=== PATIENT | female | born 1980 | race Caucasian/White ===

== ENCOUNTER 2023-05-02 12:17 | Emergency (ER) | payer OTHER, SELFPAY ==
[2023-05-02] VITALS (12 sets, daily range): BP systolic 115–121; BP diastolic 68–89; PULSE 63–78; RESP 15–34; TEMP 36.9; O2SAT 98–100; BMI 35.4
--- NOTE | 2023-05-02 12:32 | ECG_ITS ---
The [facility] Test Date: 2023-05-02 Pat Name: LAURA PERAZA Department: Room: - Gender: Female Precise Winder: : 1980 Requested By: Order Number: [id number] Reading MD: MILTON DONOVAN Measurements Intervals [place] Rate: 58 P: 66 DC: 150 QRS: 57 QRSD: 78 T: 61 QT: 410 QTc: 406 Interpretive Statements 1100 Sinus rhythm Non-Specific T wave inversion in aVL 9110 normal ECG No previous ECG available for comparison Electronically Signed On 05-03-2023 5:36:23 EDT by MILTON DONOVAN
--- NOTE | 2023-05-02 12:34 | ED_ITS ---
HPI - Syncope General Chief Complaint: Dizziness Stated Complaint: CHEST PAIN Time Seen by Provider: 05/02/23 12:27 Mode of arrival: walk-in Limitations: no limitations History of Present Illness HPI narrative: 42-year-old female presents because she passed out twice in the past week. The 1st time she was standing at work and she did not get injured. The 2nd time was last night and she was sitting on the edge her easy chair and she passed out and went to the floor. She didn't hit her head. She has some pain on the right lateral rib palpitations fever vomiting diarrhea. She has a history of anemia and has had to have iron transfusions in the past. Related Data Allergies Allergy/AdvReac Type Severity Reaction Status Date / Time MOBIC AdvReac Intermediate RASH Uncoded 05/02/23 12:33 Review of Systems ROS Narrative A ten point review of systems is negative except as noted above. Exam Narrative Exam Narrative: Nurses note and vital signs reviewed and patient is not hypoxic. General: The patient appears well and in no apparent distress. Patient is resting comfortably on cart. Skin: Warm, dry, no pallor noted. There is no rash noted. Head: Normocephalic, atraumatic Eye: Normal conjunctiva, no drainage Ears, Nose, Mouth, and Throat: oral mucosa is moist. Nares patent. Cardiovascular: Regular Rate and Rhythm Respiratory: Patient is in no distress, no accessory muscle use, lungs are clear to auscultation, no wheezing, rales or rhonchi. minimal tenderness to palpation in the right lateral rib area without crepitus bruise or abrasion Back: non-tender GI: soft and nontender Musculoskeletal: The patient has no evidence of calf tenderness, no pitting edema, symmetrical pulses noted bilaterally Neurological: A&O, normal speech Psychiatric: Cooperative Constitutional Vital Signs, click to edit/add: Last Vital Signs Temp 98.5 F 05/02/23 12:25 Pulse 70 05/02/23 13:40 Resp 34 H 05/02/23 13:40 BP 115/89 05/02/23 12:25 Pulse Ox 100 05/02/23 12:25 O2 Del Method Room Air 05/02/23 12:25 Course Vital Signs Vital signs: Vital Signs Temperature 98.5 F 05/02/23 12:25 Pulse Rate 72 05/02/23 12:25 Respiratory Rate 15 05/02/23 12:25 Blood Pressure 115/89 05/02/23 12:25 Pulse Oximetry 100 05/02/23 12:25 Oxygen Delivery Method Room Air 05/02/23 12:25 Temperature 98.5 F 05/02/23 12:25 Pulse Rate 70 05/02/23 13:40 Respiratory Rate 34 H 05/02/23 13:40 Blood Pressure 115/89 05/02/23 12:25 Pulse Oximetry 100 05/02/23 12:25 Oxygen Delivery Method Room Air 05/02/23 12:25 MDM - Syncope MDM Narrative Medical decision making narrative: her workup here is negative, hemoglobin is 10.8. She is asymptomatic now and will be discharged home. Treatment diagnosis and follow-up were discussed with the patient. Differential Diagnosis Differential diagnosis: Likely syncope due to orthostatic hypotension, vasovagal syncope and dehydration Lab Data Attestation: I reviewed the patient's lab results. Labs: Lab Results 05/02/23 Range/Units 12:45 WBC 7.7 (4.0-11.0) 10^3/uL RBC 3.85 L (4.20-5.40) 10^6/uL Hgb 10.8 L (12.0-16.0) g/dL Hct 34.0 L (36.0-48.0) % MCV 88.3 (81.0-99.0) fL MCH 28.1 (26.7-34.0) pg MCHC 31.8 (29.9-35.2) g/dL RDW 13.3 (11.0-15.0) % Plt Count 262 (150-450) 10^3/uL MPV 11.7 (9.5-13.5) fL Neut % (Auto) 63.6 (43.0-75.0) % Lymph % (Auto) 23.5 (20.5-60.0) % [place] % (Auto) 8.1 (1.7-12.0) % Eos % (Auto) 3.7 (0.9-7.0) % Baso % (Auto) 0.7 (0.2-2.0) % Neut # (Auto) 4.9 (1.4-6.5) 10^3/uL Lymph # (Auto) 1.8 (1.2-3.8) 10^3/uL [place] # (Auto) 0.6 (0.3-0.8) 10^3/uL Eos # (Auto) 0.3 (0.0-0.7) 10^3/uL Baso # (Auto) 0.1 (0.0-0.1) 10^3/uL Abs Immat Gran (auto) 0.03 (0.00-0.03) 10^3/uL Imm/Tot Granulo (auto) 0.4 (0.0-0.5) % Sodium 137 (136-145) mmol/L Potassium 3.9 (3.5-5.1) mmol/L Chloride 104 (98-107) mmol/L Carbon Dioxide 27.5 (21.0-32.0) mmol/L Anion Gap 9.4 BUN 14.0 (7.0-18.0) mg/dL Creatinine 0.84 (0.55-1.02) mg/dL Est GFR ( Amer) >60 (>=60) Est GFR (Non-Af Amer) >60 (>=60) BUN/Creatinine Ratio 16.7 Glucose 88 (74-106) mg/dL Calcium 8.5 (8.5-10.1) mg/dL Troponin I High Sens <4.0 L (4.0-51.3) pg/mL ECG Data Attestation: I personally reviewed and interpreted this ECG as follows: (EKG on my interpretation shows normal sinus rhythm with a rate of 58.) Discharge Plan Discharge Chief Complaint: Dizziness Clinical Impression: Syncope Patient Disposition: Home, Self-Care Time of Disposition Decision: 13:43 Condition: Good Mode of Transportation: Private Vehicle Instructions: Syncope (ED) Stand Alone Forms: Portal Instructions Referrals: JB CARSON [Primary Care Provider] - 1 week
[2023-05-02 12:55] LABS: Basophils Absolute Auto 0.1 10^3/uL (0.0-0.1); Basophils Percent Auto 0.7 % (0.2-2.0); Eosinophils Absolute Auto 0.3 10^3/uL (0.0-0.7); Eosinophils Percent Auto 3.7 % (0.9-7.0); Hemoglobin 10.8 g/dL (12.0-16.0); Immature Granulocytes Abs Auto 0.03 10^3/uL (0.00-0.03); Immature Granulocytes Pct Auto 0.4 % (0.0-0.5); Lymphocytes Absolute Auto 1.8 10^3/uL (1.2-3.8); Lymphocytes Percent Auto 23.5 % (20.5-60.0); Mean Corpuscular HGB Conc 31.8 g/dL (29.9-35.2); Mean Corpuscular Hemoglobin 28.1 pg (26.7-34.0); Mean Corpuscular Volume 88.3 fL (81.0-99.0); Mean Platelet Volume 11.7 fL (9.5-13.5); Monocytes Absolute Auto 0.6 10^3/uL (0.3-0.8); Monocytes Percent Auto 8.1 % (1.7-12.0); Neutrophils Absolute Auto 4.9 10^3/uL (1.4-6.5); Neutrophils Percent Auto 63.6 % (43.0-75.0); Platelet Count 262 10^3/uL (150-450); Red Blood Count 3.85 10^6/uL (4.20-5.40); Red Cell Distribution Width 13.3 % (11.0-15.0); White Blood Count 7.7 10^3/uL (4.0-11.0)
--- NOTE | 2023-05-02 13:00 | XR_ITS ---
The [address] [address] Patient Name: LAURA PERAZA MRN: [id number] date: 1980 Sex: F Assigned Patient Location: ER Current Patient Location: ER Accession/Order Number: [id number] Exam Date: 05/02/2023 12:58 Report Date: 05/02/2023 13:09 At the request of: JUAN RYDER Procedure: XR chest 1V EXAM: XR chest 1V HISTORY: . CP . COMPARISON: None. TECHNIQUE: Single view of the chest FINDINGS: Heart and vascularity are unremarkable. Lungs are free of focal infiltrates. EKG leads overlie the chest. XR/XR chest 1V IMPRESSION: No acute heart or lung disease identified. Electronically authenticated by: YG AYOUB Date: 05/02/2023 13:09
[2023-05-02 13:03] LABS: Anion Gap 9.4; BUN Creatinine Ratio 16.7; Calcium 8.5 mg/dL (8.5-10.1); Carbon Dioxide 27.5 mmol/L (21.0-32.0); Chloride 104 mmol/L (98-107); Estimated GFR (African America >60 (>=60); Estimated GFR (Non-African Ame >60 (>=60); Glucose 88 mg/dL (74-106); Potassium 3.9 mmol/L (3.5-5.1); Sodium 137 mmol/L (136-145)
[2023-05-02 13:12] LABS: Troponin I High Sensitivity <4.0 pg/mL (4.0-51.3)
== END 2023-05-02 14:08 | disposition home or self-care (01) ==
PROVIDERS: Emergency Provider Emergency Medicine
DX: R55 Syncope and collapse (principal)
CPT/HCPCS: 36415; 71045; 80048; 84484; 85025; 93005; 99285

== ENCOUNTER 2023-06-24 08:06 | Outpatient (OUT) | payer OTHER, SELFPAY ==
--- NOTE | 2023-06-24 | CT_ITS ---
The [address] [address] Patient Name: LAURA PERAZA MRN: [id number] date: 1980 Sex: F Assigned Patient Location: CT Current Patient Location: Accession/Order Number: [id number] Exam Date: 06/24/2023 08:15 Report Date: 06/25/2023 16:56 At the request of: NON-STAFF PHYSICIAN Procedure: CT foot RT wo con EXAM: CT foot RT wo con HISTORY: Right foot pain COMPARISON: None. TECHNIQUE: Axial CT imaging was performed. Sagittal and coronal reformatted/reconstructed sequences were additionally performed. FINDINGS: No gross fracture, dislocation, subluxation or osseous lesion. Age-related changes of the first metatarsophalangeal joint and sesamoids. The remainder of the joint spaces are otherwise unremarkable. The superficial subcutaneous soft tissues are free of edema, hematoma, mass or cyst. No muscle atrophy or fatty infiltration. CT/CT foot RT wo con IMPRESSION: Unremarkable foot CT for patient's age Electronically authenticated by: YG PÉREZ Date: 06/25/2023 16:56
== END 2023-06-24 08:07 | disposition home or self-care (01) ==
LOC: CT 08:07
DX: M79.671 Pain in right foot (principal)
CPT/HCPCS: 73700

== ENCOUNTER 2023-09-21 16:24 | Outpatient (OUT) | payer OTHER, SELFPAY ==
--- NOTE | 2023-09-21 16:30 | MR_ITS ---
The [place] [id number] Patient Name: LUARA PERAZA MRN: [id number] date: 1980 Sex: F Assigned Patient Location: MRI Current Patient Location: MRI Accession/Order Number: [id number] Exam Date: 09/21/2023 16:40 Report Date: 09/21/2023 19:03 At the request of: NON-STAFF PHYSICIAN Procedure: MR shoulder LT wo con MR shoulder LT wo con, 09/21/2023 4:40 PM EST INDICATION: pain in left shoulder COMPARISON: There is no appropriate prior study for comparison. TECHNIQUE: Multiplanar and multisequential MR images of the left shoulder were obtained without contrast. FINDINGS: There are mild hypertrophic degenerative changes of AC joint. There is no os acromiale. No Hill-Sachs is noted. No acute fracture or dislocation is noted. The quadrilateral space and supraspinous notch are unremarkable. The T2 prolongation within the insertional portions of infraspinatus may suggest tendinosis. The long head of biceps and supraspinatus and subscapularis and teres minor are unremarkable. No fatty muscle atrophy is noted. The labrum shows mild degenerative changes in the posterior portion. There is a Margie complex. There is trace intra articular joint effusion. Mild subacromial subdeltoid bursitis. MR/MR shoulder LT wo con IMPRESSION: Insertional tendinosis of infraspinatus. No high-grade tear. Mild subacromial subdeltoid bursitis. Electronically authenticated by: BEAN HOANG Date: 09/21/2023 19:03
== END 2023-09-21 16:25 | disposition home or self-care (01) ==
DX: M25.512 Pain in left shoulder (principal)
CPT/HCPCS: 73221

== ENCOUNTER 2024-03-12 16:29 | Outpatient (OUT) | payer OTHER, SELFPAY ==
--- NOTE | 2024-03-12 | MM_ITS ---
Patient Name: LAURA PERAZA MR#: [id number] : 1980 Exam Date: 03/12/2024 Ordering Doctor: MRS. JB CARSON NP RADIOLOGY REPORT PROCEDURE: MM TOMOSYNTHESIS SCREENING BI COMPARISON: MG MAMM SCREEN ANNEL W CAD, 06/23/2020. MG MAMM SCREEN 3D ANNEL CAD, 11/23/2021. INDICATIONS: Screening for malignant neoplasm Calculator Name NCI Breast Cancer Risk Assessment Tool 5 Year Breast Cancer Risk 1.30% Lifetime Breast Cancer Risk 12.90% Personal Breast Cancer No Personal Ovarian Cancer No Treatments None Family Cancers Grandmother-paternal with lung cancer at age ~65; Grandfather-paternal with colon cancer at age ~65. LOCATION: [facility] BREAST COMPOSITION: There are scattered areas of fibroglandular density. FINDINGS: DIAGNOSTIC CATEGORY 1--NEGATIVE. NO CHANGE FROM COMPARISON ASSESSMENT. Scattered benign-appearing calcifications are present. Scattered benign-appearing lymph nodes are present. RIGHT BREAST: No significant suspicious finding. LEFT BREAST: No significant suspicious finding. RECOMMENDATIONS: ROUTINE MAMMOGRAM AND CLINICAL EVALUATION IN 12 MONTHS. PLEASE NOTE: A NORMAL MAMMOGRAM DOES NOT EXCLUDE THE POSSIBILITY OF BREAST CANCER. A CLINICALLY SUSPICIOUS PALPABLE LUMP SHOULD BE BIOPSIED. Dictated by: Vinicius Ralph MD on 03/13/2024 at 07:35 Approved by: Vinicius Ralph MD on 03/13/2024 at 07:36
--- OUTSIDE RECORDS SUMMARY | 2024-03-12 16:40 | XMS_ITS | CCD ---
Author Organization [facility] Care Team Providers Care Lawyers Name Role Phone OLIVIA LIU Unavailable Un available OLIVIA LIU Unavailable Un available TIM Mora Attending Provider TIM Carson Primary Care Provider [phone] TIM Carson Referring Provider [phone] TIM Mora Attending Provider TIM Carson Primary Care Provider [phone] TIM Carson Referring Provider [phone] TIM Mora Attending Provider TIM Carson Primary Care Provider [phone] TIM Carsonca Referring Provider [phone] JB CARSON Attending Unavailable DR HERNANDO LAMA Consulting Unavailable ALLI JB Admitting Unavailable ALLI JB Consulting Unavailable ALLI JB Admitting Unavailable ALLI JB Attending Unavailable DAVID LOPEZ Consulting Unavailable JB CARSON Consulting Unavailable Marcela Mora Attending Unavail able Alli Jb Primary Care Unavailable Alli Jb Referring Unavailable Marcela Mora Admitting Unavail able Allergies Allergy Classification Reported Allergen(s) Allergy Type Date of Onset Reaction(s) Facility (5 sources) meloxicam; Translations: [meloxicam] Drug Allergy 01-25-2022 [facility] Medications Current Medications Medication Drug Class(es) Dates Sig (Normalized) Sig (Original) fexofenadine hydrochloride 6 mg/ml oral suspension (4 sources) Histamine-1 Receptor Antagonist Start: 01-25-2022 take 60 mg by mouth twice daily Fexofenadine (Sanjuana) 30 mg/5 mL Suspension Active 60 MG PO Twice daily January 24, 2022 11:00pm Problems Active Problems Problem Classification Problem Date Documented Da te Episodic/Chronic Deficiency and other anemia (1 source) Iron deficiency anemia secondary to blood loss (chronic); Translations: [Iron deficiency anemia secondary to blood loss (chronic)] Onset: 06-15-2022 Chronic Deficiency and other anemia (4 sources) Iron deficiency anemia; Translations: [Iron deficiency anemia, unspecified] 01-25-2022 Episodic Other non-traumatic joint disorders (4 sources) Pain in right wrist; Translations: [PAIN IN RIGHT WRIST] Onset: 08-04-2022 Episodic Other upper respiratory infections (4 sources) Upper respiratory infection; Translations: [Acute upper respiratory infection, unspecified] 02-24-2020 Episodic Past or Other Problems Problem Classification Problem Date Documented Da te Episodic/Chronic Deficiency and other anemia (4 sources) Iron deficiency anemia, unspecified; Translations: [Iron deficiency anemia, unspecified] Onset: 06-15-2022 04-05-2022 Episodic Nonspecific chest pain (1 source) Other chest pain; Translations: [Other chest pain] Onset: 05-31-2017 Episodic Other screening for suspected conditions (not mental disorders or infectious disease) (4 sources) Encounter for screening mammogram for malignant neoplasm of breast; Translations: [ENC SCR MAMMO MALIG NEOPLASM BREAST] Onset: 11-23-2021 Episodic Residual codes; unclassified (1 source) Family history of malignant neoplasm of digestive organs; Translations: [FAM HX MALIG NEOPLASM DIGESTIV ORGN] Onset: 11-25-2021 Episodic Residual codes; unclassified (1 source) Family history of malignant neoplasm of trachea, bronchus and lung; Translations: [FAM HX MALIG NEOPLSM TRACH BRON LNG] Onset: 11-25-2021 Episodic Results Test Name Value Interpretation Reference Range Facility XR WRIST RT MIN 3 Von 2021 XR WRIST RT MIN 3 V EXAM: XR WRIST RT LA N 3 V HISTORY: Pain of right wrist for the past 4 weeks after an injury. COMPARISON: None. TECHNIQUE: 3 views of the right wrist were obtained. FINDINGS: There is no evidence of an acute fracture or dislocation. Slight ulnar minus variance is present. No significant osseous abnormality is seen. A small calcification is seen along the radial aspect of the first carpometacarpal joint and the remainder the joint spaces are intact. No other soft tissue calcifications present. IMPRESSION: No acute fracture or dislocation. The joint spaces appear relatively intact throughout. Electronically authenticated by: DAVID LOPEZ Date: 2022-08-04 18:44 Normal [facility] Basophils Auto (Bld) [#/Vol] Ordered By: Marcela Mora on 06-08-2022 Basophils (Bld) [#/Vol] 0.1 10*3/uL 0.0-0.2 [facility] Basophils/100 WBC Auto (Bld) Ordered By: Marcela Mora on 06-08-2022 Basophils/100 WBC (Bld) 1.0 % . [facility] Body fluid albumin measureme nt (mass/volume)Ordered By: Marcela Mora on 06-08-2022 Albumin (Body fld) [Mass/Vol] 4.1 g/dL 3.2-5.5 [facility] CT biopsyOrdered By: Marcela Hernandez on 06-08-2022 Transferrin [Mass/Vol] 237 mg/dL 180-[facility] Creat[facility] and Glomerular fi ltration rate.predicted panel (S/P/Bld)Ordered By: Marcela Mora on 06-08-2022 Creatinine [Mass/Vol] 0.76 mg/dL 0.44-1.03 [facility] Eosinophils Auto (Bld) [#/Vo l]Ordered By: Marcela Mora on 06-08-2022 Eosinophils (Bld) [#/Vol] 0.2 10*3/uL 0.0-0.45 [facility] Eosinophils/100 WBC Auto (Bl d)Ordered By: Marcela Mora on 06-08-2022 Eosinophils/100 WBC (Bld) 3.2 % . [facility] Erythrocyte distribution wid th Auto (RBC) [Ratio]Ordered By: Marcela Mora on 06-08-2022 Erythrocyte distribution width (RBC) [Ratio] 13.9 % 11.9-15.3 [facility] Erythrocyte sedimentation ra te by Photometric methodOrdered By: Marcela Mora on 06-08-2022 ESR Photometric method (Bld) [Velocity] 20 mm/hr 0- [facility] Estimated glomerular filtrat ion rate (GFR) non- AmericanOrdered By: Marcela Mora on 06-08-2022 GFR/1.73 sq M.predicted among non-blacks MDRD (S/P/Bld) [Vol rate/Area] > 60 mL/Min [facility] Ferritin [Mass/volume] in Se rum or PlasmaOrdered By: Marcela Mora on 06-08-2022 Ferritin [Mass/Vol] 205.5 ng/mL 11-306.[address] [facility] Globulin Calc (S) [Mass/Vol] Ordered By: Marcela Mora on 06-08-2022 Globulin (S) [Mass/Vol] 3.2 g/dL [facility] Hematocrit Auto (Bld) [Volum e fraction]Ordered By: Marcela Mora on 06-08-2022 Hematocrit (Bld) [Volume fraction] 36.2 % 34.0-46.4 [facility] Hemoglobin [Mass/volume] in BloodOrdered By: Marcela Mora on 06-08-2022 Hemoglobin (Bld) [Mass/Vol] 11.7 g/dL 11.8-15.4 [facility] Iron [Mass/volume] in Serum or PlasmaOrdered By: Marcela Mora on 06-08-2022 Iron [Mass/Vol] 134 ug/dL 40-150 [facility] Iron binding capacity [Mass/ volume] in Serum or PlasmaOrdered By: Marcela Mora 06-08-2022 Iron binding capacity [Mass/Vol] 332 ug/dL 255-450 [facility] Iron saturation [Mass Fracti on] in Serum or PlasmaOrdered By: Marcela Mora on 06-08-2022 Iron saturation [Mass fraction] 40.0 % 20-50 [facility] Laboratory - Hematology and Cell countsOrdered By: Marcela Mora on 06-08-2022 Nucleated RBC/100 WBC (Bld) [Ratio] 0.1 % 0-0.5 [facility] Leukocytes [#/volume] in Blo od by Automated countOrdered By: Marcela Mora on 06-08-2022 WBC (Bld) [#/Vol] 7.8 10*3/uL 4.5-11.0 [facility] Lymphocytes Auto (Bld) [#/Vo l]Ordered By: Marcela Mora on 06-08-2022 Lymphocytes (Bld) [#/Vol] 1.5 10*3/uL 1.00-4.8 [facility] Lymphocytes/100 WBC Auto (Bl d)Ordered By: Marcela Mora on 06-08-2022 Lymphocytes/100 WBC (Bld) 19.4 % . [facility] MCH Auto (RBC) [Entitic mass ]Ordered By: Marcela Mora on 06-08-2022 MCH (RBC) [Entitic mass] 28.7 pg 24.7-34.3 [facility] MCHC Auto (RBC) [Mass/Vol]Or dered By: Marcela Mora on 06-08-2022 MCHC (RBC) [Mass/Vol] 32.3 g/dL 32.0-35.0 [facility] MCV Auto (RBC) [Entitic vol] Ordered By: Marcela Mora on 06-08-2022 MCV (RBC) [Entitic vol] 88.9 fL 80-100 [facility] Monocyte %Ordered By: Marcela alvarenga on 06-08-2022 Monocyte % 99 ug/dL 80-158 [facility] Comment on above: This test was develo ped and its performance characteristicsdetermined by [facility]. It has not been cleared orapproved by the Food and Drug Administration. Detection Limit = 5Performed at: [facility] [id number] Director: Brandon Silvestre MD, Phone: [phone] Monocytes Auto (Bld) [#/Vol] Ordered By: Marcela Mora on 06-08-2022 Monocytes (Bld) [#/Vol] 0.5 10*3/uL 0.0-0.8 [facility] Monocytes/100 WBC Auto (Bld) Ordered By: Marcela Mora on 06-08-2022 Monocytes/100 WBC (Bld) 6.6 % . [facility] Neutrophils Auto (Bld) [#/Vo l]Ordered By: Marcela Guzmanboske on 06-08-2022 Neutrophils (Bld) [#/Vol] 5.4 10*3/uL 1.8-7.7 [facility] Neutrophils/100 WBC Auto (Bl d)Ordered By: Marcela Morgan on 06-08-2022 Neutrophils/100 WBC (Bld) 69.8 % . [facility] No Panel InformationOrdered By: Marcela Morgan on 06-08-2022 Absolute Reticulocyte Count 0.068 10*6/uL 0.024-0.084 [facility] Percent Reticulocyte Count 1.7 % 0.5-1.5 [facility] Slides for Pathologist Review Ordered path review [facility] Estimated GFR () > 60 mL/Min [facility] Comment on above: GFR estimated refere nce range: According to KDOQI guidelines, <60 ml/min/1.73m2 is sufficient to diagnose a patient with chronic kidney disease. Pharmacy Creatinine Clearance (Chem 125.48 [facility] Platelet mean volume Auto (B ld) [Entitic vol]Ordered By: Marcela Morgan on 06-08-2022 Platelet mean volume (Bld) [Entitic vol] 10.6 fL 6.3-10.7 [facility] Platelets Auto (Bld) [#/Vol] Ordered By: Marcela Morgan on 06-08-2022 Platelets (Bld) [#/Vol] 256 10*3/uL 150-450 [facility] Protein [Mass/volume] in Ser um or PlasmaOrdered By: Marcela Mora on 06-08-2022 Protein [Mass/Vol] 7.3 g/dL 6.1-7.9 [facility] RBC Auto (Bld) [#/Vol]Ordere d By: Marcela Morgan on 06-08-2022 RBC (Bld) [#/Vol] 4.07 10*6/uL 3.60-5.00 [facility] Serum or plasma alanine lugo otransferase measurement without P-5'-P (enzymatic activiOrdered By: Marcela Morgan on 06-08-2022 ALT No additional P-5'-P [Catalytic activity/Vol] 20 U/L 10-60 [facility] Serum or plasma albumin/glob ulin mass ratioOrdered By: Marcela Morgan on 06-08-2022 Albumin/Globulin [Mass ratio] 1.3 {ratio} [facility] Serum or plasma alkaline zo sphatase measurement (enzymatic activity/volume)Ordered By: Marcela Morgan on 06-08-2022 ALP [Catalytic activity/Vol] 53 U/L 32-92 [facility] Serum or plasma anion gap de terminationOrdered By: Marcela Morgan on 06-08-2022 Anion gap [Moles/Vol] 10.0 mmol/L 6.0-15.0 [facility] Serum or plasma aspartate am inotransferase measurement (enzymatic activity/volume)Ordered By: Marcela Morgan on 06-08-2022 AST [Catalytic activity/Vol] 17 U/L 10-42 [facility] Serum or plasma calcium sawyer urement (mass/volume)Ordered By: Marcela Morgan on 06-08-2022 Calcium [Mass/Vol] 9.3 mg/dL 8.2-10.2 [facility] Serum or plasma ceruloplasmi n measurement (mass/volume)Ordered By: Marcela Morgan on 06-08-2022 Ceruloplasmin [Mass/Vol] 23.1 mg/dL 19.0-39.0 [facility] Comment on above: Performed at: [facility] [address] [id number] Director: Nicholas Mejia PhD, Phone: [phone] Serum or plasma chloride diogo surement (moles/volume)Ordered By: Marcela Morgan on 06-08-2022 Chloride [Moles/Vol] 102 mmol/L 95-[address] [facility] Serum or plasma erythropoiet in (EPO) measurement (units/volume)Ordered By: Marcela Morgan on 06-08-2022 Erythropoietin (EPO) Qn 11.6 mIU/mL 2.6-18.5 [facility] Comment on above: [employer] Uni[employer] el DxI 800 Immunoassay SystemValues obtained with different assay methods or kits cannotbe used interchangeably. Results cannot be interpreted asabsolute evidence of the presence or absence of malignantdisease.Performed at: [facility] [employer] [id number] [place], [place] [id number] Director: Nicholas Mejia PhD, Phone: [phone] Serum or plasma glucose sawyer urement (mass/volume)Ordered By: Marcela Mora on 06-08-2022 Glucose [Mass/Vol] 92 mg/dL 70-100 [facility] Comment on above: ADA recommended refe rence rangeRandom Glucose Reference Range is dependent on time and content of last meal. Glucose of more than 200 mg/dL in a nonstressed, ambulatory subject supports the diagnosis of Diabetes Mellitus. Serum or plasma potassium me asurement (moles/volume)Ordered By: Marcela Mora on 06-08-2022 Potassium [Moles/Vol] 4.0 mmol/L 3.5-5.1 [facility] Serum or plasma sodium measu rement (moles/volume)Ordered By: Marcela Mora on 06-08-2022 Sodium [Moles/Vol] 133 mmol/L 136-146 [facility] Serum or plasma total biliru bin measurement (mass/volume)Ordered By: Marcela Mora on 06-08-2022 Bilirubin [Mass/Vol] 0.7 mg/dL 0.3-1.[address] [facility] Serum or plasma total carbon dioxide measurement (moles/volume)Ordered By: Marcela Mora on 06-08-2022 CO2 [Moles/Vol] 25.0 mmol/L 22.0-30.0 [facility] Serum or plasma urea nitroge n measurement (mass/volume)Ordered By: Marcela Mora on 06-08-2022 Urea nitrogen [Mass/Vol] 10 mg/dL 9-23 [facility] Basophils Auto (Bld) [#/Vol] Ordered By: Marcela Mora on 05-03-2022 Basophils (Bld) [#/Vol] 0.1 10*3/uL 0.0-0.2 [facility] Basophils/100 WBC Auto (Bld) Ordered By: Marcela Mora on 05-03-2022 Basophils/100 WBC (Bld) 1.0 % . [facility] Blood hemoglobin measurement (mass/volume)Ordered By: Marcela Mora on 05-03-2022 Hemoglobin (Bld) [Mass/Vol] 10.8 g/dL 11.8-15.4 [facility] Blood leukocytes automated c ount (number/volume)Ordered By: Marcela Mora on 05-03-2022 WBC (Bld) [#/Vol] 9.7 10*3/uL 4.5-11.[address] [facility] CT biopsyOrdered By: Marcela Hernandez on 05-03-2022 Transferrin [Mass/Vol] 200 mg/dL 180-380 [facility] Eosinophils Auto (Bld) [#/Vo l]Ordered By: Marcela Mora on 05-03-2022 Eosinophils (Bld) [#/Vol] 0.3 10*3/uL 0.0-0.45 [facility] Eosinophils/100 WBC Auto (Bl d)Ordered By: Marcela Mora on 05-03-2022 Eosinophils/100 WBC (Bld) 3.1 % . [facility] Erythrocyte distribution wid th Auto (RBC) [Ratio]Ordered By: Marcela Mora on 05-03-2022 Erythrocyte distribution width (RBC) [Ratio] 14.5 % 11.9-15.3 [facility] Ferritin [Mass/volume] in Se rum or PlasmaOrdered By: Marcela Mora on 05-03-2022 Ferritin [Mass/Vol] 357.1 ng/mL 11-306.[address] [facility] Hematocrit Auto (Bld) [Volum e fraction]Ordered By: Marcela Mora on 05-03-2022 Hematocrit (Bld) [Volume fraction] 33.4 % 34.0-46.4 [facility] Iron [Mass/volume] in Serum or PlasmaOrdered By: Marcela Mora on 05-03-2022 Iron [Mass/Vol] 77 ug/dL 40-150 [facility] Iron binding capacity [Mass/ volume] in Serum or PlasmaOrdered By: Marcela Mora on 05-03-2022 Iron binding capacity [Mass/Vol] 280 ug/dL 255-450 [facility] Iron saturation [Mass Fracti on] in Serum or PlasmaOrdered By: Marcela Mora on 05-03-2022 Iron saturation [Mass fraction] 27.0 % 20-50 [facility] Laboratory - Hematology and Cell countsOrdered By: Marcela Mora on 05-03-2022 Nucleated RBC/100 WBC (Bld) [Ratio] 0.0 % 0-0.5 [facility] Lymphocytes Auto (Bld) [#/Vo l]Ordered By: Marcela Mora on 05-03-2022 Lymphocytes (Bld) [#/Vol] 1.9 10*3/uL 1.00-4.8 [facility] Lymphocytes/100 WBC Auto (Bl d)Ordered By: Marcela Mora on 05-03-2022 Lymphocytes/100 WBC (Bld) 19.1 % . [facility] MCH Auto (RBC) [Entitic mass ]Ordered By: Marcela Mora on 05-03-2022 MCH (RBC) [Entitic mass] 29.1 pg 24.7-34.3 [facility] MCHC Auto (RBC) [Mass/Vol]Or dered By: Marcela Mora on 05-03-2022 MCHC (RBC) [Mass/Vol] 32.4 g/dL 32.0-35.0 [facility] MCV Auto (RBC) [Entitic vol] Ordered By: Marcela Mora on 05-03-2022 MCV (RBC) [Entitic vol] 89.7 fL 80-100 [facility] Monocytes Auto (Bld) [#/Vol] Ordered By: Marcela Mora on 05-03-2022 Monocytes (Bld) [#/Vol] 0.9 10*3/uL 0.0-0.8 [facility] Monocytes/100 WBC Auto (Bld) Ordered By: Marcela Mora on 05-03-2022 Monocytes/100 WBC (Bld) 8.9 % . [facility] Neutrophils Auto (Bld) [#/Vo l]Ordered By: Marcela Mora on 05-03-2022 Neutrophils (Bld) [#/Vol] 6.6 10*3/uL 1.8-7.7 [facility] Neutrophils/100 WBC Auto (Bl d)Ordered By: Marcela Mora on 05-03-2022 Neutrophils/100 WBC (Bld) 67.9 % . [facility] Platelet mean volume Auto (B ld) [Entitic vol]Ordered By: Marcela Mora on 05-03-2022 Platelet mean volume (Bld) [Entitic vol] 10.4 fL 6.3-10.7 [facility] Platelets Auto (Bld) [#/Vol] Ordered By: Marcela Mora on 05-03-2022 Platelets (Bld) [#/Vol] 232 10*3/uL 150-450 [facility] RBC Auto (Bld) [#/Vol]Ordere d By: Marcela Mora on 05-03-2022 RBC (Bld) [#/Vol] 3.73 10*6/uL 3.60-5.00 [facility] Albumin [Mass/volume] in Ser um or PlasmaOrdered By: Marcela Mora on 03-29-2022 Albumin [Mass/Vol] 3.9 g/dL 3.2-5.5 [facility] Basophils Auto (Bld) [#/Vol] Ordered By: Marcela Mora on 03-29-2022 Basophils (Bld) [#/Vol] 0.1 10*3/uL 0.0-0.2 [facility] Basophils/100 WBC Auto (Bld) Ordered By: Marcela Mora on 03-29-2022 Basophils/100 WBC (Bld) 0.8 % . [facility] Blood hemoglobin measurement (mass/volume)Ordered By: Marcela Mora on 03-29-2022 Hemoglobin (Bld) [Mass/Vol] 11.4 g/dL 11.8-15.4 [facility] Blood leukocytes automated c ount (number/volume)Ordered By: Marcela Mora on 03-29-2022 WBC (Bld) [#/Vol] 7.6 10*3/uL 4.5-11.[address] [facility] CT biopsyOrdered By: Marcela Hernandez on 03-29-2022 Transferrin [Mass/Vol] 257 mg/dL 180-380 [facility] Creatinine and Glomerular fi ltration rate.predicted panel (S/P/Bld)Ordered By: Marcela Mora on 03-29-2022 Creatinine [Mass/Vol] 0.86 mg/dL 0.44-1.03 [facility] Eosinophils Auto (Bld) [#/Vo l]Ordered By: Marcela Mora on 03-29-2022 Eosinophils (Bld) [#/Vol] 0.3 10*3/uL 0.0-0.45 [facility] Eosinophils/100 WBC Auto (Bl d)Ordered By: Marcela Mora on 03-29-2022 Eosinophils/100 WBC (Bld) 3.9 % . [facility] Erythrocyte distribution wid th Auto (RBC) [Ratio]Ordered By: Marcela Mora on 03-29-2022 Erythrocyte distribution width (RBC) [Ratio] 13.4 % 11.9-15.3 [facility] Estimated glomerular filtrat ion rate (GFR) non- AmericanOrdered By: Marcela Mora on 03-29-2022 GFR/1.73 sq M.predicted among non-blacks MDRD (S/P/Bld) [Vol rate/Area] > 60 mL/Min [facility] Ferritin [Mass/volume] in Se rum or PlasmaOrdered By: Marcela Mora on 03-29-2022 Ferritin [Mass/Vol] 32.3 ng/mL 11-306.8 [facility] Globulin Calc (S) [Mass/Vol] Ordered By: Marcela Mora on 03-29-2022 Globulin (S) [Mass/Vol] 2.7 g/dL [facility] Hematocrit Auto (Bld) [Volum e fraction]Ordered By: Marcela Mora on 03-29-2022 Hematocrit (Bld) [Volume fraction] 35.1 % 34.0-46.4 [facility] Iron [Mass/volume] in Serum or PlasmaOrdered By: Marcela Mora on 03-29-2022 Iron [Mass/Vol] 121 ug/dL 40-150 [facility] Iron binding capacity [Mass/ volume] in Serum or PlasmaOrdered By: Marcela Mora on 03-29-2022 Iron binding capacity [Mass/Vol] 360 ug/dL 255-450 [facility] Iron saturation [Mass Fracti on] in Serum or PlasmaOrdered By: Marcela Mora on 03-29-2022 Iron saturation [Mass fraction] 33.0 % 20-50 [facility] Laboratory - Hematology and Cell countsOrdered By: Marcela Mora on 03-29-2022 Nucleated RBC/100 WBC (Bld) [Ratio] 0.0 % 0-0.5 [facility] Lymphocytes Auto (Bld) [#/Vo l]Ordered By: Marcela Mora on 03-29-2022 Lymphocytes (Bld) [#/Vol] 1.5 10*3/uL 1.00-4.8 [facility] Lymphocytes/100 WBC Auto (Bl d)Ordered By: Marcela Mora on 03-29-2022 Lymphocytes/100 WBC (Bld) 19.8 % . [facility] MCH Auto (RBC) [Entitic mass ]Ordered By: Marcela Mora on 03-29-2022 MCH (RBC) [Entitic mass] 28.1 pg 24.7-34.3 [facility] MCHC Auto (RBC) [Mass/Vol]Or dered By: Marcela Mora on 03-29-2022 MCHC (RBC) [Mass/Vol] 32.4 g/dL 32.0-35.0 [facility] MCV Auto (RBC) [Entitic vol] Ordered By: Marcela Mora on 03-29-2022 MCV (RBC) [Entitic vol] 86.7 fL 80-100 [facility] Monocytes Auto (Bld) [#/Vol] Ordered By: Marcela Mora on 03-29-2022 Monocytes (Bld) [#/Vol] 0.6 10*3/uL 0.0-0.8 [facility] Monocytes/100 WBC Auto (Bld) Ordered By: Marcela Mora on 03-29-2022 Monocytes/100 WBC (Bld) 8.1 % . [facility] Neutrophils Auto (Bld) [#/Vo l]Ordered By: Marcela Mora on 03-29-2022 Neutrophils (Bld) [#/Vol] 5.1 10*3/uL 1.8-7.7 [facility] Neutrophils/100 WBC Auto (Bl d)Ordered By: Marcela Mora on 03-29-2022 Neutrophils/100 WBC (Bld) 67.4 % . [facility] No Panel InformationOrdered By: Marcela Mora on 03-29-2022 Absolute Reticulocyte Count 0.062 10*6/uL 0.024-0.084 [facility] Estimated GFR () > 60 mL/Min [facility] Comment on above: GFR estimated refere nce range: According to KDOQI guidelines, <60 ml/min/1.73m2 is sufficient to diagnose a patient with chronic kidney disease. Percent Reticulocyte Count 1.5 % 0.5-1.5 [facility] Pharmacy Creatinine Clearance (Chem 111.53 [facility] Platelet mean volume Auto (B ld) [Entitic vol]Ordered By: Marcela Mora on 03-29-2022 Platelet mean volume (Bld) [Entitic vol] 10.5 fL 6.3-10.7 [facility] Platelets Auto (Bld) [#/Vol] Ordered By: Marcela Mora on 03-29-2022 Platelets (Bld) [#/Vol] 268 10*3/uL 150-450 [facility] Protein [Mass/volume] in Ser um or PlasmaOrdered By: Marcela Mora on 03-29-2022 Protein [Mass/Vol] 6.6 g/dL 6.1-7.9 [facility] RBC Auto (Bld) [#/Vol]Ordere d By: Marcela Mora on 03-29-2022 RBC (Bld) [#/Vol] 4.05 10*6/uL 3.60-5.00 [facility] Serum or plasma alanine lugo otransferase measurement without P-5'-P (enzymatic activiOrdered By: Marcela Mora on 03-29-2022 ALT No additional P-5'-P [Catalytic activity/Vol] 14 U/L 10-60 [facility] Serum or plasma albumin/glob ulin mass ratioOrdered By: Marcela Mora on 03-29-2022 Albumin/Globulin [Mass ratio] 1.4 {ratio} [facility] Serum or plasma alkaline zo sphatase measurement (enzymatic activity/volume)Ordered By: Marcela Mora on 03-29-2022 ALP [Catalytic activity/Vol] 52 U/L 32-92 [facility] Serum or plasma aspartate am inotransferase measurement (enzymatic activity/volume)Ordered By: Marcela Mora on 03-29-2022 AST [Catalytic activity/Vol] 15 U/L 10-42 [facility] Serum or plasma calcium sawyer urement (mass/volume)Ordered By: Marcela Mora on 03-29-2022 Calcium [Mass/Vol] 9.4 mg/dL 8.2-10.2 [facility] Serum or plasma chloride diogo surement (moles/volume)Ordered By: Marcela Mora on 03-29-2022 Chloride [Moles/Vol] 103 mmol/L 95-[address] [facility] Serum or plasma erythropoiet in (EPO) measurement (units/volume)Ordered By: Marcela Mora on 03-29-2022 Erythropoietin (EPO) Qn 21.5 mIU/mL 2.6-18.5 [facility] Comment on above: [employer] DxI 800 Immunoassay System Values obtained with different assay methods or kits cannot be used interchangeably. Results cannot be interpreted as absolute evidence of the presence or absence of malignant disease. Performed at: [address] [id number] Graduate Internship: Nicholas Mejia PhD, Phone: [phone] Serum or plasma glucose sawyer urement (mass/volume)Ordered By: Marcela Mora on 03-29-2022 Glucose [Mass/Vol] 89 mg/dL 70-100 [facility] Comment on above: ADA recommended refe rence range Random Glucose Reference Range is dependent on time and content of last meal. Glucose of more than 200 mg/dL in a nonstressed, ambulatory subject supports the diagnosis of Diabetes Mellitus. Serum or plasma potassium me asurement (moles/volume)Ordered By: Marcela Mora on 03-29-2022 Potassium [Moles/Vol] 4.4 mmol/L 3.5-5.1 [facility] Serum or plasma sodium measu rement (moles/volume)Ordered By: Marcela Mora on 03-29-2022 Sodium [Moles/Vol] 140 mmol/L 136-146 [facility] Serum or plasma total biliru bin measurement (mass/volume)Ordered By: Marcela Mora on 08-09-2022 Bilirubin [Mass/Vol] 0.9 mg/dL 0.3-1.[address] [facility] Serum or plasma total carbon dioxide measurement (moles/volume)Ordered By: Marcela Sanchezijeoma on 03-29-2022 CO2 [Moles/Vol] 26.0 mmol/L 22.0-30.0 [facility] Serum or plasma urea nitroge n measurement (mass/volume)Ordered By: Marcela Guzmanwilliam on 03-29-2022 Urea nitrogen [Mass/Vol] 9 mg/dL 05-13 [facility] Coding Summaryon 11-29-2021 Coding Summary HTMLBase 64 FuzdccrkCBj4bWi+PGhlYWQ+PE1 [id number] ZKMFIJIB8GUQ8csBS1DXkrO3Ror iAv DdusiSKwTF45JSp2DNC3aDjuUHw hsB9egSLjD7h1GwYiYL24rP88GX mdMNHlChI1EoBoaifesODz S7ifIoXtpGJeXvp+PHRhYmxlIHd tONEjVSenTOLiItIxlSooZZ3sSb 9yZGVyLWNvbGxhcHNlOiBj m0rcTZKzZBipGV5qvGnpP8DdfTH 7UNTab1y9Pz71iMU+TPKtZPV1yA eeWMpoe260RyIdq3nlOBB5 hNZnBLraSMF7V29rm1R4QPVtJNG hBZZ8kDY9qP2gbRgjgtjuD1FnjF XaRhP5NCS4nRVuiA4jwYjj aangzX7hYao+M41FUW8KLHEBKR6 KKww4V2XaDyuxbSE+PI30GGBsEV 61jJIstMTfw6bfjMg0RlHg ANYdIJM9lNlvHGgpi7VxVEGdV32 zuIUal4W0NPSduYwcmTHkTxPcsC Q2hY4bAPatjhvlh5quugmx Ylzdm5axcg39iO17L18jQDcnBVM hKJS1EORsFFIkbJyfhp1xtH3tRo 8+QBnvu6coj9cdmCt2CkIu CVTfmkHbtUscLPN9y8XbQk00Z7W ksJkhg3RqXhl7is92eZRas5X9dI U0BSfbTSUayG1oTMhxRiS5 ENObYgCnkL97zOSnTGfpRj8opZi fpJswLO5uATVrmsloYQWdyR6tPP FsxQIlbRdtUP8nCAZldlsn m433RwSpPVT8JVQbpQZgC8LbsG8 lVvNoMVRzGTOiD0LesDUiVJkfA9 83UDmkQtF3WSRmojExX2Cr FYDieRioVaF5e1U8Wb8Dc4Kaudu bDZV6XDpwUOV2AeTgQiJzQxV1C5 DrRqi5APKpdCvbCU5tS0Bs AMBpickzmvygkJV2QDYkGFSsjJ2 5iFNwSIbqNm2ol1Y0o136LSXsXM KrxW72Va9jwHhoEIOlaOCI dX5jbaxkz5hbidjqZzMiWSKgBDr 4YKx4NVRbjEceEpVhMOP0LuF8LY M0bNKfpY8ppDcabmakdC1v Oyc+V09leR0nUWY1VZD0ywctKHD nsyKxTN93JV90Z9RzIoojdAUelV U+JCEetkLzgOhiVP3eSeRg i4yhh6JsWZsaR8EnGDGnXRkiCld 1GKUwCCW7lVE6qV3wHQKnGJcya3 K1cRH5O3ZdfpRqrr3nc3cu VUFqJRbhO97yyJIbq9Z5BKGihYH 3KHSdxLwvIvAizO06Hbj+PGNvbG nmu6EmLuxse4llm0vnyIs7 OjHyNEXjhxKjfShcGYT6i0CgOm9 1C71uQGkvWQGeCHYwDAYnOVMbkP jkug5lnX9kKi8+PGNvbCB3 dSP1fD6rFJVwTxG2RSmyE311WvL jfZJwPyitk2jxw7yryAm2SzPdIU EyzfDhfIekFJH9h7MrOn57 H62lBFluWJGdQYWyMSTnRZBosWr tme7wbZ2tBx0+KD8kn7hars34nU 48dHI+HZUwVZT2qJhpYItp BTRkhH6aPBcaBbF6KVNsXsDevL4 1lDEzDLiwXw4tmDlvnJicZY6tRK Dlsewdr213RkJrl2syERXg sFIcULfwFWE6D44sj3D6HOAgTSX kJRU2sKE2xJ3diQsfvffymGSikS dzazFbaHnwEDdpZEdbX856 IHRvcDsnPlBhdGllbnQgTmFtZTo 3X2GgQkz9TJTyjIegST1nwPWePE nsSx6lcIsytLuwSI1kTPSe jkeai538AhYya8fbWXQkuXCtIJj aNTF1T43lx1S8HGFqTOJaOWU0jX J8bO7uaUutmsnreZKokBqj acYgjNevXBivNRjdU016NTDmxZi cBhTaleZrMAEmnDJ7SK52AC00iK Vil9O0vYL0Q2QkMERgunbi kuswoAC4JZElZRUboI61Jf4lcFt bBm4aJUUmCAQ5IGYikGUcN2AkiA 2pVfDkSWQjDMXqV9BxuMFj VPokU982NIeiIlA1ELOhfiCwY5M vYUVavFqnWaD3i9Z4Qo8ON5F7HG 69KY29wIUis3X5iTH1Q7Oa PWUianamuhzciFQ7ONXkHESttV6 4Ux2isJnuEz3ySJPdTBE0DCOykO KiP0RmrA9tLzAzUYFzAMNe B0UoyYJdWKakF306TAojXmP7BXB eeqQoV7HuXHUiiWgyDfT7o5H2Mo 8DGUq5EN69TF91oMEuw2K2 kUR8U9PqQSQcjdkfwwcylER0QTB uOGWlfF37Oi4paEgdUl7rPGPhDQ K3TNKfwZBxK3PzoV4tKePm YJCdXERgC6QrlBQkUFtpM645AJy kScU6ZQCynfLnI3LlXZOrpPosWz Z7t2N9Mm8GLPXiAS82DNG3 vXE7HS06KW55G3JcTnpohXLaaVN +PHRhYmxlIHdpZHRoPScxMDAlJy QnsOuaKJ6yBq2gVLOuOOYd yCkvoNDgMmElb6jiUKByGJjmUA7 iuJqtE8CbqCC2PZHrs3d5Xm80D3 1xJ0OyjLX+WZQgzWR3uGX4 mS1fOjOvAnQ0ONbjK262TuPypFQ yArjlh7vvc5yhfWs0VaO3APRjhg BdcMssSKN1i4LpNh74Y15w IHdpZHRoPSIxNSUiIHZhbGlnbj0 prQ9cUt4+BDLvoXQ7mKN0oQ7sUu AeBzL6ILfiY855ZjYvqQUb Zdmun8lcs6gzuQk1OtMfAZHbqkY ixGrqGNW9e3NhLn71K4MzaSnrg4 GvZry9xy29aENuf1V8hAI6 K9EpUQZmrucifOYyiTdnYE6sJEC hssljOTEgiN4kEBVgF7q2JyHyRr Z3ZDsdL8OgujK8ULKmhSSu MWcwPJZ3I66by7K4JYGxQPZqGJT 5yOI3hM8tkEljitrgsTHrmUvust KbbJhqLQkrBGgtK150BVTr tBwwHDEkdA1rEJDkxBOrhLlfSF1 wNTBpbjsnPlNBVFRFUkxFRSwgVE DLXBFGVCJ1M8FuSbj5CFYh dPztAZ6jqRGrIYhmKf9okKugsLg sOZ1pQFTbcmjcQJVgdD7zETIrjS XxvXzgMA7tBNKkkwcuu108 XcFgOUZ6JYKfkTTuE7MqnQ1jMhP jMGUzHFEyA0OrnTBaLCdcQ564FO awIqS8UJKzrnJiY5TwGZBi eHccCiV2q4A0Jo2bCO2bOn7bNKf eCC02BB83qRSoj0B2wNP9B7JwKC ItapljzzfkuYN6BIDyWBGn aM68wLCaFSfeLe7we8L2x807EMK mSVZsuS30Ld7qtOoeABDjzIJGcC 6bgfloc0qlfnzkGyCzBUGu UJo2CLy9BDXloNyyYdDcHIW0ItY 8LFT7nQIziZ5muXrnfncjsX1xGv c+GRDzLHFrlfA4C0VdDla3 ICUacTkiXN9fpECcALtsLj4lrDo llTmaEW2eVQLmneueXDLgdN1nXE FvtXVcxXqvKM8mIZVmiyvp s850LaQuSTX6JHGzvGHqW5PtsP5 kJgIjVXMwYKFeV8GvbXRvQFawT9 05WErqQxL2DIMmnuXyF1Dl UBQorXhpEeI4s6R0Ow1GKD0EWTF 3O3DeTpz4VHKkfBgmKG4tfBPhSR nqJj1ksDxivOinNP0hQOUx mvkxJIVqcV2iIUEjzCQxeSgsSM6 qBLLhwmaws079RpIcAAV1BBJbbB WmO6HglQ5wPvOnQOMmGNVd D3RceSOhORhfU120PSynVmT4LGA tibGhU0YpTVPfhGayCkN6s4I3Xy 5PUDwvdGQ+HQ83gs83X8Tj AdtzLnn1ORZlDBZ9iFZ3jG0gDUV mJYjbd1B6cRY7V5HudhWeqv4tf3 imSWFdUVurY56naQEgk5F4 DOKeoAP3VPWmyAneFdEaaU60Hfv +VKIffBnxi9MgRhffe5qae4zulR d5XwOhNHNkdwTtoBuaMEJ8 s7HpSp14T25tPFtzAHAyWIVmLMU iERVppHoshq3leZ6nVd6+PGNvbC A6lZA0zW9cXnByZbC8OCkv H290MoLyyFCoKmsqf0lnf5bhfAw 9HaXuWFUwmnKaiQqtCWP3t9FiVu 95L6XloHgqf3DqZna2hp74 kZZca2S3qRQ4A3MeFAAnlczgnVP geJrkFG7kMDOekmhkLFGbxB7dKD HbP9n7CoGdIjT9GRefJ9Wh gsI1INTrqPMbJQJvcETYvK1qsap jw7wvdanaMyPkYEFgZMg3ONd9TD YprTtbWhMpVXE1UbU0FQA6 tLThxV2nhSrcxarwcK6dMeq+UGh 3o7bjpAVnZG4dnGY5UE55PQ76rR Vxx2K7rQH8I9XkXOVsipci adtvqXL3BOFoUNXuyC96Xw7bsVg sJf5wKNXiFNR2OEWcmMPyN9HhdI 8wPqKeDUJfUJGpD2MllUMv ZEefM426YRnwIhT4WGBbvnTwZ7A xAIYrtWknGiS4c1B2Fc5NBR40DL 95PM20iHXvn0Y1wXB4I2Dh CYGgrwosvcycfQP1EPPxSYDjuJ2 9Fb0lsEipNm8qVTPsLVY3MUFzxP CwH5MghF8nGaTvMTZtVKDb G9GbjOXkTPzdD250LWjrCfS6ICP uqcRsS5RbEWZpbFqoTeC0h3T9Yf 5PXd23SV80PP84hUBan7H4 xCA2L8CqDVWqcqslxrvwdKQ5OWP gWWVmfY75Vl6aoVppVa4lRBKfUI O7NHQdlFViX9IdwE9eRxQr YLKhOGYoK4YkrNHoXKaaN680RSm dPpR8HMQemdLxJ4LnDPVngEhoQf Z8i7C1Os8NQLnsifl9A9Vo PjwvdHI+BJ36BLMmBL69wVLgnUJ te0ylkSs4IaKbIPLiVUS9zXdiPY vtl9PdTWGrD44gtQHai2I1 IGN (more content not included)... Normal [facility] ED Clinical Summaryon 2021 ED Clinical Summary [facility] ? Urgent Care [address] [place], [place] [id number] Clinical Summary PERSON INFORMATION Name: OLGA PERAZA Age: 40 Years Sex: FEMALE : 1980 MRN: Acct#: Visit Reason: UC - Ankle/Foot/Toe Pain or Swelling; UC - Ankle/Foot/Toe Pain or Swelling; LEFT ANKLE PAIN Arrival: 11/24/2021 09:45:50 Discharge: 11/24/2021 10:50:00 LOS: 000 01:05 Check In: 11/24/2021 09:45:50 Checkout: 11/24/2021 10:50:00 Address: [address] [place] [address] PCP: JB CARSON PROVIDER INFORMATION Provider Role Assigned Unassigned Belkys Abbott BRANCH MECHANIC Nurse 11/24/2021 09:52:01 Bo Tolliver ED PA 11/24/2021 09:54:45 VITALS INFORMATION Vital Sign Triage Latest Temperature Tympanic Temperature Temporal Artery Pulse Rate O2 Sat 97 % 97 % Respiratory Rate Blood Pressure /87 mmHg /87 mmHg MEDICAL INFORMATION Medications Given: Allergy Information: Mobic PHYSICIAN DOCUMENTATION DISCHARGE INFORMATION: Discharge Disposition: Home Discharge Location: Home PATIENT EDUCATION INFORMATION Instructions: Contusion, Ghth-ux-Begt Follow-Up: With: Address: When: JB CARSON [address] [place], [place] [phone] Business (1) Comments: Radiologist interpretation negative for fracture If the pain continues beyond the next 3 to 5 days can follow-up with your regular doctor or your preferred software support specialist If you do not have a software support specialist can follow up with our local specialist Dr. Graham's office is located at [address] [place] [address] Wear your Todd wrap while active, remove when sleeping, napping or showering Loosen or remove the todd wrap with any numbness or tingling, or blue discoloration If these symptoms continue after you have removed the todd wrap this is a sign of a medical emergency and a reason to head to the emergency department Continue on the acronym R.I.C.E. Rest, Ice Compression, Elevation this will help with pain Can ice for 15-20 minutes every 3 hours Can take 600mg of motrin/ibuprofen every 6-8 hours DIAGNOSIS: Contusion of left ankle Patient Understands: Yes - Patient/family/caregiver verbalizes understanding of instructions given Comment: Normal [facility] ED Patient Summaryon 022 ED Patient Summary [facility] ? Urgent Care [address] [place] [address] PATIENT DISCHARGE INSTRUCTIONS Patient Information Name: OLGA PERAZA Age: 40 Years Date of : 1980 Reason For Visit: UC - Ankle/Foot/Toe Pain or Swelling; UC - Ankle/Foot/Toe Pain or Swelling; LEFT ANKLE PAIN Arrival Time: 11/24/2021 09:45:50 Primary Care Physician: JB CARSON Attending Physician: Bo Tolliver Comment: Patient Education With: Address: When: JB CARSON [address] [place], [place] [phone] Business (1) Comments: Radiologist interpretation negative for fracture If the pain continues beyond the next 3 to 5 days can follow-up with your regular doctor or your preferred software support specialist If you do not have a software support specialist can follow up with our local specialist Dr. Graham's office is located at [address] [place] [address] Wear your Todd wrap while active, remove when sleeping, napping or showering Loosen or remove the todd wrap with any numbness or tingling, or blue discoloration If these symptoms continue after you have removed the todd wrap this is a sign of a medical emergency and a reason to head to the emergency department Continue on the acronym R.I.C.E. Rest, Ice Compression, Elevation this will help with pain Can ice for 15-20 minutes every 3 hours Can take 600mg of motrin/ibuprofen every 6-8 hours Contusion A contusion is a deep bruise. This is a result of an injury that causes bleeding under the skin. Symptoms of bruising include pain, swelling, and discolored skin. The skin may turn blue, purple, or yellow. Follow these instructions at home: Managing pain, stiffness, and swelling You may use RICE. This stands for: ? Resting. ? Icing. ? Compression, or putting pressure. ? Elevating, or raising the injured area. To follow this method, do these actions: ? Rest the injured area. ? If told, put ice on the injured area. ? Put ice in a plastic bag. ? Place a towel between your skin and the bag. ? Leave the ice on for 20 minutes, 2?3 times per day. ? If told, put light pressure (compression) on the injured area using an elastic bandage. Make sure the bandage is not too tight. If the area tingles or becomes numb, remove it and put it back on as told by your doctor. ? If possible, raise (elevate) the injured area above the level of your heart while you are sitting or lying down. General instructions ? Take riff-iff-ycmfsjd and prescription medicines only as told by your doctor. ? Keep all follow-up visits as told by your doctor. This is important. Contact a doctor if: ? Your symptoms do not get better after several days of treatment. ? Your symptoms get worse. ? You have trouble moving the injured area. Get help right away if: ? You have very bad pain. ? You have a loss of feeling (numbness) in a hand or foot. ? Your hand or foot turns pale or cold. Summary ? A contusion is a deep bruise. This is a result of an injury that causes bleeding under the skin. ? Symptoms of bruising include pain, swelling, and discolored skin. The skin may turn blue, purple, or yellow. ? This condition is treated with rest, ice, compression, and elevation. This is also called RICE. You may be given tkdx-nuq-xasnudn medicines for pain. ? Contact a doctor if you do not feel better, or you feel worse. Get help right away if you have very bad pain, have lost feeling in a hand or foot, or the area turns pale or cold. This information is not intended to replace advice given to you by your health care provider. Make sure you discuss any questions you have with your health care provider. Document Revised: 03/29/2019 Document Reviewed: 03/29/2019 [employer] Patient Education ? 2020 [employer]. Medication Information: The exam and treatment you received today in the [facility] Emergency Department were for an urgent problem and are not intended as complete care. It is important for you to follow up with a doctor, nurse practitioner, or physician?s radiology physician assistant for ongoing care. If your symptoms become worse or you do not improve as expected and you are unable to reach your usual health care provider, you should return to the Emergency Department, we are available 24 hours a day. For those patients who have received Radiology results, the interpretation of your X-ray as given to you by our Emergency Department physician is only a preliminary report. The Radiologist will review your films and if there is a change in the diagnosis you will be notified by phone. Please make sure you have provided a working phone number so we can reach you if necessary. In the event that you had a lab culture while you were a patient in the Emergency Department, you will be notified by phone if there is a need to change your antibiotic. Please make sure you have provided a working (more content not included)... Normal [facility] Urgent Care Note- Provideron 11-24-2021 Urgent Care Note- Provider Patient: OLGA PERAZA Age: 40 years Sex: FEMALE : 1980 Associated Diagnoses: Contusion of left ankle Author: Bo Tolliver Basic Information Time seen: Date & time 11/24/2021 10:04:00. History source: Patient. History limitation: None. Additional information: Chief Complaint from Nursing Triage Note : Chief Complaint 11/24/2021 9:54 EDT Chief Complaint Left ankle pain since last night - kicked by a horse . History of Present Illness Patient is a 40-year-old female complaint of left ankle pain. States left ankle pain began yesterday when she was kicked by her horse. States took Tylenol prior to arrival. She has no other complaints or concerns. Patient with allergy to Mobic. Review of Systems Constitutional symptoms: Negative except as documented in HPI. Musculoskeletal symptoms: Negative except as documented in HPI. Additional review of systems information: All other systems reviewed and otherwise negative. Health Status Allergies: Allergic Reactions (Selected) Unknown Mobic- No reactions were documented.. Past Medical/ Family/ Social History Medical history: No active or resolved past medical history items have been selected or recorded.. Surgical history: No active procedure history items have been selected or recorded.. Family history: No family history items have been selected or recorded.. Social history: Social & Psychosocial Habits Alcohol 11/24/2021 Alcohol Use: Current Frequency: 1-2 times per month Tobacco 11/24/2021 Smoking tobacco use: Former tobacco user Electronic Cigarette/Vaping 11/24/2021 Electronic Cigarette Use: Never . Problem list: Active Problems (1) No Chronic Problems . Physical Examination Vital Signs Vital Signs 11/24/2021 9:54 EDT Temperature Oral 37.3 DegC Peripheral Pulse Rate 78 bpm Respiratory Rate 16 br/min Systolic Blood Pressure 131 mmHg Diastolic Blood Pressure 87 mmHg SpO2 97 % Oxygen Therapy Room air . Measurements 11/24/2021 9:54 EDT Height 175 cm Weight 104.33 kg Body Mass Index 34.07 kg/m2 . General: Alert, no acute distress. Skin: Warm, dry. Head: Normocephalic, atraumatic. Eye: Normal conjunctiva. Cardiovascular: Regular rate and rhythm. Respiratory: Lungs are clear to auscultation, respirations are non-labored, breath sounds are equal, Symmetrical chest wall expansion. Back: Normal range of motion. Musculoskeletal: Normal ROM, no deformity, Ankles tender to palpation midfoot and salazar are nontender to palpation full range of motion intact to the toes and the knee, MSPS intact, capillary refill less than 2 seconds. Medical Decision Making Differential Diagnosis: Ankle sprain, ankle fracture, contusion. Radiology results: X-ray (ST) X-Ray: ? XR Ankle Complete Left ? 11/24/21 10:34:41 EXAM: XR Ankle Complete Left HISTORY: left ankle injury COMPARISON: None TECHNIQUE: 3 portable views of the left ankle were obtained at 10:12 AM. FINDINGS: Ankle mortise is grossly intact. No definite acute fracture or dislocation is seen. Small plantar calcaneal spur is noted. Moderate soft tissue swelling laterally with mild swelling anteriorly. IMPRESSION: Left ankle study fails to demonstrate definite acute fracture or dislocation. Follow-up as needed. ? Signed By: Corona Mitchell MD Radiologist interpretation negative for fracture. Patient declined any Todd wrap or crutches in the urgent care. Patient states she has Todd wrap at home. She currently is using crutches that she came in with. She declined any Tylenol or Motrin or ice in the urgent care. Home care instructions and follow-up instructions provided. Patient in agreement with treatment plan. Patient states understanding of information. Impression and Plan Diagnosis Contusion of left ankle ([id number] S90.02XA, Discharge, Medical) Plan Patient was given the following educational materials: Contusion, Ahjf-rt-Bted. Follow up with: JB CARSON Radiologist interpretation negative for fracture If the pain continues beyond the next 3 to 5 days can follow-up with your regular doctor or your preferred software support specialist If you do not have a software support specialist can follow up with our local specialist Dr. Graham's office is located at [address] [place] [address] Wear your Todd wrap while active, remove when sleeping, napping or showering Loosen or remove the todd wrap with any numbness or tingling, or blue discoloration If these symptoms continue after you have removed the todd wrap this is a sign of a medical emergency and a reason to head to the emergency department Continue on the acronym R.I.C.E. Rest, Ice Compression, Elevation this will help with pain Can ice for 15-20 minutes every 3 hours Can take 600mg of motrin/ibuprofen every 6-8 hours. Counseled: Patient, Regarding diagnosis, Regarding diagnostic results, Regarding treatment plan, Regarding prescription, Patien (more content not included)... [facility] [place] 022 Urgent Care Record [facility] ? Urgent Care [address] [place] [address] PATIENT DISCHARGE INSTRUCTIONS Patient Information Name: OLGA PERAZA Age: 40 Years Date of : 1980 Reason For Visit: UC - Ankle/Foot/Toe Pain or Swelling; UC - Ankle/Foot/Toe Pain or Swelling; LEFT ANKLE PAIN Arrival Time: 11/24/2021 09:45:50 Primary Care Physician: JB CARSON Attending Physician: Bo Tolliver Comment: Visit Diagnosis: Diagnoses This Visit Contusion of left ankle (S90.02XA) UC - Ankle/Foot/Toe Pain or Swelling ([id number]) UC - Ankle/Foot/Toe Pain or Swelling ([id number]) If you received any narcotics, sedation, or any other medication that causes drowsiness for the next 24 hours, unless otherwise directed: ? Do not drive a car. ? Do not operate machinery such as power tools, lawn mowers, drills, sewing machines, or stoves ? Avoid alcoholic beverages and drugs for allergies, nerves, or sleep ? Do not make important personal or business decisions or sign any legal documents With: Address: When: JB CARSON [address] [place] [address] Business (1) Comments: Radiologist interpretation negative for fracture If the pain continues beyond the next 3 to 5 days can follow-up with your regular doctor or your preferred software support specialist If you do not have a software support specialist can follow up with our local specialist Dr. Graham's office is located at [address] [place] [address] [address] [phone] Wear your Todd wrap while active, remove when sleeping, napping or showering Loosen or remove the todd wrap with any numbness or tingling, or blue discoloration If these symptoms continue after you have removed the todd wrap this is a sign of a medical emergency and a reason to head to the emergency department Continue on the acronym R.I.C.E. Rest, Ice Compression, Elevation this will help with pain Can ice for 15-20 minutes every 3 hours Can take 600mg of motrin/ibuprofen every 6-8 hours Medication Information: The exam and treatment you received today in the [facility] were for an urgent problem and are not intended as complete care. It is important for you to follow up with a doctor, nurse practitioner, or physician?s radiology physician assistant for ongoing care. If your symptoms become worse or you do not improve as expected and you are unable to reach your usual health care provider, you should return to the Emergency Department, we are available 24 hours a day. For those patients who have received Radiology results, the interpretation of your X-ray as given to you by our Urgent Care physician is only a preliminary report. The Radiologist will review your films and if there is a change in the diagnosis you will be notified by phone. Please make sure you have provided a working phone number so we can reach you if necessary. In the event that you had a lab culture while you were a patient in the Urgent Care, you will be notified by phone if there is a need to change your antibiotic. Please make sure you have provided a working phone number so we can reach you if necessary. [facility] Care has provided you with a complete list of medications post discharge. Please inform your hogshead wrecker/provider of your visit and for further instruction on these medications. Any specific questions regarding your chronic medications and dosages should be discussed with your primary care physician(s) and/or pharmacist. Visit Information Allergies: Substance Reaction Symptoms Type Comments Mobic Drug Vital Signs: Vitals and Measurements this Visit (last charted value for your 11/24/2021 visit) Vital Signs This Visit Temperature Oral: 37.3 DegC Peripheral Pulse Rate: 78 bpm Respiratory Rate: 16 br/min Systolic Blood Pressure: 131 mmHg Diastolic Blood Pressure: 87 mmHg SpO2: 97 % Oxygen Therapy: Room air Measurements This Visit Height: 175 cm Weight: 104.33 kg Body Mass Index: 34.07 kg/m2 Problems List: Problem Onset Comments No Problems found Patient Education Contusion A contusion is a deep bruise. This is a result of an injury that causes bleeding under the skin. Symptoms of bruising include pain, swelling, and discolored skin. The skin may turn blue, purple, or yellow. Follow these instructions at home: Managing pain, stiffness, and swelling You may use RICE. This stands for: ? Resting. ? Icing. ? Compression, or putting pressure. ? Elevating, or raising the injured area. To follow this method, do these actions: ? Rest the injured area. ? If told, put ice on the injured area. ? Put ice in a plastic bag. ? Place a towel between your skin and the bag. ? Leave the ice on for 20 minutes, 2?3 times per day. ? If told, put light pressure (compression) on the injured area using an elastic (more content not included)... [facility] XR Ankle Complete Lefton XR Ankle Complete Left EXAM: XR Ankle Co mplete Left HISTORY: left ankle injury COMPARISON: None TECHNIQUE: 3 portable views of the left ankle were obtained at 10:12 AM. FINDINGS: Ankle mortise is grossly intact. No definite acute fracture or dislocation is seen. Small plantar calcaneal spur is noted. Moderate soft tissue swelling laterally with mild swelling anteriorly. IMPRESSION: Left ankle study fails to demonstrate definite acute fracture or dislocation. Follow-up as needed. Final Dictated by: Corona Mitchell MD Dictated DT/TM: 11/24/21 10:31 Signed (Electronic Signature): Corona Mitchell MD 11/24/21 10:34 a Technologist: SABINE [facility] MAMM SCREEN 3D ANNEL CADon 11-23-2021 MG MAMM SCREEN 3D ANNEL CAD Patient: OLGA BRICE. Exam Date: 11/23/2021 : 1980 Gender:F Ordering : MRS. JB CARSON [employer] Admission #: [id number] Family : Order #: [id number] CLICK HERE TO VIEW EXAM RADIOLOGY REPORT PROCEDURE: MAMMOGRAM SCREENING 3D BILATERAL CAD COMPARISON: MG MAMM SCREEN ANNEL W CAD, 06/23/2020. INDICATIONS: Screening mammography Calculator Name NCI Breast Cancer Risk Assessment Tool 5 Year Breast Cancer Risk 1.10% Lifetime Breast Cancer Risk 13.40% Personal Breast Cancer No Personal Ovarian Cancer No Treatments None Family Cancers Grandmother-paternal with lung cancer at age 65; Grandfather-paternal with colon cancer at age 65. LOCATION: [facility] BREAST COMPOSITION: Scattered areas fibroglandular density. FINDINGS: DIAGNOSTIC CATEGORY 1--NEGATIVE. RIGHT BREAST: No significant suspicious finding. No significant change has occurred. LEFT BREAST: No significant suspicious finding. No significant change has occurred. RECOMMENDATIONS: ROUTINE MAMMOGRAM AND CLINICAL EVALUATION IN 12 MONTHS. PLEASE NOTE: A NORMAL MAMMOGRAM DOES NOT EXCLUDE THE POSSIBILITY OF BREAST CANCER. A CLINICALLY SUSPICIOUS PALPABLE LUMP SHOULD BE BIOPSIED. Dictated by: Hernando Lama M.D. on 11/24/2021 at 07:52 Approved by: Hernando Lama M.D. on 11/24/2021 at 07:55 Normal [facility] APTTon 05-31-2017 aPTT 27.5 s Normal 23.2-34.4 [facility] Comment on above: Result Comment: Perf ormed at [address] [place] [address] ([phone] Performed By: #### C DP, PT, PTT, BMP, BNP, TROPI ####[address] [id number] Basic Metabolic Profon 05-31 (cont.) Normal [facility] Comment on above: Result Comment: Aver age GFR for 30-39 years old: 107 mL/min/1.73sq mChronic Kidney Disease: <60 mL/min/1.73sq mKidney failure: <15 mL/min/1.73sq meGFR calculated using average adult body mass. Additional eGFR calculator available at:http://www.[employer].InviBox/multiple_crcl_2012.htm Performed By: #### C DP, PT, PTT, BMP, BNP, TROPI ####[address] [place] [address] Anion gap 13 mmol/L Normal - [facility] Comment on above: Performed By: #### C DP, PT, PTT, BMP, BNP, TROPI ####[address] [place] [address] BUN/CRE Ratio 17 Normal - [facility] Comment on above: Performed By: #### C DP, PT, PTT, BMP, BNP, TROPI ####[address] , [place] [address] Calcium 9.1 mg/dL Normal 8.6-10.4 [facility] Comment on above: Performed By: #### C DP, PT, PTT, BMP, BNP, TROPI ####[address] , [place] [address] Chloride 100 mmol/L Normal 98-107 [facility] Comment on above: Performed By: #### C DP, PT, PTT, BMP, BNP, TROPI ####[address] , [facility]83 CO2 24 mmol/L Normal 20-31 [facility] Comment on above: Performed By: #### C DP, PT, PTT, BMP, BNP, TROPI ####[address] , [facility]83 Creatinine 0.70 mg/dL Normal 0.50-0.90 [facility] Comment on above: Performed By: #### C DP, PT, PTT, BMP, BNP, TROPI ####[address] , [facility]83 eGFR (non-black) mL/min/{1.73_m2} Normal >[address] [facility] Comment on above: Performed By: #### C DP, PT, PTT, BMP, BNP, TROPI ####[address] , [facility]83 Glucose mass conc 98 mg/dL Normal 70-99 [facility] Comment on above: Performed By: #### C DP, PT, PTT, BMP, BNP, TROPI ####[address] , [facility]83 Potassium molar conc 4.1 mmol/L Normal 3.7-5.3 [facility] Comment on above: Performed By: #### C DP, PT, PTT, BMP, BNP, TROPI ####[address] [place] [address] Sodium 137 mmol/L Normal 135-144 [facility] Comment on above: Performed By: #### C DP, PT, PTT, BMP, BNP, TROPI ####[address] [place] [address] Staging: Normal [facility] Comment on above: Result Comment: Stag e 1: Some kidney damage normal GFRStage 2: Mild kidney damage GFR 60-89Stage 3: Moderate kidney damage GFR 30-59Stage 4: Severe kidney damage GFR 15-29Stage 5: Severe kidney damage GFR <15ESRD - chronic treatment by dialysis or transplantPerformed at [address] [place] [address] Performed By: #### C DP, PT, PTT, BMP, BNP, TROPI ####[address] [place] [address] Urea nitrogen 12 mg/dL Normal 6-20 [facility] Comment on above: Performed By: #### C DP, PT, PTT, BMP, BNP, TROPI ####[address] [place] [address] Brain Natri. Peptideon 05-31 BNP Normal [facility] Comment on above: Result Comment: Pro- BNP Reference Range:Rule Out: <300Grey Zone: Age <50 300-450 Age 50-75 300-900 Age >75 300-1800Usually represents mild to moderate HF but other cardiopulmonary causes cannot be ruled out.Rule In: Age <50 >450 Age 50-75 >900 Age >75 >1800Performed at [address] [place] [address] Performed By: #### C DP, PT, PTT, BMP, BNP, TROPI ####[address] [place] [address] BNP 48 pg/mL Normal <300 [facility] Comment on above: Result Comment: Pro- BNP results cannot be compared to BNP results. Performed By: #### C DP, PT, PTT, BMP, BNP, TROPI ####[address] , [place] [address] CBC with Diffon 05-31-2017 Abs. Basophil 0.00 k/uL Normal 0.0-0.2 [facility] Comment on above: Result Comment: Perf ormed at [address] [place], [place] [address] Performed By: #### C DP, PT, PTT, BMP, BNP, TROPI ####[address] , [facility]83 Abs.Neutrophil (Seg) 5.80 k/uL Normal 1.8-7.7 [facility] Comment on above: Performed By: #### C DP, PT, PTT, BMP, BNP, TROPI ####[address] , [place] [address] Basophils/100 WBC Auto (Bld) 0 % Normal [facility] Comment on above: Performed By: #### C DP, PT, PTT, BMP, BNP, TROPI ####[address] , [facility]83 Eosinophils 0.30 10*3/uL Normal 0.0-0.4 [facility] Comment on above: Performed By: #### C DP, PT, PTT, BMP, BNP, TROPI ####[address] , [place] [address] Eosinophils/100 leukocytes 3 % Normal [facility] Comment on above: Performed By: #### C DP, PT, PTT, BMP, BNP, TROPI ####[address] , [facility]83 Erythrocyte distribution width Auto Ratio (RBC) 13.7 % Normal 12.1-15.2 [facility] Comment on above: Performed By: #### C DP, PT, PTT, BMP, BNP, TROPI ####[address] [place] [address] Erythrocytes (RBC) 4.12 10*6/uL Normal 4.0-5.2 [facility] Comment on above: Performed By: #### C DP, PT, PTT, BMP, BNP, TROPI ####[address] [place] [address] Hematocrit (HCT) 35.5 % Low 36-46 [facility] Comment on above: Performed By: #### C DP, PT, PTT, BMP, BNP, TROPI ####[address] [place] [address] Hemoglobin mass conc (Bld) 11.8 g/dL Low 12.0-16.0 [facility] Comment on above: Performed By: #### C DP, PT, PTT, BMP, BNP, TROPI ####[address] [place] [address] Lymphocytes 2.00 10*3/uL Normal 1.0-4.8 [facility] Comment on above: Performed By: #### C DP, PT, PTT, BMP, BNP, TROPI ####[address] [place] [address] Lymphocytes/100 leukocytes 23 % Normal [facility] Comment on above: Performed By: #### C DP, PT, PTT, BMP, BNP, TROPI ####[address] [place] [address] MCH 28.5 pg Normal 26-34 [facility] Comment on above: Performed By: #### C DP, PT, PTT, BMP, BNP, TROPI ####[address] [place] [address] MCHC mass conc (RBC) 33.1 g/dL Normal 31-37 [facility] Comment on above: Performed By: #### C DP, PT, PTT, BMP, BNP, TROPI ####[address] , [place] [address] MCV 86.1 fL Normal 80-100 [facility] Comment on above: Performed By: #### C DP, PT, PTT, BMP, BNP, TROPI ####[address] , [place] [address] Monocytes 0.60 10*3/uL Normal 0.0-1.0 [facility] Comment on above: Performed By: #### C DP, PT, PTT, BMP, BNP, TROPI ####[address] , [place] [address] Monocytes/100 leukocytes 6 % Normal [facility] Comment on above: Performed By: #### C DP, PT, PTT, BMP, BNP, TROPI ####[address] , [place] [address] Neutrophil (Seg) 68 % Normal [facility] Comment on above: Performed By: #### C DP, PT, PTT, BMP, BNP, TROPI ####[address] , [facility]83 Platelet mean volume (PMV) 10.8 fL Normal 6.0-12.0 [facility] Comment on above: Performed By: #### C DP, PT, PTT, BMP, BNP, TROPI ####[address] , [facility]83 Platelets 238 10*3/uL Normal 140-450 [facility] Comment on above: Performed By: #### C DP, PT, PTT, BMP, BNP, TROPI ####[address] , [facility]83 WBC (Leukocytes) 8.7 10*3/uL Normal 3.5-11.0 [facility] Comment on above: Performed By: #### C DP, PT, PTT, BMP, BNP, TROPI ####[address] , [place] [id number] Auto Diff Performed NOT REPORTED Normal [facility] Comment on above: Performed By: #### C DP, PT, PTT, BMP, BNP, TROPI ####[address] [place] [address] Erythrocyte morphology NOT REPORTED Normal [facility] Comment on above: Performed By: #### C DP, PT, PTT, BMP, BNP, TROPI ####[address] [place] [address] Platelets NOT REPORTED Normal [facility] Comment on above: Performed By: #### C DP, PT, PTT, BMP, BNP, TROPI ####[address] [place] [address] WBC Morphology NOT REPORTED Normal [facility] Comment on above: Performed By: #### C DP, PT, PTT, BMP, BNP, TROPI ####[address] [place] [address] D-Dimer Teston 05-31-2017 D-Dimer Test <0.19 Low 0.19-0.50 [facility] Comment on above: Result Comment: Elev ated levels of D dimer can be seen in any state of coagulation activation including DVT, PE, arterial thrombosis, DIC, inflamatory disease, trauma, malignancy, sepsis, infection, hematoma, liver disease, post surgical state, , atherosclerosis, old age.When combined with a low clinical probability, a D dimer value of <0.50 mg/L is considered negative for DVT and PE (negative predictive value of 98%).Performed at [address] [place] [address] ([phone] Performed By: #### D CHAZ ####[address] [place] [address] ED Noteon 05-31-2017 HIM IP Note OR [employer] Normal [facility] ED Provider Noteon 7 HIM IP Note OR [employer] Normal [facility] PTon 05-31-2017 INR Coag RelTime (PPP) 1.0 {INR} Normal 0.9-1.[address] [facility] Comment on above: Result Comment: Perf ormed at [address] [place] [address] Performed By: #### C DP, PT, PTT, BMP, BNP, TROPI ####[address] [place] [address] Prothrombin time (PT) Coag time (PPP) 10.6 s Normal 9.7-12.2 [facility] Comment on above: Performed By: #### C DP, PT, PTT, BMP, BNP, TROPI ####[address] [place] [address] Troponinon 05-31-2017 Troponin I.cardiac mass conc Normal [facility] Comment on above: Result Comment: Refe rence Range: <0.03 Within reference range. 0.03-0.09 Possible myocardial damage.Repeat at appropriate intervals to rule out chronic elevation. >= 0.10 Indicative of myocardial damage.Performed at [address] [place] [address] Performed By: #### C DP, PT, PTT, BMP, BNP, TROPI ####[address] [place] [address] Troponin T.cardiac mass conc ug/L Normal <0.03 [facility] Comment on above: Result Comment: Trop onin T results cannot be compared to Troponin-I results. Performed By: #### C DP, PT, PTT, BMP, BNP, TROPI ####[address] [place] [address] XR CHEST PORTABLEon 05-31-20 17 XR CHEST PORTABLE REPORT: Portable AP radiograph of the chest obtained at 1207 hoursINDICATION: Chest pain, leftFINDINGS: The lungs are well expanded and clear bilaterally. No focal consolidation, pleural effusion or pneumothorax seen. Normal cardiac and mediastinal silhouettes. No free intraperitoneal air. Final report electronically signed by Nighat Bernstein on 05/31/2017 12:55 PMIMPRESSION: Normal chestInterpreted by:STACEY Garciaigned by:Nighat Bernstein MD05/31/17Final result Normal [facility] Vital Signs Date Time Vital Sign Value Performing Clinician Peteri yuki 06-15-2022 10:53-0400 Body weight 107.22 kg TIM Carson Work Phone: [facility] 06-15-2022 10:53-0400 Diastolic blood pressure 79 mm[Hg] TIM Carson Work Phone: [facility] 06-15-2022 10:53-0400 Heart rate 68 /min TIM Carson Work Phone: [facility] 06-15-2022 10:53-0400 Respiratory rate 20 /min TIM Carson Work Phone: [facility] 06-15-2022 10:53-0400 SaO2% (BldA) [Mass fraction] 100 % TIM Carson Work Phone: [facility] 06-15-2022 10:53-0400 Systolic blood pressure 126 mm[Hg] TIM Carson Work Phone: [facility] 05-04-2022 08:40-0400 Body temperature 97.7 [degF] TIM Marcela Morgan Work Phone: [facility] 05-04-2022 08:40-0400 Body weight 106.77 kg TIM Marcela Morgan Work Phone: [facility] 05-04-2022 08:40-0400 Diastolic blood pressure 87 mm[Hg] TIM Marcela Morgan Work Phone: [facility] 05-04-2022 08:40-0400 Heart rate 60 /min TIM Mora Work Phone: [facility] 05-04-2022 08:40-0400 Respiratory rate 20 /min RAG GRADERElio Mora Work Phone: [facility] 05-04-2022 08:40-0400 SaO2% (BldA) [Mass fraction] 98 % RAG GRADERElio Mora Work Phone: [facility] 05-04-2022 08:40-0400 Systolic blood pressure 125 mm[Hg] TIM Mora Work Phone: [facility] 04-05-2022 16:03-0400 Diastolic blood pressure 83 mm[Hg] TIM Mora Work Phone: [facility] 04-05-2022 16:03-0400 Heart rate 69 /min RAG GRADERElio Mora Work Phone: [facility] 04-05-2022 16:03-0400 Systolic blood pressure 120 mm[Hg] TIM Mora Work Phone: [facility] 04-05-2022 14:59-0400 Body temperature 98.1 [degF] TIM Mora Work Phone: [facility] 04-05-2022 14:59-0400 Respiratory rate 18 /min RAG GRADERElio Mora Work Phone: [facility] 04-05-2022 14:59-0400 SaO2% (BldA) [Mass fraction] 99 % RAG GRADERElio Mora Work Phone: [facility] 01-25-2022 14:30-0400 Body weight 107.95 kg RAG GRADERElio Mora Work Phone: [facility] 01-25-2022 14:20-0400 Body height 175.26 cm RAG GRADERElio Mora Work Phone: [facility] Encounters Encounter Date Encounter Type Care Provider Facility Start: 08-04-2022 End: 08-05-2022 ambulatory JB CARSON Facility:[facility] Start: 06-15-2022 End: 06-16-2022 ambulatory TIM Carson Work Phone: [facility] Work Phone: Start: 06-15-2022 End: 06-15-2022 Registered Recurring [facility] Start: 05-04-2022 End: 05-04-2022 Registered Recurring TIM Mora [facility] Start: 04-05-2022 End: 04-05-2022 Registered Recurring TIM Mora [facility] Start: 11-23-2021 End: 11-24-2021 ambulatory JB CARSON Facility:[facility] Start: 05-31-2017 End: 05-31-2017 Emergency department patient visit OLIVIA LIU [facility] Procedures Date Procedure Procedure Detail Performing Clinician Start: 05-31-2017 Chest x-ray 1 view frontal OLIVIA LIU Start: 05-31-2017 APTT OLIVIA LIU Start: 05-31-2017 BASIC METABOLIC PANEL J YAAKOV LIU Start: 05-31-2017 BRAIN NATRIURETIC PEPTIDE OLIVIA LIU Start: 05-31-2017 CBC WITH AUTO DIFFERENTIAL OLIVIA LIU Start: 05-31-2017 D-DIMER, QUANTITATIVE J YAAKOV LIU Start: 05-31-2017 PROTIME-INR OLIVIA LIU Start: 05-31-2017 TROPONIN OLIVIA LIU Start: 05-31-2017 INSERT PERIPHERAL IV JE TRACIE LIU Start: 05-31-2017 TELEMETRY MONITORING WOODY LIU Start: 05-31-2017 VITAL SIGNS OLIVIA NOE Start: 05-31-2017 EKG 12-LEAD OLIVIA NOE Plan of Treatment Date Care Activity Detail Author Start: 04-05-2022 [facility] Start: 03-29-2022 [facility] Ceruloplasmin [Mass/ volume] in Serum or Plasma [facility] Work Phone: Comprehensive metabo lic 2000 panel - Serum or Plasma [facility] Work Phone: Copper measurement [facility] Work Phone: Erythrocyte sediment ation rate by Photometric method [facility] Work Phone: Erythropoietin (EPO) [Units/volume] in Serum or Plasma [facility] Work Phone: Ferritin [Mass/volum e] in Serum or Plasma [facility] Work Phone: Ferritin [Mass/volum e] in Serum or Plasma [facility] Haptoglobin [Mass/vo lume] in Serum or Plasma [facility] Work Phone: Haptoglobin [Mass/vo lume] in Serum or Plasma [facility] Lactate dehydrogenas e [Enzymatic activity/volume] in Unspecified specimen [facility] Payers Date Payer Category Payer Self-pay [id number] 2019 [employer] ( [employer] others) [id number] [employer] ( and others) [id number] 1980 Unknown [id number] 1980 Unknown [id number] Unknown [employer]/BS [id number] Unknown [id number] Social History Date Type Detail Facility Start: 01-25-2022 End: 05-04-2022 Tobacco smoking status NHIS Ex-smoker (finding) [facility] Start: 1980 Sex Assigned At Female F [facility] Progress note 05-04-2022 Note Date & Type Note Facility 05-04-2022 Progress note Note Date/Time May 04, 2022 9:[address] [place] [address] [facility] [place] [id number] Hem/Onc Follow Up Note - OP Signed Patient: Olga Peraza MR#: [id number] : 1980 Acct:[id number] Age/Sex: 41 / F Type: REG RCR Copies to: Jb Carson APRN, CNP~ Subjective Date/Time of Service: Date of Service: 05/04/2022 Time of Service: 09:25 Chief Complaint: Patient is here for a 3 month follow up with labs for reivew. No concerns voiced at this time. HPI: 05/04/2022: Olga presents for follow-up for her iron deficiency anemia. She continues with mild fatigue but notes she works and is on the go from 6am to 9-10pm each night. She has some dyspnea mostly on exertion since gaining weight and has been evaluated by her pcp for this as well as some noncardiac chest painon the right side. She states this feels muscular in nature and is intermittent/random when it occurs. She denies dark stool, s/s of bleeding, ice cravings, restless legs, dizziness, fevers, chills, sweats or other new complaints. Her menstrual cycle remains regular, lasts 7 days and is heavy for about 3 days. She has always had heavy cycles since she started at age 12. She previously has seen MAGNETIZER and tried control, but nothing regulated her flow.She is still awaiting a call from GI for consult and scopes, but [facility]. Labs are reviewed and reveal normal iron studies, still with low hgb at 10.8. We will check some additional labs and follow-up again in 6wks. Initial consult 01/25/22: Olga is a pleasant 41yr old female with a past medical history of anemia, allergic rhinitis, PTSD and HANNY. Her surgical history includes a back surgery 15+ years ago as well as a benign tumor removal in her breast. Her home medications include fexofenadine and a vitamin. She denies any personal history of cancer. She has one brother who is healthy; her parents do not have a history of cancer, but her paternal grandparents both had lung cancer. Her grandfather may have had colon cancer as well, but she is not positive. Most recent labs 01/12/22 with hgb 11.2, normal wbc and plt. Iron studies revealiron 74, iron saturation 21% and ferritin 16.5. Vitamin B12 at 502 and folate >48. Kidney and liver functions WNL. [facility]. She states she has been anemic for most of her adult life and is told this is due to her heavy menstrual cycle. Her cycles are monthly and last about 7 days with 2-3 heavy days. She has taken oral iron supplementation in the past, but was unable to tolerate this due to nausea, vomiting, and constipation. She now just takes a vitamin that has iron in it that is more tolerable. She does note that she recently has had some dark stool around the same time she had a UTI. Both have since resolved. She has never had a colonoscopy or EGD. She is fatigued andhas restless legs that keep her up at night. She denies any ice cravings. She does note that she recently had bouts of dizziness and did pass out at work one day without injury. She is told this was due to dehydration, although she believes she drinks plenty of water throughout the day. She denies n/v/d, abdominal pain, constipation, dyspnea, chest pain, fever, chills, sweats, unintentional weight loss, weakness or any pain anywhere. She remains active andworks multiple jobs. We will plan to replete her iron intravenously with Injectafer x 2 doses. We will repeat her CBC in 1 month and repeat labs in 6 weeks at follow-up. She willalso be referred for colonoscopy prior to her follow-up. We will hold off on checking paraproteins currently given her presumed JUANITO due to heavy menstrual bleeding. [facility] - Medical History Medical History: Medical History (Last Reviewed 01/25/22 @ 14:26 by Elza Ferreira) No pertinent past medical history - Surgical History Surgical History: Surgical History (Last Reviewed 01/25/22 @ 14:26 by Elza Ferreira) No pertinent past surgical history - Family History Family History: Family History (Last Reviewed 01/25/22 @ 14:26 by Elza Ferreira) Mother Diabetes mellitus, type 2 - Social History Smoking Status: Former smoker Tobacco Type: cigarettes Substance Use Type: None Substance Abuse Comment: occasional Home Medications & Allergies Allergies meloxicam [From [employer]] Allergy (Verified 01/25/22 14:25) Hives Home Medications fexofenadine 30 mg/5 mL oral suspension 60 mg PO BID 01/25/22 [History Confirmed 05/04/22] Objective - Height/Weight Height/Weight: Height 5 ft 9 in Weight 106.776 kg - Vital Signs Vital Signs: 05/04/22 08:40 Temperature 97.7 F Pulse Rate [Left Brachial] 60 Respiratory Rate 20 Blood Pressure [Left Arm] 125/87 02 Sat by Pulse Oximetry 98 Oxygen Delivery Method Room Air Physical Exam Narrative: CONSTITUTIONAL: Alert and oriented, in no acute distress. HEAD / FACE: Normocephalic. EARS: Hearing grossly intact. NECK / THYROID: Neck supple. Nontender, no JVD LYMPHATIC: No palpable adenopathy. RESPIRATORY: Normal to inspection. Clear to auscultation bilaterally without wheezes or crackles. CARDIOVASCULAR: Regular rate and rhythm, no murmur or gallop. ABDOMEN: Soft, nontender, nondistended. Normoactive bowel sounds. no hepatosplenomegaly noted. EXTREMITIES: No cyanosis or clubbing. No edema. NEUROLOGICAL: Cranial nerves intact. No motor or sensory deficits. Results - Labs Labs: Diagram of Most Recent CBC and CMP 05/03/22 17:02 03/29/22 07:45 Labs - Last 7 Days 05/03/22 17:02: Iron 77, TIBC 280, Iron Saturation 27.0, Transferrin 200, Ferritin 357.1 H 05/03/22 17:02: Corrected WBC 9.7, Uncorrected WBC Count 9.7, RBC 3.73, Hgb 10.8L, Hct 33.4 L, MCV 89.7, MCH 29.1, MCHC 32.4, RDW 14.5, Plt Count 232, MPV 10.4,Neut % (Auto) 67.9, Lymph % (Auto) 19.1, [place] % (Auto) 8.9, Eos % (Auto) 3.1, Baso % (Auto) 1.0, Neut # (Auto) 6.6, Lymph # (Auto) 1.9, [place] # (Auto) 0.9 H, Eos # (Auto) 0.3, Baso # (Auto) 0.1, Nucleated RBC % (auto) 0.0 Assessment and Plan (1) Iron deficiency anemia Iron Deficiency anemia- blood loss d/t heavy menstrual bleeding She presents in consultation for her iron deficiency anemia, intolerant to oral iron supplementation. She has fatigue, dizziness, and restless leg but denies ice cravings. She does admit to recent dark stool that has since resolved. We will plan for her to receive IV Injectafer x 2 doses and will check a CBC in 1 month. We will plan for CBC, CMP, iron studies, ferritin, EPO and reticulocyte count in 6 weeks at follow-up. We also will refer her for colonoscopy as she hasnever had one previously. We will defer any additional work-up (ie paraprotein evaluation) for now given presumed JUANITO related to heavy menstrual bleeding. She is in agreement with this plan and has no additional questions. 05/04/2022: She feels about the same since getting IV iron, maybe a bit better. Still with regular, heavy menstrual cycles. Energy is about the same, but she denies dizziness, significant restless leg, dark stool or ice cravings. She doeshave some dyspnea on exertion and chest pain that is being followed by her PCP. She is still awaiting consult and scopes with GI, should be called for appointment soon. On lab review, her previous EPO was appropriately high indicating normal kidney function. Normal LFT's as well. Her current iron studies are good with saturation 27% and ferritin 357.1. Her hgb remains low at 10.8. This could be related to most recent menstrual cycle, or GI related which we are awaiting evaluation. We will plan to repeat labs in 6wks with CBC, CMP, ESR, copper, ceruloplasmin, and iron studies. She will follow-up after to discuss lab results, GI findings and exam. - Time with Patient Coordination of Care & Counseling Time: Greater than 50% of time spent with patient was for coordination of care (as documented) and [id number] counseling of patient and/or family. Dictated By: Marcela Mora APRN DD/ [id number] Signed By: <Electronically signed by TIM Mora> 05/04/22 [id number] [facility] Work Phone: Consult note 01-25-2022 Note Date & Type Note Facility 01-25-2022 Consult note Note Date/Time January 25, 2022 2:53pm [facility] [place] [id number] Hem/Onc Consult Note - OP Signed Patient: Olga Peraza MR#: [id number] : 1980 Acct:[id number] Age/Sex: 41 / F Type: REG RCR Copies to: Jb Carson APRN, ANTHROPOLOGY FACULTY MEMBER~ HPI Date/Time of Service: Date of Service: 01/25/2022 Time of Service: 14:52 Referring Provider/PCP: Referring Provider: Jb Carson APRN, KEITHC PCP: Jb Carson APRN, KEITHC - History of Present Illness Reason for Consultation: Iron deficiency anemia, cannot tolerate oral iron supplementation Chief Complaint: Patient is here today for a referral from [facility] for iron deficiency anemia. HPI: Olga is a pleasant 41yr old female with a past medical history of anemia, allergic rhinitis, PTSD and HANNY. Her surgical history includes a back surgery 15+ years ago as well as a benign tumor removal in her breast. Her home medications include fexofenadine and a vitamin. She denies any personal history of cancer. She has one brother who is healthy; her parents do not have a history of cancer, but her paternal grandparents both had lung cancer. Her grandfather may have had colon cancer as well, but she is not positive. Most recent labs 01/12/22 with hgb 11.2, normal wbc and plt. Iron studies revealiron 74, iron saturation 21% and ferritin 16.5. Vitamin B12 at 502 and folate >48. Kidney and liver functions WNL. [facility]. She states she has been anemic for most of her adult life and is told this is due to her heavy menstrual cycle. Her cycles are monthly and last about 7 days with 2-3 heavy days. She has taken oral iron supplementation in the past, but was unable to tolerate this due to nausea, vomiting, and constipation. She now just takes a vitamin that has iron in it that is more tolerable. She does note that she recently has had some dark stool around the same time she had a UTI. Both have since resolved. She has never had a colonoscopy or EGD. She is fatigued andhas restless legs that keep her up at night. She denies any ice cravings. She does note that she recently had bouts of dizziness and did pass out at work one day without injury. She is told this was due to dehydration, although she believes she drinks plenty of water throughout the day. She denies n/v/d, abdominal pain, constipation, dyspnea, chest pain, fever, chills, sweats, unintentional weight loss, weakness or any pain anywhere. She remains active andworks multiple jobs. We will plan to replete her iron intravenously with Injectafer x 2 doses. We will repeat her CBC in 1 month and repeat labs in 6 weeks at follow-up. She willalso be referred for colonoscopy prior to her follow-up. We will hold off on checking paraproteins currently given her presumed JUANITO due to heavy menstrual bleeding. [facility] - Medical History Medical History: Medical History (Last Reviewed 01/25/22 @ 14:26 by Elza Ferreira) No pertinent past medical history - Surgical History Surgical History: Surgical History (Last Reviewed 01/25/22 @ 14:26 by Elza Ferreira) No pertinent past surgical history - Family History Family History: Family History (Last Reviewed 01/25/22 @ 14:26 by Elza Ferreira) Mother Diabetes mellitus, type 2 - Social History Smoking Status: Former smoker Tobacco Type: cigarettes Substance Use Type: None Substance Abuse Comment: occasional Home Medications & Allergies Allergies meloxicam [From [employer]] Allergy (Verified 01/25/22 14:25) Hives Home Medications fexofenadine 30 mg/5 mL oral suspension 60 mg PO BID 01/25/22 [History Confirmed 01/25/22] Objective - Height/Weight Height/Weight: Height 5 ft 9 in Weight 107.955 kg - Vital Signs Vital Signs: 01/25/22 14:30 Temperature 97.2 F L Pulse Rate [Left Brachial] 72 Respiratory Rate 16 Blood Pressure [Left Arm] 146/89 H 02 Sat by Pulse Oximetry 98 Physical Exam Narrative: CONSTITUTIONAL: Alert and oriented, in no acute distress. HEAD / FACE: Normocephalic. EARS: Hearing grossly intact. NECK / THYROID: Neck supple. Nontender, no JVD LYMPHATIC: No palpable adenopathy. RESPIRATORY: Normal to inspection. Clear to auscultation bilaterally without wheezes or crackles. CARDIOVASCULAR: Regular rate and rhythm, no murmur or gallop. ABDOMEN: Soft, nontender, nondistended. Normoactive bowel sounds. no hepatosplenomegaly noted. EXTREMITIES: No cyanosis or clubbing. No edema. NEUROLOGICAL: Cranial nerves intact. No motor or sensory deficits. Assessment and Plan (1) Iron deficiency anemia Iron Deficiency anemia- blood loss d/t heavy menstrual bleeding She presents in consultation for her iron deficiency anemia, intolerant to oral iron supplementation. She has fatigue, dizziness, and restless leg but denies ice cravings. She does admit to recent dark stool that has since resolved. We will plan for her to receive IV Injectafer x 2 doses and will check a CBC in 1 month. We will plan for CBC, CMP, iron studies, ferritin, EPO and reticulocyte count in 6 weeks at follow-up. We also will refer her for colonoscopy as she hasnever had one previously. We will defer any additional work-up (ie paraprotein evaluation) for now given presumed JUANITO related to heavy menstrual bleeding. She is in agreement with this plan and has no additional questions. - Time with Patient Coordination of Care & Counseling Time: Greater than 50% of time spent with patient was for coordination of care (as documented) and kmtt-[id number] counseling of patient and/or family. Dictated By: Marcela Mora APRN DD/ [id number] Signed By: <Electronically signed by TIM Mora> 01/25/22 [id number] [facility] Work Phone: Clinical Note 11-24-2021 Note Date & Type Note Facility 11-24-2021 Note Patient Education Ma terials Follows: Contusion A contusion is a deep bruise. This is a result of an injury that causes bleeding under the skin. Symptoms of bruising include pain, swelling, and discolored skin. The skin may turn blue, purple, or yellow. Follow these instructions at home: Managing pain, stiffness, and swelling You may use RICE. This stands for: ? Resting. ? Icing. ? Compression, or putting pressure. ? Elevating, or raising the injured area. To follow this method, do these actions: ? Rest the injured area. ? If told, put ice on the injured area. ? Put ice in a plastic bag. ? Place a towel between your skin and the bag. ? Leave the ice on for 20 minutes, 2?3 times per day. ? If told, put light pressure (compression) on the injured area using an elastic bandage. Make sure the bandage is not too tight. If the area tingles or becomes numb, remove it and put it back on as told by your doctor. ? If possible, raise (elevate) the injured area above the level of your heart while you are sitting or lying down. General instructions ? Take wegg-rvy-fayrjsk and prescription medicines only as told by your doctor. ? Keep all follow-up visits as told by your doctor. This is important. Contact a doctor if: ? Your symptoms do not get better after several days of treatment. ? Your symptoms get worse. ? You have trouble moving the injured area. Get help right away if: ? You have very bad pain. ? You have a loss of feeling (numbness) in a hand or foot. ? Your hand or foot turns pale or cold. Summary ? A contusion is a deep bruise. This is a result of an injury that causes bleeding under the skin. ? Symptoms of bruising include pain, swelling, and discolored skin. The skin may turn blue, purple, or yellow. ? This condition is treated with rest, ice, compression, and elevation. This is also called RICE. You may be given laiu-jpl-yiwpqek medicines for pain. ? Contact a doctor if you do not feel better, or you feel worse. Get help right away if you have very bad pain, have lost feeling in a hand or foot, or the area turns pale or cold. This information is not intended to replace advice given to you by your health care provider. Make sure you discuss any questions you have with your health care provider. Document Revised: 03/29/2019 Document Reviewed: 03/29/2019 [employer] Patient Education ? 2020 [employer]. [facility] Evaluation note Note Date & Type Note Facility Evaluation note Diagnosis Onset Date Iron deficiency anemia acute [facility] Work Phone: Evaluation note Note Date & Type Note Facility Evaluation note No assessment information availa ble [facility] Work Phone: Progress note Note Date & Type Note Facility Progress note Note Date/Time June 15, 2022 11:25[facility] [place] [facility] [place] [id number] Hem/Onc Follow Up Note - OP Signed Patient: Olga Peraza MR#: [id number] : 1980 Acct:[id number] Age/Sex: 41 / F Type: REG RCR Copies to: Jb Carson APRN, CNP~ Subjective Date/Time of Service: Date of Service: 06/15/2022 Time of Service: 11:23 Chief Complaint: Patient is here for a 6 week follow up with labs 06/08/2022 forreview. No concerns voiced. HPI: 41-year-old white lady who is here for hematologic surveillance on iron deficiency anemia. It is secondary to menorrhagia. She was first evaluated in this facility in January 2022. The comprehensive note at the time indicated that baseline ferritin was 16. Another ferritin in March was 32. She received 3 Venofer infusions since with a ferritin level in the 300s and then 200 range. Her hemoglobin remained around 11.4. Her iron deficiency anemia is most definitely secondary to menorrhagia which has been ongoing Subjective/ROS - Narrative: CONSTITUTIONAL: No weight loss, fever, chills, weakness . Mild fatigue which has been the same for a long time and attributed to persistent long days of work HEENT: Eyes: No visual loss, blurred vision, double vision or yellow sclerae. Ears, Nose, Throat: No hearing loss, epistaxis. SKIN: No rash or itching. CARDIOVASCULAR: No chest pain, chest pressure or chest discomfort. No palpitations or edema. RESPIRATORY: No shortness of breath, cough or hemoptysis. GASTROINTESTINAL: No dysphagia, nausea, vomiting or diarrhea. No abdominal pain,melena, hematochezia. GENITOURINARY: No dysuria, urinary frequency or urgency. NEUROLOGICAL: No headache, syncope, numbness or tingling in the extremities. Occasional dizzy spells that have not changed in pattern or severity over time MUSCULOSKELETAL: No muscle, back pain, joint pain or stiffness. HEMATOLOGIC: No bleeding or bruising. LYMPHATICS: No enlarged nodes. PSYCHIATRIC: No history of depression or anxiety. ENDOCRINOLOGIC: No reports of sweating, cold or heat intolerance. No polyuria orpolydipsia. ALLERGIES: No history of asthma, hives, eczema or rhinitis. [facility] - Medical History Medical History: Medical History (Last Reviewed 01/25/22 @ 14:26 by Elza Ferreira) No pertinent past medical history - Surgical History Surgical History: Surgical History (Last Reviewed 01/25/22 @ 14:26 by Elza Ferreira) No pertinent past surgical history - Family History Family History: Family History (Last Reviewed 01/25/22 @ 14:26 by Elza Ferreira) Mother Diabetes mellitus, type 2 - Social History Smoking Status: Former smoker Tobacco Type: cigarettes Substance Use Type: None Substance Abuse Comment: occasional Home Medications & Allergies Allergies meloxicam [From [employer]] Allergy (Verified 06/15/22 10:53) Hives Home Medications fexofenadine 30 mg/5 mL oral suspension 60 mg PO BID 01/25/22 [History Confirmed 05/04/22] Objective - Height/Weight Height/Weight: Height 5 ft 9 in Weight 107.229 kg - Vital Signs Vital Signs: 06/15/22 10:53 Pulse Rate [Left Brachial] 68 Respiratory Rate 20 Blood Pressure [Left Arm] 126/79 02 Sat by Pulse Oximetry 100 Oxygen Delivery Method Room Air Physical Exam Narrative: GENERAL APPEARANCE: Well developed, well nourished, in no acute distress. SKIN: Inspection of the skin reveals no rashes, ulcerations or petechiae. HEENT: The sclerae were anicteric and conjunctivae were pink and moist. EOMI, PERRLA. The oral mucosa is moist and clear. NECK: Supple and symmetric. There was no thyroid enlargement, and no tenderness,or masses were felt. CHEST: Normal contour without any kyphoscoliosis. LUNGS: Normal breath sounds on auscultation without rales, rhonchi, or crackles. CARDIOVASCULAR: S1 and S2, regular rate and rhythm, no murmurs, gallops, rubs. ABDOMEN: Soft, nontender, bowel sounds normal. No hepatosplenomegaly. No mass palpated. LYMPH NODES: No lymphadenopathy was appreciated in the neck, axillae or groin. MUSCULOSKELETAL: Gait was normal. There was no tenderness or effusions noted. Muscle strength and tone were normal. EXTREMITIES: No cyanosis, clubbing or edema. NEUROLOGIC: Alert and oriented x 3. Normal affect. Gait was normal. Sensation totouch was normal. - ECOG Performance Status ECOG Score: 0 Results - Labs Labs: Diagram of Most Recent CBC and CMP 06/08/22 11:30 06/08/22 11:22 Labs - Last 7 Days 06/08/22 11:30: Slides for Path Review Ordered path review 06/08/22 11:30: Corrected WBC 7.8, Uncorrected WBC Count 7.8, RBC 4.07, Hgb 11.7L, Hct 36.2, MCV 88.9, MCH 28.7, MCHC 32.3, RDW 13.9, Plt Count 256, MPV 10.6, Neut % (Auto) 69.8, Lymph % (Auto) 19.4, [place] % (Auto) 6.6, Eos % (Auto) 3.2, Baso % (Auto) 1.0, Neut # (Auto) 5.4, Lymph # (Auto) 1.5, [place] # (Auto) 0.5, Eos# (Auto) 0.2, Baso # (Auto) 0.1, Nucleated RBC % (auto) 0.1, ESR 20 H, Absolute Retic 0.068, Percent Retic 1.7 H 06/08/22 11:23: Erythropoietin 11.6 06/08/22 11:22: Ceruloplasmin 23.1, Copper 99 06/08/22 11:22: PHA Creatinine Clear 125.48, Sodium 133 L, Potassium 4.0, Chloride 102, Carbon Dioxide 25.0, Anion Gap 10.0, BUN 10, Creatinine 0.76, Est GFR ( Amer) > 60, Est GFR (Non-Af Amer) > 60, Glucose 92, Calcium 9.3, Iron 134, TIBC 332, Iron Saturation 40.0, Transferrin 237, Ferritin 205.5, TotalBilirubin 0.7, AST 17, ALT 20, Alkaline Phosphatase 53, Total Protein 7.3, Albumin 4.1, Globulin 3.2, Albumin/Globulin Ratio 1.3 Assessment and Plan (1) Iron deficiency anemia There is most definitely a component of iron deficiency anemia. She is not getting optimal response because of ongoing blood loss from her menorrhagia. Regardless the level of anemia is mild and she is young so I think she can cope with this with occasional infusions if the hemoglobin drops more significantly or she becomes more symptomatic. To be complete we will explore all other possibilities although very unlikely specially that her TIBC is not consistentlyelevated. If there is any abnormality on the comprehensive noninvasive testing that we ordered we will obviously pursue it. Otherwise we will check CBC every 8 weeks and see the patient in 6 months. I believe she is reliable to call anytime she notices worsening of symptoms or other problems - Time with Patient Coordination of Care & Counseling Time: Greater than 50% of time spent with patient was for coordination of care (as documented) and slcl-em-osza counseling of patient and/or family. Dictated By: Vandana Melgar MD DD/ [id number] Signed By: <Electronically signed by Vandana Melgar MD> 06/15/22 1131 [facility] Work Phone: Summary Purpose Family History No Family History Records Found Relationship Condition Age at Onset Recorded Date/T chaz Not Specified Type 2 diabetes mellitus Unknown Advance Directives No Advanced Directives Records Found Advance Directive Response Recorded Date/ Time Advance Directives No March 01 18 3:39pm Chief Complaint and Reason for Visit Chief Complaint Iron Deficiency Anem ia Reason for Visit Iron deficiency anem ia Additional Source Comments INFORMATION SOURCE (unrecogn ized section and content) DATE CREATED AUTHOR 02/13/2018 [facility] DATE CREATED AUTHOR AUTHOR'S ORGANIZ ATION 11/30/2021 [facility] DATE CREATED AUTHOR AUTHOR'S ORGANIZ ATION 08/11/2022 [facility] DATE CREATED AUTHOR AUTHOR'S ORGANIZ ATION 07/23/2023 [facility] Care Teams (unrecognized sec tion and content) Team Status: Active Member Role Status Dates Biasimone Mora APRN Attending Provider Salvador Carson APRN JIG BUILDER HELPER-C Primary Care ProviderFrederic Provider Active Team Status: Active Member Role Status Dates Jb Carsno APRN [employer] BUILDER [employer]PER-C Primary Care Provider Activ e Goals (unrecognized section and content) Goals may be documented in a n alternate sectionGoals may be documented in an alternate sectionGoals may be documented in an alternate sectionGoals may be documented in an alternate section FOR RECORDS PERTAINING TO PATIENTS WHO ARE OR HAVE BEEN ENROLLED IN A CHEMICAL DEPENDENCY/SUBSTANCEABUSE PROGRAM, SOME INFORMATION MAY BE OMITTED. This clinical summary was aggregated from multiple sources. Caution should be exercised in using it in the provision of clinical care. This summary normalizes information from multiple sources, and as a consequence, information in this document may materially change the coding, format and clinical context of patient data. In addition, data may be omitted in some cases. CLINICAL DECISIONS SHOULD BE BASED ON THE PRIMARY CLINICAL RECORDS. [employer] provides no warranty or guarantee of the accuracy or completeness of information in this document.
== END 2024-03-12 16:30 | disposition home or self-care (01) ==
LOC: MAMMO 16:30
DX: Z12.31 Encounter for screening mammogram for malignant neoplasm of breast (principal); Z80.0 Family history of malignant neoplasm of digestive organs; Z80.1 Family history of malignant neoplasm of trachea, bronchus and lung
CPT/HCPCS: 77063; 77067

== ENCOUNTER 2025-03-13 16:20 | Outpatient (OUT) | payer OTHER, SELFPAY ==
--- OUTSIDE RECORDS SUMMARY | 2024-08-08 10:30 | XMS_ITS ---
Author Name [facility] Organization [facility] [place] [facility] [place] Address [address] [place] [id number] Care Team Providers Care Development Scientist Name Role Phone JB CARSON Primary Care Provider Unavailabl e Selected Encounter This section includes the information on record at [place] for the Encounter. Date/Time Encounter Type Encounter Description Reason Provider Source Aug 08, 2024 02:30 PM OFF/OP EST DECEMBER X REQ PHY/QHP PRE-SURG EVAL ICD-10-CM Z01.818 Encounter for other preprocedural examination CHEMO WHALEY Jaclyn Encounter Template Text not used by [place] Assessments - Encounter Diagnoses This section includes the primary and secondary diagnoses documented for the Encounter. Date/Time Primary/Secondary Diagnosis Diagnosis Name Provider Source Aug 08, 2024 03:03 PM PRIMARY Encounter for other preprocedural examination MANISH WHALEY [facility] Plan of Treatment: Future Appointments (+ 6 months) and Future Tests (+/- 45 days) The Plan of Treatment section includes future care activities for the patient from all [place] treatmentfacilities. This section includes future appointments and future orders which are active, pending or scheduled. Future Appointments This section includes appointments that were scheduled to occur 6 months from the date of the Encounter, up to a maximum of 20 appointments. The data comes from all [place] treatment facilities. Appointment Date/Time Appointment Type Appointme nt Facility Name Sep 04, 2024 06:00 AM [facility] Sep 18, 2024 12:40 PM AMBULATORY - SURGERY [facility] Sep 23, 2024 03:00 PM AMBULATORY - REHAB MEDICIN [facility] Sep 30, 2024 03:00 PM AMBULATORY - REHAB MEDICIN E [facility] Oct 15, 2024 10:40 AM AMBULATORY - SURGERY [facility] Oct 16, 2024 01:30 PM AMBULATORY - REHAB MEDICIN E [facility] Oct 21, 2024 10:00 AM [facility] - NONE [facility] Oct 23, 2024 11:00 AM [facility]ORY - NONE [facility] Oct 30, 2024 01:00 PM AMBULATORY - REHAB MEDICIN E [facility] Nov 06, 2024 11:30 AM AM[facility]UL[facility]ORY - NONE [facility] Nov 13, 2024 11:30 AM [facility]ORY - NONE [facility] Nov 13, 2024 01:00 PM AMBULATORY - REHAB MEDICIN E [facility] Nov 19, 2024 10:40 AM AMBULATORY - SURGERY [facility] Nov 27, 2024 08:00 AM AMBULATORY - REHAB MEDICIN E [facility] December 25, 2024 11:30 AM [facility] December 27, 2024 08:00 AM AMBULATORY - REHAB MEDICIN E [facility] Jan 21, 2025 07:45 AM AMBULATORY - NONE [facility] Jan 28, 2025 11:00 AM [facility] Jan 30, 2025 03:00 PM AMBULATORY - NONE [facility] Lab Results: +/- 30 days of the encounter This section includes the Chemistry and Hematology Lab Results on record with [facility] for the patient. Radiology Reports and Pathology Reports are provided separately, in subsequent sections. Lab Results This section contains the Chemistry/Hematology Results that were resulted 30 days before or 30 daysafter the date of the Encounter. Date/Time Source Result Type Result - Unit Interpretation Reference Range Specimen Type Comment Sep 04, 2024 06:30 AM [facility] POC URINE URINE Specimen Type: URINE Comment: Test performed by Chinyere Negro RN Ordering Provider: JESSICA PALACIOS Report Released Date/Time: Sep 03, 2024 03:06 PM Reporting Lab: [facility] [address] [facility] [id number] Performing Lab: [facility] [address] [facility] [id number] POC URINE NEG -Neg Vital Signs: All taken on the encounter date This section contains inpatient and outpatient Vital Signs collected on the date of the Encounter. Date/Time Temperature Pulse Blood Pressure Respiratory Rate SP02 Pain Height Weight Body Mass Index Source Aug 08, 2024 02:47 PM 97.9 75 120/81 16 96 0 69 245 36 KAMALAHeidi GRISELDA [facility] Social History: Smoking Status (Most current) and Tobacco Use (All prior to encounter date) This section includes the most current, and the historical, smoking and tobacco- related health factors from the [place] facility where the Encounter took place. Current Smoking Status This section includes the most current smoking, or tobacco-related health factor, from the [place] facility where the Encounter took place. Date/Time Current Smoking Status Comment Leila hewitt Sep 23, 2020 11:00 AM AH-BPR SMOKING DEPLOYMENT YES [facility] Encounter Notes: All associated encounter notes This section contains the clinical notes associated to the Encounter. Date/Time Encounter Note(s) Provider Source Aug 08, 2024 02:58 PM NURSING NOTE: LOCAL TITLE: NURSING PREOP TESTING & EVALUATION (T) STANDARD TITLE: NURSING NOTE DATE OF NOTE: AUG 08, 2024@14:58 ENTRY DATE: AUG 08, 2024@14:58:19 AUTHOR: MANISH WHALEY COSIGNER: URGENCY: STATUS: COMPLETED Patient testing and evaluation completed FOLLOWING ACTIONS DONE: Pre-Op Education Vitals Comment: see cprs ORIENTATION Patient oriented to person Patient oriented to place Patient oriented to time Patient oriented to circumstance PRE-OP INFORMATION REVIEWED AT THIS VISIT The patient is scheduled for: LEFT shoulder arthroscopy, SAD, Mini open biceps tenodesis on Aug. Medication list reviewed with Patient and any changes were reported to the provider. Patient states that her mother will provide transportation the day of surgery. Contact information for the Surgical Service was provided to the patient. Pre-Op Instruction information given to Patient. Advance Directives Patient has Advance Directives: No Patient would like more information on Advance Directives at this time: No Patient declined Advance Directive information at this time. PATIENT EDUCATION: LEARNING NEEDS ASSESSMENT: I. Learning Preference: Visual Hearing Hands-on Written (in jackson language) Individual II. Barriers to Learning: No Barriers to Learning III. Social Influences Related to Educational Needs: No social barriers to learning IV. Readiness to Learn: Patient Appears ready to learn. Family/Significant Other Appears ready to learn. EDUCATION TOPICS: Aromatherapy (Premade) Aromatherapy is the use of essential oils from plants (noel, herbs, or trees) to support a healing environment. Aromatherapy may be used along with other whole health approaches. Comment: available for ponv and anxiety if needed Readiness to Learn: Patient and family ready to learn. Teach Back Response: Patient and family able to teach back critical information about topic. Teaching Methods Used: Discussion, Given printed education materials Pre-Procedure Prep Readiness to Learn: Patient and family ready to learn. Individual Topics: Date, time, location, Personal items to bring or not to bring, Transportation, Dietary instructions Teaching Methods Used: Discussion, Given printed education materials Teach Back Response: Patient and family able to teach back critical information about topic. Prevention of Surgical Site Infections Readiness to Learn: Patient and family ready to learn. Individual Topics: Antimicrobial prophylaxis prior to incision Teaching Methods Used: Discussion, Given printed education materials Teach Back Response: Patient and family able to teach back critical information about topic. /shun/ MANISH WHALEY REGISTERED NURSE Signed: 08/08/2024 15:03 MANISH WHALEY [facility]
--- OUTSIDE RECORDS SUMMARY | 2024-08-08 11:00 | XMS_ITS | Encounter Summary ---
Author Name [facility] [place] [place] Organization [facility] [place] Address [address] [place] [id number] Care Team Providers Care Office Services Representative Name Role Phone JB CARSON Primary Care Provider Unavailabl e Selected Encounter This section includes the information on record at [place] for the Encounter. Date/Time Encounter Type Encounter Description Reason Provider Source Aug 08, 2024 03:00 PM OFF/OP CONSLTJ NEW/EST [place] 55 ANESTHESIA PRE/POST-OP CONSULT ICD-10-CM Z01.818 Encounter for other preprocedural examination VIC WESTFALL Encounter Template Text not used by [place] Assessments - Encounter Diagnoses This section includes the primary and secondary diagnoses documented for the Encounter. Date/Time Primary/Secondary Diagnosis Diagnosis Name Provider Source Aug 08, 2024 03:30 PM PRIMARY Encounter for other preprocedural examination JOE WESTFALL [facility] Aug 08, 2024 03:30 PM SECONDARY Allergic rhinitis, unspecified JOE WESTFALL [facility] Aug 08, 2024 03:30 PM SECONDARY Anemia, unspecified JOE WESTFALL [facility] Aug 08, 2024 03:30 PM SECONDARY Contact with and exposure to other hazardous substances JOE WESTFALL [facility] Aug 08, 2024 03:30 PM SECONDARY Encntr screen mammogram for malignant neoplasm of breast JOE WESTFALL [facility] Aug 08, 2024 03:30 PM SECONDARY Encounter for screening for malignant neoplasm of cervix JOE WESTFALL [facility] Aug 08, 2024 03:30 PM SECONDARY Pain in left shoulder JOE WESTFALL [facility] Aug 08, 2024 03:30 PM SECONDARY Post-traumatic stress disorder, unspecified JOE WESTFALL [facility] Plan of Treatment: Future Appointments (+ 6 months) and Future Tests (+/- 45 days) The Plan of Treatment section includes future care activities for the patient [facility] [place] [facility] This section includes future appointments and future orders which are active, pending or scheduled. Future Appointments This section includes appointments that were scheduled to occur 6 months from the date of the Encounter, up to a maximum of 20 appointments. The data comes from all [facility]. Appointment Date/Time Appointment Type Appointme nt Facility Name Sep 04, 2024 06:00 AM AMBULATORY - NONE [facility] Sep 18, 2024 12:40 PM AMBULATORY - SURGERY [facility] Sep 23, 2024 03:00 PM AMBULATORY - REHAB MEDICIN [facility] Sep 30, 2024 03:00 PM AMBULATORY - REHAB MEDICIN [facility] Oct 15, 2024 10:40 AM AMBULATORY - SURGERY [facility] Oct 16, 2024 01:30 PM AMBULATORY - REHAB MEDICIN E [facility] Oct 21, 2024 10:00 AM AMBULATORY - NONE [facility] Oct 23, 2024 11:00 AM [facility]ULATORY - NONE [facility] Oct 30, 2024 01:00 PM AMBULATORY - REHAB MEDICIN E [facility] Nov 06, 2024 11:30 AM AMBULATORY - NONE [facility] Nov 13, 2024 11:30 AM AM[facility]ORY - NONE [facility] Nov 13, 2024 01:00 PM AMBULATORY - REHAB MEDICIN E [facility] Nov 19, 2024 10:40 AM AMBULATORY - SURGERY [facility] Nov 27, 2024 08:00 AM AMBULATORY - REHAB MEDICIN E [facility] December 25, 2024 11:30 AM AMBULATORY - NONE [facility] December 27, 2024 08:00 AM AMBULATORY - REHAB MEDICIN E [facility] Jan 21, 2025 07:45 AM AMBULATORY - NONE [facility] Jan 28, 2025 11:00 AM AMBULATORY - NONE [facility] Jan 30, 2025 03:00 PM AMBULATORY - NONE [facility] Lab Results: +/- 30 days of the encounter This section includes the Chemistry and Hematology Lab Results on record with [place] for the patient. Radiology Reports and Pathology Reports are provided separately, in subsequent sections. Lab Results This section contains the Chemistry/Hematology Results that were resulted 30 days before or 30 daysafter the date of the Encounter. Date/Time Source Result Type Result - Unit Interpretation Reference Range Specimen Type Comment Sep 04, 2024 06:30 AM [facility] POC URINE URINE Specimen Type: URINE Comment: Test performed by Chinyere Negro RN Ordering Provider: JESSICA PALACIOS Report Released Date/Time: Sep 03, 2024 03:06 PM Reporting Lab: [address] [id number] Performing Lab: [address] [id number] POC URINE NEG -Neg Vital Signs: All taken on the encounter date This section contains inpatient and outpatient Vital Signs collected on the date of the Encounter. Date/Time Temperature Pulse Blood Pressure Respiratory Rate SP02 Pain Height Weight Body Mass Index Source Aug 08, 2024 02:47 PM 97.9 75 120/81 16 96 0 69 245 36 [facility] Social History: Smoking Status (Most current) and Tobacco Use (All prior to encounter date) This section includes the most current, and the historical, smoking and tobacco- related health factors from the [place] facility where the Encounter took place. Current Smoking Status This section includes the most current smoking, or tobacco-related health factor, from the [place] facility where the Encounter took place. Date/Time Current Smoking Status Comment Leila hewitt Sep 23, 2020 11:00 AM -BPR SMOKING DEPLOYMENT YES [facility] Encounter Notes: All associated encounter notes This section contains the clinical notes associated to the Encounter. Date/Time Encounter Note(s) Provider Source Aug 08, 2024 02:50 PM CONSULT: LOCAL TITLE: PRE OP SHORT MEDICAL OPTIMIZATION (C) STANDARD TITLE: CONSULT DATE OF NOTE: AUG 08, 2024@14:50 ENTRY DATE: AUG 08, 2024@14:50:57 AUTHOR: JOE WESTFALL COSIGNER: URGENCY: STATUS: COMPLETED CC: L shoulder pain HPI: The patient is a 43 y/o female scheduled for L shoulder arthroscopy, SAD, mini open biceps tenodesis 08/29. She has had pain for several years. She has tried PT and CSI. She has an active lifestyle with physical labor. Surgery has been recommended. =====PMH:===== HANNY; denies hx --> no current treatment JUANITO, iron infusions 2021 PTSD from service Allergic rhinitis Recent non-VA Medical care: none of recent =====PSH===== benign breast mass excision laminectomy 2004 C section 2005 lasik breast reduction 2008 abdominoplasty =====ANESTHESIA HISTORY===== During c section : nausea+. Zofran given which helps ( goes give her restless leg only in the IV form) =====FAMILY HX===== No family history of problems with anesthesia =====PCN allergy===== no =====SOCIAL HX===== Alcohol: +social Tobacco: denies current, quit 2013 cigarettes ( 20y, social, maybe pk week) Illicit/recreational use of substances: THC gummies =====REVIEW OF SYSTEMS===== GENERAL: Denies recent fevers, aches or chills NEURO: Denies CVA/TIA, seizures, lightheadedness, dizziness or syncope. HEENT: Denies acute vision changes, hearing changes CARDIAC/VASC: Denies CP/chest tightness, palpitations, orthopnea, PND, cardiovascular stents, claudication symptoms, edema. -chest tight with periods of anxiety--> years RESP: Denies COPD/Asthma, recent URI/PNA, SOB/ALVARADO, cough or wheeze, inability to lay flat. GI: Denies GERD, PUD, trouble swallowing, recent GI bleed, liver dz. : Denies kidney dz, dysuria, hemautria ENDO: Denies DM, thyroid dz HEME: Denies bleeding disorders or DVT/PE, or coagulopathy. MSK: + shoulder PSYCH: no MH concerns *All ROS pertinent positives listed in PMHx and/or here =====FUNCTIONAL STATUS===== Metabolic equivalents/exertional tolerance (METS): > 4. Active Farm animals: 3 horses, cow, mini donkey Tends to animals--> hay, feed, feeding No exertional sx Can lay supine, no orthopnea DASI Raw Score 58.2 =====TESTING/IMAGING REVIEWED===== EC: NSR Vital Signs: Temp: 97.9 (08/08/2024@14:47) Tmax: 97.9 (08/08/2024@14:47) BP : 120/81 (08/08/2024@14:47) HR : 75 (08/08/2024@14:47) RR : 16 (08/08/2024@14:47) SpO2: 96 (08/08/2024@14:47) BMI: 36 Neck Circ: 15 in. =====PHYSICAL EXAM===== GEN: Alert, cooperative, ambulatory without assistance NEURO: A&Ox3, SAMSON HEENT: no visible abnormality Airway: Mallampati: II Thyromental distance: > 3 fingers Neck ROM: adequate ROM Teeth: denies dentures, no cracked/loose teeth, no dental implants CV: RRR no murmurs, no carotid bruits RESP: CTA ABD: not distended EXT/Skin: No edema =====LABORATORY STUDIES===== \ 11.9 / 7.8 ------- 247 (01/24/2024) / 36.6 \ MCV: 89.0 (01/24/24 07:51) BLOOD NEUT. %: 68.1 (01/24/24 07:51) BLOOD 136 103 11 / 83 (01/24/2024) 4.6 27 0.9 \ Collection DT Specimen Test Name Result Units Ref Range 01/24/2024 07:51 PLASMA CALCIUM 9.1 mg/dL 8.7 - 10.4 Comment: TRIGLYCERIDE REF RANGE: NORMAL <150 mg/dL BORDERLINE HIGH: 150-199 Comment: TRIGLYCERIDE mg/dL HIGH: 200-499 mg/dL VERY HIGH: >=500 mg/dL Comment: CREATININE eGFR was calculated using the CKD-EPI 2020 equation. Collection DT Specimen Test Name Result Units Ref Range 01/12/2022 09:25 PLASMA MAGNESIUM 2.0 mg/dL 1.8 - 2.4 Comment: EGFR eGFR uses the CKD-EPI 202 equation. See National Kidney Comment: EGFR Foundation website kidney.org for more information. Collection DT Specimen Test Name Result Units Ref Range 06/14/2023 14:42 PLASMA PHOSPHORUS 3.4 mg/dL 2.5 - 4.9 Comment: CRP Interpret with caution, specimen slightly hemolyzed. Results Comment: CRP may be affected. Comment: URIC ACID Interpret with caution, specimen slightly hemolyzed. Comment: URIC ACID Results may be affected. Comment: CREATININE eGFR was calculated using the CKD-EPI 2021 equation. =====MEDICATIONS===== Planned Surgery: PATIENT ALLERGIES DETAILED ALLERGIES/ADVERSE REACTIONS Type: DRUG Date/Time Reactant Severity Reaction 10/08/2014 14:29 MOBIC RASH AMRS - MEDS (REC SUCCINCT) Active and Recently Inpatient, Outpatient and Clinic Medications (including Supplies): Active Outpatient Medications Status 1) LIDOCAINE 5% PATCH APPLY ONE PATCH TO CLEAN DRY SKIN ACTIVE EVERY DAY . PATCH SHOULD REMAIN ON SKIN NO LONGER THAN 12 HOURS IN ANY 24 HOUR PERIOD. Inactive Outpatient Medications Status 1) DICLOFENAC NA 1% TOP GEL APPLY 2GM MEASURED ON DOSING CARD EXTERNALLY TWICE A DAY NEEDED FOR PAIN TO RIGHT FOOT (GENTLY MASSAGE INTO SKIN) *FLAMMABLE: KEEP AWAY FROM HEAT AND FLAMES* Active Non-VA Medications Status 1) Non-VA IBUPROFEN 800MG TAB 800MG MOUTH THREE TIMES A ACTIVE DAY NEEDED 2) Non-VA THERAFLU POWDER,ORAL BY MOUTH ACTIVE 4 Total Medications MEDICATION RECONCILIATION MEDICATION RECONCILIATION REPORT reviewed and discussed with patient. VA prescription medications: Patient verifies that they are in receipt of a complete and accurate list of medications. Prescription medications from another source: Patient verifies that they are in receipt of a complete and accurate list of medications. Over the counter medications, vitamins, herbals, and nutritional supplements: Patient verifies that they are in receipt of a complete and accurate list of medications. Assessment Emergence Delirium Risk Difficulty sleeping CERVANTES frailty score Sex: 3 Cancer Status: No Weight Loss: 0 Poor Appetite: 0 Renal Insufficiency: 0 Chronic/Congestive Heart Failure: 0 Shortness of Breath: 0 Dependent Livin Cognitive Decline: No ADL*Cognitive Decline: 0 Mobility: Can get around without any help Eating: Can plan and prepare his/her own meals Toileting: Can use the toilet without help Personal Hygiene: Can shower or bathe without prompting or help CERVANTES Score: 13 Cardiac Risk -Risk Level of Surgery Moderate -Functional Status greater than 4 mets -Revised Cardiac Risk Index (Pernell) Score Final score: O -Implanted Devices The patient has an implanted pacer/AICD/cardiac device No Pulmonary Risk - previous diagnosis of HANNY, nonadherent with device - No other reported chronic pulmonary history. - No recent PNA/URI/COVID/sx - Has not been hospitalized for any recent pulmonary issue. Perioperative Brain Health Initiative clock drawing: accurate Plan Patient Instructions NPO after midnight on night before surgery Hold OTC supplements/herbal/fish oil/vit E 7 days prior to surgery HOLD NSAIDS 3 days prior to surgery Medication instructions for morning of surgery: Can take tylenol DOS =====OVERALL ASSESSMENT/PLAN===== This is a 43yo vet tentatively scheduled for L shoulder arthroscopy, SAD, mini open biceps tenodesis 08/29. Seanor's past medical history is significant for ( but not limited to): HANNY, JUANITO, PTSD, allergic rhinitis. Chronic co- morbidites appear overall stable. The has not had previous testing for review. RCRI: 0. Functional status with >4 METs. No exertional symptoms reported. Labs were reviewed from previous. The is currently optimized for the scheduled surgery. Final Statement of Risk Stratification and Optimization Patient is OPTIMIZED for surgery /es/ JOE WESTFALL NURSE PRACTITIONER Signed: 08/08/2024 15:30 JOE WESTFALL [facility]
--- OUTSIDE RECORDS SUMMARY | 2024-09-04 02:00 | XMS_ITS | Encounter Summary ---
Author Name [facility] Organization [facility] Address [address] [place] [address] Care Team Providers Care Nurse Private Duty Name Role Phone JB CARSON Primary Care Provider Unavailabl e Selected Encounter This section includes the information on record at [place] for the Encounter. Date/Time Encounter Type Encounter Description Reason Pro vider Source Sep 04, 2024 06:00 AM Outpatient Encounter PRIMARY CARE/MEDICINE IHE Encounter Template Text not used by [place] Plan of Treatment: Future Appointments (+ 6 months) and Future Tests (+/- 45 days) The Plan of Treatment section includes [facility] care activities [facility] the [facility] [place] [facility] This section includes future appointments and future orders which are active, pending or scheduled. Future Appointments This section includes appointments that were scheduled to occur 6 months from the date of the Encounter, up to a maximum of 20 appointments. The data comes from all [place] treatment facilities. Appointment Date/Time Appointment Type Appointme nt Facility Name Sep 18, 2024 12:40 PM AMBULATORY - SURGERY [facility] Sep 23, 2024 03:00 PM AMBULATORY - REHAB MEDICIN [facility] Sep 30, 2024 03:00 PM AMBULATORY - REHAB MEDICIN E [facility] Oct 15, 2024 10:40 AM AMBULATORY - SURGERY [facility] Oct 16, 2024 01:30 PM AMBULATORY - REHAB MEDICIN E [facility] Oct 21, 2024 10:00 AM AM[facility]UL[facility]ORY - NONE [facility] Oct 23, 2024 11:00 AM AMBULATORY - NONE [facility] Oct 30, 2024 01:00 PM AMBULATORY - REHAB MEDICIN E [facility] Nov 06, 2024 11:30 AM AMBULATORY - NONE [facility] Nov 13, 2024 11:30 AM [facility] - NONE [facility] Nov 13, 2024 01:00 PM AMBULATORY - REHAB MEDICIN E [facility] Nov 19, 2024 10:40 AM AMBULATORY - SURGERY [facility] Nov 27, 2024 08:00 AM AMBULATORY - REHAB MEDICIN E [facility] December 25, 2024 11:30 AM AMBULATORY - NONE [facility] December 27, 2024 08:00 AM AMBULATORY - REHAB MEDICIN E [facility] Jan 21, 2025 07:45 AM AMBULATORY - NONE [facility] Jan 28, 2025 11:00 AM AMBULATORY - NONE [facility] Jan 30, 2025 03:00 PM AMBULATORY - NONE [facility] Lab Results: +/- 30 days of the [...] Type Comment Sep 04, 2024 06:30 AM [facility] POC URINE URINE Specimen Type: URINE Comment: Test performed by Chinyere Negro RN Ordering Provider: JESSICA PALACIOS Report Released Date/Time: Sep 03, 2024 03:06 PM Reporting Lab: [facility] [id number] [facility] [address] Performing Lab: [facility] [address] [facility] [address] POC URINE NEG -Neg Vital Signs: All taken on the encounter date This section contains inpatient and outpatient Vital Signs collected on the date of the Encounter. Date/Time Temperature Pulse Blood Pressure Respiratory Rate SP02 Pain Height Weight Body Mass Index Source Sep 04, 2024 03:04 PM 65 109/68 15 0 [facility] Sep 04, 2024 01:07 PM 0 [facility] Sep 04, 2024 01:02 PM 64 99/67 14 92 0 [facility] Sep 04, 2024 12:30 PM 97.6 57 100/62 14 92 0 [facility] Sep 04, 2024 06:55 AM 7 [facility] Social History: Smoking Status (Most current) and Tobacco Use (All prior to encounter date) This section includes the most current, and the historical, smoking and tobacco- related health factors from the [place] facility where the Encounter took place. Current Smoking Status This section includes the most current smoking, or tobacco-related health factor, from the [place] facility where the Encounter took place. Date/Time Current Smoking Status Comment Leila hewitt Sep 04, 2024 06:00 AM TOBACCO [place] NON USER [facility] Tobacco Use History This section includes a history of the smoking, or tobacco-related health factors, that were collected on or before the date of the Encounter. The data comes from the [place] facility where the Encounter took place. Date/Time Smoking Status/Tobacco Use Comment F acility Sep 23, 2020 11:00 AM -BPR SMOKING DEPLOYMENT YES [facility] Encounter Notes: All associated encounter notes This section contains the clinical notes associated to the Encounter. Date/Time Encounter Note(s) Provider Source Sep 04, 2024 11:00 AM ANESTHESIOLOGY NOT E: LOCAL TITLE: ANESTHESIA POST-ANESTHETIC HANNY RISK ASSESSMENT NOTE STANDARD TITLE: ANESTHESIOLOGY NOTE DATE OF NOTE: SEP 04, 2024@11:00 ENTRY DATE: SEP 04, 2024@11:30:39 AUTHOR: ROBINSON COELHO EXP COSIGNER: URGENCY: STATUS: COMPLETED Scoring System for Perioperative Risk of HANNY Points A. Severity of known or suspected sleep apnea. Known HANNY: Severe - (3 points) Final Score section A: 3 B. Comorbid obstructive lung disease. Final Score section B: 0 C. Invasiveness of surgery and intensity of anesthesia. Peripheral surgery with general anesthesia - (2 points) D. Requirement for postoperative opioids. Parenteral or neuraxial opioids - (3 points) Overall Score (A + B + the greater of the score for either C or D) Overall score = 6 Monitor in PACU for 90 minutes post op: Yes /shun/ ROBINSON COELHO ANESTHESIOLOGIST Signed: 09/04/2024 11:31 ROBINSON COELHO [facility]
--- OUTSIDE RECORDS SUMMARY | 2024-09-04 02:00 | XMS_ITS | Encounter Summary ---
Author Name [facility] Organization [facility] Address [address] [place] [address] Care Team Providers Care Caponizer Name Role Phone JB CARSON Primary Care Provider Unavailabl e Selected Encounter This section includes the information on record at DC for the Encounter. Date/Time Encounter Type Encounter Description Reason Pro vider Source Sep 04, 2024 06:00 AM Outpatient Encounter PATIENT CARE IN OR [facility] Encounter Template Text not used by DC Plan of Treatment: Future Appointments (+ 6 months) and Future Tests (+/- 45 days) The Plan of Treatment section includes future care activities for the patient from [facility] This section includes future appointments and future orders which are active, pending or scheduled. Future Appointments This section includes appointments that were scheduled to occur 6 months from the date of the Encounter, up to a maximum of 20 appointments. The data comes from all [place] treatment facilities. Appointment Date/Time Appointment Type Appointme nt Facility Name Sep 18, 2024 12:40 PM AMBULATORY - SURGERY [facility] Sep 23, 2024 03:00 PM AMBULATORY - REHAB MEDICIN [facility] Sep 30, 2024 03:00 PM AMBULATORY - REHAB MEDICIN E [facility] Oct 15, 2024 10:40 AM AMBULATORY - SURGERY [facility] Oct 16, 2024 01:30 PM AMBULATORY - REHAB MEDICIN [facility] Oct 21, 2024 10:00 AM [facility] - [facility]ONE [facility] Oct 23, 2024 11:00 AM AMBULATORY - NONE [facility] Oct 30, 2024 01:00 PM AMBULATORY - REHAB MEDICIN E [facility] Nov 06, 2024 11:30 AM AMBULATORY - NONE [facility] Nov 13, 2024 11:30 AM AMBULATORY - NONE [facility] Nov 13, 2024 01:00 PM AMBULATORY - REHAB MEDICIN E [facility] Nov 19, 2024 10:40 AM AMBULATORY - SURGERY [place] [facility] Nov 27, 2024 08:00 AM AMBULATORY - REHAB MEDICIN E [facility] December 25, 2024 11:30 AM AMBULATORY - NONE [facility] December 27, 2024 08:00 AM AMBULATORY - REHAB MEDICIN E [facility] Jan 21, 2025 07:45 AM AMBULATORY - NONE [facility] Jan 28, 2025 11:00 AM AMBULATORY - NONE [facility] Jan 30, 2025 03:00 PM AMBULATORY - NONE [facility] Lab Results: +/- 30 days of the [...] Type Comment Sep 04, 2024 06:30 AM [facility] POC URINE URINE Specimen Type: URINE Comment: Test performed by Chinyere Negro RN Ordering Provider: MICHELLE VIEYRA Report Released Date/Time: Sep 03, 2024 03:06 PM Reporting Lab: [facility] [id number] [facility] [id number] Performing Lab: [facility] [id number] [facility] [id number] POC URINE NEG -Neg Vital Signs: All taken on the encounter date This section contains inpatient and outpatient Vital Signs collected on the date of the Encounter. Date/Time Temperature Pulse Blood Pressure Respiratory Rate SP02 Pain Height Weight Body Mass Index Source Sep 04, 2024 03:04 PM 65 109/68 15 0 [facility] Sep 04, 2024 01:07 PM 0 [place] [facility] Sep 04, 2024 01:02 PM 64 99/67 14 92 0 [facility] [facility] Sep 04, 2024 12:30 PM 97.6 57 100/62 14 92 0 [facility] Sep 04, 2024 06:55 AM 7 [facility] Social History: Smoking Status (Most current) and Tobacco Use (All prior to encounter date) This section includes the most current, and the historical, smoking and tobacco- related health factors from the [place] facility where the Encounter took place. Current Smoking Status This section includes the most current smoking, or tobacco-related health factor, from the [facility] where the Encounter took place. Date/Time Current Smoking Status Comment Leila hewitt Sep 04, 2024 06:00 AM TOBACCO [place] NON USER [facility] Tobacco Use History This section includes a history of the smoking, or tobacco-related health factors, that were collected on or before the date of the Encounter. The data comes from the [facility] where the Encounter took place. Date/Time Smoking Status/Tobacco Use Comment Mariajose acility Sep 23, 2020 11:00 AM [facility] SMOKING DEPLOYMENT YES [facility] Encounter Notes: All associated encounter notes This section contains the clinical notes associated to the Encounter. Date/Time Encounter Note(s) Provider Source Sep 05, 2024 01:46 PM NURSING DISCHARGE NOTE: LOCAL TITLE: [facility] NURSING DISCHARGE FOLLOW-UP NOTE (T STANDARD TITLE: NURSING DISCHARGE NOTE DATE OF NOTE: SEP 05, 2024@13:46 ENTRY DATE: SEP 05, 2024@13:46:12 AUTHOR: MOHAMUD CLEARY EXP COSIGNER: URGENCY: STATUS: COMPLETED Post-Procedure Telephone Contact Procedure Type: Operative procedure Procedure Performed: L shoulder arthroscopy, subacromial decompression, mini open biceps tenodesis Type of Call: Outgoing call Phone Call Status: Unable to contact patient or designee/patient or designee not available. No answer Patient Experiencing: Patient Instructions: Aromatherapy Were you given an aromatherapy inhaler in PACU to control nausea/vomiting: /shun/ BHASKAR CLEARY REGISTERED NURSE Signed: 09/05/2024 13:46 TARSHA CLEARY [facility] Sep 04, 2024 03:04 PM NURSING DISCHARGE NOTE: LOCAL TITLE: [facility] NURSING DISCHARGE ASSESSMENT (T) STANDARD TITLE: NURSING DISCHARGE NOTE DATE OF NOTE: SEP 04, 2024@15:04 ENTRY DATE: SEP 04, 2024@15:04:34 AUTHOR: CHINYERE NEGRO EXP COSIGNER: URGENCY: STATUS: COMPLETED -----DISCHARGE ASSESSMENT----- .. P: 65 R: 15 BP: 109/68 Pulse oximetry 96% on room air ==== PAIN ASSESSMENT ==== Patient's acceptable pain goal: 5 Interrupts some activities Are you currently experiencing pain? No: Pain Score: 0 - Vital signs stable: Yes - Level of consciousness adequate: Yes - Voided and/or absence of bladder distention: Yes - Did you experience nausea/vomiting while in PACU? Yes What treatment were you offered for nausea/vomiting: Antiemetic Was it effective: Yes Aromatherapy Was it effective: Yes - Ambulates without dizziness: Yes - Adequate neurovascular status of procedure area: Yes - Absence of uncontrolled wound drainage: Yes - Dressing clean, dry, intact: Yes - Skin dry: Yes - Heparin Lock discontinued: Yes - RN completed [facility] Post Anesthesia/Sedation Score Note: Yes -----INSTRUCTIONS----- .. The following information was discussed with the patient and/or significant other: .. - Discharge instructions given - states understanding: Yes - Follow-up clinic appointment on Aug@12:40 - Medications: Medications to be picked up at discharge by the family - Supplies sent home - emesis bags, ice cooler, water pitcher, kleenex -----DISCHARGE----- .. - Patient met discharge criteria: Yes - Discharge date/time: Aug@15:07 - Discharged by: Wheelchair - Patient accompanied by: Nurse - Driven home by: Family PATIENT ID/WRISTBAND: Patient wristband was removed and destroyed by: [facility] Patient Education Information I-Med Patient Education Document Discharge Pain Management Plan of Care Education: Pain Management PERC pack reviewed including: - Pain Management Plan of Care - Safe Use and Storage of Pain Medication - Complementary Care for Pain - Home Environment including ADL's that can exacerbate pain or reduce effectiveness of the pain management plan of care and strategies to address any issues. Readiness to Learn: Patient and family ready to learn. Teach Back Response: Patient and family able to teach back critical information about topic. PATIENT EDUCATION: EDUCATION TOPICS: Pre/Post-Procedure Instructions Readiness to Learn: Patient and family ready to learn. Individual Topics: Procedure, Resuming activities, Resuming diet, Resuming medications, New medications, Site care/dressings, Skill practice, Signs of infection/other complications, Follow-up Teaching Methods Used: Discussion, Given printed education materials, Given PERC Pack Teach Back Response: Patient and family able to teach back critical information about topic. Post Anesthesia Sedation Score - Phase 2 Phase 2 Discharge Criteria TOTAL SCORE=10 Pain 2 Points - Minimal or none - Pain Score 0-4 or at tolerable level or at baseline Nausea/Vomiting 2 Points - Minimal or none Circulatory Status 2 Points - BP/HR less than 20% or 20 mmHg of baseline Activity and Mental Status 2 Points - Oriented x3 AND has steady gait (at baseline for non-ambulating patients) Surgical Site/Dressing 2 Points - Dry and Clean or Not Applicable (for example, Endoscopy) [facility] Phase 2 time documented Time: 1500 /es/ CHINYERE NEGRO REGISTERED NURSE Signed: 09/04/2024 15:15 CHINYERE NEGRO [facility] Sep 04, 2024 01:06 PM NURSING POSTPROCED URE NOTE: LOCAL TITLE: [facility] NURSING POST-PROCEDURE ASSESSMENT ( STANDARD TITLE: NURSING POSTPROCEDURE NOTE DATE OF NOTE: SEP 04, 2024@13:06 ENTRY DATE: SEP 04, 2024@13:06:08 AUTHOR: CHINYERE NEGRO EXP COSIGNER: URGENCY: STATUS: COMPLETED POST-PROCEDURE NURSING ASSESSMENT Procedure location: Operating Room Surgery/procedure: left shoulder repair- arrived with eyes closed. opened them briefly when name is called. denied pain. went right back to sleep. family brought to bedside. call light within reach. see scanned VSS. Nausea: Yes, medicated with phenergan per report. ALSO ANTINAUSEA STICK GIVEN WELL. Fluids offered: Yes Voided: No Ambulated: No IV site: Right arm Fluid type: None Discontinued IV fluid upon arrival: Present IV bag solution infused: Anesthesia: General, Other type of anesthesia:nerve block Time returned: 1230 Par Score: Four extremities = 2 Shallow = 1 Piggott = 2 Blood pressure change 20-50 = 1 Drowsy = 1 Total Score: 7 ==== PAIN ASSESSMENT ==== Patient's acceptable pain goal: 4 Distracts me, can do usual activities Are you currently experiencing pain? No: Pain Score: 0 PHYSICAL EXAMINATION Heart - Heart regular Pulses - Palpable x4 extremities Extremities - Warm, No edema, Other: LUE in ultrasling covered with ice man cooler Respirations - Unlabored, Symmetrical Breath sounds - Right clear, Left clear Abdomen - Soft, Non-distended Bowel sounds - Active x4 quadrants Bladder - Continent Skin - Warm, Dry Musculoskeletal - Mobility - Independent Last BOLAND Fall Score: MHAS - BOLAND Fall Scale Date Instrument Raw Trans Scale 09/04/2024 06:00 BOLAND FALL SCALE 0 Boland Score Post Fall Assessment Total Score: No data available for: Post Fall Boland Total Score SHF - Interventions ONS Fall Prevention IV/Hep/Saline Lock 09/04/2024 Educate On IVs: Meds/Tripping Hazard ONS Fall Prevention Dorsey 09/04/2024 Dorsey Fall Precautions - Initiated FALL RISK ASSESSMENT BOLAND FALL SCALE The Boland Fall scale was performed and score was 35. This is indicative of moderate risk for falls. History of falling: immediate or within 3 months? No Secondary diagnosis: Yes Ambulatory aid: None/bedrest/nurse assist Intravenous therapy/Heparin lock: Yes Gait/Transferring: Normal/bed rest/immobile Mental Status: Oriented to own ability/knows own limitations OTHER RISK FACTORS Secondary Diagnosis The patient/resident is on multiple medications to manage co-morbidities. Medications that may increase risk of falls or of injury from falls: Other Drug(s): nerve block and general anesthesia FALL PREVENTION INTERVENTIONS Erskine Dorsey Fall Precautions on All Patients/Residents Patient/Resident Education: [place] to surroundings Purpose and use of call light Use of non-skid slippers or gripper socks Request assistance for daily activities (such as getting out of bed, toileting, transfers) Purpose and use of assistive devices and mobility aids if needed Environment of Care Place patient/resident articles within easy reach Call light (if applicable) in easy reach and answered promptly Place bed in low position when in bed Lock bed wheels Lock wheelchair wheels if applicable Provide proper lighting (night lights) Keep floor free of clutter Clean up spills immediately Modify environment for safe transfers For secondary diagnoses: Reinforce MD instructions for preventions of complications related to medical diagnoses/problems Review medications with patient/resident and family/support person and take into account risks specific to the patient/resident For IV, Heplock or Saline Lock: Provide patient/resident/family/suppo rt member education: tubing as tripping hazard; effects of IV Medications /shun/ CHINYERE NEGRO REGISTERED NURSE Signed: 09/04/2024 13:11 CHINYERE NEGRO [facility] Sep 04, 2024 11:09 AM ORTHOPEDIC SURGERY POST OPERATIVE E & M NOTE: LOCAL TITLE: ORTHO POSTOPERATIVE NOTE (T) STANDARD TITLE: ORTHOPEDIC SURGERY POST OPERATIVE E & M NOTE DATE OF NOTE: SEP 04, 2024@11:09 ENTRY DATE: SEP 04, 2024@11:09:57 AUTHOR: DAVE BELLO EXP COSIGNER: JANES HUTCHINS URGENCY: STATUS: COMPLETED Pre-operative diagnosis: L biceps tendinitis; L subacromial bursitis Post-operative diagnosis: L biceps tendinitis; L subacromial bursitis Procedure: L shoulder arthroscopy, subacromial decompression, mini open biceps tenodesis Surgeons: Attending: Dr. Hutchins Resident: Tracy Anesthesia: General Fluids: crystalloid: colloid: blood products: Estimated blood loss: Urine output: ccs Findings: Specimens: cultures: pathology: Drains: No Complications: No If yes, specify: Condition: stable Disposition: PACU I was directly involved with the care and transport of this patient to the Post Anesthesia Care Unit and the postoperative note was completed at the conclusion of these patient care activities /shun/ DAVE BELLO Orthopedic Resident Signed: 09/04/2024 11:11 /shun/ JANES HUTCHINS PHYSICIAN Cosigned: 09/04/2024 11:13 DAVE BELLO [facility] Sep 04, 2024 10:49 AM ORTHOPEDIC SURGERY POST OPERATIVE E & M NOTE: LOCAL TITLE: ORTHO POSTOPERATIVE NOTE (T) STANDARD TITLE: ORTHOPEDIC SURGERY POST OPERATIVE E & M NOTE DATE OF NOTE: SEP 04, 2024@10:49 ENTRY DATE: SEP 04, 2024@10:50:06 AUTHOR: JANES HUTCHINS EXP COSIGNER: URGENCY: STATUS: COMPLETED Pre-operative diagnosis: Left shoulder pain, long head biceps tendonopathy Post-operative diagnosis: Left shoulder pain, long head biceps tendonopathy Procedure: Left shoulder arthroscopy with limited debridement, subacromial decompression, acromioplasty, open subpectoral bicep tenodesis Surgeons: Attending: Janes Hutchins Resident: Dave Bello Anesthesia: General, Interscalene Block Fluids: crystalloid: colloid: blood products: Estimated blood loss: 10 Urine output: ccs Findings: Left shoulder proximal long head biceps tendonopathy, Subacromial bursitis Specimens: cultures: none pathology: none Drains: No Complications: No If yes, specify: Condition: Stable Disposition: PACU I was involved with the care of this patient and the postoperative note was completed before the patient was transferred to the next level of care /milind HUTCHINS PHYSICIAN Signed: 09/04/2024 10:54 JANES HUTCHINS [facility] Sep 04, 2024 10:30 AM ACCOUNTING OF DISC LOSURES NOTE: LOCAL TITLE: STATE PRESCRIPTION DRUG MONITORING PROGRAM STANDARD TITLE: ACCOUNTING OF DISCLOSURES NOTE DATE OF NOTE: SEP 04, 2024@10:30:57 ENTRY DATE: SEP 04, 2024@10:30:57 AUTHOR: MICHELLE VIEYRA EXP COSIGNER: URGENCY: STATUS: COMPLETED This PDMP query was submitted by Michelle Vieyra. The clinical justification for this PDMP query is to review controlled substances prescribed outside of the [facility], and any additional information that may become available, as an important component of standard clinical care, and in accordance with [facility] policy. Patient information was shared with the PDMP Appriss [place]. No prescription(s) for controlled substances outside the [facility] were found in the last 90 days. /milind VIEYRA PHYSICIAN LICENSING MANAGER Signed: 09/04/2024 10:31 MICHELLE VIEYRA [facility] Sep 04, 2024 08:51 AM ORTHOPEDIC SURGERY ATTENDING NOTE: LOCAL TITLE: ORTHO ATTENDING STAFF NOTE STANDARD TITLE: ORTHOPEDIC SURGERY ATTENDING NOTE DATE OF NOTE: SEP 04, 2024@08:51 ENTRY DATE: SEP 04, 2024@08:51:07 AUTHOR: JANES HUTCHINS EXP COSIGNER: URGENCY: STATUS: COMPLETED ATTENDING STAFF/PREOPERATIVE NOTE: I have seen and examined the patient and agree with the assessment and plan of care outlined by the resident staff. I plan the following procedure: Shoulder arthroscopy with biceps tenodesis PATIENT STATUS: Outpatient The patient was examined. The H&P and Medication Reconciliation from Aug was reviewed and there were no changes. URGENCY OF PROCEDURE Elective Scoring: Activity Four extremities = 2 Respirations Cough and deep breathe = 2 Circulation Blood pressure change <20 = 2 Level of consciousness Awake = 2 Color Piggott = 2 TOTAL SCORE: 10 Patient seen and examined. She has pain and dysfunction that has been refractory to conservative measures and is appropriate for surgical intervention /shun/ JANES HUTCHINS PHYSICIAN Signed: 09/04/2024 08:52 JANES HUTCHINS [facility] Sep 04, 2024 08:41 AM NURSING PRE OPERAT NEW E & M NOTE: LOCAL TITLE: NURSING PRE-OPERATIVE/PRE-PROCEDURE CHECKLIST (T) STANDARD TITLE: NURSING PRE OPERATIVE E & M NOTE DATE OF NOTE: SEP 04, 2024@08:41 ENTRY DATE: SEP 04, 2024@08:41:14 AUTHOR: ANKUR GAITAN EXP ALMAIGNER: URGENCY: STATUS: COMPLETED PERIOPERATIVE NURSING (OR) STAFF ONLY PATIENT IDENTIFICATION -------- - Identification band verified/name accurate: Yes - Verbal confirmation of identity given by Patient - States name and Social Security Number PROCED URE VERIFICATION ----- - Document the procedure, site and side as stated by: Patient, ok to use layman's terms: - scoping my left shoulder NPO after midnight: Yes Family Waiting: Yes tad Fleming and daughter Rosalio Verbal consent to provide family updates: Yes ALLERGIES/ADVERSE DRUG REACTIONS MOBIC - Allergies reviewed: Yes VALUABLES --------- . All Valuables and Clothing removed : Yes ME REJI IMPLANTS Metal Implants: No L ABORATORY ----- - Testing (patients with uteruses < 52 years old): Yes - Serum blood glucose: GLUCOSE 83 (01/24/24 07:51) PLASMA DNR Order Addressed: Not Applicable M EDICATIONS --------- . Aromatherapy: N/A - Operative consent form signed and present Yes - History and physical performed within 30 days: Yes - History and physical reviewed within 24 hours of surgery: Yes - Surgical Site marked: Left shoulder - Vascular access - Saline lock - Last voided: --VITALS --------- . If there is a Medical or Behavioral Change, complete Nursing Change in Condition Note. /shun/ ANKUR GAITAN REGISTERED NURSE Signed: 09/04/2024 08:44 ANKUR GAITAN [facility] Sep 04, 2024 08:41 AM ORTHOPEDIC SURGERY NOTE: LOCAL TITLE: ORTHO INDICATIONS NOTE STANDARD TITLE: ORTHOPEDIC SURGERY NOTE DATE OF NOTE: SEP 04, 2024@08:41 ENTRY DATE: SEP 04, 2024@08:42:11 AUTHOR: DAVE BELLO EXP COSIGNER: JANES HUTCHINS URGENCY: STATUS: COMPLETED ORTHO INDICATIONS NOTE 42F, w/ L biceps tendinosis. The patient has attempted conservative management in the form of PT/injections and has not had significant long-term relief. Risks benefits and alternatives to arthroscopic shoulder surgery with subacromial decompression and mini open biceps tenodesis w Dr. Hutchins were discussed with the patient with emphasis that surgery would be unable to address any underlying arthritic changes already present. After discussion of r/b/a with the patient, they wished to proceed. Consent was signed and obtained by Dave Bello MD. Questions and concerns were addressed. Malo comfortable moving forward. Dave Bello MD Orthopaedic Surgery, PGY-3 /es/ DAVE BELLO Orthopedic Resident Signed: 09/04/2024 08:43 /shun/ JANES HUTCHINS PHYSICIAN Cosigned: 09/04/2024 08:52 DAVE BELLO [facility] Sep 04, 2024 08:38 AM ORTHOPEDIC SURGERY PRE OPERATIVE E & M NOTE: LOCAL TITLE: ORTHO PREOPERATIVE NOTE (T) STANDARD TITLE: ORTHOPEDIC SURGERY PRE OPERATIVE E & M NOTE DATE OF NOTE: SEP 04, 2024@08:38 ENTRY DATE: SEP 04, 2024@08:39:02 AUTHOR: DAVE BELLO EXP COSIGNER: JANES HUTCHINS URGENCY: STATUS: COMPLETED PREOPERATIVE NOTE History and Physical Update The patient was examined. The H&P and Medication Reconciliation from Jul was reviewed and there were no changes. Vitals: T: 97.8 F [36.6 C] (09/04/2024 06:45) P: 70 (09/04/2024 06:45) R: 15 (09/04/2024 06:45) BP: 133/83 (09/04/2024 06:45) PAIN: 7 (09/04/2024 06:45) Allergies: ALLERGIES/ADVERSE REACTIONS Type: DRUG Date/Time Reactant Severity Reaction 10/08/2014 14:29 MOBIC RASH Pre-operative diagnosis: L biceps tendinitis Planned procedure: L shoulder arthroscopy with biceps tenodesis Surgeon: Dr. Hutchins Consent obtained: Yes Obtained by: Dave Bello MD Pre-operative laboratory tests reviewed: CBC: Metabolic: Coagulation: PT - PTT - INR - Urinalysis: Chest x-ray: Electrocardiogram: Blood Products: Type and screen: No Type and cross: No Number of units: None Other blood products: No /shun/ DAVE BELLO Orthopedic Resident Signed: 09/04/2024 08:40 /shun/ JANES HUTCHINS PHYSICIAN Cosigned: 09/04/2024 08:53 DAVE BELLO [facility] Sep 04, 2024 07:00 AM NURSING OUTPATIENT NOTE: LOCAL TITLE: [facility] CENTER NURSING ASSESSMENT NOTE (T) STANDARD TITLE: NURSING OUTPATIENT NOTE DATE OF NOTE: SEP 04, 2024@07:00 ENTRY DATE: SEP 04, 2024@08:43:33 AUTHOR: CHINYERE NEGRO COSIGNER: URGENCY: STATUS: COMPLETED PHYSICAL EXAMINATION Orientation - Patient oriented to person,place,time and circumstance Level of Consciousness - Alert Eyes - Pupils equal, round, reactive to light, No drainage Ears - Hearing good Nares - Clear, No drainage Larynx - Other: denies trouble swallowing Heart - Heart regular Pulses - Palpable x4 extremities Extremities - Warm, No edema Respirations - Unlabored, Symmetrical Breath sounds - Right clear, Left clear Abdomen - Soft Bowel sounds - Active x4 quadrants Bladder - Continent Last menstrual period - August 22, 2024 Skin - Warm, Dry Mobility - Independent PSYCHOSOCIAL Reading - Good Education - College Language - [place] [employer] - mosque Culture - Patient has beliefs that may affect hospital stay: No Travel Family FALL RISK ASSESSMENT BOLAND FALL SCALE The Boland Fall scale was performed and score was 0. This is indicative of low risk of falls. History of falling: immediate or within 3 months? No Secondary diagnosis: No Ambulatory aid: None/bedrest/nurse assist Intravenous therapy/Heparin lock: No Gait/Transferring: Normal/bed rest/immobile Mental Status: Oriented to own ability/knows own limitations OTHER RISK FACTORS No history of falls and no secondary diagnosis. FALL PREVENTION INTERVENTIONS Erskine Dorsey Fall Precautions on All Patients/Residents Patient/Resident Education: [place] to surroundings Purpose and use of call light Use of non-skid slippers or gripper socks Request assistance for daily activities (such as getting out of bed, toileting, transfers) Purpose and use of assistive devices and mobility aids if needed Environment of Care Place patient/resident articles within easy reach Call light (if applicable) in easy reach and answered promptly Place bed in low position when in bed Lock bed wheels Lock wheelchair wheels if applicable Provide proper lighting (night lights) Keep floor free of clutter Clean up spills immediately Modify environment for safe transfers For IV, Heplock or Saline Lock: Provide patient/resident/family/suppo rt member education: tubing as tripping hazard; effects of IV Medications PATIENT EDUCATION: LEARNING NEEDS ASSESSMENT: I. Learning Preference: Visual Hearing Hands-on Written (in absentee-shaw[place] language) II. Barriers to Learning: No Barriers to Learning III. Social Influences Related to Educational Needs: No social barriers to learning IV. Readiness to Learn: Patient Appears ready to learn. Family/Significant Other Appears ready to learn. EDUCATION TOPICS: Pre-Procedure Prep Readiness to Learn: Patient and family ready to learn. Individual Topics: Procedure, Indication, Procedure details, Date, time, location, Personal items to bring or not to bring, Transportation, Dietary instructions Teaching Methods Used: Discussion Teach Back Response: Patient and family able to teach back critical information about topic. . Clothes - In locker Locker: 17 Room Number: [id number] /milind NEGRO REGISTERED NURSE Signed: 09/04/2024 08:46 CHINYERE NEGRO [facility] Sep 04, 2024 06:30 AM LABORATORY NOTE: LOCAL TITLE: POINT OF CARE TESTING RESULTS NOTE (T) STANDARD TITLE: LABORATORY NOTE DATE OF NOTE: SEP 04, 2024@06:30 ENTRY DATE: SEP 04, 2024@07:31:39 AUTHOR: CHINYERE NEGRO COSIGNER: URGENCY: STATUS: COMPLETED POINT OF CARE (POC) TESTING RESULTS POC Urine Testing Results ICON 20 Hcg Urine Test Facility Name: [facility] Date/Time Performed: Aug@06:30 Kit Lot #: [id number] Expiration Date: May Internal QC OK: Yes Test Result: Negative Retest required: Erlinda /milind NEGRO REGISTERED NURSE Signed: 09/04/2024 07:34 Receipt Acknowledged By: 09/04/2024 10:33 /shun/ SHARLENE QUINONES BARREL BRIDGE ASSEMBLER CHINYERE NEGRO [facility] Sep 04, 2024 06:30 AM NURSING OUTPATIENT NOTE: LOCAL TITLE: SAME [facility] CENTER PRE-OPERATIVE/PRE-PROCEDURE CHECKLI STANDARD TITLE: NURSING OUTPATIENT NOTE DATE OF NOTE: SEP 04, 2024@06:30 ENTRY DATE: SEP 04, 2024@08:38:46 AUTHOR: CHINYERE NEGROIGNER: URGENCY: STATUS: COMPLETED Date/Time arrived: Aug@06:30 Room number: 117 PROCED URE VERIFICATION ----- - Document the procedure, site, and side as stated by: Patient, ok to use layman's terms: - left shoulder repair READIED FOR OPERATING ROOM OR PROCEDURE - Last ate: Aug@20:00 - Last fluid: Aug@23:59 - Last alcoholic beverage: Not applicable - Last recreational drug use: Not applicable - Last voided/urinary catheter drained: Aug@06:30 - Dentures removed: Not applicable - Glasses removed: Not applicable - Dressed for Operating Room: Yes - All jewelry removed: Not applicable - All body piercings removed: Not applicable - All undergarments removed: Yes - Operative consent form signed and present Yes --VITALS --------- See scanned VSS . ==== PAIN ASSESSMENT ==== Patient's acceptable pain goal: 4 Distracts me, can do usual activities Are you currently experiencing pain? Yes - DVPRS scale used to assess Location: left shoulder Defense and Veterans Pain Rating Scale (DVPRS): 4 Distracts me, can do usual activities Pain Score: 7 Supplemental DVPRS: Over the last 24 hours how has your pain: Interfered with activity: 7 Interfered with sleep: 7 Affected your mood: 7 Contributed to stress: 7 Primary Pain Assessment: Pain Type: Acute Describe Pain (Quality): Musculoskeletal: Aching Pain Alleviating Interventions: Positioning Other: pre op checklist Intravenous line Type: Saline lock Gauge: 20 Site: Right arm IV Fluid: None Rate: Amount in bag: mls M EDICATIONS --------- . Patient Takes a Beta Viki No Patient takes an Anticoagulant (Blood Thinners, Aspirin, NSAID) No Medications taken this A.M.: ALLERGIES/ADVERSE DRUG REACTIONS MOBIC - Allergies reviewed: Yes - Pre-operative bloodwork completed: Not applicable - Testing (Females < 52 years old): Yes - Type and cross match: Not applicable - Electrocardiogram in chart: Not applicable - Chest x-ray: Not applicable - Serum blood glucose: GLUCOSE 83 (01/24/24 07:51) PLASMA PATIENT IDENTIFICATION -------- - History and physical performed within 30 days: Yes - Verbal confirmation of identity given by Patient - States name and Social Security Number Patient's preferred language for discussing health care: Austrian Advance Directives Patient has Advance Directives: No Patient would like more information on Advance Directives at this time: No Patient declined Advance Directive information at this time. The patient's health assessment has changed since last evaluation: No Diet No limitations Tobacco use Patient is a lifetime non-user of tobacco. Scoring: Activity Four extremities = 2 Respirations Cough and deep breathe = 2 Circulation Blood pressure change <20 = 2 Level of consciousness Awake = 2 Color Piggott = 2 TOTAL SCORE: 10 Contact of person traveling with patient: Quinn animal impersonator can receive patient information: Yes Telephone: [phone] Relationship: mom and dtr /shun/ CHINYERE NEGRO REGISTERED NURSE Signed: 09/04/2024 08:43 CHINYERE NEGRO [facility]
--- OUTSIDE RECORDS SUMMARY | 2024-09-04 04:30 | XMS_ITS | Encounter Summary ---
Author Name [facility] [place] [facility] [place] Organization [facility] [place] Address [address] [place] [id number] Care Team Providers Care Plastic Manager Name Role Phone JB CARSON Primary Care Provider Unavailabl e Selected Encounter This section includes the information on record at [place] for the Encounter. Date/Time Encounter Type Encounter Description Reason Provider Source Sep 04, 2024 08:30 AM OFFICE O/P NEW MOD 45 MIN ANESTHESIA PRE/POST-OP CONSULT ICD-10-CM S46.202A Unsp injury of musc/fasc/ten d prt biceps, left arm, init LAQUITA,ROBINSON IHE Encounter Template Text not used by [place] Assessments - Encounter Diagnoses This section includes the primary and secondary diagnoses documented for the Encounter. Date/Time Primary/Secondary Diagnosis Diagnosis Name Provider Source Sep 04, 2024 11:21 AM PRIMARY Unsp injury of musc/fasc/tend prt biceps, left arm, init LAQUITA,ROBNISON [facility] Plan of Treatment: Future Appointments (+ 6 months) and Future Tests (+/- 45 days) The Plan of Treatment section includes future care activities for the patient from all [place] treatmentfacilities. This section includes future appointments and future orders which are active, pending or scheduled. Future Appointments This section includes appointments that were scheduled to occur 6 months from the date of the Encounter, up to a maximum of 20 appointments. The data comes from all [place] treatment facilities. Appointment Date/Time Appointment Type Appointme nt Facility Name Sep 18, 2024 12:40 PM AMBULATORY - SURGERY [facility] Sep 23, 2024 03:00 [facility], [facility]24 03:00 PM [facility] Oct 15, 2024 10:40 AM AMBULATORY - SURGERY [facility] Oct 16, 2024 01:30 PM AMBULATORY - REHAB MEDICIN E [facility] Oct 21, 2024 10:00 AM [facility]ONE [facility] Oct 23, 2024 11:00 AM [facility]ONE [facility] Oct 30, 2024 01:00 PM AMBULATORY - REHAB MEDICIN E [facility] Nov 06, 2024 11:30 AM [facility] - NONE [facility] Nov 13, 2024 11:30 AM [facility] - NONE [facility] Nov 13, 2024 01:00 PM AMBULATORY - REHAB MEDICIN E [facility] Nov 19, 2024 10:40 AM AMBULATORY - SURGERY [facility] Nov 27, 2024 08:00 AM AMBULATORY - REHAB MEDICIN E [facility] December 25, 2024 11:30 AM [facility] December 27, 2024 08:00 AM AMBULATORY - REHAB MEDICIN E [facility] Jan 21, 2025 07:45 AM AMBULATORY - NONE [facility] Jan 28, 2025 11:00 AM [facility]ORY - NONE [facility] Jan 30, 2025 03:00 PM AMBULATORY - NONE [facility] Lab Results: +/- 30 days [...] Type Comment Sep 04, 2024 06:30 AM [facility] POC URINE URINE Specimen Type: URINE Comment: Test performed by Chinyere Negro RN Ordering Provider: JESSICA PALACIOS Report Released Date/Time: Sep 03, 2024 03:06 PM Reporting Lab: [facility] [id number] [facility] [id number] Performing Lab: [facility] [id number] [facility] [id number] POC URINE NEG -Neg Vital Signs: All taken on the encounter date This section contains inpatient and outpatient Vital Signs collected on the date of the Encounter. Date/Time Temperature Pulse Blood Pressure Respiratory Rate SP02 Pain Height Weight Body Mass Index Source Sep 04, 2024 03:04 PM 65 109/68 15 0 [facility] Sep 04, 2024 01:07 PM 0 [facility] Sep 04, 2024 01:02 PM 64 99/67 14 92 0 [facility] Sep 04, 2024 12:30 PM 97.6 57 100/62 14 92 0 [facility] Sep 04, 2024 06:55 AM 7 [facility] Social History: Smoking Status (Most current) and Tobacco Use (All prior to encounter date) This section includes the most current, and the historical, smoking and tobacco- related health factors from the [place] facility where the Encounter took place. Current Smoking Status This section includes the most current smoking, or tobacco-related health factor, from the [place] facility where the Encounter took place. Date/Time Current Smoking Status Comment Leila ity Sep 04, 2024 06:00 AM TOBACCO [place] NON USER [facility] Tobacco Use History This section includes a history of the smoking, or tobacco-related health factors, that were collected on or before the date of the Encounter. The data comes from the [place] facility where the Encounter took place. Date/Time Smoking Status/Tobacco Use Comment F acility Sep 23, 2020 11:00 AM AH-BPR SMOKING DEPLOYMENT YES [facility] Encounter Notes: All associated encounter notes This section contains the clinical notes associated to the Encounter. Date/Time Encounter Note(s) Provider Source Sep 04, 2024 09:30 AM ANESTHESIOLOGY PRO CEDURE NOTE: LOCAL TITLE: ANESTHESIA OR PROCEDURES NOTE (T) STANDARD TITLE: ANESTHESIOLOGY PROCEDURE NOTE DATE OF NOTE: SEP 04, 2024@09:30 ENTRY DATE: SEP 04, 2024@11:20:44 AUTHOR: ROBINSON COELHO EXP COSIGNER: URGENCY: STATUS: COMPLETED The following procedure(s) were performed in conjunction with this this patient's scheduled surgery and anesthetic. Detailed documentation of procedure will be located in the patient's anesthetic record (CompuRecord), which has been uploaded to [facility]. - Regional pain block for adjunct intra-operative or post-operative pain control /shun/ ROBINSON COELHO ANESTHESIOLOGIST Signed: 09/04/2024 11:21 ROBINSON COELHO [facility] Sep 04, 2024 08:30 AM ANESTHESIOLOGY ATT ENDING NOTE: LOCAL TITLE: RETORT FIREMAN PRE-ANESTHETIC NOTE (T) STANDARD TITLE: ANESTHESIOLOGY ATTENDING NOTE DATE OF NOTE: SEP 04, 2024@08:30 ENTRY DATE: SEP 04, 2024@10:23:48 AUTHOR: ROBINSON COELHO EXP COSIGNER: URGENCY: STATUS: COMPLETED Date of : Nov Sex: FEMALE Diagnosis: Left biceps tendinitis Planned procedure: Left shoulder arthroscopy with biceps tenodesis Information source: Patient, Chart Review, Previous medical record Operating Room NPO: >8 hrs PAST MEDICAL HISTORY . CARDIOVASCULAR Denies problems Functional Status: Greater than 4 mets RESPIRATORY allergic rhinitis History of Sleep Apnea Yes Patient is prescribed CPAP Patient non compliant with CPAP at home NEUROLOGICAL Denies problems MUSCULOSKELETAL Denies problems LIVER DISEASE Denies problems GASTROINTESTINAL Denies problems RENAL Denies problems Gynecological Test Negative today ENDOCRINE Morbid Obesity BLEEDING ISSUES Anemia, JUANITO, iron infusions 2021 PSYCHIATRIC Posttraumatic stress disorder HABITS Tobacco use: remote Street drug use:marijuana gummies Other Medical History Obesity w BMI 36 ---------PAST SURGICAL HISTORY--------- Benign breast mass excision Laminectomy 2004 C section 2006 Lasik Breast reduction 2009 Abdominoplasty ANESTHESIA HISTORY . During c section : nausea+. Zofran given which helped but gave her restless leg only in the IV form MEDICATIONS Active Inpatient, Outpatient and Clinic Medications (including Supplies): Clinic Medications Status ===== 1) HYDROMORPHONE INJ,SOLN 0.2MG/0.2ML IVP PRN Q5MIN ACTIVE NEEDED PAIN (4-6): MAX 2MG: ADMINISTER IN PACU ONLY 2) HYDROMORPHONE INJ,SOLN 0.2MG/0.2ML IVP PRN Q5MIN ACTIVE NEEDED PAIN (7-10): MAX 3MG: ADMINISTER IN PACU ONLY 3) OXYCODONE TAB 5MG PO ONCE PRN PAIN (1-3): ADMINISTER ACTIVE IN PACU ONLY Outpatient Medications Status ===== 1) LIDOCAINE 5% PATCH APPLY ONE PATCH TO CLEAN DRY SKIN ACTIVE EVERY DAY . PATCH SHOULD REMAIN ON SKIN NO LONGER THAN 12 HOURS IN ANY 24 HOUR PERIOD. Non-VA Medications Status ===== 1) Non-VA IBUPROFEN 800MG TAB 800MG MOUTH THREE TIMES A ACTIVE DAY NEEDED 2) Non-VA THERAFLU POWDER,ORAL BY MOUTH ACTIVE 6 Total Medications ALLERGIES/ADVERSE DRUG REACTIONS MOBIC ---------LABS-------- \ 11.9 / 7.8 ------- 247 (01/24/2024) [...] was calculated using the CKD-EPI 2020 equation. No data available PTT: No data available ------ PHYSICAL EXAMINATION ------ . ANES OPENING 2 Vitals: T: 97.8 F [36.6 C] (09/04/2024 06:45) P: 70 (09/04/2024 06:45) R: 15 (09/04/2024 06:45) BP: 133/83 (09/04/2024 06:45) Pain: 7 (09/04/2024 06:55) Height 69 in [175.3 cm] (08/08/2024 14:47) Weight 245 lb [111.13 kg] (08/08/2024 14:47) Airway: Mallampati: 1 Oral Opening: Adequate opening Thyromental distance: >6cm Dental: All natural Neck/Cervical spine: No Problems Noted Chest: Clear to auscultation bilat Heart & Circulation: Regular rate and rhythm Other physical findings: Plan I personally performed* a pre-anesthetic evaluation on this patient on Aug@08:30 and I formed a medical opinion as to the candidacy of this patient for anesthesia. Based on this pre-anesthetic evaluation, I designated this patient an ASA class: ASA class 3 *(personally performed, in this context, means I personally performed a pertinent physical examination including an examination of the airway, reviewed available data including medical, anesthesia and medication histories (including drug and allergy history) and clarified it when I deemed appropriate). I personally prescribed the anesthetic plan as: General Left Supraclavicular Block R and B including infection, bleeding, nerve damage and failure were d/w pt in details, who wanted to proceed I prescribed the monitoring plan as follows: ASA standards (continuous presence of qualified personnel in room, continuous ECG, continuous pulse oximetry, blood pressure and pulse recorded at least every 5 minutes, availablity of temperature monitoring for cases expected to exceed one hour). Plus: Post-Operative location plan - PACU Post-operative pain plan Injectables PRN Pain management plan discussed with patient INFORMED CONSENT RISKS, BENEFITS, ALTERNATIVES (INCLUDING NO TREATMENT) DISCUSSED WITH PATIENT/FAMILY WHO AGREE TO PROCEED Whole Health approaches used during this visit: Aromatherapy (PreMade) Aromatherapy is the use of essential oils from plants (noel, herbs, or trees) to support a healing environment. Aromatherapy may be used along with other whole health approaches. TOTAL TIME SPENT: Spent 45 minutes in care of this patient today including review of records, exam, and placing orders. /shun/ ROBINSON COELHO ANESTHESIOLOGIST Signed: 09/04/2024 11:20 ROBINSON COELHO [facility]
--- OUTSIDE RECORDS SUMMARY | 2024-09-04 07:00 | XMS_ITS | Encounter Summary ---
Author Name [facility] [place] Organization [place] Address [address] [place] [address] Care Team Providers Care Business Practices Officer Name Role Phone JB CARSON Primary Care Provider Unavailabl e Selected Encounter This section includes the information on record at [place] for the Encounter. Date/Time Encounter Type Encounter Description Reason Pro vider Source Sep 04, 2024 11:00 AM Outpatient Encounter PRIMARY CARE/MEDICINE IHE Encounter Template Text not used by [place] Plan of Treatment: Future Appointments (+ 6 months) and Future Tests (+/- 45 days) The Plan of Treatment section includes future care activities for the patient from all [place] [facility]. This section includes future appointments and future orders which are active, pending or scheduled. Future Appointments This section includes appointments that were scheduled to occur 6 months from the date of the Encounter, up to a maximum of 20 appointments. The data comes from all [place] treatment facilities. Appointment Date/Time Appointment Type Appointme nt Facility Name Sep 18, 2024 12:40 PM AMBULATORY - SURGERY [facility] Sep 23, 2024 03:00 PM AMBULATORY - REHAB [facility]ICIN [facility] Sep 30, 2024 03:00 PM AMBULATORY - REHAB MEDICIN [facility] Oct 15, 2024 10:40 AM AMBULATORY - SURGERY [facility] Oct 16, 2024 01:30 PM AMBULATORY - REHAB MEDICIN [facility] Oct 21, 2024 10:00 AM AMBULATORY - NONE [facility] Oct 23, 2024 11:00 AM [facility] - NONE [facility] Oct 30, 2024 01:00 PM AMBULATORY - REHAB [facility]ICIN [facility] Nov 06, 2024 11:30 AM AM[facility]ULATORY - NONE [facility] Nov 13, 2024 11:30 AM [facility]ORY - NONE [facility] Nov 13, 2024 01:00 PM AMBULATORY - REHAB MEDICIN [facility] Nov 19, 2024 10:40 AM AMBULATORY - SURGERY [facility] Nov 27, 2024 08:00 AM AMBULATORY - REHAB MEDICIN [facility] December 25, 2024 11:30 AM AM[facility]ULATORY - NONE [facility] December 27, 2024 08:00 AM AMBULATORY - REHAB [facility]IN [facility] Jan 21, 2025 07:45 AM AMBULATORY - NONE [facility] Jan 28, 2025 11:00 AM AMBULATORY - NONE [facility] Jan 30, 2025 03:00 PM AMBULATORY - NONE [facility] Lab Results: +/- 30 days of [...] Type Comment Sep 04, 2024 06:30 AM [facility] POC URINE URINE Specimen Type: URINE Comment: Test performed by Chinyere Negro RN Ordering Provider: JESSICA PALACIOS Report Released Date/Time: Sep 03, 2024 03:06 PM Reporting Lab: [facility] [id number] [facility] [id number] Performing Lab: [facility] [id number] [facility] [id number] POC URINE NEG -Neg Vital Signs: All taken on the encounter date This section contains inpatient and outpatient Vital Signs collected on the date of the Encounter. Date/Time Temperature Pulse Blood Pressure Respiratory Rate SP02 Pain Height Weight Body Mass Index Source Sep 04, 2024 03:04 PM 65 109/68 15 0 [facility] Sep 04, 2024 01:07 PM 0 [facility] Sep 04, 2024 01:02 PM 64 99/67 14 92 0 [facility] Sep 04, 2024 12:30 PM 97.6 57 100/62 14 92 0 [facility] Sep 04, 2024 06:55 AM 7 [facility] Social History: Smoking Status (Most current) and Tobacco Use (All prior to encounter date) This section includes the most current, and the historical, smoking and tobacco- related health factors from the [place] facility where the Encounter took place. Current Smoking Status This section includes the most current smoking, or tobacco-related health factor, from the [place] facility where the Encounter took place. Date/Time Current Smoking Status Comment Leila hewitt Sep 04, 2024 06:00 AM TOBACCO [place] NON USER [facility] Tobacco Use History This section includes a history of the smoking, or tobacco-related health factors, that were collected on or before the date of the Encounter. The data comes from the [place] facility where the Encounter took place. Date/Time Smoking Status/Tobacco Use Comment F acility Sep 23, 2020 11:00 AM AH-BPR SMOKING DEPLOYMENT YES [facility] Encounter Notes: All associated encounter notes This section contains the clinical notes associated to the Encounter. Date/Time Encounter Note(s) Provider Source Sep 04, 2024 11:00 AM NURSING NOTE: LOCAL TITLE: PACU HANNY NURSING ASSESSMENT NOTE (T) STANDARD TITLE: NURSING NOTE DATE OF NOTE: SEP 04, 2024@11:00 ENTRY DATE: SEP 04, 2024@11:13:38 AUTHOR: REGINE MONTGOMERY EXP COSIGNER: URGENCY: STATUS: COMPLETED PACU HANNY NURSING ASSESSMENT NOTE (T) Has ADDENDA PACU FROM 11:00-11:30AM Period 1 (0-30 minutes) - Period 1 (0-30 minutes) Apnea: No No respiration observed for greater than 10 seconds 1 observation in 30 minute period required for yes Desaturation: No Less than 90% sustained for one minutes on baseline oxygen requirement 3 observations in single 30 minute period required for yes Bradypnea: No Less than 8 respirations/min 3 observations in 30 minute period required for yes Pain Sedation Mismatch: No Moderate to deep sedation on RASS AND pain greater than 5/10 One observation in 30 minute period required for yes Velázquez Agitation Sedation Scale: Light Sedation - Briefly awakens to voice (eye opening and contact <10 seconds) Moderate Sedation - Movement or eye opening to voice (but not eye contact) Deep Sedation - No response to voice,but movement or eye opening to physical stimulation Unarousable Period 1 (0-30 minute) Final Score: 0 /milind MONTGOMERY REGISTERED NURSE Signed: 09/04/2024 11:40 09/04/2024 ADDENDUM STATUS: COMPLETED PACU TIME PERIOD: 11:31-12:00 Period 2 (31-60 minutes) - Period 2 (31-60 minutes) Apnea: No Desaturation: No Bradypnea: No Pain Sedation Mismatch: No Period 2 (31-60 minutes) Final Score: 0 /milind MONTGOMERY REGISTERED NURSE Signed: 09/04/2024 12:20 REGINE MONTGOMERY [facility]
--- OUTSIDE RECORDS SUMMARY | 2024-09-04 08:25 | XMS_ITS | Encounter Summary ---
Author Name [facility] [place] [place] Organization [facility] [place] Address [address] [place] [address] Care Team Providers Care Contract Agent Name Role Phone JB CARSON Primary Care Provider Unavailabl e Selected Encounter This section includes the information on record at [place] for the Encounter. Date/Time Encounter Type Encounter Description Reason Pro vider Source Sep 04, 2024 12:25 PM Outpatient Encounter PATIENT CARE IN OR [facility] Encounter Template Text not used by [place] Plan of Treatment: Future Appointments (+ 6 months) and Future Tests (+/- 45 days) The Plan of Treatment section includes future care activities for the patient from all [place] [facility]. This section includes future appointments and future orders which are active, pending or scheduled. Future Appointments This section includes appointments that were scheduled to occur 6 months from the date of the Encounter, up to a maximum of 20 appointments. The data comes from all [place] treatment facilities. Appointment Date/Time Appointment Type Appointme nt Facility Name Sep 18, 2024 12:40 PM AMBULATORY - SURGERY [facility] Sep 23, 2024 03:00 PM AMBULATORY - REHAB MEDICIN [facility] Sep 30, 2024 03:00 PM AMBULATORY - REHAB MEDICIN E [facility] Oct 15, 2024 10:40 AM AMBULATORY - SURGERY [facility] Oct 16, 2024 01:30 PM AMBULATORY - REHAB MEDICIN [facility] Oct 21, 2024 10:00 AM AMBULATORY - NONE [facility] Oct 23, 2024 11:00 AM [facility]ORY - NONE [facility] Oct 30, 2024 01:00 PM AMBULATORY - REHAB MEDICIN [facility] Nov 06, 2024 11:30 AM AMBULATORY - NONE [facility] Nov 13, 2024 11:30 AM AM[facility]UL[facility]ORY - NONE [facility] Nov 13, 2024 01:00 PM AMBULATORY - REHAB MEDICIN E [facility] Nov 19, 2024 10:40 AM AMBULATORY - SURGERY [facility] Nov 27, 2024 08:00 AM AMBULATORY - REHAB MEDICIN E [facility] December 25, 2024 11:30 AM AMBULATORY - NONE [facility] December 27, 2024 08:00 AM AMBULATORY - REHAB MEDICIN E [facility] Jan 21, 2025 07:45 AM AMBULATORY - NONE [facility] Jan 28, 2025 11:00 AM AMBULATORY - NONE [facility] Jan 30, 2025 03:00 PM AMBULATORY - NONE [facility] Lab Results: +/- 30 days of [...] Type Comment Sep 04, 2024 06:30 AM [facility] POC URINE URINE Specimen Type: URINE Comment: Test performed by Chinyere Negro RN Ordering Provider: JESSICA PALACIOS Report Released Date/Time: Sep 03, 2024 03:06 PM Reporting Lab: [facility] [address] [facility] [id number] Performing Lab: [facility] [address] [facility] [id number] POC URINE NEG -Neg Vital Signs: All taken on the encounter date This section contains inpatient and outpatient Vital Signs collected on the date of the Encounter. Date/Time Temperature Pulse Blood Pressure Respiratory Rate SP02 Pain Height Weight Body Mass Index Source Sep 04, 2024 03:04 PM 65 109/68 15 0 [facility] [facility] Sep 04, 2024 01:07 PM 0 [facility] [facility] Sep 04, 2024 01:02 PM 64 99/67 14 92 0 [facility] [place] [facility] Sep 04, 2024 12:30 PM 97.6 57 100/62 14 92 0 [facility] Sep 04, 2024 06:55 AM 7 [facility] Social History: Smoking Status (Most current) and Tobacco Use (All prior to encounter date) This section includes the most current, and the historical, smoking and tobacco- related health factors from the [place] facility where the Encounter took place. Current Smoking Status This section includes the most current smoking, or tobacco-related health factor, from the [place] facility where the Encounter took place. Date/Time Current Smoking Status Comment Leila hewitt Sep 04, 2024 06:00 AM TOBACCO [place] NON USER [facility] Tobacco Use History This section includes a history of the smoking, or tobacco-related health factors, that were collected on or before the date of the Encounter. The data comes from the [place] facility where the Encounter took place. Date/Time Smoking Status/Tobacco Use Comment [facility] Sep 23, 2020 11:00 AM [facility] SMOKING DEPLOYMENT YES [facility] Encounter Notes: All associated encounter notes This section contains the clinical notes associated to the Encounter. Date/Time Encounter Note(s) Provider Source Sep 04, 2024 12:25 PM NURSING FLOWSHEET: LOCAL TITLE: [facility]ICIS PACU CLINICAL FLOWSHEET STANDARD TITLE: NURSING FLOWSHEET DATE OF NOTE: SEP 04, 2024@12:25 ENTRY DATE: SEP 04, 2024@12:25:54 AUTHOR: ROMY RAGLAND EXP COSIGNER: URGENCY: STATUS: COMPLETED See linked PDF file /es/ USER PICIS Signed: 09/04/2024 12:25 ROMY RAGLAND [facility] Sep 04, 2024 12:25 PM NURSING FLOWSHEET: LOCAL TITLE: [facility] PACU CLINICAL FLOWSHEET STANDARD TITLE: NURSING FLOWSHEET DATE OF NOTE: SEP 04, 2024@12:25 ENTRY DATE: SEP 04, 2024@12:26:01 AUTHOR: ROMY RAGLAND EXP COSIGNER: URGENCY: STATUS: COMPLETED See linked PDF file /es/ USER PICIS Signed: 09/04/2024 12:26 ROMY RAGLAND [facility]
--- OUTSIDE RECORDS SUMMARY | 2024-09-18 08:40 | XMS_ITS | Encounter Summary ---
Author Name [facility] [place] Organization [facility] [place] [place] Address [address] [place] [id number] Care Team Providers Care Race Board Attendant Name Role Phone JB CARSON Primary Care Provider Unavailabl e Selected Encounter This section includes the information on record at [place] for the Encounter. Date/Time Encounter Type Encounter Description Reason Provider Source Sep 18, 2024 12:40 PM POSTOP FOLLOW-UP VISIT ORTHO/JOINT SURG ICD-10-CM M25.512 Pain in left shoulder JANES HUTCHINS Encounter Template Text not used by [place] Assessments - Encounter Diagnoses This section includes the primary and secondary diagnoses documented for the Encounter. Date/Time Primary/Secondary Diagnosis Diagnosis Name Provider Source Sep 18, 2024 12:58 PM PRIMARY Pain in left shoulder DAVE BELLO [facility] Plan of Treatment: Future Appointments (+ 6 months) and Future Tests (+/- 45 days) The Plan of Treatment section includes future care activities for the patient from all [place] treatmentfacilities. This section includes future appointments and future orders which are active, pending or scheduled. Future Appointments This section includes appointments that were scheduled to occur 6 months from the date of the Encounter, up to a maximum of 20 appointments. The data comes from all [place] treatment facilities. Appointment Date/Time Appointment Type Appointme nt Facility Name Sep 23, 2024 03:00 PM AMBULATORY - REHAB MEDICIN [facility] Sep 30, 2024 03:00 PM AMBULATORY - REHAB MEDICIN E [facility] Oct 15, 2024 10:40 AM AMBULATORY - SURGERY [facility] Oct 16, 2024 01:30 PM AMBULATORY - REHAB MEDICIN E [facility] Oct 21, 2024 10:00 AM [facility] Oct 23, 2024 11:00 AM AMBULATORY - NONE [facility] Oct 30, 2024 01:00 PM AMBULATORY - REHAB MEDICIN E [facility] Nov 06, 2024 11:30 AM AMBULATORY - NONE [facility] Nov 13, 2024 11:30 AM AMBULATORY - NONE [facility] Nov 13, 2024 01:00 PM AMBULATORY - REHAB MEDICIN E [facility] Nov 19, 2024 10:40 AM AMBULATORY - SURGERY [facility] Nov 27, 2024 08:00 AM AMBULATORY - REHAB MEDICIN E [facility] December 25, 2024 11:30 AM AMBULATORY - NONE [facility] December 27, 2024 08:00 AM AMBULATORY - REHAB MEDICIN E [facility] Jan 21, 2025 07:45 AM AMBULATORY - NONE [facility] Jan 28, 2025 11:00 AM AMBULATORY - NONE [facility] Jan 30, 2025 03:00 PM AMBULATORY - NONE [facility] Mar 11, 2025 11:30 AM AMBULATORY - NONE [facility] Mar 13, 2025 04:30 PM AMBULATORY - NONE [facility] Lab Results: +/- 30 days of [...] Type Comment Sep 04, 2024 06:30 AM [facility] POC URINE URINE Specimen Type: URINE Comment: Test performed by Chinyere Negro RN Ordering Provider: JESSICA PALACIOS Report Released Date/Time: Sep 03, 2024 03:06 PM Reporting Lab: [facility] [id number] [facility] [id number] Performing Lab: [facility] [id number] [facility] [id number] POC URINE NEG -Neg Social History: Smoking Status (Most current) and Tobacco Use (All prior to encounter date) This section includes the most current, and the historical, smoking and tobacco- related health factors from the [place] facility where the Encounter took place. Current Smoking Status This section includes the most current smoking, or tobacco-related health factor, from the [place] facility where the Encounter took place. Date/Time Current Smoking Status Comment Leila hewitt Sep 04, 2024 06:00 AM TOBACCO [place] NON USER [facility] Tobacco Use History This section includes a history of the smoking, or tobacco-related health factors, that were collected on or before the date of the Encounter. The data comes from the [place] facility where the Encounter took place. Date/Time Smoking Status/Tobacco Use Comment [facility] Sep 23, 2020 11:00 AM [facility] SMOKING DEPLOYMENT YES [facility] Encounter Notes: All associated encounter notes This section contains the clinical notes associated to the Encounter. Date/Time Encounter Note(s) Provider Source Sep 18, 2024 12:52 PM ORTHOPEDIC SURGERY OUTPATIENT NOTE: LOCAL TITLE: ORTHO OUTPATIENT CLINIC NOTE STANDARD TITLE: ORTHOPEDIC SURGERY OUTPATIENT NOTE DATE OF NOTE: SEP 18, 2024@12:52 ENTRY DATE: SEP 18, 2024@12:52:12 AUTHOR: DAVE BELLO COSIGNER: JANES HUTCHINS URGENCY: STATUS: COMPLETED ORTHOPAEDIC SURGERY CLINIC NOTE CHIEF COMPLAINT: 2-week follow-up status post left open biceps tenodesis and arthroscopic SAD HPI: Pt is a 43-year-old female who presents for follow-up regarding the above chief complaint. Today, the patient reports her pain is much improved. She states she takes half a pain pill as needed for her pain. She reports being compliant with her weightbearing status in her sling. She has not yet started physical therapy. She denies any drainage from her incisions. No complaints at this time. PHYSICAL EXAM: GEN: NAD CV: RRR to palpation PULM: non-labored breathing MSK Left upper extremity: - Incisions C/D/I - AIN/PIN/Uln motor fxn intact - SILT axillary, radial, median, ulnar - 2+ radial pulse. Cap refill < 2 seconds in all digits. - Compartments soft and compressible. Radiology: No pertinent radiographs were reviewed today ASSESSMENT: 43-year-old female presents for routine follow-up 2 weeks status post open subpec biceps tenodesis and left shoulder arthroscopy with SAD, with routine follow-up. PLAN: -Postop protocol provided to patient today in clinic -Wean out of sling over the next 2 weeks -Plan to begin PT with focus on passive shoulder range of motion, referral sent -No active elbow flexion or supination; avoid heavy lifting LUE -Imaging: none required -Follow up: in 6 wks for routine postop visit Dave Bello MD Orthopaedic Surgery, PGY-3 The patient was discussed with Attending Physician, Dr. Hutchins who agrees with the management plan. TOTAL TIME SPENT: Spent 30 minutes in care of this patient today including review of records, exam, and placing orders. /shun/ DAVE BELLO Orthopedic Resident Signed: 09/18/2024 12:58 /shun/ JANES HUTCHINS PHYSICIAN Cosigned: 09/18/2024 18:00 DAVE BELLO [facility]
--- OUTSIDE RECORDS SUMMARY | 2024-09-23 11:00 | XMS_ITS | Encounter Summary ---
Author Name [facility] [place] Organization [facility] [place] Address [address] [place] [address] Care Team Providers Care Steel Estimator Name Role Phone JB CARSON Primary Care Provider Unavailabl e Selected Encounter This section includes the information on record at [place] for the Encounter. Date/Time Encounter Type Encounter Description Reason Provider Source Sep 23, 2024 03:00 PM THERAPEUTIC EXERCISES PHYSICAL THERAPY ICD-10-CM M25.512 Pain in left shoulder CANDACE HECTOR Jaclyn Encounter Template Text not used by [place] Assessments - Encounter Diagnoses This section includes the primary and secondary diagnoses documented for the Encounter. Date/Time Primary/Secondary Diagnosis Diagnosis Name Provider Source Sep 23, 2024 03:38 PM PRIMARY Pain in left shoulder CANDACE HECTOR [facility] Plan of Treatment: Future Appointments (+ 6 months) and Future Tests (+/- 45 days) The Plan of Treatment section includes future care activities for the patient from all [place] treatmentfacilities. This section includes future appointments and future orders which are active, pending or scheduled. Future Appointments This section includes appointments that were scheduled to occur 6 months from the date of the Encounter, up to a maximum of 20 appointments. The data comes from all [place] treatment facilities. Appointment Date/Time Appointment Type Appointme nt Facility Name Sep 30, 2024 03:00 PM AMBULATORY - REHAB MEDIC[facility] Oct 15, 2024 10:40 AM AMBULATORY - SURGERY [facility] Oct 16, 2024 01:30 PM AMBULATORY - REHAB MEDICIN [facility] Oct 21, 2024 10:00 AM AM[facility]ORY - NONE [facility] Oct 23, 2024 11:00 AM AMBULATORY - NONE [facility] Oct 30, 2024 01:00 PM AMBULATORY - REHAB MEDICIN E [facility] Nov 06, 2024 11:30 AM AMBULATORY - NONE [facility] Nov 13, 2024 11:30 AM AMBULATORY - NONE [facility] Nov 13, 2024 01:00 PM AMBULATORY - REHAB MEDICIN E [facility] Nov 19, 2024 10:40 AM [facility] Nov 27, 2024 08:00 AM AMBULATORY - REHAB MEDICIN E [facility] December 25, 2024 11:30 AM AMBULATORY - NONE [facility] December 27, 2024 08:00 AM AMBULATORY - REHAB MEDICIN [facility] Jan 21, 2025 07:45 AM AMBULATORY - NONE [facility] Jan 28, 2025 11:00 AM AMBULATORY - NONE [facility] Jan 30, 2025 03:00 PM AMBULATORY - NONE [facility] Mar 11, 2025 11:30 AM AMBULATORY - NONE [facility] Mar 13, 2025 04:30 PM AMBULATORY - NONE [facility] Lab Results: +/- 30 days of the encounter This section includes the Chemistry and Hematology Lab Results on record with [place] for the patient. Radiology Reports and Pathology Reports are provided separately, in subsequent sections. Lab Results This section contains the Chemistry/Hematology Results that were resulted 30 days before or 30 daysafter the date of the Encounter. Date/Time Source Result Type Result - Unit Interpretation Reference Range Specimen Type Comment Sep 04, 2024 06:30 AM [facility] POC URINE URINE Specimen Type: URINE Comment: Test performed by Chinyere Negro RN Ordering Provider: JESSICA PALACIOS Report Released Date/Time: Sep 03, 2024 03:06 PM Reporting Lab: [facility] [id number] [facility] [id number] Performing Lab: [facility] [id number] [facility] [id number] POC URINE NEG -Neg Social History: Smoking Status (Most current) and Tobacco Use (All prior to encounter date) This section includes the most current, and the historical, smoking and tobacco- related health factors from the [place] facility where the Encounter took place. Current Smoking Status This section includes the most current smoking, or tobacco-related health factor, from the [place] facility where the Encounter took place. Date/Time Current Smoking Status Comment Leila hewitt Sep 19, 2023 08:00 AM VA-TOBACCO FORMER USER [facility] Tobacco Use History This section includes a history of the smoking, or tobacco-related health factors, that were collected on or before the date of the Encounter. The data comes from the [place] facility where the Encounter took place. Date/Time Smoking Status/Tobacco Use Comment F acility Sep 19, 2023 08:00 AM VA-TOBACCO QUIT 5 TO < 15 YRS [facility] May 23, 2022 08:00 AM VA-TOBACCO FORMER USER [facility] May 23, 2022 08:00 AM VA-TOBACCO QUIT 5 TO < 15 YRS [facility] May 26, 2021 08:00 AM VA-TOBACCO FORMER USER [facility] May 26, 2021 08:00 AM VA-TOBACCO QUIT 1 TO < 5 YRS [facility] Sep 23, 2020 11:00 AM AH-BPR SMOKING DEPLOYMENT YES [facility] May 17, 2018 10:21 AM VA-TOBACCO NEVER USED [facility] May 02, 2018 08:05 AM VA-TOBACCO FORMER USER [facility] May 02, 2018 08:05 AM VA-TOBACCO QUIT 1 TO < 5 YRS [facility] Jun 20, 2017 08:27 AM QUIT TOBACCO >12 MO & <7 YRS AGO [facility] Jun 13, 2016 08:14 AM QUIT TOBACCO >12 MO & <7 YRS AGO [facility] Aug 10, 2015 01:15 PM QUIT TOBACCO >12 MO & <7 YRS AGO [facility] Oct 08, 2014 02:30 PM QUIT TOBACCO IN THE LAST 12 AISHA [facility] Encounter Notes: All associated encounter notes This section contains the clinical notes associated to the Encounter. Date/Time Encounter Note(s) Provider Source Sep 23, 2024 02:53 PM PHYSICAL THERAPY C ONSULT: LOCAL TITLE: PM&RS PHYSICAL THERAPY CONSULTATION (C) STANDARD TITLE: PHYSICAL THERAPY CONSULT DATE OF NOTE: SEP 23, 2024@14:53 ENTRY DATE: SEP 23, 2024@14:53:42 AUTHOR: CANDACE HECTOR EXP COSIGNER: URGENCY: STATUS: COMPLETED PM&RS PHYSICAL THERAPY EVALUATION Location: [facility] Outpatient PT Dept (F2) Date; 09/23/24 Service Connection: No Referring provider; DAVE BELLO (Ortho) -S/p 1/15/25 L scope with SAD and open biceps tenodesis Problems: 43 yo CF referred to Outpatient PT s/p 09/04/24 L SAD and BT. PT consult generated for RTC protocol included below. Dx Code; s/p L open biceps tenodesis PT Dx; L SAD with BT (09/04/24) and mobility/coordination impairments Orders; NO R GH Extension PMH: Pain of left shoulder joint 09/19/2023 Exposure to potentially hazardous 08/02/2022 substance Breast neoplasm screening status 11/30/2021 COVID-19 05/22/2020 Anemia 05/22/2020 Cancer cervix screening status 08/01/2019 Allergic rhinitis 06/13/2016 Posttraumatic stress disorder 08/10/2015 Obstructive sleep apnea syndrome 10/08/2014 Allergies/ADR: MOBIC Imaging; Yes (Reviewed with patient) Report: Pre-op EXAMINATION: X-RAY EXAM OF SHOULDER LEFT HISTORY left shoulder impingement COMPARISON: No relevant comparison available. TECHNIQUE: 4 views left shoulder FINDINGS: No acute displaced fracture or dislocation is evident. Mild joint space narrowing of the AC joint. Soft tissues are unremarkable. Limited evaluation of the left hemithorax is unremarkable. Impression: No acute osseous abnormality. RTC Protocol; (Reviewed with client) WEEKS 0-4 Sling at all times except for hygiene and supervised PT (wean out of sling by end of week 4) 10/04/24 ROM: Passive ROM only Goals: 140 degs forward flexion 40 degs external rotation with elbow at side 60-80 degs abduction without rotation limit internal rotation to 40 degs with shoulder 60-80 degs abducted. No shoulder extension. Exercises: NO CANES OR PULLEYS OK for Codman, wrist/elbow/hand ROM, grad intern strength, isometric scapular stabilization, ice/heat before and after sessions If patient had biceps tenodesis, active elbow ROM WITHOUT resistance WEEKS 4-8 Discontinue sling ROM Wk 4-6: Gentle passive stretch to reach above goals Wk 6-8: begin active assisted ROM working up to active ROM as tolerated Exercises: Wk 4-6: gentle AAROM in supine position, grade I and II joint mobilizations, continue prior exercises Wk 6-8: progress to active exercises w resistance, shoulder flexion with trunk at 45 degs in upright position, begin delt and biceps strengthening at week 8 Modalities at PT discretion If biceps tenodesis At 4 weeks passive stretching at end ranges of ROM to get full ROM At 8 weeks active elbow ROM with LIGHT resistive strengthening. WEEKS 8-12 Progress to full AROM Begin IR/ER isometrics Posterior capsule stretch once warmed up AFTER WEEK 12 Advance to strengthening exercises If biceps tenodesis At 3 months may begin throwing and sports-specific ROM At 4.5 months throwing from a mound At 6 months may return to sports if approved Date of Consult: 09/18/24 Initial assessment date: 09/23/24 PATIENT ASSESSMENT/EVALUATION S: 43 yo 2.5 weeks s/p 09/04/24 L SAD/BT. She arrives as scheduled for urgent Outpatient PT consultation. Pain is well controlled with current medications and her discomfort is rated a 2/10 level. Continues to use sling 13/03 except when completing wrist AROM. She was issued a home protocol to follow but was unable to bring in to PT clinic today. She is agreeable to the following clinical exam and PT recommendations. O: Cardiovascular screen; Held ROM L UE; (Passive; supine) Flexion: 100 degs Abduction: 75 degs Extension: n/a (2/2 post op restrictions) External rotation: 10 degs Internal rotation: 10 degs Elbow flex; Full Elbow ext; Full R UE; N/a STRENGTH R UE N/a L UE Held 2/2 precautions Gait: Indep without AD. Stairs: Indep without HR use. Pt Education; Begin working out of R UE sling on 10/04/24 L UE sling use 13/03 except when in PT or with exercises below. NO active ROM, NO extension movements HEP compliance below CP application 2-3x/day L UE sling; Adjustment for fit and comfort Educated on proper use and sequence of removal and application. Client returned verbal instructions. TREATMENT: Exercise Prescription; (Issued in written form) 1. Pendulum ex's; Standing bent forward Flex/ext; 4-5x/day, 10-20 reps H Abd/Add; Circles; CW/CCW 2. Posture corrections; Firm chairs, lumbar roll inserted Standing/sitting corrections 3. Wrist/hand/elbow AROM; 10-15 reps, 2x/day. Slow movements PROM; Supine Flexion; x 10 reps, light end range stretch 0-100 degs Abduction; x 10 reps, light end range stretch 0-80 degs Supine Elbow flexion/extension; A: 43 yo s/p 09/04/24 L SAD/BT with good pain control. Reviewed above Ortho protocol and encouraged AROM at wrist and elbow to comfort frequently each day out of sling. Discussed begin weaning sling by 10/04/24 with future progression to AAROM as tolerated. We further discussed passive ROM interventions (in clinic) and for home pendulum activities to her tolerance. Will progress as per above protocol and client condition. All questions addressed. Pt goal; I'd like to have better ROM in the left shoulder so I could put on my jacket. THERAPIST'S GOALS: Short term: 1. L UE Sling d/c'd by 10/04/24 2. L GH PROM; Flex; 0-140 ER; 40 degs (0 deg abd) Abd; 90 degs IR; 40 degs (Abd 60-80 degs) LTG; 1. Indep with home AAROM program without pain. 2. Shoulder flexion with cane at 45 deg elevation on table. 3. Light resistance training for elbow flexion. 4. Full AROM L GH in all planes 5. Indep with GH rotational isometrics without pain 6. Posterior capsule stretching after UBE cycle. After 1. Light resistance to AROM in all directions. 2. GROC +3 level. F/U; RTC placed for 7 day clinical visit Double book approved Will move into every other week f/u as appropriate. Progress as per protocol. Issue all HEP in written form Evaluation Complexity; Moderate Post-op Stable condition Motivated client PT Prognosis; Fair-Good (With compliance) -Aware of protocol and limitations with each stage. Ortho f/u; 10/15/24 P: Client scheduled for one additional PT f/u to review above HEP, ensure daily compliance and progress as needed. Client very appreciative of PT efforts/intervention this date and reported ability to comply with HEP. POC discussed with pt who is in agreement. Appreciate this consult. Education Topic: Pain Management Level of Understanding: Good Teaching Method: Demonstration/Return demonstration Printed material Patient/Family Response: Adequately explains critical information about the topic Education Topic: Habilitation and rehabilitation Level of Understanding: Good Teaching Method: Demonstration/Return demonstration Printed material Patient/Family Response: Adequately explains critical information about the topic /es/ CANDACE HECTOR PHYSICAL THERAPIST Signed: 09/23/2024 15:37 CANDACE HECTOR [facility]
--- OUTSIDE RECORDS SUMMARY | 2024-09-30 11:00 | XMS_ITS | Encounter Summary ---
Author Name [facility] [place] Organization [place] Address [address] [place] [address] Care Team Providers Care Animal Cruelty Investigator Name Role Phone JB CARSON Primary Care Provider Unavailabl e Selected Encounter This section includes the information on record at [place] for the Encounter. Date/Time Encounter Type Encounter Description Reason Provider Source Sep 30, 2024 03:00 PM THERAPEUTIC EXERCISES PHYSICAL THERAPY ICD-10-CM M25.512 Pain in left shoulder CANDACE HECTOR Jaclyn Encounter Template Text not used by [place] Assessments - Encounter Diagnoses This section includes the primary and secondary diagnoses documented for the Encounter. Date/Time Primary/Secondary Diagnosis Diagnosis Name Provider Source Sep 30, 2024 03:06 PM PRIMARY Pain in left shoulder CANDACE HECTOR [facility] Plan of Treatment: Future Appointments (+ 6 months) and Future Tests (+/- 45 days) The Plan of Treatment section includes future care activities for the patient from all [place] treatmentfacilities. This section includes future appointments and future orders which are active, pending or scheduled. Future Appointments This section includes appointments that were scheduled to occur 6 months from the date of the Encounter, up to a maximum of 20 appointments. The data comes from all [place] treatment facilities. Appointment Date/Time Appointment Type Appointme nt Facility Name Oct 15, 2024 10:40 AM AMBULATORY - SURGERY [facility] Oct 16, 2024 01:30 PM AMBULATORY - REHAB [facility] Oct 21, 2024 10:00 AM AMBULATORY - NONE [facility] Oct 23, 2024 11:00 AM [facility] - NONE [facility] Oct 30, 2024 01:00 PM AMBULATORY - REHAB [facility] Nov 06, 2024 11:30 AM AM[facility]ORY - NONE [facility] Nov 13, 2024 11:30 AM AMBULATORY - NONE [facility] Nov 13, 2024 01:00 PM AMBULATORY - REHAB MEDICIN [facility] Nov 19, 2024 10:40 AM AM[facility]UL[facility] - SURG[facility] Nov 27, 2024 08:00 AM AMBULATORY - REHAB MEDICIN E [facility] December 25, 2024 11:30 AM AMBULATORY - NONE [facility] December 27, 2024 08:00 AM AMBULATORY - REHAB MEDICIN E [facility] Jan 21, 2025 07:45 AM AMBULATORY - NONE [facility] Jan 28, 2025 11:00 AM AMBULATORY - NONE [facility] Jan 30, 2025 03:00 PM AMBULATORY - NONE [facility] Mar 11, 2025 11:30 AM AMBULATORY - NONE [facility] Mar 13, 2025 04:30 PM [facility] Lab Results: +/- 30 days of the encounter This section includes the Chemistry and Hematology Lab Results on record with [place] for the patient. Radiology Reports and Pathology Reports are provided separately, in subsequent sections. Lab Results This section contains the Chemistry/Hematology Results that were resulted 30 days before or 30 daysafter the date of the Encounter. Date/Time Source Result Type Result - Unit Interpretation Reference Range Specimen Type Comment Sep 04, 2024 06:30 AM [facility] POC URINE URINE Specimen Type: URINE Comment: Test performed by Chinyere Negro RN Ordering Provider: JESSICA PALACIOS Report Released Date/Time: Sep 03, 2024 03:06 PM Reporting Lab: [facility] [id number] [facility] [id number] Performing Lab: [facility] [id number] [facility] [id number] POC URINE NEG -Neg Social History: Smoking Status (Most current) and Tobacco Use (All prior to encounter date) This section includes the most current, and the historical, smoking and tobacco- related health factors from the [place] facility where the Encounter took place. Current Smoking Status This section includes the most current smoking, or tobacco-related health factor, from the [place] facility where the Encounter took place. Date/Time Current Smoking Status Comment Leila hewitt Sep 19, 2023 08:00 AM VA-TOBACCO FORMER USER [facility] Tobacco Use History This section includes a history of the smoking, or tobacco-related health factors, that were collected on or before the date of the Encounter. The data comes from the [place] facility where the Encounter took place. Date/Time [...] QUIT TOBACCO IN THE LAST 12 AISHA HS [facility] Encounter Notes: All associated encounter notes This section contains the clinical notes associated to the Encounter. Date/Time Encounter Note(s) Provider Source Sep 30, 2024 12:47 PM PHYSICAL THERAPY N OTE: LOCAL TITLE: PM&RS PT DAILY ACTIVITY NOTE STANDARD TITLE: PHYSICAL THERAPY NOTE DATE OF NOTE: SEP 30, 2024@12:47 ENTRY DATE: SEP 30, 2024@12:47:54 AUTHOR: CANDACE HECTOR EXP COSIGNER: URGENCY: STATUS: COMPLETED Dx Code; S/p L open biceps tenodesis PT Dx; L SAD with BT (09/04/24) and mobility/coordination impairments Outpatient PT Tx #1 PT POC; 09/23/24-> Post-op week # 3+ (09/04/24) S: 43 yo who arrives for additional [facility] Outpatient PT f/u care. The left shoulder is doing well. Intermittent soreness. Mainly after I do the exercises for a short while. Then it calms down. Reports CP and medications help with post activity soreness. Remains in sling at all times except for frequent ROM activities. She is agreeable to the following PT interventions. O: Gait; Indep without AD. L UE Sling; 13/03 use except when completing ROM activities On 10/04/24, allowed to come out of sling inside of home for 2 hr increments Exercise Prescription; (Issued in written form) 1. Pendulum ex's; Standing bent forward Flex/ext; 4-5x/day, 10-20 reps H Abd/Add; Circles; CW/CCW 2. Posture corrections; Firm chairs, lumbar roll inserted Standing/sitting corrections 3. Wrist/hand/elbow AROM; 10-15 reps, 2x/day. Slow movements Added; 4. Seated scapular retractions; 10-15 reps, hold 5-10 sec. 2-3x/day. Manual Therapy; (PROM) Supine Flexion; 2x10 reps, light end range stretch 140 degs Abduction; 2x10 reps, light end range stretch 105 degs Supine Elbow flexion/extension; DME Item; Rohan Double Fiona requested to home address NOT cleared for daily use until Phase II begins Client returned demonstration. 30 mins Ther ex x 1 Manual Therapy x 1 A: Soreness dominant condition post-op with excellent passive ROM into flexion and abduction directions. No longer guarding movements or reporting pain during passive movements. Education on protocol below, begin weaning from sling on 10/04/24 and future AAROM interventions (home pulleys) when she enters Phase II. All questions addressed. P: Extended PT POC x 1 visit. RTC placed for 14 day clinical visit Progression from PROM to AAROM as tolerated in Phase II. Ortho f/u 10/15/24 RTC Protocol; (Reviewed with client) WEEKS 0-4 [...] OR PULLEYS OK for Codman, wrist/elbow/hand ROM, human geography faculty member strength, isometric scapular stabilization, ice/heat before and [...] months may return to sports if approved /shun/ CANDACE HECTOR PHYSICAL THERAPIST Signed: 09/30/2024 15:05 CANDACE HECTOR [facility]
--- OUTSIDE RECORDS SUMMARY | 2024-10-15 06:40 | XMS_ITS | Encounter Summary ---
Author Name [facility] [place] Organization [facility] [place] Address [address] [place] [id number] Care Team Providers Care Plate Colorer Name Role Phone JB CARSON Primary Care Provider Unavailabl e Selected Encounter This section includes the information on record at [place] for the Encounter. Date/Time Encounter Type Encounter Description Reason Provider Source Oct 15, 2024 10:40 AM OFFICE O/P EST MOD 30 MIN ORTHO/JOINT SURG ICD-10-CM Z48.89 Encounter for other specified surgical aftercare JANES HUTCHINS Encounter Template Text not used by [place] Assessments - Encounter Diagnoses This section includes the primary and secondary diagnoses documented for the Encounter. Date/Time Primary/Secondary Diagnosis Diagnosis Name Provider Source Oct 15, 2024 11:36 AM PRIMARY Encounter for other specified surgical aftercare DAVE BELLO [facility] Plan of Treatment: Future Appointments (+ 6 months) and Future Tests (+/- 45 days) The Plan of Treatment section includes future care activities for the patient from all [place] treatmentfacilities. This section includes future appointments and future orders which are active, pending or scheduled. Future Appointments This section includes appointments that were scheduled to occur 6 months from the date of the Encounter, up to a maximum of 20 appointments. The data comes from all [place] treatment facilities. Appointment Date/Time Appointment Type Appointme nt Facility Name Oct 16, 2024 01:30 PM AMBULATORY - REHAB [facility] Oct 21, 2024 10:00 AM AMBULATORY - NONE [facility] Oct 23, 2024 11:00 AM AMBULATORY - NONE [facility] Oct 30, 2024 01:00 PM AMBULATORY - REHAB [facility] Nov 06, 2024 11:30 AM [facility]ORY - NONE [facility] Nov 13, 2024 11:30 AM AMBULATORY - NONE [facility] Nov 13, 2024 01:00 PM AMBULATORY - REHAB [facility] Nov 19, 2024 10:40 AM AMBULATORY - SURGERY [place] [facility] Nov 27, 2024 08:00 AM AMBULATORY - REHAB [facility] December 25, 2024 11:30 AM AMBULATORY - NONE [facility] December 27, 2024 08:00 AM AMBULATORY - RE[facility]AB [facility] Jan 21, 2025 07:45 AM AMBULATORY - NONE [facility] Jan 28, 2025 11:00 AM AMBULATORY - NONE [facility] Jan 30, 2025 03:00 PM AMBULATORY - NONE [facility] Mar 11, 2025 11:30 AM AMBULATORY - NONE [facility] Mar 13, 2025 04:30 PM AMBULATORY - NONE [facility] Apr 08, 2025 02:30 PM [facility] Social History: Smoking Status (Most current) and Tobacco Use (All prior to encounter date) This section includes the most current, and the historical, smoking and tobacco- related health factors from the [place] facility where the Encounter took place. Current Smoking Status This section includes the most current smoking, or tobacco-related health factor, from the [place] facility where the Encounter took place. Date/Time Current Smoking Status Comment Leila hewitt Sep 04, 2024 06:00 AM TOBACCO [place] NON USER [facility] Tobacco Use History This section includes a history of the smoking, or tobacco-related health factors, that were collected on or before the date of the Encounter. The data comes from the [place] facility where the Encounter took place. Date/Time Smoking Status/Tobacco Use Comment F acility Sep 23, 2020 11:00 AM AH-BPR SMOKING DEPLOYMENT YES [facility] Encounter Notes: All associated encounter notes This section contains the clinical notes associated to the Encounter. Date/Time Encounter Note(s) Provider Source Oct 15, 2024 11:25 AM ORTHOPEDIC SURGERY OUTPATIENT NOTE: LOCAL TITLE: ORTHO OUTPATIENT CLINIC NOTE STANDARD TITLE: ORTHOPEDIC SURGERY OUTPATIENT NOTE DATE OF NOTE: OCT 15, 2024@11:25 ENTRY DATE: OCT 15, 2024@11:25:11 AUTHOR: DAVE BELLO COSIGNER: JANES HUTCHINS URGENCY: STATUS: COMPLETED ORTHO OUTPATIENT CLINIC NOTE Has ADDENDA ORTHOPAEDIC SURGERY CLINIC NOTE CHIEF COMPLAINT: 6 week follow-up status post left shoulder scope with open subpectoral biceps tenodesis HPI: Patient is a 43-year-old female who presents for follow-up regarding the above chief complaint. At our last visit, we recommended continued physical therapy per the postop protocol. Today, the patient reports progressing well with physical therapy and being compliant with the protocol. She endorses some mild pain in the biceps, but is otherwise doing well. She has now come out of the sling and has excellent passive range of motion of the left shoulder. Meds reviewed with patient and reconciled PHYSICAL EXAM: GEN: NAD CV: RRR to palpation PULM: non-labored breathing MSK Left upper extremity: -Incision with small punctate area of purulent drainage from inferior aspect of subpectoral incision -Arthroscopic incisions well-healed without any erythema or dehiscence -Full passive range of motion with forward flexion and abduction of the left shoulder -Mildly tender to palpation over biceps -AIN/PIN/Uln motor fxn intact -SILT axillary, radial, median, ulnar -2+ radial pulse. Cap refill < 2 seconds in all digits. -Compartments soft and compressible. Radiology: No additional radiographs were obtained today in clinic ASSESSMENT: 43-year-old female 6 weeks status post left shoulder arthroscopy with subacromial decompression and left subpectoral open biceps tenodesis with Dr. Hutchins. Progressing well with physical therapy. Small area of purulent drainage from inferior aspect of suspec incision concerning for superficial skin infection versus fat necrosis. Will send patient home with 2 weeks of oral doxycycline. PLAN: -Continue strict adherence to postop protocol described below -Doxycycline twice daily prescribed -Return to clinic for 3-month routine postop visit Dave Bello MD Orthopaedic Surgery, PGY-3 The patient was discussed with Attending Physician, Dr. Garcia who agrees with the management plan. TOTAL TIME SPENT: Spent 30 minutes in care of this patient today including review of records, exam, and placing orders. Biceps Tenodesis Postop Protocol WEEKS 0-4 * Sling at all times except for hygiene and supervised PT (wean out of sling by end of week 4) * ROM: Passive ROM only * Goals: 140 degrees forward flexion, 40 degrees external rotation with elbow at side, 60-80 degrees abduction without rotation, limit internal rotation to 40 degrees with shoulder 60-80 degrees abducted. No shoulder extension. * Exercises: NO CANES OR PULLEYS. OK for Codman, wrist/elbow/hand ROM, sales director strength, isometric scapular stabilization, ice/heat before and after sessions * If patient had biceps tenodesis, active elbow ROM WITHOUT resistance WEEKS 4-8 * Discontinue sling * ROM o Wk 4-6: Gentle passive stretch to reach above goals o Wk 6-8: begin active assisted ROM working up to active ROM as tolerated * Exercises: o Wk 4-6: gentle AAROM in supine position, grade I and II joint mobilizations, continue prior exercises o Wk 6-8: progress to active exercises w resistance, shoulder flexion with trunk at 45 degrees in upright position, begin delt and biceps strengthening at week 8 * Modalities at PT discretion * If biceps tenodesis o At 4 weeks passive stretching at end ranges of ROM to get full ROM o At 8 weeks active elbow ROM with LIGHT resistive strengthening. WEEKS 8-12 * Progress to full AROM * Begin IR/ER isometrics * Posterior capsule stretch once warmed up AFTER WEEK 12 * Advance to strengthening exercises * If biceps tenodesis o At 3 months may begin throwing and sports-specific ROM o At 4.5 months throwing from a mound o At 6 months may return to sports if approved /shun/ DAVE BELLO Orthopedic Resident Signed: 10/15/2024 12:10 /shun/ JANES HUTCHINS PHYSICIAN Cosigned: 10/15/2024 19:16 10/15/2024 ADDENDUM STATUS: COMPLETED Patient seen and evaluated in conjunction with the resident. She does have a small area of concern at inferior aspect of the subpectoral biceps tenodesis incision. Will start her on oral antibiotics and see her back in follow-up to be resolved. We did discuss with her she should call if she has any concerns. Otherwise agree with orthopedic evaluation and plan as noted above /shun/ JANES HUTCHINS PHYSICIAN Signed: 10/15/2024 19:15 DAVE BELLO [facility]
--- OUTSIDE RECORDS SUMMARY | 2024-10-16 09:30 | XMS_ITS | Encounter Summary ---
Author Name [facility] [place] Organization [facility] [place] [place] Address [address] [place] [address] Care Team Providers Care Motor Grader Rough Grade Name Role Phone JB CARSON Primary Care Provider Unavailabl e Selected Encounter This section includes the information on record at [place] for the Encounter. Date/Time Encounter Type Encounter Description Reason Provider Source Oct 16, 2024 01:30 PM THERAPEUTIC EXERCISES PHYSICAL THERAPY ICD-10-CM M25.512 Pain in left shoulder CANDACE HECTOR Jaclyn Encounter Template Text not used by [place] Assessments - Encounter Diagnoses This section includes the primary and secondary diagnoses documented for the Encounter. Date/Time Primary/Secondary Diagnosis Diagnosis Name Provider Source Oct 16, 2024 01:49 PM PRIMARY Pain in left shoulder CANDACE HECTOR [facility] Plan of Treatment: Future Appointments (+ 6 months) and Future Tests (+/- 45 days) The Plan of Treatment section includes future care activities for the patient from all [place] treatmentfacilities. This section includes future appointments and future orders which are active, pending or scheduled. Future Appointments This section includes appointments that were scheduled to occur 6 months from the date of the Encounter, up to a maximum of 20 appointments. The data comes from all [place] treatment facilities. Appointment Date/Time Appointment Type Appointme nt Facility Name Oct 21, 2024 10:00 AM AMBULATORY - NONE [facility] Oct 23, 2024 11:00 AM AMBULATORY - NONE [facility] Oct 30, 2024 01:00 PM AMBULATORY - REHAB [facility] Nov 06, 2024 11:30 AM AMBULATORY - NONE [facility] Nov 13, 2024 11:30 AM AMBULATORY - NONE [facility] Nov 13, 2024 01:00 PM AMBULATORY - REHAB [facility] Nov 19, 2024 10:40 AM AMBULATORY - SURGERY [place] [facility] Nov 27, 2024 08:00 AM AMBULATORY - [facility]AB [facility] December 25, 2024 11:30 AM AMBULATORY - NONE [facility] December 27, 2024 08:00 AM AMBULATORY - [facility]AB [facility] Jan 21, 2025 07:45 AM AMBULATORY - NONE [facility] Jan 28, 2025 11:00 AM AMBULATORY - NONE [facility] Jan 30, 2025 03:00 PM AMBULATORY - NONE [facility] Mar 11, 2025 11:30 AM AMBULATORY - NONE [facility] Mar 13, 2025 04:30 PM AMBULATORY - NONE [facility] Apr 08, 2025 02:30 PM AMBULATORY - NONE [facility] Social History: Smoking Status (Most current) [...] took place. Date/Time Current Smoking Status Comment Facil ity Sep 19, 2023 08:00 AM VA-TOBACCO FORMER USER [facility] Tobacco Use History This section includes a history of the smoking, or tobacco-related health factors, that were collected on or before the date of the Encounter. The data comes from the [place] facility where the Encounter [...] 2018 08:05 AM VA-TOBACCO FORMER USER [facility] May 02, 2018 08:05 AM VA-TOBACCO QUIT 1 TO < 5 YRS [facility] Jun 20, 2017 08:27 AM QUIT TOBACCO >12 MO & <7 YRS AGO [facility] Jun 13, 2016 08:14 AM QUIT TOBACCO >12 MO & <7 YRS AGO [facility] Aug 10, 2015 01:15 PM QUIT TOBACCO >12 MO & <7 YRS AGO [facility] Oct 08, 2014 02:30 PM QUIT TOBACCO IN THE LAST 12 AISHA [facility] Encounter Notes: All associated encounter notes This section contains the clinical notes associated to the Encounter. Date/Time Encounter Note(s) Provider Source Oct 16, 2024 11:02 AM PHYSICAL THERAPY N OTE: LOCAL TITLE: PM&RS PT DAILY ACTIVITY NOTE STANDARD TITLE: PHYSICAL THERAPY NOTE DATE OF NOTE: OCT 16, 2024@11:02 ENTRY DATE: OCT 16, 2024@11:03 AUTHOR: CANDACE HECTOR EXP COSIGNER: URGENCY: STATUS: COMPLETED Dx Code; S/p L open biceps tenodesis PT Dx; L SAD with BT (09/04/24) and mobility/coordination impairments Outpatient PT Tx #2 PT POC; 09/23/24-> Post-op week #6 (09/04/24) S: 43 yo who arrives for additional [facility] Outpatient PT f/u care. I've been out of the sling for two full days. The left shoulder is sore. Per client, she gradually increased her durations out of the sling and has d/c'd its use. Confirms delivery of home pulleys at home. I'm waiting to be told what I can do with them. She has questions regarding FMLA vs. Short term disability at her workplace that she plans on contacting Ortho for further clarification. Agreeable to the following clinical movements. O: Gait; Indep without AD. L UE Sling; D/c'd. Exercise Prescription; (Issued in written form) 1. Pendulum ex's; Standing bent forward Flex/ext; 4-5x/day, 10-20 reps H Abd/Add; Circles; CW/CCW 2. Posture corrections; Firm chairs, lumbar roll inserted Standing/sitting corrections 3. Wrist/hand/elbow AROM; 10-15 reps, 2x/day. Slow movements 4. Seated scapular retractions; 10-15 reps, hold 5-10 sec. 2-3x/day. Added; 5. Seated Passive L GH Flexion with cane; 10 reps Flexion 10 reps Scaption (45 degs) 6. Supine Cane GH Flexion ROM; AAROM x 10 reps R UE assist (90/10 split) Over the door pulleys; 5-10 mins, 2x/day. End range self-stretching x 10 seconds Flexion x 5 mins (Improved passive ROM) Scaption x 5 mins (Improved passive ROM) Manual Therapy; (PROM) Held 30 mins Ther ex x 2 A: Confirmed progression out of L UE sling with only soreness noted. Now introduced to passive self-stretching via home pulleys and AAROM with cane use (standing and supine). LONG discussion regarding slow self-progression with pain as a guide. Encouraging CP application for post activity edema reduction and she returned all instructions. P: Extended PT POC x 1 visit. RTC placed for 14 day clinical visit Begin biceps and deltoid activities, introduce GH Isometrics, update AROM levels and educate for self-management. [place] to contact Ortho for work restriction clarification and future scheduling. RTC Protocol; (Reviewed with client) WEEKS 4-8 Discontinue sling ROM Wk 4-6: [...] approved /shun/ CANDACE HECTOR PHYSICAL THERAPIST Signed: 10/16/2024 13:48 CANDACE HECTOR [facility]
--- OUTSIDE RECORDS SUMMARY | 2024-10-21 06:00 | XMS_ITS | Encounter Summary ---
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 Date/Time Encounter Type Encounter Description Reason Provider Source Oct 21, 2024 10:00 AM OFFICE O/P EST MOD 30 MIN PRIMARY CARE/MEDICINE ICD-10-CM M25.512 Pain in left shoulder JB CARSON Jaclyn Encounter Template Text not used by [place] Assessments - Encounter Diagnoses This section includes the primary and secondary diagnoses documented for the Encounter. Date/Time Primary/Secondary Diagnosis Diagnosis Name Provider Source Oct 21, 2024 04:37 PM PRIMARY Pain in left shoulder JB CARSON CBALF Oct 21, 2024 04:37 PM SECONDARY Obesity, class 1 JB CARSON CBALF Plan of Treatment: Future Appointments (+ 6 months) and Future Tests (+/- 45 days) The Plan of Treatment section includes future care activities for the patient from all [place] treatmentfacilities. This section includes future appointments and future orders which are active, pending or scheduled. Future Appointments This section includes appointments that were scheduled to occur 6 months from the date of the Encounter, up to a maximum of 20 appointments. The data comes from all [place] treatment facilities. Appointment Date/Time Appointment Type Appointme nt Facility Name Oct 23, 2024 11:00 AM [facility]ORY [facility] NONE [facility] Oct 30, 2024 01:00 PM [facility] Nov 06, 2024 11:30 AM [facility] - NONE [facility] Nov 13, 2024 11:30 AM [facility]ORY - NONE [facility] Nov 13, 2024 01:00 PM [facility] - [facility] Nov 19, 2024 10:40 AM AMBULATORY - SURGERY [facility] Nov 27, 2024 08:00 AM [facility] December 25, 2024 11:30 AM AM[facility]ATORY - NONE [facility] December 27, 2024 08:00 AM [facility] Jan 21, 2025 07:45 AM AMBULATORY - NONE [facility] Jan 28, 2025 11:00 AM [facility]ULATORY - NONE [facility] Jan 30, 2025 03:00 PM AMBULATORY - NONE [facility] Mar 11, 2025 11:30 AM [facility]ULATORY - NONE [facility] Mar 13, 2025 04:30 PM AM[facility]ULATORY - NONE [facility] Apr 08, 2025 02:30 PM [facility]ULATORY - NONE [facility] Social History: Smoking Status (Most current) and Tobacco Use (All prior to encounter date) This section includes the most current, and the historical, smoking and tobacco- related health factors from the [place] facility where the Encounter took place. Current Smoking Status This section includes the most current smoking, or tobacco-related health factor, from the [place] facility where the Encounter took place. Date/Time Current Smoking Status Comment Facil ity Oct 21, 2024 10:00 AM VA-TOBACCO USE FORMER CIGARETTES [facility] Tobacco Use History This section includes a history of the smoking, or tobacco-related health factors, that were collected on or before the date of the Encounter. The data comes from the [place] facility where the Encounter took place. Date/Time Smoking Status/Tobacco Use Comment F acility Oct 21, 2024 10:00 AM VA-TOBACCO USE FORMER CIGARETTES [facility] Sep 19, 2023 08:00 AM VA-TOBACCO FORMER USER [facility] Sep 19, 2023 08:00 AM VA-TOBACCO QUIT [...] Encounter. Date/Time Encounter Note(s) Provider Source Oct 21, 2024 10:15 AM INTERNAL MEDICINE OUTPATIENT NOTE: LOCAL TITLE: PRIMARY CARE OUTPATIENT NOTE (T) STANDARD TITLE: INTERNAL MEDICINE OUTPATIENT NOTE DATE OF NOTE: OCT 21, 2024@10:15 ENTRY DATE: OCT 21, 2024@10:15:56 AUTHOR: JB CARSON EXP COSIGNER: URGENCY: STATUS: COMPLETED In-person Note 43yo Reason for Visit: Here for follow up visit. She is enquiring about options for weight loss. She tried the [facility] program in the past without success. She has been recovering from her shoulder surgery and has worked hard and still has gained some weight. SHe has cut out carbs and alcohol. 8 Active Problems PROBLEM LAST MOD PROVIDER Pain of left shoulder joint 09/19/2023 JB CARSON Exposure to potentially hazardous substance 08/02/2022 JB CARSON Breast neoplasm screening status 03/19/2024 JB CARSON 03/13- negative, repeat in 1 year 1. --2019 BiRads 1 2. 11/23/2021 - BiRads 1 - repeat 1 year Anemia 05/22/2020 AVI CONNER Cancer cervix screening status 03/14/2024 JB CARSON 03/13- repeat in 1 year 07-22-19 pap and HPV neg. rpt 5 years (cotesting) - 2023 Allergic rhinitis 06/13/2016 ANA PHILLIPS Posttraumatic stress disorder 08/10/2015 ANA PHILLIPS Obstructive sleep apnea syndrome 10/08/2014 ANA PHILLIPS REVIEW OF SYSTEMS: (denies the following unless indicated otherwise): mood concerns headache fatigue/weight loss dysphagia/hoarseness chest pain dyspnea abdominal pain difficult or bloody elimination PATIENT ALLERGIES DETAILED ALLERGIES/ADVERSE REACTIONS Type: DRUG Date/Time Reactant Severity Reaction 10/08/2014 14:29 MOBIC RASH AMRS - MEDS (REC SUCCINCT) Active and Recently Inpatient, Outpatient and Clinic Medications (including Supplies): Active Outpatient Medications Status ========= 1) DOXYCYCLINE HYCLATE 100MG TAB TAKE ONE TABLET BY ACTIVE MOUTH TWICE A DAY 2) LIDOCAINE 5% PATCH APPLY ONE PATCH TO CLEAN DRY SKIN ACTIVE EVERY DAY . PATCH SHOULD REMAIN ON SKIN NO LONGER THAN 12 HOURS IN ANY 24 HOUR PERIOD. Inactive Outpatient Medications Status ========= 1) DICLOFENAC NA 1% TOP GEL APPLY 2GM MEASURED ON DOSING CARD EXTERNALLY TWICE A DAY NEEDED FOR PAIN TO RIGHT FOOT (GENTLY MASSAGE INTO SKIN) *FLAMMABLE: KEEP AWAY FROM HEAT AND FLAMES* 2) DOCUSATE NA 100MG CAP TAKE ONE CAPSULE BY MOUTH TWICE A DAY FOR CONSTIPATION 3) OXYCODONE HCL 5MG/ACETAMIN 325MG TABLET TAKE 1 TABLET BY MOUTH EVERY 6 HOURS NEEDED FOR PAIN WITH FOOD FOR PAIN (TAKE NO MORE THAN 4,000MG OF ACETAMINOPHEN PER 24 HOURS) Active Non-VA Medications Status ========= 1) Non-VA IBUPROFEN 800MG TAB 800MG MOUTH THREE TIMES A ACTIVE DAY NEEDED 2) Non-VA THERAFLU POWDER,ORAL BY MOUTH ACTIVE 7 Total Medications PHYSICAL EXAM: Vital Signs: T: 98.3 F [36.8 C] (10/21/2024 10:07) P: 78 (10/21/2024 10:07) R: 18 (10/21/2024 10:07) BP: 138/88 (10/21/2024 10:07) Pain: 6 (10/21/2024 10:07) Height: 69 in [175.3 cm] (08/08/2024 14:47) Weight: 249 lb [112.94 kg] (10/21/2024 10:07) Pulse Ox: 98% (10/21/2024 10:07) General: APPEARS Well Head, Ears, Eyes, Nose, and Throat: Neck: Chest/Lungs: CTA Cardiovascular: RRR Gastrointestinal: Extremities: left shoulder with limited ROM< still doing PT ASSESSMENT/PLAN: consult placed to endocrine, may need to repeat MOVE! she continues to do PT for her left shoulder, has not returned to work as of yet HEALTH MAINTENANCE/CLINICAL REMINDERS: MEDICATION RECONCILIATION Medication Reconciliation report reviewed and discussed with patient/caregiver. VA prescription medications, non-VA prescription medications, OTC and herbal medications reviewed: Patient/caregiver verifies that the list is complete and accurate and voices understanding. Patient/caregiver in possession of printed medication list. FOLLOW-UP: scheduled Clinical Reminders Activity RHS Screen: RHS Screen Session Format: Face to Face Environmental Check Upon inquiry, the individual reports that the environment is safe to proceed. Informed Consent to Screen and Document The individual consents to proceed with screening. The individual consents to documentation of responses. PRIMARY SCREEN: In the past 12 months, how often did a current or former intimate partner (e.g., boyfriend, girlfriend, , , sexual partner): 1. Scream or curse at you Never 2. Insult or talk down to you Never 3. Threaten you with harm Never 4. Physically hurt you Never 5. Force or pressure you to have sexual contact against your will, or when you were unable to say no Never The HITS tool (items 1-4 above) is [place] copyright protected by Rodney Fulton MD, and the user has full rights to use it throughout the [place] system. PRIMARY SCREEN RESULT: The Primary Screen is NEGATIVE. The individual answered never to all forms of IPV above (i.e., answered never to all 5 items) The individual accepts education and/or resources: No EDUCATION: The individual indicated readiness to learn. Education offered during this session as noted above. The individual indicated understanding by asking relevant questions and making appropriate comments. No barriers to learning were observed or identified. I am the Staff Provider. TOTAL TIME SPENT: Spent 30 minutes in care of this patient today including review of records, exam, and placing orders. /shun/ JB CARSON NURSE PRACTITIONER Signed: 10/21/2024 16:37 JB CARSON [facility] Oct 21, 2024 10:03 AM PRIMARY CARE NURSI NG NOTE: LOCAL TITLE: OUTPATIENT NURSING INTAKE NOTE (T) STANDARD TITLE: PRIMARY CARE NURSING NOTE DATE OF NOTE: OCT 21, 2024@10:03 ENTRY DATE: OCT 21, 2024@10:03:59 AUTHOR: ANKUR REGALADO COSIGNER: URGENCY: STATUS: COMPLETED Hemoglobin A1C Results: Collection DT Specimen Test Name Result Units Ref Range 01/24/2024 07:51 BLOOD HEMOGLOBIN A1C 5.3 % 3.6 - 5.7 Comment: Values obtained from A1C measurements can vary. For typical A1C Comment: assays, a reported value of 7.0 could actually be between 6.72 and Comment: 7.28 if measured by a reference method. A reported value of 9.0 Comment: could actually be between 8.73 and 9.27. Ref: Comment: http://www.ngsp.org/CAPdata.asp 01/23/2023 07:48 BLOOD HEMOGLOBIN A1C 5.2 % 3.6 - 5.7 Comment: Values obtained from A1C measurements can vary. For typical A1C Comment: assays, a reported value of 7.0 could actually be between 6.72 and Comment: 7.28 if measured by a reference method. A reported value of 9.0 Comment: could actually be between 8.73 and 9.27. Ref: Comment: http://www.ngsp.org/CAPdata.asp 01/12/2022 09:25 BLOOD HEMOGLOBIN A1C 5.4 % 3.6 - 5.7 Review Allergies Allergies reviewed and updated per protocol. ALLERGIES/ADVERSE REACTIONS Type: DRUG Date/Time Reactant Severity Reaction 10/08/2014 14:29 MOBIC RASH Have you fallen in the last 30 days? NO MEDICATION LIST REVIEW REPORT Patient states no change in documented OTC/Herbals at this visit. 1. Has the patient been feeling sad or distressed? No 2. Has the patient been having personal or family problems? No 3. Has the patient been experiencing worry and/or stress? No 4. Has the patient been having problems with drugs and/or alcohol? No 5. Crisis Line pocket card was provided to patient. No/patient declined [facility] not documented this visit. Clinical Reminders Activity Advance Directive Education Screen: Patient received information regarding Advance Directives: No - Patient declined information at this time. Alcohol Use Screen (AUDIT-C): Alcohol Screen: SCREEN FOR ALCOHOL (AUDIT-C) An alcohol screening test (AUDIT-C) was negative (score=2). 1. How often did you have a drink containing alcohol in the past year? Consider a drink to be a 12 ounce can or bottle of regular beer, 8 ounces of malt liquor, a 5 ounce glass of table wine, or a 1.5 ounce shot of liquor (like scotch, gin, or vodka). Two to four times a month 2. How many drinks containing alcohol did you have on a typical day when you were drinking in the past year? One or two drinks 3. How often did you have 4 or more drinks on one occasion in the past year? Never Depression Screening: Perform PHQ-2 A PHQ-2 screen was performed. The score was 0 which is a negative screen for depression. Over the past two weeks, how often have you been bothered by the following problems? 1. Little interest or pleasure in doing things Not at all 2. Feeling down, depressed, or hopeless Not at all Homelessness/Food Insecurity Screen: In the past 2 months, have you been living in stable housing that you own, rent, or stay in as part of a household? Yes - Living in stable housing. Are you worried or concerned that in the next 2 months you may NOT have stable housing that you own, rent, or stay in as part of a household? No - Not worried about housing near future [facility] [place] reports the following: Within the past 12 months, you worried whether your food would run out before you got money to buy more. Never true Within the past 12 months, the food you bought just didn't last and you didn't have money to get more. Never true Influenza Immunization: Deferral / Refusal The patient declines to receive the recommended dose of seasonal influenza vaccine. Immunization: INFLUENZA, UNSPECIFIED FORMULATION Refusal Reason: PATIENT DECISION Patient refuses all immunization(s) in the FLU group Date Documented: 10/21/24 10:05 Patient Education Documentation: LEARNING NEEDS ASSESSMENT: The patient/family/significant other reports no changes in learning needs. Suicide Screen: C-SSRS Screening [place] Suicide Severity Rating Scale (C-SSRS) screener 1. Over the past month, have you wished you were or wished you could go to sleep and not wake up? No 2. Over the past month, have you had any actual thoughts of killing yourself? No 3. Over the past month, have you been thinking about how you might do this? Response not required due to responses to other questions. 4. Over the past month, have you had these thoughts and had some intention of acting on them? Response not required due to responses to other questions. 5. Over the past month, have you started to work out or worked out the details of how to kill yourself? Response not required due to responses to other questions. 6. If yes, at any time in the past month did you intend to carry out this plan? Response not required due to responses to other questions. 7. In your lifetime, have you ever done anything, started to do anything, or prepared to do anything to end your life (for example, collected pills, obtained a gun, gave away valuables, went to the roof but didn't jump)? No 8. If YES, was this within the past 3 months? Response not required due to responses to other questions. Tobacco Use Screening: The patient is a former cigarette smoker. The patient has never used other types of tobacco. Tdap Immunization: The patient may have been vaccinated in the past but written documentation of vaccination is not available today. Patient instructed to obtain a written record of the prior vaccine and bring it to the next appointment. COVID-19 Immunization: Refused Pfizer Monovalent COVID-19 vaccine Immunization: COVID-19 (PFIZER), MRNA, LNP-S, PF, LINWOOD-SUCROSE, 30 MCG/0.3 ML (AGES 12+ YEARS) Refusal Reason: PATIENT DECISION Patient refuses all immunization(s) in the COVID-19 group Date Documented: 10/21/24 10:06 /shun/ ANKUR REGALADO LICENSED PRACTICAL NURSE Signed: 10/21/2024 10:11 ANKUR REGALADO OC
--- OUTSIDE RECORDS SUMMARY | 2024-10-30 09:00 | XMS_ITS | Encounter Summary ---
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 Date/Time Encounter Type Encounter Description Reason Provider Source Oct 30, 2024 01:00 PM THERAPEUTIC EXERCISES PHYSICAL THERAPY ICD-10-CM M25.512 Pain in left shoulder CANDACE HECTOR Jaclyn Encounter Template Text not used by [place] Assessments - Encounter Diagnoses This section includes the primary and secondary diagnoses documented for the Encounter. Date/Time Primary/Secondary Diagnosis Diagnosis Name Provider Source Oct 30, 2024 02:34 PM PRIMARY Pain in left shoulder [facility] Plan of Treatment: Future Appointments (+ 6 months) and Future Tests (+/- 45 days) The Plan of Treatment section includes future care activities for the patient from all [place] treatmentfacilities. This section includes future appointments and future orders which are active, pending or scheduled. Future Appointments This section includes appointments that were scheduled to occur 6 months from the date of the Encounter, up to a maximum of 20 appointments. The data comes from all [place] treatment facilities. Appointment Date/Time Appointment Type Appointme nt Facility Name Nov 06, 2024 11:30 AM [facility]ATORY - NONE [facility] Nov 13, 2024 11:30 AM [facility]ORY - NONE [facility] Nov 13, 2024 01:00 PM [facility] Nov 19, 2024 10:40 AM [facility]ORY [facility] SURG[facility] Nov 27, 2024 08:00 AM AMBULATORY - REHAB [facility] December 25, 2024 11:30 AM AMBULATORY - NONE [facility] December 27, 2024 08:00 AM [facility]ULATORY - RE[facility]AB [facility] Jan 21, 2025 07:45 AM AMBULATORY - NONE [facility] Jan 28, 2025 11:00 AM AMBULATORY - NONE [facility] Jan 30, 2025 03:00 PM AMBULATORY - NONE [facility] Mar 11, 2025 11:30 AM AMBULATORY - NONE [facility] Mar 13, 2025 04:30 PM AMBULATORY - NONE [facility] Apr 08, 2025 02:30 PM AMBULATORY - NONE [facility] Social History: Smoking Status (Most current) and Tobacco Use (All prior to encounter date) This section includes the most current, and the historical, smoking and tobacco- related health factors from the [place] facility where the Encounter took place. Current Smoking Status This section includes the most current smoking, or tobacco-related health factor, from the [place] facility where the Encounter took place. Date/Time Current Smoking Status Comment Facil ity Oct 21, 2024 10:00 AM VA-TOBACCO USE FORMER CIGARETTES [facility] Tobacco Use History This section includes a history of the smoking, or tobacco-related health factors, that were collected on or before the date of the Encounter. The data comes from the [place] facility where the Encounter took place. Date/Time [...] TOBACCO IN THE LAST 12 AISHA [facility] Encounter Notes: All associated encounter notes This section contains the clinical notes associated to the Encounter. Date/Time Encounter Note(s) Provider Source Oct 30, 2024 12:53 PM PHYSICAL THERAPY N OTE: LOCAL TITLE: PM&RS PT DAILY ACTIVITY NOTE STANDARD TITLE: PHYSICAL THERAPY NOTE DATE OF NOTE: OCT 30, 2024@12:53 ENTRY DATE: OCT 30, 2024@12:53:49 AUTHOR: CANDACE HECTOR EXP COSIGNER: URGENCY: STATUS: COMPLETED Dx Code; S/p L open biceps tenodesis PT Dx; L SAD with BT (09/04/24) and mobility/coordination impairments Outpatient PT Tx #3 PT POC; 09/23/24-> Post-op week #8 (09/04/24) S: 43 yo who arrives for additional [facility] Outpatient PT f/u care. I'm dealing with more soreness. Mainly in the bicep (anterior left arm) and the outside (Lateral deltoid). It seems like the biceps is a 4-5/10 now. The outside is about a 6/10 level. Also, the front of the shoulder is about an 6/10 level. Per client, more active with casual walking and even gentle swinging of the left shoulder will increase her discomfort. The exercises help with the soreness. OTC meds will decrease all symptoms. I'm going to take a pain pill when I go home today. Agreeable to the following clinical movements. O: Gait; Indep without AD. L UE Sling; D/c'd. Exercise Prescription; (Issued in written form) 1. Pendulum ex's; D/c to HEP 2. Posture corrections; D/c to HEP 3. Wrist/hand/elbow AROM; D/c to HEP 4. Seated scapular retractions; D/c to HEP 5. STANDING Passive L GH Flexion with cane; 10 reps Flexion 10 reps Scaption (45 degs) 10 reps Abd 6. Supine Cane GH Flexion ROM; AAROM x 10 reps R UE assist (90/10 split) Added; 7. Biceps strengthening; 1#; 15, 20 reps (Fatigue) 8. Standing Deltoid strengthening; Fwd; 0#; 2x10 reps Lat; 0#; 2x10 reps Over the door pulleys; D/c to HEP. 30 mins Ther ex x 2 A: Increased L shoulder sensitivity reported today at biceps and lateral deltoid region. She tolerated addition of light biceps curls and pain free AROM deltoid movements with good tolerance. Only fatigue noted with decreased lateral deltoid complaints after HEP efforts. Encouraged more frequent CP application at home (vs. [facility]) for comfort. She is agreeable to progress protocol to her tolerance next visit. P: Extended PT POC x 1 visit. RTC placed for 14 day clinical visit Ortho f/u 11/19/24 Progress biceps and deltoid activities as tolerated, introduce GH Isometrics, update AROM levels and educate for self-management. RTC Protocol; (Reviewed with client) WEEKS 4-8 [...] approved /shun/ CANDACE HECTOR PHYSICAL THERAPIST Signed: 10/30/2024 14:34 CANDACE HECTOR OC
--- OUTSIDE RECORDS SUMMARY | 2024-11-13 09:00 | XMS_ITS | Encounter Summary ---
Author Name [facility] [place] [place] Organization [facility] [place] [place] Address [address] [place] [address] Care Team Providers Care Assembler Musical Instruments Name Role Phone JB CARSON Primary Care Provider Unavailabl e Selected Encounter This section includes the information on record at [place] for the Encounter. Date/Time Encounter Type Encounter Description Reason Provider Source Nov 13, 2024 01:00 PM THERAPEUTIC EXERCISES PHYSICAL THERAPY ICD-10-CM M25.512 Pain in left shoulder CANDACE HECTOR Jaclyn Encounter Template Text not used by [place] Assessments - Encounter Diagnoses This section includes the primary and secondary diagnoses documented for the Encounter. Date/Time Primary/Secondary Diagnosis Diagnosis Name Provider Source Nov 13, 2024 01:51 PM PRIMARY Pain in left shoulder CANDACE HECTOR [facility] Plan of Treatment: Future Appointments (+ 6 months) and Future Tests (+/- 45 days) The Plan of Treatment section includes future care activities for the patient from all [place] treatmentfacilities. This section includes future appointments and future orders which are active, pending or scheduled. Future Appointments This section includes appointments that were scheduled to occur 6 months from the date of the Encounter, up to a maximum of 20 appointments. The data comes from all [place] treatment facilities. Appointment Date/Time Appointment Type Appointme nt Facility Name Nov 19, 2024 10:40 AM AMBULATORY - SURGERY [facility] Nov 27, 2024 08:00 AM AMBULATORY - REHAB [facility] December 25, 2024 11:30 AM AMBULATORY - NONE [facility] December 27, 2024 08:00 AM AMBULATORY - [facility]AB [facility] Jan 21, 2025 07:45 AM AMBULATORY - NONE [facility] Jan 28, 2025 11:00 AM AMBULATORY - NONE [facility] Jan 30, 2025 03:00 PM [facility] NONE [facility] Mar 11, 2025 11:30 AM [facility]ORY - NONE [facility] Mar 13, 2025 04:30 PM AM[facility]ULATORY - NONE [facility] Apr 08, 2025 02:30 PM [facility] Social History: Smoking Status (Most current) and Tobacco Use (All prior to encounter date) This section includes the most current, and the historical, smoking and tobacco- related health factors from the [place] facility where the Encounter took place. Current Smoking Status This section includes the most current smoking, or tobacco-related health factor, from the [place] facility where the Encounter took place. Date/Time Current Smoking Status Comment Facil ity Oct 21, 2024 10:00 AM VA-TOBACCO USE FORMER CIGARETTES [facility] Tobacco Use History This section includes a history of the smoking, or tobacco-related health factors, that were collected on or before the date of the Encounter. The data comes from the [place] facility where the Encounter took place. Date/Time [...] >12 MO & <7 YRS AGO [facility] Oct 08, 2014 02:30 PM QUIT TOBACCO IN THE LAST 12 AISHA [facility] Encounter Notes: All associated encounter notes This section contains the clinical notes associated to the Encounter. Date/Time Encounter Note(s) Provider Source Nov 13, 2024 11:18 AM PHYSICAL THERAPY N OTE: LOCAL TITLE: PM&RS PT DAILY ACTIVITY NOTE STANDARD TITLE: PHYSICAL THERAPY NOTE DATE OF NOTE: NOV 13, 2024@11:18 ENTRY DATE: NOV 13, 2024@11:18:37 AUTHOR: CANDACE HECTOR EXP COSIGNER: URGENCY: STATUS: COMPLETED Dx Code; S/p L open biceps tenodesis PT Dx; L SAD with BT (09/04/24) and mobility/coordination impairments Outpatient PT Tx #4 PT POC; 09/23/24-> Post-op week #10 (09/04/24) S: 43 yo who arrives for additional [facility] Outpatient PT f/u care. The sensitivity in the bicep has improved. It only comes on when I over use it. Per client, she is noticing it is easier to use her left shoulder for functional activities (picking up a cup etc.). Mild soreness reported but pleased with progress post-op. She is agreeable to the following clinical progressions. O: Gait; Indep without AD. L UE has been d/c'd. AROM (L GH) 11/13/24 Flex; 139 degs Abd; 99 degs Exercise Prescription; (*=Reviewed in clinic) 1. Pendulum ex's; D/c to HEP 2. Posture corrections; D/c to HEP 3. Wrist/hand/elbow AROM; D/c to HEP 4. Seated scapular retractions; D/c to HEP 5. STANDING Passive L GH Flexion with cane; 10 reps Flexion 10 reps Scaption (45 degs) 10 reps Abd *6. Supine Cane GH Flexion ROM; AAROM x 10 reps R UE assist (Find Tightness ) Flexion/Scap and Abduction ranges *7. Biceps strengthening; 1#; 30 reps 2#; 20 reps (Fatigue) 8. Standing Deltoid strengthening; Fwd; 1#; 2x10 reps (Full AROM, Fatigue) Lat; 1#; 2x10 reps (Partial AROM, Fatigue) Added; 9. L GH Isometrics; Fwd; 10 reps, hold 5 sec. 2-3x/day. Ext; Abd; Over the door pulleys; D/c to HEP. 30 mins Ther ex x 2 A: Able to tolerate additional biceps and deltoid resistance with primary response of fatigue. Partial AROM active abduction activities tolerated well without increase in pain. Discussed fatigue response and appropriate post activity soreness at this point post-op. She is agreeable to add resistance for all home activities and return in 14 days for clinical progressions per protocol below. P: Extended PT POC x 1 visit. RTC placed for 14 day clinical visit Ortho f/u 11/19/24 Progress biceps and deltoid activities as tolerated, update GH isometric response, update AROM levels and educate for self-management. RTC Protocol; (Reviewed with client) WEEKS 8-12 Progress to full AROM Begin IR/ER isometrics Posterior capsule stretch once warmed up AFTER WEEK 12 Advance to strengthening exercises If biceps tenodesis At 3 months may begin throwing and sports-specific ROM At 4.5 months throwing from a mound At 6 months may return to sports if approved /shun/ CANDACE HETCOR PHYSICAL THERAPIST Signed: 11/13/2024 13:51 CANDACE HECTOR [facility]
--- OUTSIDE RECORDS SUMMARY | 2024-11-19 06:40 | XMS_ITS | Encounter Summary ---
Author Name [facility] [place] Organization [facility] [place] [place] Address [address] [place] [address] Care Team Providers Care Tailer Off Name Role Phone JB CARSON Primary Care Provider Unavailabl e Selected Encounter This section includes the information on record at [place] for the Encounter. Date/Time Encounter Type Encounter Description Reason Provider Source Nov 19, 2024 10:40 AM POSTOP FOLLOW-UP VISIT ORTHO/JOINT SURG ICD-10-CM Z77.29 Contact with and exposure to other hazardous substances KIRSTEN ROSALES Jaclyn Encounter Template Text not used by [place] Assessments - Encounter Diagnoses This section includes the primary and secondary diagnoses documented for the Encounter. Date/Time Primary/Secondary Diagnosis Diagnosis Name Provider Source Nov 19, 2024 11:33 AM PRIMARY Contact with and exposure to other hazardous substances K[facility]EN ROSAELS [facility] Nov 19, 2024 11:33 AM SECONDARY Bicipital tendinitis, left shoulder [facility]EN ROSALES [facility] Nov 19, 2024 11:33 AM SECONDARY Pain in left shoulder [facility]EN ROSALES [facility] Plan of Treatment: Future Appointments (+ 6 months) and Future Tests (+/- 45 days) The Plan of Treatment section includes future care activities for the patient [facility] [place] [facility] This section includes future appointments and future orders which are active, pending or scheduled. Future Appointments This section includes appointments that were scheduled to occur 6 months from the date of the Encounter, up to a maximum of 20 appointments. The data comes from all [place] treatment facilities. Appointment Date/Time Appointment Type Appointme nt Facility Name Nov 27, 2024 08:00 AM [facility] December 25, 2024 11:30 AM [facility]ORY - NONE [facility] December 27, 2024 08:00 AM [facility] Jan 21, 2025 07:45 AM AMBULATORY - NONE [facility] Jan 28, 2025 11:00 AM [facility] Jan 30, 2025 03:00 PM AM[facility]ULATORY - NONE [facility] Mar 11, 2025 11:30 AM [facility] Mar 13, 2025 04:30 PM [facility] Apr 08, 2025 02:30 PM [facility] Active, Pending, and Scheduled Orders This section includes a listing of several types of active, pending, and scheduled orders, including clinic medications orders, diagnostic test orders, procedure orders and consult orders; where the start date of the order is 45 days before the date of the Encounter or 45 days after the date of theEncounter. The data comes from all [place] treatment facilities. Test Date/Time Test Type Test Details Facility Name January 03, 2025 12:00 AM Laboratory - Chemi stry Order OCCULT BLOOD FIT X1 SCREEN (MFP ONLY) STOOL FECES SP [facility] Social History: Smoking Status (Most current) and Tobacco Use (All prior to encounter date) This section includes the most current, and the historical, smoking and tobacco- related health factors from the [place] facility where the Encounter took place. Current Smoking Status This section includes the most current smoking, or tobacco-related health factor, from the [place] facility where the Encounter took place. Date/Time Current Smoking Status Comment Leila hewitt Sep 04, 2024 06:00 AM TOBACCO [place] NON USER [facility] Tobacco Use History This section includes a history of the smoking, or tobacco-related health factors, that were collected on or before the date of the Encounter. The data comes from the [place] facility where the Encounter took place. Date/Time Smoking Status/Tobacco Use Comment F acility Sep 23, 2020 11:00 AM AH-BPR SMOKING DEPLOYMENT YES [facility] Encounter Notes: All associated encounter notes This section contains the clinical notes associated to the Encounter. Date/Time Encounter Note(s) Provider Source Nov 19, 2024 10:51 AM ORTHOPEDIC SURGERY OUTPATIENT NOTE: LOCAL TITLE: ORTHO OUTPATIENT CLINIC NOTE STANDARD TITLE: ORTHOPEDIC SURGERY OUTPATIENT NOTE DATE OF NOTE: NOV 19, 2024@10:51 ENTRY DATE: NOV 19, 2024@10:51:52 AUTHOR: KIRSTEN ROSALES EXP COSIGNER: URGENCY: STATUS: COMPLETED CC: 3 month follow-up s/p left shoulder scope with open subpectoral biceps tenodesis S: 43F who presents for 3 month fu after shoulder scope with bicep tenodesis. She has continued with physical therapy. Her range of motion and strength are improving. She has some anterior shoulder pain with motion at and above 90 flexion when in 90 ER. She is able to do this at 0 and 45 deg ER without difficulty. She has full PROM. Denies pain at rest. She has been compliant with the protocol and endorses no injuries. ROS negative unless mentioned above. Prior providers notes, past medical history, medications, and allergies were reviewed. Medication reconciliation was performed, discussed, and updated with the . O: GEN: NAD CV: RRR to palpation PULM: non-labored breathing MSK Left upper extremity: -All incisions well-healed without any erythema or dehiscence -Full passive range of motion with forward flexion and abduction of the left shoulder -Mildly tender to palpation over biceps -AIN/PIN/Uln motor fxn intact -SILT axillary, radial, median, ulnar -2+ radial pulse. Cap refill < 2 seconds in all digits. -Compartments soft and compressible. Imaging: No additional radiographs were obtained today in clinic A/P: 43F 3 months s/p left shoulder arthroscopy with subacromial decompression and left subpectoral open biceps tenodesis with Dr. Hutchins. Progressing well with physical therapy. - Continue strict adherence to postop protocol described below, highly encourage continued physical therapy - RICE therapy and NSAIDs prn for pain control - Return to clinic in three months to reassess. Biceps Tenodesis Postop Protocol WEEKS 0-4 * [...] OR PULLEYS. OK for [place]man, wrist/elbow/hand ROM, buffer automatic strength, isometric scapular stabilization, ice/heat before and [...] months may return to sports if approved I am the Staff Provider. TOTAL TIME SPENT: Spent 20 minutes in care of this patient today including review of records, exam, and placing orders. /shun/ KIRSTEN ROSALES PHYSICIAN TRUCK DRIVER TEAMSTER Signed: 11/19/2024 11:34 [facility]IRSTEN ROSALES [facility]
--- OUTSIDE RECORDS SUMMARY | 2024-11-27 04:00 | XMS_ITS | Encounter Summary ---
Author Name [facility] [place] [facility] [place] Organization [place] Address [address] [place] [address] Care Team Providers Care Career Placement Specialist Name Role Phone JB CARSON Primary Care Provider Unavailabl e Selected Encounter This section includes the information on record at [place] for the Encounter. Date/Time Encounter Type Encounter Description Reason Provider Source Nov 27, 2024 08:00 AM THERAPEUTIC EXERCISES PHYSICAL THERAPY ICD-10-CM M25.512 Pain in left shoulder CANDACE HECTOR Jaclyn Encounter Template Text not used by [place] Assessments - Encounter Diagnoses This section includes the primary and secondary diagnoses documented for the Encounter. Date/Time Primary/Secondary Diagnosis Diagnosis Name Provider Source Nov 27, 2024 08:36 AM PRIMARY Pain in left shoulder CANDACE HECTOR [facility] Plan of Treatment: Future Appointments (+ 6 months) and Future Tests (+/- 45 days) The Plan of Treatment section includes future care activities for the patient from all [place] treatmentfacilities. This section includes future appointments and future orders which are active, pending or scheduled. Future Appointments This section includes appointments that were scheduled to occur 6 months from the date of the Encounter, up to a maximum of 20 appointments. The data comes from all [place] treatment facilities. Appointment Date/Time Appointment Type Appointme nt Facility Name December 25, 2024 11:30 AM AM[facility]ULATORY - NONE [facility] December 27, 2024 08:00 AM AMBULATORY - REHAB [facility] Jan 21, 2025 07:45 AM AMBULATORY - NONE [facility] Jan 28, 2025 11:00 AM AMBULATORY - NONE [facility] Jan 30, 2025 03:00 PM AMBULATORY - NONE [facility] Mar 11, 2025 11:30 AM [facility]ORY - NONE [facility] Mar 13, 2025 04:30 PM AMBULATORY - NONE [facility] Apr 08, 2025 02:30 PM AMBULATORY - NONE [facility] Active, Pending, and Scheduled Orders This section includes a listing of several types of active, pending, and scheduled orders, including clinic medications orders, diagnostic test orders, procedure orders and consult orders; where the start date of the order is 45 days before the date of the Encounter or 45 days after the date of theEncounter. The data comes from all [place] treatment facilities. Test Date/Time Test Type Test Details Facility Name January 03, 2025 12:00 AM Laboratory - Chemi stry Order OCCULT BLOOD FIT X1 SCREEN (MFP ONLY) STOOL FECES SP [facility] Social History: Smoking Status (Most current) and Tobacco Use (All prior to encounter date) This section includes the most current, and the historical, smoking and tobacco- related health factors from the [place] facility where the Encounter took place. Current Smoking Status This section includes the most current smoking, or tobacco-related health factor, from the [place] facility where the Encounter took place. Date/Time Current Smoking Status Comment Facil ity Oct 21, 2024 10:00 AM VA-TOBACCO USE FORMER CIGARETTES [facility] Tobacco Use History This section includes a history of the smoking, or tobacco-related health factors, that were collected on or before the date of the Encounter. The data comes from the [place] facility where the Encounter took place. Date/Time [...] 2018 08:05 AM VA-TOBACCO FORMER USER [facility] May 02, 2018 08:05 AM VA-TOBACCO QUIT [...] IN THE LAST 12 AISHA [facility] Encounter Notes: All associated encounter notes This section contains the clinical notes associated to the Encounter. Date/Time Encounter Note(s) Provider Source Nov 27, 2024 07:52 AM PHYSICAL THERAPY N OTE: LOCAL TITLE: PM&RS PT DAILY ACTIVITY NOTE STANDARD TITLE: PHYSICAL THERAPY NOTE DATE OF NOTE: NOV 27, 2024@07:52 ENTRY DATE: NOV 27, 2024@07:53:03 AUTHOR: CANDACE HECTOR EXP COSIGNER: URGENCY: STATUS: COMPLETED Dx Code; S/p L open biceps tenodesis PT Dx; L SAD with BT (09/04/24) and mobility/coordination impairments Outpatient PT Tx #5 PT POC; 09/23/24-> Post-op week #12 (09/04/24) S: 43 yo who arrives for additional [place] [facility] Outpatient PT f/u care. Really well in the shoulder. No pain or any soreness. If I over use it, I'll get some soreness. Reports her Ortho appt went well (11/19/24) but they had concerns regarding her abduction AROM and IR movements. They thought I might be headed towards a frozen shoulder. She remains compliant with home pulleys and HEP efforts below. Feels her strength continues to improve. Agreeable to the following clinical retesting. O: Gait; Indep without AD. L UE sling has been d/c'd. AROM (L GH) 11/2711/13/24 Change Flex; 161 139 degs +22 degs PROM; 175 -- -- Abd; 155 99 degs +56 degs PROM; 165 -- -- Exercise Prescription; (*=Reviewed in clinic) 1. Pendulum ex's; D/c to HEP 2. Posture corrections; D/c to HEP 3. Wrist/hand/elbow AROM; D/c to HEP 4. Seated scapular retractions; D/c to HEP *5. STANDING Passive L GH Flexion with cane; 10 reps Flexion 10 reps Scaption (45 degs) 10 reps Abd *6. Supine Cane GH Flexion ROM; AAROM x 10 reps END RANGE STRETCH Flexion/Scap and Abduction ranges *7. Biceps strengthening; 3#; 30 reps 5#; 15 reps (Fatigue) *8. Standing Deltoid strengthening; Fwd; 2#; 2x15 reps (Full AROM, Fatigue) Lat; 0#; 2x15 reps (FULL AROM, Fatigue) *9. L GH Isometrics; Fwd; 10 reps, hold 5 sec. 2-3x/day. Ext; Abd; Added; *10. L GH Isometrics; ER; 10 reps, hold 5 sec. 2-3x/day IR; Over the door pulleys; D/c to HEP. Flex/Scap then Abduction positions Outcome Measures; GROC; 11/27/24 Total; +6 ( A great deal better ) 30 mins Ther ex x 2 A: Excellent gains in AROM of L UE with current PT home program and clinical f/u. Now over 12 weeks post-op. Able to tolerate resistance progressions for both biceps and forward raise movements. Only fatigue noted. Given the concern for abduction AROM, we reduced resistance (from 1# partial AROM to 0# full AROM) and encouraged repetitions until fatigue. She is appropriate for one final f/u (30 days) with possible d/c to self-management if AROM and strength are sufficient. Pt goal; I'd like to have better ROM in the left shoulder so I could put on my jacket. THERAPIST'S GOALS: Short term: 1. L UE Sling d/c'd by 10/04/24. GM 2. L GH PROM; GM Flex; 0-140 ER; 40 degs (0 deg abd) Abd; 90 degs IR; 40 degs (Abd 60-80 degs) Completed; 2/2 LTG; 1. Indep with home AAROM program without pain. GM 2. Shoulder flexion with cane at 45 deg elevation on table. GM 3. Light resistance training for elbow flexion. GM 4. Full AROM L GH in all planes 5. Indep with GH rotational isometrics without pain. GM 6. Posterior capsule stretching after UBE cycle. Completed; 11/24 After 1. Light resistance to AROM in all directions. 2. GROC +3 level. GM Completed; 08/22 P: Extended PT POC x 1 final visit. RTC placed for 30 day clinical visit Ortho f/u 02/18/25 Consider resistive abduction movements (if full AROM demonstrated), progress biceps resistance as tolerated, update GH rotation isometric response, and update AROM levels. Final addition of posterior capsule stretching. RTC Protocol; (Reviewed with client) WEEKS 8-12 Progress to full AROM Begin IR/ER isometrics Posterior capsule stretch once warmed up AFTER WEEK 12 Advance to strengthening exercises If biceps tenodesis At 3 months may begin throwing and sports-specific ROM At 4.5 months throwing from a mound At 6 months may return to sports if approved /shun/ CANDACE HECTOR PHYSICAL THERAPIST Signed: 11/27/2024 08:36 CANDACE HECTOR [facility]
--- OUTSIDE RECORDS SUMMARY | 2025-01-30 11:00 | XMS_ITS | Encounter Summary ---
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 Date/Time Encounter Type Encounter Description Reason Provider Source Jan 30, 2025 03:00 PM OFFICE O/P EST MOD 30 MIN [facility] ICD-10-CM Z12.4 Encounter for screening for malignant neoplasm of cervix JB MAGANA Jaclyn Encounter Template Text not used by [place] Assessments - Encounter Diagnoses This section includes the primary and secondary diagnoses documented for the Encounter. Date/Time Primary/Secondary Diagnosis Diagnosis Name Provider Source Jan 30, 2025 03:38 PM PRIMARY Encounter for screening for malignant neoplasm of cervix [facility] Jan 30, 2025 03:38 PM SECONDARY Anemia, unspecified [facility] MAG[facility] Jan 30, 2025 03:38 PM SECONDARY Encntr screen mammogram for malignant neoplasm of breast JB MAGANA CB Plan of Treatment: Future Appointments (+ 6 months) and Future Tests (+/- 45 days) The Plan of Treatment section includes future care activities for the patient from all [place] treatmentfacilities. This section includes future appointments and future orders which are active, pending or scheduled. Future Appointments This section includes appointments that were scheduled to occur 6 months from the date of the Encounter, up to a maximum of 20 appointments. The data comes from all [place] treatment facilities. Appointment Date/Time Appointment Type Appointme nt Facility Name Mar 11, 2025 11:30 AM [facility] - NONE [facility] Mar 13, 2025 04:30 PM [facility] - NONE [facility] Apr 08, 2025 02:30 PM [facility] - NONE [facility] Jul 31, 2025 03:00 PM AMBULATORY [facility] Active, Pending, and Scheduled Orders This section includes a listing of several types of active, pending, and scheduled orders, including clinic medications orders, diagnostic test orders, procedure orders and consult orders; where the start date of the order is 45 days before the date of the Encounter or 45 days after the date of theEncounter. The data comes from all [place] treatment facilities. Test Date/Time Test Type Test Details Facility Name January 03, 2025 12:00 AM Laboratory - Chemi stry Order OCCULT BLOOD FIT X1 SCREEN (MFP ONLY) STOOL FECES SP [facility] January 17, 2025 12:00 AM Laboratory - Chemi stry Order URINALYSIS URINE SP ONCE [facility] Jan 30, 2025 12:00 AM Laboratory - Chemi stry Order HPV PCR PRESERVCYT CERVICAL CYTOLOGIC MATERIAL WC ONCE [facility] Jan 30, 2025 04:00 PM Consult Order COMMUNITY CARE-MAMMOGRAPHY SCREENING Cons Landing Support Specialist's Choice [facility] Lab Results: +/- 30 days of the encounter This section includes the Chemistry and Hematology Lab Results on record with [place] for the patient. Radiology Reports and Pathology Reports are provided separately, in subsequent sections. Lab Results This section contains the Chemistry/Hematology Results that were resulted 30 days before or 30 daysafter the date of the Encounter. Date/Time Source Result Type Result - Unit Interpretation Reference Range Specimen Type Comment Jan 21, 2025 07:48 AM [facility] RETICULOCYTES BLOOD Specimen Type: BLOOD No comment entered. Ordering Provider: JB MAGANA Report Released Date/Time: January 17, 2025 01:10 PM Reporting Lab: [facility] [address] [address] [address] Performing Lab: [facility] [address] [address] [address] RETICULOCYTES % 1.32 0.50-1.50 RETIC ABSOLUTE 0.0540 10*6/uL 0.0230-0.0 935 Jan 21, 2025 07:48 AM [facility] CBC BLOOD Specimen Type: BLOOD No comment entered. Ordering Provider: JB MAGANA Report Released Date/Time: January 17, 2025 01:10 PM Reporting Lab: [facility] [address] [address] [address] Performing Lab: [address] [address] WBC COUNT 8.4 10*3/uL 3.6-11.0 RBC COUNT 4.10 10*6/uL L 4.20-5.40 HGB 11.7 g/dL L 13.0-16.0 HCT 36.0 L 37.0-47.0 MCV 87.8 fL 80.0-96.0 MCH 28.7 pg 27.0-31.0 MCHC 32.6 g/dL 31.5-36.5 PLT 249 10*3/uL 150-400 LYMPHS % 21.2 21.0-51.0 MONOCYTES % 7.0 4.0-8.0 NUCLEATED RBC/100WBC 0.2 /100{WBCs} RDW 13.9 11.2-15.8 NEUTROPHIL % 67.5 54.0-78.0 EOSINOPHIL % 3.7 H 0.0-3.0 BASOPHIL % 0.6 0.0-3.0 ABSOLUTE LYMPHOCYTE COUNT 1.8 10*3/uL 0. 8-5.0 ABSOLUTE NEUTROPHIL COUNT 5.7 10*3/uL 1. 9-8.6 ABSOLUTE BASOPHIL COUNT 0.1 10*3/uL 0.0- 0.3 ABSOLUTE MONOCYTE COUNT 0.6 10*3/uL 0.1- 0.9 ABSOLUTE EOSINOPHIL COUNT 0.3 10*3/uL 0. 0-0.3 MPV 11.0 fL H 7.9-10.8 Jan 21, 2025 07:48 AM [facility] LIPID PROFILE PLASMA Specimen Type: PLASMA Comment: GLUCOSE The ADA recommends a fasting glucose of 99 mg/dL as the GLUCOSE upper limit of normal. TP Per package insert reference range for recumbent is 6.0 to 7.8 TP g/dL. Plasma samples will generally have higher values (about TP 0.2 to 0.4 g/dL higher) due to presence of fibrinogen. TRIG REFERENCE RANGE: BORDERLINE HIGH: 150-199 mg/dL HIGH: 200-499 TRIG mg/dL VERY HIGH: >=500 mg/dL CHOL REF RANGE: BORDERLINE HIGH: 200-239 mg/dL HIGH: >=240 mg/dL HDLC Values >60 are a negative risk factor for heart disease. DLDL REF RANGE: NEAR OR ABOVE OPTIMAL: 100-129 mg/dL BORDERLINE DLDL HIGH: 130-159 mg/dL HIGH: 160-189 mg/dL VERY HIGH: >=190 Ordering Provider: JB MAGANA Report Released Date/Time: January 17, 2025 01:10 PM Reporting Lab: [address] [address] Performing Lab: [place] [id number] CHOLESTEROL 167 mg/dL 0-199 LDL CHOLESTEROL 89 mg/dL 0-99 HDL CHOLESTEROL 38 mg/dL L >50 TRIGLYCERIDE 256 mg/dL H 0-149 Jan 21, 2025 07:48 AM [facility] HEMOGLOBIN A1C BLOOD Specimen Type: B LOOD Comment: Values obtained from A1C measurements can vary. For typical A1C assays, a reported value of 7.0 could actually be between 6.72 and 7.28 if measured by a reference method. A reported value of 9.0 could actually be between 8.73 and 9.27. Ref: http://www.ngsp.org/CAPdata.asp Ordering Provider: JB MAGANA Report Released Date/Time: January 17, 2025 01:10 PM Reporting Lab: [address] [address] Performing Lab: [place] [phone] HEMOGLOBIN A1C 5.2 3.6-5.7 Jan 21, 2025 07:48 AM [facility] COMPREHENSIVE METABOLIC PANEL PLASMA S pecimen Type: PLASMA Comment: GLUCOSE The ADA recommends a fasting glucose of 99 mg/dL as the GLUCOSE upper limit of normal. TP Per package insert reference range for recumbent is 6.0 to 7.8 TP g/dL. Plasma samples will generally have higher values (about TP 0.2 to 0.4 g/dL higher) due to presence of fibrinogen. TRIG REFERENCE RANGE: BORDERLINE HIGH: 150-199 mg/dL HIGH: 200-499 TRIG mg/dL VERY HIGH: >=500 mg/dL CHOL REF RANGE: BORDERLINE HIGH: 200-239 mg/dL HIGH: >=240 mg/dL HDLC Values >60 are a negative risk factor for heart disease. DLDL REF RANGE: NEAR OR ABOVE OPTIMAL: 100-129 mg/dL BORDERLINE DLDL HIGH: 130-159 mg/dL HIGH: 160-189 mg/dL VERY HIGH: >=190 Ordering Provider: JB MAGANA Report Released Date/Time: January 17, 2025 01:10 PM Reporting Lab: [address] [address] Performing Lab: [address] [address] ALBUMIN 3.9 g/dL 3.5-4.8 ALKALINE PHOSPHATASE 63 U/L 40-150 ALT/SGPT 16 U/L 0-55 AST/SGOT 19 U/L 10-40 BUN 11.7 mg/dL 7.0-18.7 CALCIUM 8.8 mg/dL 8.6-10.3 CREATININE 0.8 mg/dL 0.6-1.1 CO2 22 mmol/L 22-30 GLUCOSE 90 mg/dL 74-99 PROTEIN, TOTAL 7.0 g/dL 6.4-8.3 SODIUM 137 mmol/L 134-144 CHLORIDE 107 mmol/L 99-112 BILIRUBIN, TOTAL 0.2 mg/dL 0.2-1.2 POTASSIUM 4.7 mmol/L 3.5-5.1 ANION GAP 13 mmol/L 10-20 EGFR (CALCULATED) Jan 21, 2025 07:48 AM [facility] TSH PLASMA Specimen Type: PLASMA Comment: GLUCOSE The ADA recommends a fasting glucose of 99 mg/dL as the GLUCOSE upper limit of normal. TP Per package insert reference range for recumbent is 6.0 to 7.8 TP g/dL. Plasma samples will generally have higher values (about TP 0.2 to 0.4 g/dL higher) due to presence of fibrinogen. TRIG REFERENCE RANGE: BORDERLINE HIGH: 150-199 mg/dL HIGH: 200-499 TRIG mg/dL VERY HIGH: >=500 mg/dL CHOL REF RANGE: BORDERLINE HIGH: 200-239 mg/dL HIGH: >=240 mg/dL HDLC Values >60 are a negative risk factor for heart disease. DLDL REF RANGE: NEAR OR ABOVE OPTIMAL: 100-129 mg/dL BORDERLINE DLDL HIGH: 130-159 mg/dL HIGH: 160-189 mg/dL VERY HIGH: >=190 Ordering Provider: JB MAGANA Report Released Date/Time: January 17, 2025 01:10 PM Reporting Lab: [address] [address] Performing Lab: [address] [address] TSH 1.761 u[IU]/mL 0.350-4.940 Jan 21, 2025 07:48 AM [facility] IRON GROUP SERUM Specimen Type: SERUM No comment entered. Ordering Provider: JB MAGANA Report Released Date/Time: January 17, 2025 01:10 PM Reporting Lab: [address] [address] Performing Lab: [address] [address] TIBC 270 ug/dL 250-425 IRON 73 ug/dL 50-170 TIBC% 27 15-50 Jan 21, 2025 07:48 AM [facility] FERRITIN PLASMA Specimen Type: PLASMA Comment: GLUCOSE The ADA recommends a fasting glucose of 99 mg/dL as the GLUCOSE upper limit of normal. TP Per package insert reference range for recumbent is 6.0 to 7.8 TP g/dL. Plasma samples will generally have higher values (about TP 0.2 to 0.4 g/dL higher) due to presence of fibrinogen. TRIG REFERENCE RANGE: BORDERLINE HIGH: 150-199 mg/dL HIGH: 200-499 TRIG mg/dL VERY HIGH: >=500 mg/dL CHOL REF RANGE: BORDERLINE HIGH: 200-239 mg/dL HIGH: >=240 mg/dL HDLC Values >60 are a negative risk factor for heart disease. DLDL REF RANGE: NEAR OR ABOVE OPTIMAL: 100-129 mg/dL BORDERLINE DLDL HIGH: 130-159 mg/dL HIGH: 160-189 mg/dL VERY HIGH: >=190 Ordering Provider: JB MAGANA Report Released Date/Time: January 17, 2025 01:10 PM Reporting Lab: [address] [address] Performing Lab: [address] [address] FERRITIN 50.4 ng/mL 4.6-204.0 Social History: Smoking Status (Most current) and Tobacco Use (All prior to encounter date) This section includes the most current, and the historical, smoking and tobacco- related health factors from the [place] facility where the Encounter took place. Current Smoking Status This section includes the most current smoking, or tobacco-related health factor, from the [place] facility where the Encounter took place. Date/Time Current Smoking Status Comment Facil ity Oct 21, 2024 10:00 AM VA-TOBACCO USE FORMER CIGARETTES [facility] Tobacco Use History This section includes a history of the smoking, or tobacco-related health factors, that were collected on or before the date of the Encounter. The data comes from the [place] facility where the Encounter took place. Date/Time Smoking Status/Tobacco Use Comment F acility Oct 21, 2024 10:00 AM VA-TOBACCO USE FORMER CIGARETTES [facility] Sep 19, 2023 08:00 AM VA-TOBACCO FORMER USER [facility] Sep 19, 2023 08:00 AM VA-TOBACCO QUIT 5 TO < 15 YRS [facility] May 23, 2022 08:00 AM VA-TOBACCO FORMER USER [facility] May 23, 2022 08:00 AM VA-TOBACCO QUIT 5 TO < 15 YRS [facility] May 26, 2021 08:00 AM VA-TOBACCO FORMER USER [facility] May 26, 2021 08:00 AM VA-TOBACCO QUIT 1 TO < 5 YRS [facility] Sep 23, 2020 11:00 AM AH-BPR SMOKING DEPLOYMENT YES [facility] May 17, 2018 10:21 AM VA-TOBACCO [...] TOBACCO IN THE LAST 12 AISHA [facility] Pathology Reports: +/- 30 days of the encounter Pathology Reports For cases when an order for pathology services may have been completed prior to the date of the Encounter, the report list includes the Pathology Reports that were completed up to 30 days before dateof the Encounter. For cases when an order for pathology services may have been completed after the date of the Encounter, the report list also includes the Pathology Reports that were completed up to30 days after date of the Encounter. The data comes from all [place] treatment facilities. Date/Time Pathology Report Provider Source Feb 05, 2025 07:24 AM [facility] CYTOPATHOLOGY R EPORT: LOCAL TITLE: LR CYTOPATHOLOGY REPORT STANDARD TITLE: PATHOLOGY REPORT DATE OF NOTE: FEB 05, 2025@07:24:48 ENTRY DATE: FEB 05, 2025@07:24:48 AUTHOR: OLEGARIO BISHOP EXP COSIGNER: URGENCY: STATUS: COMPLETED $APHDR - - - - - - - - - - - - - - - - - - - - - - - - - - - - - - - - - - - - - - - - MEDICAL RECORD CYTOPATHOLOGY - - - - - - - - - - - - - - - - - - - - - - - - - - - - - - - - - - - - - - - - PATHOLOGY REPORT Accession No. CY-[id number] - - - - - - - - - - - - - - - - - - - - - - - - - - - - - - - - - - - - - - - - $TEXT Submitted by: JB MAGANA Date obtained: Jan 30, 2025 - - - - - - - - - - - - - - - - - - - - - - - - - - - - - - - - - - - - - - - - Specimen (Received Feb 03, 2025 06:56): PAP SMEAR, THINPREP - - - - - - - - - - - - - - - - - - - - - - - - - - - - - - - - - - - - - - - - BRIEF CLINICAL HISTORY: LMP: 01/19/25. Previous abnormal LINING CEMENTER history: No. Mandatory HPV - - - - - - - - - - - - - - - - - - - - - - - - - - - - - - - - - - - - - - - - PREOPERATIVE DIAGNOSIS: - - - - - - - - - - - - - - - - - - - - - - - - - - - - - - - - - - - - - - - - OPERATIVE FINDINGS: - - - - - - - - - - - - - - - - - - - - - - - - - - - - - - - - - - - - - - - - POSTOPERATIVE DIAGNOSIS: Surgeon/physician: JB MAGANA =-=-=-=-=-=-=-=-=-=-=-=-=-=-=-= -=-=-=-=-=-=-=-=-=-=-=-=-=-=-=- =-=-=-=-=-=-=-=-= - - - - - - - - - - - - - - - - - - - - - - - - - - - - - - - - - - - - - - - - PATHOLOGY REPORT Accession No. CY-CL [id number] - - - - - - - - - - - - - - - - - - - - - - - - - - - - - - - - - - - - - - - - Screened by: OLEGARIO BISHOP Description: THINPREP VIAL RECEIVED, 1 THINPREP SLIDE The Pap Smear is a screening test designed to aid in the detection of premalignant and malignant conditions of the uterine cervix. It is not a diagnostic procedure and should not be used as the sole means of detecting cervical cancer. Both false-positive and false-negative reports do occur. Test performed at [facility], [address] [place] [address]. Diagnosis: CERVICAL SMEAR: - SATISFACTORY FOR EVALUATION. ENDOCERVICAL/TRANSFORMATION ZONE ABSENT - NEGATIVE FOR INTRAEPITHELIAL LESION OR MALIGNANCY. - FUNGAL ORGANISMS MORPHOLOGICALLY CONSISTENT WITH KENYATTA SPP. - SHIFT IN ALAN SUGGESTIVE OF BACTERIAL VAGINOSIS. ADDENDUM: HPV PCR testing was performed by [facility], [address] [place] [id number] Refer to [facility] report MDX [id number] HPV 16 PCR: Negative HPV 18 PCR: Negative HPV OTHER (non-16/18) HIGH RISK POOL PCR: Negative OVERALL RESULTS: Valid - This test uses the [employer] system for the detection of the following HPV types: 16, 18, 31, 33, 35, 39, 45, 51, 52, 56, 58, 59, 66 and 68. HPV 16 and 18 results are reported individually, with the remaining HPV types reported as a pool (OTHER HIGH-RISK POOL), with a positive result indicating at least one of the HPV types in the pool is detectable. - If the OVERALL HPV RESULT is INVALID a new specimen should be obtained. An HPV OVERALL RESULTS of VALID is clinically actionable, even if an individual test result is INVALID; hence, a new specimen is not required. - A negative result does not preclude the present of HPV infection because results depend on adequate specimen collection/storage, absence of inhibitors, and sufficient DNA to be detected. - Results of this test should only be interpreted in conjunction with information available from clinical evaluation of the patient and patient history. - This test has been approved by FDA for in vitro diagnostic (IVD) use on cervical specimens and its performance verified by [facility]. - For questions or other information please contact Molecular Lab at [phone] Performing Lab: [facility] (CLIA number [id number]), [address] [place] [address]. [place], [address] /shun/ OLEGARIO BISHOP SHIPPING RECEIVING CLERK Signed Feb 05, 2025@07:24 Performing Laboratory: Cytology Report Performed By: [facility] [CLIA# [id number]] [address] [place] [phone] $FTR - - - - - - - - - - - - - - - - - - - - - - - - - - - - - - - - - - - - - - - - (End of report) OLEGARIO BISHOP nh Date Feb 05, 2025 - - - - - - - - - - - - - - - - - - - - - - - - - - - - - - - - - - - - - - - - LAURA BRICE STANDARD FORM 515 ID:[id number] SEX:F :1980 AGE: 44 LOC:LABAP PCP: Jb Magana /shun/ OLEGARIO BISHOP SHIPPING RECEIVING CLERK Signed: 02/05/2025 07:24 OLEGARIO BISHOP [facility] Encounter Notes: All associated encounter notes This section contains the clinical notes associated to the Encounter. Date/Time Encounter Note(s) Provider Source Jan 30, 2025 03:01 PM [facility] GIFTY SCHAFER NOTE: LOCAL TITLE: OUTPATIENT NURSING INTAKE NOTE (T) STANDARD TITLE: PRIMARY CARE NURSING NOTE DATE OF NOTE: JAN 30, 2025@15:01 ENTRY DATE: JAN 30, 2025@15:01:39 AUTHOR: SUDEEP ESCOBEDO COSIGNER: URGENCY: STATUS: COMPLETED Hemoglobin A1C Results: Collection DT Specimen Test Name Result Units Ref Range 01/21/2025 07:48 BLOOD HEMOGLOBIN A1C 5.2 % 3.6 - 5.7 Comment: Values obtained from A1C measurements can vary. For typical A1C Comment: assays, a reported value of 7.0 could actually be between 6.72 and Comment: 7.28 if measured by a reference method. A reported value of 9.0 Comment: could actually be between 8.73 and 9.27. Ref: Comment: [email or web address]://www.[email or web address]/[email or web address] 01/24/2024 07:51 BLOOD HEMOGLOBIN A1C 5.3 % 3.6 - 5.7 Comment: Values obtained from A1C measurements can vary. For typical A1C Comment: assays, a reported value of 7.0 could actually be between 6.72 and Comment: 7.28 if measured by a reference method. A reported value of 9.0 Comment: could actually be between 8.73 and 9.27. Ref: Comment: http://www.[email or web address]/CAPdata.asp 01/23/2023 07:48 BLOOD HEMOGLOBIN A1C 5.2 % 3.6 - 5.7 Comment: Values obtained from A1C measurements can vary. For typical A1C Comment: assays, a reported value of 7.0 could actually be between 6.72 and Comment: 7.28 if measured by a reference method. A reported value of 9.0 Comment: could actually be between 8.73 and 9.27. Ref: Comment: http://[email or web address] Review Allergies <----Click here to document new allergy or ruth No Known Allergies box. Have you fallen in the last 30 [...] problems with drugs and/or alcohol? No 5. [facility] pocket card was provided to patient. No/patient declined [facility] ('s [place], Aspiration and Purpose) What matters most to you? Comment: Family,child Clinical Reminders Activity BMI Screening: At this visit, the health risks of obesity were reviewed and discussed with the patient, and the benefits of a weight management treatment program, such as [facility]! was discussed and offered to the patient. Is the patient ? Patient declines referral. After discussing the health risks of obesity and offering a referral to [facility] or another [facility] loss program outside [facility], the patient DECLINES REFERRAL to [facility] or other weight loss program at this time. COVID-19 Immunization: Refused Pfizer Monovalent COVID-19 vaccine Immunization: COVID-19 (PFIZER), MRNA, LNP-S, PF, LINWOOD-SUCROSE, 30 MCG/0.3 ML (AGES 12+ YEARS) Refusal Reason: PATIENT DECISION Patient refuses all immunization(s) in the COVID-19 group Date Documented: 01/30/25 15:03 Influenza Immunization: No influenza vaccination was received during the recent influenza season. Patient Education Documentation: LEARNING NEEDS ASSESSMENT: Learning Preference: Hands-on Barriers to Learning: No Barriers to Learning Tdap Immunization: The patient declines to receive the recommended dose of Tdap vaccine. Immunization: TDAP Refusal Reason: PATIENT DECISION Patient refuses all immunization(s) in the TDAP group Date Documented: 01/30/25 15:04 /shun/ SUDEEP ESCOBEDO REGISTERED NURSE Signed: 01/30/2025 15:04 [facility] ESCOBEDO [facility] Jan 30, 2025 12:15 PM [facility]: LOCAL TITLE: [facility] OUTPATIENT NOTE (T) STANDARD TITLE: [facility] OUTPATIENT NOTE DATE OF NOTE: JAN 30, 2025@12:15 ENTRY DATE: JAN 30, 2025@12:15:30 AUTHOR: JB MAGANA EXP COSIGNER: URGENCY: STATUS: COMPLETED In-person Note SUBJECTIVE: CHIEF COMPLAINT: 44 year old FEMALE presents with: - annual WH exam, has no complaints HISTORY OF PRESENT ILLNESS: Here for annual women's health exam. States she has been feeling well. She takes Iron (OTC slow release) from time to time when she is feeling run down for her chronic anemia. REVIEW OF SYSTEMS (denies the following unless indicated otherwise): mood concerns headache fatigue/weight loss dysphagia/hoarseness chest pain dyspnea abdominal pain difficult or bloody elimination PAST MEDICAL HISTORY: 8 Active Problems PROBLEM LAST MOD PROVIDER Pain of left shoulder joint 09/19/2023 JB MAGANA Exposure to potentially hazardous substance 08/02/2022 JB MAGANA Breast neoplasm screening status 03/19/2024 JB MAGANA 03/13- negative, repeat in 1 year 1. 11--2019 BiRads 1 2. 11/23/2021 - BiRads 1 - repeat 1 year Anemia 05/22/2020 AVI CONNER Cancer cervix screening status 03/14/2024 JB MAGANA 03/13- repeat in 1 year 07-22-19 pap and HPV neg. rpt 5 years (cotesting) - 2023 Allergic rhinitis 06/13/2016 [facility] Posttraumatic stress disorder 08/10/2015 ANA PHILLIPS Obstructive sleep apnea syndrome 10/08/2014 [facility] PHILLIPS Active Outpatient Medications (including Supplies): Active Non-[facility] Medications Status ========= 1) Non-VA IBUPROFEN 800MG TAB 800MG MOUTH THREE TIMES A ACTIVE DAY NEEDED 2) Non-VA THERAFLU POWDER,ORAL BY MOUTH ACTIVE Allergies/Adverse Reactions: ALLERGIES/ADVERSE REACTIONS Type: DRUG Date/Time Reactant Severity Reaction 10/08/2014 14:29 MOBIC RASH Report Released Date/Time: Jan 21, 2025@18:28 Provider: JB MAGANA Specimen: SERUM. [facility] [id number] Specimen Collection Date: Jan 21, 2025@07:48 Test name Result units Ref. range Site Code IRON 73 ug/dL 50 - 170 [541] TIBC 270 ug/dL 250 - 425 [541] TIBC% 27 % 15 - 50 [541] == Report Released Date/Time: Jan 21, 2025@18:15 Provider: JB MAGANA Specimen: BLOOD. [facility] [id number] Specimen Collection Date: Jan 21, 2025@07:48 Test name Result units Ref. range Site Code HEMOGLOBIN A1C 5.2 % 3.6 - 5.7 [541] Eval: Values obtained from A1C measurements can vary. For typical A1C assays, a Eval: reported value of 7.0 could actually be between 6.72 and 7.28 if measured Eval: by a reference method. A reported value of 9.0 could actually be between Eval: 8.73 and 9.27. Ref: https://ngsp.org/CAPdata.asp WBC COUNT 8.4 K/cmm 3.6 - 11.0 [541] RBC COUNT 4.10 L M/cmm 4.20 - 5.40 [541] HGB 11.7 L g/dL 13.0 - 16.0 [541] HCT 36.0 L % 37.0 - 47.0 [541] MCV 87.8 fL 80.0 - 96.0 [541] MCH 28.7 pg 27.0 - 31.0 [541] MCHC 32.6 g/dL 31.5 - 36.5 [541] RDW 13.9 % 11.2 - 15.8 [541] PLT 249 K/cmm 150 - 400 [541] MPV 11.0 H fL 7.9 - 10.8 [541] NEUTROPHIL % 67.5 % 54.0 - 78.0 [541] LYMPHS % 21.2 % 21.0 - 51.0 [541] MONOCYTES % 7.0 % 4.0 - 8.0 [541] EOSINOPHIL % 3.7 H % 0.0 - 3.0 [541] BASOPHIL % 0.6 % 0.0 - 3.0 [541] ABSOLUTE NEUTROPHIL COUNT 5.7 K/cmm 1.9 - 8.6 [541] ABSOLUTE LYMPHOCYTE COUNT 1.8 K/cmm 0.8 - 5.0 [541] ABSOLUTE MONOCYTE COUNT 0.6 K/cmm 0.1 - 0.9 [541] ABSOLUTE EOSINOPHIL COUNT 0.3 K/cmm 0.0 - 0.3 [541] ABSOLUTE BASOPHIL COUNT 0.1 K/cmm 0.0 - 0.3 [541] NUCLEATED RBC/100WBC 0.2 /100 WBC None Established - None Established [541] RETICULOCYTES % 1.32 % 0.50 - 1.50 [541] RETIC ABSOLUTE 0.0540 M/cmm 0.0230 - 0.0935 [541] Comment: Values obtained from A1C measurements can vary. For typical A1C assays, a reported value of 7.0 could actually be between 6.72 and 7.28 if measured by a reference method. A reported value of 9.0 could actually be between 8.73 and 9.27. Ref: http://www.ngsp.org/CAPdata.asp == Report Released Date/Time: Jan 21, 2025@18:40 Provider: JB MAGANA Specimen: PLASMA. [facility] [id number] Specimen Collection Date: Jan 21, 2025@07:48 Test name Result units Ref. range Site Code GLUCOSE 90 mg/dL 74 - 99 [541] SODIUM 137 mmol/L 134 - 144 [541] POTASSIUM 4.7 mmol/L 3.5 - 5.1 [541] CHLORIDE 107 mmol/L 99 - 112 [541] CO2 22 mmol/L 22 - 30 [541] BUN 11.7 mg/dL 7.0 - 18.7 [541] CREATININE 0.8 mg/dL 0.6 - 1.1 [541] CALCIUM 8.8 mg/dL 8.6 - 10.3 [541] EGFR (CALCULATED) 93 mL/min/1.73m2 BSA [541] Eval: eGFR was calculated using the CKD-EPI 2020 equation. No reference range Eval: is defined. Clinical judgement based on patient condition is advised. Eval: eGFR results >60 are imprecise. Many variables affect the calculated Eval: result. Interpretation of eGFR results >60 must be monitored over time. ANION GAP 13 mmol/L 10 - 20 [541] AST/SGOT 19 U/L 10 - 40 [541] ALT/SGPT 16 U/L 0 - 55 [541] ALKALINE PHOSPHATASE 63 U/L 40 - 150 [541] BILIRUBIN, TOTAL 0.2 mg/dL 0.2 - 1.2 [541] PROTEIN, TOTAL 7.0 g/dL 6.4 - 8.3 [541] ALBUMIN 3.9 g/dL 3.5 - 4.8 [541] CHOLESTEROL 167 mg/dL 0 - 199 [541] LDL CHOLESTEROL 89 mg/dL 0 - 99 [541] HDL CHOLESTEROL 38 L mg/dL Ref: >=50 [541] TRIGLYCERIDE 256 H mg/dL 0 - 149 [541] FERRITIN 50.4 ng/mL 4.6 - 204.0 [541] TSH 1.761 uIU/mL 0.350 - 4.940 [541] Comment: GLUCOSE The ADA recommends a fasting glucose of 99 mg/dL as the GLUCOSE upper limit of normal. TP Per package insert reference range for recumbent is 6.0 to 7.8 TP g/dL. Plasma samples will generally have higher values (about TP 0.2 to 0.4 g/dL higher) due to presence of fibrinogen. TRIG REFERENCE RANGE: BORDERLINE HIGH: 150-199 mg/dL HIGH: 200-499 TRIG mg/dL VERY HIGH: >=500 mg/dL CHOL REF RANGE: BORDERLINE HIGH: 200-239 mg/dL HIGH: >=240 mg/dL HDLC Values >60 are a negative risk factor for heart disease. DLDL REF RANGE: NEAR OR ABOVE OPTIMAL: 100-129 mg/dL BORDERLINE DLDL HIGH: 130-159 mg/dL HIGH: 160-189 mg/dL VERY HIGH: >=190 == OBJECTIVE PHYSICAL EXAMINATION General: No acute distress Nodes:no palpable nodes Neck: Breast:no masses,irregular skin palpated, no nipple discharge. Heart:RRR Lung:CTA Pelvic Exam: No external genetalia lesions, no vaginal discharge, no CMT, no adnexal or pelvic masses, no cervical friability ASSESSMENT:screen for neoplasm of cervix, anemia due for mammogram in 1 year MEDICATION RECONCILIATION Medication Reconciliation report reviewed and discussed with patient/caregiver. VA prescription medications, non-VA prescription medications, OTC and herbal medications reviewed: Patient/caregiver verifies that the list is complete and accurate and voices understanding. Patient/caregiver in possession of printed medication list. PLAN:pap collected, await results. reviewed labs with neymar. Her Hgb is stable, Iron stores are lower. COnsider regular Iron doses. [facility]. regular follow up in 6 months mammogram next month Gender specific exam completed. Risks and benefits of the exam as well as providers involved in the exam were discussed with the patient and verbal consent was obtained. Helpdesk Administrator Name: Sudeep Escobedo RN Clinical Reminders Activity Cervical Cancer Screening: A cervical cytology was obtained at this encounter. /Intentions/Contracepti on: The patient is medically able to conceive. The patient states that they are not . Action following medication review: Counseling not indicated at this time Patient previously counseled regarding risks/benefits of medication(s) The patient does not desire within the next year. The patient is doing nothing to prevent . I am the Staff Provider. Info Only: FIT Ordered: Remind Patient to Return: Reminded patient of the importance of returning the FOBT/FIT kit provided. TOTAL TIME SPENT: Spent 40 minutes in care of this patient today including review of records, exam, and placing orders. /shun/ JB MAGANA NURSE PRACTITIONER Signed: 01/30/2025 16:00 JB MAGANA [facility]
--- OUTSIDE RECORDS SUMMARY | 2025-03-11 07:30 | XMS_ITS ---
[place] MED NUTRITION INDIV SUBSEQ [facility] Encounter Summary Created on: March 13, 2025 LAURA BRICE : 1980 Sex: Female Author Name [facility] [place] [facility] Address [address] [place] [id number] Care Team Providers Care Fashion Patternmaker Name Role Phone JB CARSON Primary Care Provider Unavailabl e Selected Encounter This section includes the information on record at [place] for the Encounter. Date/Time Encounter Type Encounter Description Reason Provider Source Mar 11, 2025 11:30 AM MED NUTRITION INDIV SUBSEQ TELEPHONE/ANCILLAR Y ICD-10-CM E66.812 Obesity, class 2 PADDY AMEZQUITA Jaclyn Encounter Template Text not used by [place] Assessments - Encounter Diagnoses This section includes the primary and secondary diagnoses documented for the Encounter. Date/Time Primary/Secondary Diagnosis Diagnosis Name Provider Source Mar 11, 2025 11:30 AM PRIMARY Obesity, class 2 PADDY AMEZQUITA [facility] Mar 11, 2025 11:30 AM SECONDARY Dietary counseling and surveillance PADDY AMEZQUITA [facility] Plan of Treatment: Future Appointments (+ 6 months) and Future Tests (+/- 45 days) The Plan of Treatment section includes future care activities for the patient from all [place] treatmentfacilities. This section includes future appointments and future orders which are active, pending or scheduled. Future Appointments This section includes appointments that were scheduled to occur 6 months from the date of the Encounter, up to a maximum of 20 appointments. The data comes from all [place] treatment facilities. Appointment Date/Time Appointment Type Appointme nt Facility Name Mar 13, 2025 04:30 PM AMBULATORY - NONE [facility] Apr 08, 2025 02:30 PM AMBULATORY - NONE [facility] Jul 31, 2025 03:00 PM AMBULATORY - NONE [facility] Active, Pending, and Scheduled Orders This section includes a listing of several types of active, pending, and scheduled orders, including clinic medications orders, diagnostic test orders, procedure orders and consult orders; where the start date of the order is 45 days before the date of the Encounter or 45 days after the date of theEncounter. The data comes from all [place] treatment facilities. Test Date/Time Test Type Test Details Facility Name Jan 30, 2025 12:00 AM Laboratory - Chemi stry Order HPV PCR PRESERVCYT CERVICAL CYTOLOGIC MATERIAL WC ONCE [facility] Jan 30, 2025 04:00 PM Consult Order COMMUNITY CARE-MAMMOGRAPHY SCREENING Cons Electronic Publications Specialist's Choice [facility] Social History: Smoking Status (Most current) [...] the Encounter. Date/Time Encounter Note(s) Provider Source Mar 11, 2025 08:00 AM MOVE NOTE: LOCAL TITLE: MOVE! COMPREHENSIVE LIFESTYLE INTERVENTION STANDARD TITLE: MOVE NOTE DATE OF NOTE: MAR 11, 2025@08:00 ENTRY DATE: MAR 11, 2025@08:01:02 AUTHOR: PADDY AMEZQUITA COSIGNER: URGENCY: STATUS: COMPLETED MOVE! Comprehensive Lifestyle Intervention (CLI) ASSESSMENT: BMI Assessment: Height: 69 in [175.3 cm] (08/08/2024 14:47) Weight: Measurement DT WEIGHT LB(KG)[BMI] 01/30/2025 14:58 237.66(107.80)[35*] 10/21/2024 10:07 249(112.94)[37*] 08/08/2024 14:47 245(111.13)[36*] MOVE! Program Starting Date: MOVE! Weight Management Category 10/23/2024 MOVE! Weight Management Starting Date 3.5.25 MOVE! Program Starting Weight: 10/23/2024 MOVE! Weight Management Program Starting Weight (Lbs) 249 Session Modality: Individual session Delivery Method: Telephone Length of Session: 15 Reason for Encounter: Obesity, Class 2-BMI 35-39.9 INTERVENTION: The participated in a comprehensive lifestyle intervention utilizing the MOVE! [place] Workbook and Molded Candles Wicker Guide. The [place] was engaged in a whole health approach that supported their mission, aspiration and purpose. The was assisted to develop the knowledge, skills and confidence needed to effectively self-manage their weight. NOTES -requesting weight loss medication, has tried MOVE! in the past -states she is a bigger framed woman -doesn't restrict what she eats, but focuses on portion control , tries to stay away from added sugars and fattier meats -tries to eat as many fruits/veg as much as possible -started keeping better track of her foods, realized she wasnt eating enough ( 600-800kcal/day). Started increasing her intake and lost a couple pounds. 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 visits: 5 Discussed [place]'s SMART goals. Food and Activity Log (or other tracking tool) education was provided and discussed in session Education was provided during the session. MOVE! [place] Workbook Level of Engagement: Full engagement; actively listening/participates in discussion/questions level of understanding of education received: Full understanding; Demonstrates/verbalizes through Teach-Back WEIGHT MANAGEMENT SESSIONS: Get Fit for Life: Discussion Topics: Types of Physical Activity How Active Should I Be? Measures of Intensity How Active Am I? Busting Barriers MONITORING & EVALUATION The was asked to measure and record body weight regularly and record all food intake and physical activity in a log. was encouraged to review the MOVE! Workbook materials. Follow-up: MOVE! Individual Session Patient Education EDUCATION TOPICS: Weight Management Readiness to Learn: Patient ready to learn. Individual Topics: Behavior change, Nutrition, Physical activity Teaching Methods Used: Discussion, Given printed education materials, Given PERC Pack Teach Back Response: Patient able to teach back critical information about topic. /shun/ PADDY AMEZQUITA REGISTERED DIETITIAN Signed: 03/11/2025 11:48 PADDY AMEZQUITA [facility]
--- OUTSIDE RECORDS SUMMARY | 2025-03-13 16:22 | XMS_ITS | Continuity of Care Document ---
Author Name [facility] Organization [facility] Care Team Providers Care Standards Analyst Name Role Phone [facility] Unavailable Unavailable Problems Combined list of problems 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 It does not include entries that were removed or entered in error. Problem Status Onset Date Problem Type Date of Resolution Comments Source ROUTINE GYNECOLOGICAL EXAM Inactive 09/03/19 13 Condition DoD Allergic rhinitis Active Condition [facility] Anemia Active Condition [facility] Breast neoplasm screening status Active Condition Jul 01 0 Entered By: SKYLA MAYO Comment: 06-23-2020 BiRads 1Apr 2021 Entered By: SKYLA MAYO Comment: 11/23/2021 - BiRads 1 - repeat 1 yearJul 2023 Entered By: JB CARSON Comment: 03/13- negative, repeat in 1 yearJun 2024 Entered By: JB CARSON Comment: 02/12- negative [facility] Cancer cervix screening status Active Condition Aug 01 9 Entered By: SKYLA MAYO Comment: 07-22-19 pap and HPV neg. rpt 5 years (cotesting) - 2023Jul 2023 Entered By: BJ CARSON Comment: 03/13- repeat in 1 yearJun 2024 Entered By: JB CARSON Comment: 02/12- negative, repeat in 1 year [facility] Exposure to potentially hazardous substance Active Condition [facility] Obstructive sleep apnea syndrome Active Condition [facility] Pain of left shoulder joint Active Condition [facility] Posttraumatic stress disorder Active Condition [facility] Acute urinary tract infection Inactive Condition 05/22/2020 [facility] Elbow pain Inactive Condition 05/22/2020 [facility] Upper respiratory infection Inactive Condition 05/22/2020 [facility] SOMATIC DYSFUNCTION OF LUMBAR REGION Inactive Condition HVLA to ribs, thoracic, and lumbar regions with benefit noted. DoD BACK STRAIN LUMBAR Inactive Condition Do D Other Physical Therapy Active Condition DoD URINARY TRACT INFECTION Inactive Condition UA positive for UTI. Discussed causes, prevention. Will treat. DoD joint pain, localized in the knee Active Condition DoD CERVICALGIA Active Condition DoD OVEREXERTION / STRENUOUS MOVEMENT Inactive Condition DoD KNEE SPRAIN RIGHT Active Condition By pts symptoms, suspect meniscal injury. Will start gentle PT and order MRI> Profile x 2 weeks for no weight bearing activity. DoD MIGRAINE HEADACHE Active Condition Wi ll treat with Toradol 60mg IM and hydration which has worked well in the past. DoD headache Inactive Condition Will give Toradol 60mg IM and send home on quarters. DoD UPPER RESPIRATORY INFECTION Inactive Condition Rest, fluids, hand washing, no smoking. DoD Contraceptives Inactive Condition Will continue Chelsea. Discussed smoking and safe sex. DoD nausea Inactive Condition DoD ACUTE BRONCHITIS Inactive Condition DoD breast pain Active Condition Symmetri c and bilateral. Consistent with axillary tail/ligamentou s pain due to breast size. Rec. supportive bra as often as able. No other clinical manifestations. DoD PREMENSTRUAL DISORDER Active Condition DoD visit for: screening exam venereal disease Inactive Condition [facility] visit for: screening exam for malignant neoplasm cervix Inactive Condition DoD ROUTINE GYNECOLOGICAL EXAM WITH CERVICAL PAP SMEAR Inactive Condition DoD OBESITY EXOGENOUS Active Condition DoD visit for: screening exam lipoid disorders Inactive Condition DoD Anticipatory Guidance: Inadequate Physical Activity Active Condition DoD current diet needs improvement Inactive Condition DoD Patient Education - Dietary Active Condition DoD ASTIGMATISM - REGULAR Active Condition DoD REFRACTIVE ERROR - MYOPIA Active Condition Acceptable CL fit per exam aug 27. 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 DoD visit for: services physical Active Condition DoD VAGINAL FOREIGN BODY Active Condition No tampon seen in vagina. DoD VAGINA NONINFLAMMATORY DISORDER Active Condition Follow-up DoD INGROWING NAIL Inactive Condition Hx of partial toe excison a few months ago.chronic ingrown toenail bilaterally. DoD COMPLICATIONS Active Condition DoD visit for: refer patient without exam or treatment Inactive Condition Neurology issues / neurologist can order test thru [facility] DoD visit for: services physical detention Active Condition DoD LABYRINTHITIS Active Condition DoD Blood Pressure Isolated Elevated Active Condition DoD skin: a rash [as Sx] Active Condition DoD Cosmetic Surgery Inactive Condition DoD Outpatient Physician Consultation Active Condition DoD GRANULOMA ANNULARE Inactive Condition Do D ANKLE SPRAIN LEFT Inactive Condition DoD REFRACTIVE ERROR - HYPERMETROPIA Active Condition DoD visit for: postsurgical exam Active Condition DoD exposed to herpes simplex Inactive Condition DoD FEMALE PELVIC PAIN Active Condition DoD VULVAR ULCERATION Active Condition DoD abdominal pain above the pubic area (suprapubic) Inactive Condition DoD UPPER RESPIRATORY INFECTION ACUTE Inactive Condition DoD ESOPHAGEAL REFLUX Active Condition DoD visit for: issue medical certificate fitness Inactive Condition DoD Aftercare Following Surgery Of Musculoskeletal System Inactive Condition DoD Aftercare Following Surgery Active Condition DoD DEHYDRATION (Na, H2O) Inactive Condition DoD visit for: screening exam infectious diseases viral Inactive Condition DoD Patient Education Active Condition DoD visit for: preoperative exam Inactive Condition DoD ANKLE SPRAIN POSTERIOR TALOFIBULAR LIGAMENT LEFT Inactive Condition DoD ANKLE SPRAIN ANTERIOR TALOFIBULAR LIGAMENT LEFT Inactive Condition DoD OSTEOARTHRITIS KNEE Active Condition DoD CYSTITIS Inactive Condition DoD Body Mass Index Inactive Condition DoD DISORDER OF KNEE JOINT / PATELLA / TIBIA / FIBULA Inactive Condition DoD PATELLOFEMORAL SYNDROME Active Condition DoD POSTSURGICAL STATE OF EYE AND ADNEXA BOTH Active Condition DoD POSTSURGICAL STATE OF EYE AND ADNEXA Active Condition DoD Aftercare Following Surgery Of Sense Organs Inactive Condition DoD visit for: pre-admission testing Inactive Condition DoD CERUMEN IMPACTION Inactive Condition DoD DIASTASIS OF MUSCLE Active Condition DoD SLEEP APNEA OBSTRUCTIVE Active Condition DoD foot pain (soft tissue) Active Condition DoD OBESITY Active Condition DoD SLEEP DISORDERS ORGANIC Active Condition DoD Patient Counseling Medical Management Five To Eight Patients Active Condition DoD sleep disturbances Active Condition DoD CYSTITIS ACUTE Inactive Condition DoD TINNITUS Active Condition DoD ankle joint pain Active Condition DoD ALLERGIC RHINITIS Active Condition DoD ANEMIA Active Condition DoD ANKLE SPRAIN CALCANEOFIBULAR LIGAMENT LEFT Inactive Condition 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 DoD FATIGUE Active Condition DoD Oral Contraceptives Inactive Condition DoD ANKLE SPRAIN TIBIOFIBULAR LIGAMENT LEFT Inactive Condition DoD joint pain, localized in the shoulder Inactive Condition DoD nasal passage blockage (stuffiness) Inactive Condition DoD feeling congested in the chest Inactive Condition DoD ANEMIA HYPOCHROMIC / MICROCYTIC Active Condition DoD Preventive Medicine Counseling About Travel Active Condition DoD visit for: services physical pre-deployment Active Condition DoD visit for: contraceptive surveillance pill Inactive Condition DoD visit for: routine eye exam Inactive Condition DoD PATELLAR CHONDROMALACIA Active Condition DoD CONDITIONS INFLUENCING HEALTH STATUS Active Condition DoD Vaginal Discharge Inactive Condition DoD Gynecologic Service Prescrip Of Contracept Agent - Repeat Rx Inactive Condition DoD visit for: screening exam bact/spirochetal venereal disease Inactive Condition DoD pain during urination (dysuria) Active Condition DoD COMPARTMENT SYNDROME NONTRAUMATIC RIGHT LEG Active Condition DoD COMPARTMENT SYNDROME NONTRAUMATIC LEFT LEG Active Condition DoD CONJUNCTIVITIS ACUTE RIGHT EYE Inactive Condition DoD COMPARTMENT SYNDROME NONTRAUMATIC LEG ANTERIOR Active Condition DoD Brace Inactive Condition DoD REFRACTIVE ERROR Active Condition DoD GASTROENTERITIS Active Condition DoD CERUMEN IMPACTION - RIGHT EAR Inactive Condition DoD SALAZAR SPLINT Inactive Condition DoD lightheadedness Inactive Condition DoD HYPERTROPHY OF BREAST Active Condition DoD RETINAL HEMORRHAGE Active Condition DoD Contact Lenses Prescription And Fitting Services Inactive Condition DoD Spectacles Services Fitting Monofocals (Not For Aphakia) Inactive Condition DoD ASTIGMATISM Active Condition DoD CONJUNCTIVITIS ACUTE Inactive Condition DoD Patient Counseling: Active Condition DoD vomiting Inactive Condition DoD Inquiry And Counseling: Contraceptive Practices Inactive Condition DoD ANKLE SPRAIN Inactive Condition DoD limb pain Active Condition DoD visit for: contraceptive surveillance Inactive Condition DoD Cervical Pap Smear Inactive Condition Do D insomnia Active Condition DoD Laboratory Studies Active Condition DoD pain in the leg (below the knee) Active Condition DoD VIRAL SYNDROME Inactive Condition DoD HEADACHE SYNDROMES Inactive Condition P t w/ hx of migraine vs. tension CEDILLO. CEDILLO usually relieved w/ Zomig. Has taken Toradol in past w/ good relief of sx. Pt given Toradol 60mg IM x1 w/ good relief of sx and sent home on 24hr quarters. If CEDILLO recurs or persists and not resolved w/ Zomig, advised to RTC for re-eval. Pt expressed understanding and is agreeable w/ this plan. DoD SOMATIC DYSFUNCTION OF THORACIC REGION Inactive Condition DoD SOMATIC DYSFUNCTION OF RIB CAGE Inactive Condition DoD Diagnosis: ICD-10-CM E66.812 Obesity, class 2 Active Diagnosis [facility] Diagnosis: ICD-10-CM Z12.4 Encounter for screening for malignant neoplasm of cervix Active Diagnosis [facility] Diagnosis: ICD-10-CM M25.512 Pain in left shoulder Active Diagnosis [facility] Diagnosis: ICD-10-CM Z77.29 Contact with and exposure to other hazardous substances Active Diagnosis [facility] Diagnosis: ICD-10-CM Z68.36 Body mass index [BMI] 36.0-36.9, adult Active Diagnosis [facility] Diagnosis: ICD-10-CM Z48.89 Encounter for other specified surgical aftercare Active Diagnosis [facility] Diagnosis: ICD-10-CM S46.202A Unsp injury of musc/fasc/tend prt biceps, left arm, init Active Diagnosis [facility] Diagnosis: ICD-10-CM Z01.818 Encounter for other preprocedural examination Active Diagnosis [facility] Diagnosis: ICD-10-CM M75.22 Bicipital tendinitis, left shoulder Active Diagnosis [facility] Diagnosis: ICD-10-CM D64.9 Anemia, unspecified Active Diagnosis [facility] Medications Combined list of outpatient medications from Department of Defense and [facility] Affairs facilities.Medications provided include 1) outpatient medications from the last 15 months, and 2) patient-reported medications. Medication Details Route Status Patient Instructions Prescription Expires Prescription Number Last Dispense Date Ordering Provider Order Date Order Qty Source DOCUSATE NA 100MG CAP TAKE ONE CAPSULE BY MOUTH TWICE A DAY FOR CONSTIPA TION ORAL 10/04/2024 [id number] 5 EULALIO PALACIOS 2024 20 [facility] DOXYCYCLINE HYCLATE 100MG TAB TAKE ONE TABLET BY MOUTH TWICE A DAY ORAL 11/14/2024 [id number] 5 Herber BELLO 2024 28 [facility] IBUPROFEN 800MG TAB TAKE ONE TABLET BY MOUTH TID PRN ORAL ACTIVE ANTOINE [place]TA[place] 2017 [facility] LIDOCAINE 5% PATCH APPLY ONE PATCH TO CLEAN DRY SKIN EVERY DAY . PATCH SHOULD REMAIN ON SKIN NO LONGER THAN 12 HOURS IN ANY 24 HOUR PERIOD. TRANSD ERMAL 12/27/2024 [id number] 4 AMNA TRAN TTHEW R 2023 30 [facility] OXYCODONE HCL 5MG/ACETAMI NOPHEN 325MG TAB TAKE 1 TABLET BY MOUTH EVERY 6 HOURS NEEDED FOR PAIN WITH FOOD FOR PAIN (TAKE NO MORE THAN 4,000MG OF ACETAMIN OPHEN PER 24 HOURS) ORAL 10/04/2024 [id number] 5 EULALIO PALACIOS 2024 28 [facility] THERAFLU POWDER,ORAL STIR BY MOUTH ORAL ACTIVE ANTOINE QUINTANA C 2016 [facility] Allergies, Adverse Reactions, Alerts Combined list of allergies 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 It does not include entries that were removed or entered in error. Substance Category Reaction Severity Reaction type Status Date Reported Comments Source MOBIC Drug allergy (disorder) Unknown active 9 [employer] MOB Propensity to adverse reactions to drug (finding) Eruption active 5 [facility] POLLEN (DO NOT USE, NOT SCREENED) (HERBAL DRUGS) Allergy to substance (disorder) Unknown active 8 [employer] Immunizations Combined list of available immunizations from the Department of Defense and Veterans Affairs facilities. Immunization Series Date Given Administered By Site Reaction Lot Number CVX Code Drug Tube Skiver Status Comments Source influenza, live, intranasal, quadrivalent 17 2012 [id number] [employer] (MED) complet ed influenza , live, intranasa l, quadrival ent DoD anthrax vaccine 7 2012 [id number] [employer] [place] ([facility]) complet ed anthrax vaccine DoD typhoid Vi capsular polysaccharid e vaccine 7 2012 [id number] 101 Sanofi Pasteur ([facility]) complet typhoid Vi capsular polysacch aride vaccine DoD influenza virus vaccine, live, attenuated, for intranasal use 0 2011 [id number] [employer] (MED) complet ed influenza virus vaccine, live, attenuate d, for intranasa l use [facility] tuberculin skin test; purified protein derivative solution, intradermal 1 2010 Unknown, Provider [id number] 96 Sanofi Pasteur ([facility]) complet ed tuberculi n skin test; purified protein derivativ e solution, intraderm al DoD influenza virus vaccine, live, attenuated, for intranasal use 1 2010 [id number] 111 [employer] (MED) complet ed influenza virus vaccine, live, attenuate d, for intranasa l use DoD influenza virus vaccine, split virus (incl. purified surface antigen)-reti red CODE 1 2010 [id number] 15 [facility] [employer] ([place]) complet ed influenza virus vaccine, split virus (incl. purified surface antigen)- retired CODE DoD anthrax vaccine 6 2009 [id number] 24 [employer] [place] ([facility]) complet ed anthrax vaccine DoD typhoid Vi capsular polysaccharid e vaccine 1 2009 [id number] Sanofi Pasteur ([facility]) complet ed typhoid Vi capsular polysacch aride vaccine DoD Novel Influenza-H1N 1-09, live virus for nasal administratio n 1 2008 [id number] 125 [employer] ([facility]) complet ed Novel Influenza -K8N7-18, live virus for nasal administr ation DoD influenza virus vaccine, split virus (incl. purified surface antigen)-reti red CODE 1 2008 [id number] 15 Sanofi Pasteur ([facility]) complet ed influenza virus vaccine, split virus (incl. purified surface antigen)- retired CODE DoD influenza virus vaccine, live, attenuated, for intranasal use 1 2007 [id number] 111 [employer] ([facility]) complet influenza virus vaccine, live, attenuate d, for intranasa l use DoD anthrax vaccine 6 2007 [id number] 24 [employer] [place] ([facility]) complet ed anthrax vaccine DoD influenza virus vaccine, split virus (incl. purified surface antigen)-reti red CODE 1 2006 [id number] 15 [facility] ([facility]) complet ed influenza virus vaccine, split virus (incl. purified surface antigen)- retired CODE DoD anthrax vaccine 5 2006 [id number] 24 [employer] [place] ([facility]) complet ed anthrax vaccine DoD anthrax vaccine 4 2006 [id number] 24 [employer] [place] ([facility]) complet ed anthrax vaccine DoD typhoid Vi capsular polysaccharid e vaccine 1 2006 [id number] 101 Sanofi Pasteur ([facility]) complet ed typhoid Vi capsular polysacch aride vaccine DoD tetanus toxoid, reduced diphtheria toxoid, and acellular pertu is vaccine, adsorbed 1 2006 [id number] 115 Sanofi Pasteur ([facility]) complet ed tetanus toxoid, reduced diphtheri a toxoid, and acellular pertussis vaccine, adsorbed DoD influenza virus vaccine, split virus (incl. purified surface antigen)-reti red CODE 1 2005 [id number] 15 Sanofi Pasteur ([facility]) complet ed influenza virus vaccine, split virus (incl. purified surface antigen)- retired CODE DoD influenza virus vaccine, split virus (incl. purified surface antigen)-reti red CODE 1 2004 [id number] 15 Sanofi Pasteur ([facility]) complet ed influenza virus vaccine, split virus (incl. purified surface antigen)- retired CODE DoD influenza virus vaccine, split virus (incl. purified surface antigen)-reti red CODE 1 2004 [id number] 15 ofi Paste[employer] ([facility]) complet ed influenza virus vaccine, split virus (incl. purified surface antigen)- retired CODE DoD tuberculin skin test; purified protein derivative solution, intradermal 1 2003 Unknown, Provider 96 () complet ed tuberculi n skin test; purified protein derivativ e solution, intraderm al DoD varicella virus vaccine 0 2002 21 () Not Given varicella virus vaccine DoD influenza virus vaccine, split virus (incl. purified surface antigen)-reti red CODE 1 2002 [id number] 15 [employer] ([employer]) complet ed influenza virus vaccine, split virus (incl. purified surface antigen)- retired CODE DoD influenza virus vaccine, whole virus 0 2002 [id number] 16 [employer] ([employer]) complet ed influenza virus vaccine, whole virus DoD typhoid vaccine, parenteral, other than acetone-kille d, dried 0 2002 [id number] 41 Sanofi Pasteur ([facility]) complet ed typhoid vaccine, parentera l, other than acetone-k illed, dried DoD vaccinia (smallpox) vaccine 0 2002 [id number] 75 Priscilla ([place]) complet ed vaccinia (smallpox ) vaccine DoD tuberculin skin test; purified protein derivative solution, intradermal 1 2002 Unknown, Provider [id number] 96 [facility] () complet ed tuberculi n skin test; purified protein derivativ e solution, intraderm al DoD influenza virus vaccine, whole virus 0 2001 [id number] 16 Sanofi Pasteur ([facility]) complet ed influenza virus vaccine, whole virus DoD influenza virus vaccine, whole virus 0 2001 [id number] 16 Sanofi Pasteur ([facility]) complet ed influenza virus vaccine, whole virus DoD typhoid vaccine, parenteral, other than acetone-kille d, dried 0 2000 [id number] 41 Les ([place]) complet ed typhoid vaccine, parentera l, other than acetone-k illed, dried DoD tuberculin skin test; purified protein derivative solution, intradermal 1 2000 Unknown, Provider [id number] 96 Sanofi Pasteur ([facility]) complet ed tuberculi n skin test; purified protein derivativ e solution, intraderm al DoD anthrax vaccine 3 1999 UNKNOWN 24 [facility] [employer] ([facility]) complet ed anthrax vaccine DoD anthrax vaccine 2 1999 [id number] 24 [facility] [facility] ([facility]) complet ed anthrax vaccine DoD influenza virus vaccine, whole virus 0 1999 [id number] 16 [employer] ([facility]) complet ed influenza virus vaccine, whole virus DoD anthrax vaccine 1 1999 [id number] 24 [employer] ([facility]) complet ed anthrax vaccine DoD tuberculin skin test; purified protein derivative solution, intradermal 1 1999 Unknown, Provider [id number] Other ([facility]) complet ed tuberculi n skin test; purified protein derivativ e solution, intraderm al DoD hepatitis B vaccine, adult dosage 3 1999 [id number] 43 Merck (MSD) complet ed hepatitis B vaccine, adult dosage DoD influenza virus vaccine, whole virus 0 [id number] 16 [employer] (Inactive) ([place]) complet ed influenza virus vaccine, whole virus DoD hepatitis A vaccine, adult dosage 2 1998 [id number] 52 Merck (MSD) complet ed hepatitis A vaccine, adult dosage DoD yellow fever vaccine 0 1998 [id number] 37 Sanofi Pasteur ([facility]) complet ed yellow fever vaccine DoD typhoid vaccine, parenteral, other than acetone-kille d, dried 0 1998 [id number] 41 Sanofi Pasteur ([facility]) complet ed typhoid vaccine, parentera l, other than acetone-k illed, dried DoD typhoid vaccine, live, oral 0 1998 015 [id number] 25 Roxanna ([place]) complet ed typhoid vaccine, live, oral DoD hepatitis B vaccine, adult dosage 2 1998 43 () complet ed hepatitis B vaccine, adult dosage DoD hepatitis B vaccine, adult dosage 1 1998 [id number] 43 Merck (MSD) complet ed hepatitis B vaccine, adult dosage DoD trivalent poliovirus vaccine, live, oral 0 1997 [id number] Gl[employer] (LED) comple t ed trivalent polioviru s vaccine, live, oral DoD measles, mumps and rubella virus vaccine 0 1997 03 () Not Given measles, mumps and rubella virus vaccine DoD hepatitis A vaccine, adult dosage 1 1997 [id number] 52 Merck (MSD) complet ed hepatitis A vaccine, adult dosage DoD tuberculin skin test; purified protein derivative solution, intradermal 1 1997 Unknown, Provider 96 () complet ed tuberculi n skin test; purified protein derivativ e solution, intraderm al DoD tetanus and diphtheria toxoids, adsorbed, preservative free, for adult use (2 Lf of tetanus toxoid and 2 Lf of diphtheria toxoid) 0 1997 [id number] 09 [employer] ([place]) complet ed tetanus and diphtheri a toxoids, adsorbed, preservat isabel free, for adult use (2 Lf of tetanus toxoid and 2 Lf of diphtheri a toxoid) DoD influenza virus vaccine, whole virus 0 [id number] 16 Priscilla ([place]) complet ed influenza virus vaccine, whole virus DoD meningococcal polysaccharid e vaccine (MPSV4) 0 [id number] 32 [employer] ([place]) complet ed meningoco ccal polysacch aride vaccine (MPSV4) DoD Results Combined list of recent chemistry, hematology and other laboratory results from Department of Defense and Veterans Affairs, ranging from 15 months to all on record, depending upon the facility. Order Name Results Value Reference Range Date Interpretation Specimen Comments Source RETICULOC YTES RETICULOCYT ES/100 ERYTHROCYTE S IN BLOOD 1.32 0.50 - 1.50 01/21 Specimen Type: BLOOD No comment entered. Ordering Provider: LM CARSON CCA Report Released Date/Time: January 17, 2025 01:10 PM Reporting Lab: [address] [address] Performing Lab: [address] [address] [facility] RETICULOC YTES RETIC ABSOLUTE 0.0540 10*6/u L 0.0230 - 0.0935 01/21 Specimen Type: BLOOD No comment entered. Ordering Provider: LM CARSON CCA A Report Released Date/Time: January 17, 2025 01:10 PM Reporting Lab: [address] [address] Performing Lab: [place] [id number] [facility] CBC LEUKOCYTES [#/VOLUME] IN BLOOD BY AUTOMATED COUNT 8.4 10*3/u L 3.6 - 11.0 01/21 Specimen Type: BLOOD No comment entered. Ordering Provider: LM CARSON CCA A Report Released Date/Time: January 17, 2025 01:10 PM Reporting Lab: [place] [phone] Performing Lab: [place] [phone] [facility] CBC ERYTHROCYTE S [#/VOLUME] IN BLOOD BY AUTOMATED COUNT 4.10 10*6/u L 4.20 - 5.40 01/21 L Specimen Type: BLOOD No comment entered. Ordering Provider: LM CARSON CCA A Report Released Date/Time: January 17, 2025 01:10 PM Reporting Lab: [address] [address] Performing Lab: [place] [id number] [facility] CBC HEMOGLOBIN [MASS/VOLUM E] IN BLOOD 11.7 g/dL 13.0 - 16.0 01/21 L Specimen Type: BLOOD No comment entered. Ordering Provider: LM CARSON CCA A Report Released Date/Time: January 17, 2025 01:10 PM Reporting Lab: [address] [address] Performing Lab: [address] [address] [facility] CBC HEMATOCRIT [VOLUME FRACTION] OF BLOOD BY AUTOMATED COUNT 36.0 37.0 - 47.0 01/21 L Specimen Type: BLOOD No comment entered. Ordering Provider: LM CARSON CCA A Report Released Date/Time: January 17, 2025 01:10 PM Reporting Lab: [address] [address] Performing Lab: [address] [address] [facility] CBC MCV [ENTITIC VOLUME] BY AUTOMATED COUNT 87.8 fL 80.0 - 96.0 01/21 Specimen Type: BLOOD No comment entered. Ordering Provider: LM CARSON CCA A Report Released Date/Time: January 17, 2025 01:10 PM Reporting Lab: [address] [address] Performing Lab: [place] [phone] [facility] CBC MCH [ENTITIC MASS] BY AUTOMATED COUNT 28.7 pg 27.0 - 31.0 01/21 Specimen Type: BLOOD No comment entered. Ordering Provider: LM CARSON CCA A Report Released Date/Time: January 17, 2025 01:10 PM Reporting Lab: [address] [address] Performing Lab: [place] [phone] [facility] CBC MCHC [MASS/VOLUM E] BY AUTOMATED COUNT 32.6 g/dL 31.5 - 36.5 01/21 Specimen Type: BLOOD No comment entered. Ordering Provider: LM CARSON CCA A Report Released Date/Time: January 17, 2025 01:10 PM Reporting Lab: [address] [address] Performing Lab: [address] [address] [facility] CBC PLATELETS [#/VOLUME] IN BLOOD BY AUTOMATED COUNT 249 10*3/u L 150 - 400 01/21 Specimen Type: BLOOD No comment entered. Ordering Provider: LM CARSON CCA A Report Released Date/Time: January 17, 2025 01:10 PM Reporting Lab: [address] [address] Performing Lab: [place] [phone] [facility] CBC LYMPHOCYTES /100 LEUKOCYTES IN BLOOD BY AUTOMATED COUNT 21.2 21.0 - 51.0 01/21 Specimen Type: BLOOD No comment entered. Ordering Provider: LM CARSON CCA A Report Released Date/Time: January 17, 2025 01:10 PM Reporting Lab: [address] [address] Performing Lab: [address] [address] [facility] CBC MONOCYTES/1 00 LEUKOCYTES IN BLOOD BY AUTOMATED COUNT 7.0 4.0 - 8.0 01/21 Specimen Type: BLOOD No comment entered. Ordering Provider: LM CARSON CCA A Report Released Date/Time: January 17, 2025 01:10 PM Reporting Lab: [address] [address] Performing Lab: [address] [address] [facility] CBC NUCLEATED ERYTHROCYTE S/100 LEUKOCYTES [RATIO] IN BLOOD BY MANUAL COUNT 0.2 /100{W BCs} 01/21 Specimen Type: BLOOD No comment entered. Ordering Provider: LM CARSON CCA A Report Released Date/Time: January 17, 2025 01:10 PM Reporting Lab: [address] [address] Performing Lab: [address] [address] [facility] CBC ERYTHROCYTE DISTRIBUTIO N WIDTH [RATIO] BY AUTOMATED COUNT 13.9 11.2 - 15.8 01/21 Specimen Type: BLOOD No comment entered. Ordering Provider: LM CARSON CCA A Report Released Date/Time: January 17, 2025 01:10 PM Reporting Lab: [address] [address] Performing Lab: [address] [address] [facility] CBC NEUTROPHILS /100 LEUKOCYTES IN BLOOD BY AUTOMATED COUNT 67.5 54.0 - 78.0 01/21 Specimen Type: BLOOD No comment entered. Ordering Provider: LM CARSON CCA A Report Released Date/Time: January 17, 2025 01:10 PM Reporting Lab: [address] [address] Performing Lab: [address] [address] [facility] CBC EOSINOPHILS /100 LEUKOCYTES IN BLOOD BY AUTOMATED COUNT 3.7 0.0 - 3.0 01/21 H Specimen Type: BLOOD No comment entered. Ordering Provider: LM CARSON CCA A Report Released Date/Time: January 17, 2025 01:10 PM Reporting Lab: [address] [address] Performing Lab: [address] [address] [facility] CBC BASOPHILS/1 00 LEUKOCYTES IN BLOOD BY AUTOMATED COUNT 0.6 0.0 - 3.0 01/21 Specimen Type: BLOOD No comment entered. Ordering Provider: LM CARSON CCA A Report Released Date/Time: January 17, 2025 01:10 PM Reporting Lab: [address] [address] Performing Lab: [place] [phone] [facility] CBC LYMPHOCYTES [#/VOLUME] IN BLOOD BY AUTOMATED COUNT 1.8 10*3/u L 0.8 - 5.0 01/21 Specimen Type: BLOOD No comment entered. Ordering Provider: LM CARSON CCA A Report Released Date/Time: January 17, 2025 01:10 PM Reporting Lab: [address] [address] Performing Lab: [address] [address] [facility] CBC NEUTROPHILS [#/VOLUME] IN BLOOD 5.7 10*3/u L 1.9 - 8.6 01/21 Specimen Type: BLOOD No comment entered. Ordering Provider: LM CARSON CCA A Report Released Date/Time: January 17, 2025 01:10 PM Reporting Lab: [address] [address] Performing Lab: [address] [address] [facility] CBC BASOPHILS [#/VOLUME] IN BLOOD BY AUTOMATED COUNT 0.1 10*3/u L 0.0 - 0.3 01/21 Specimen Type: BLOOD No comment entered. Ordering Provider: LM CARSON CCA A Report Released Date/Time: January 17, 2025 01:10 PM Reporting Lab: [address] [address] Performing Lab: [address] [address] [facility] CBC MONOCYTES [#/VOLUME] IN BLOOD BY AUTOMATED COUNT 0.6 10*3/u L 0.1 - 0.9 01/21 Specimen Type: BLOOD No comment entered. Ordering Provider: LM CARSON CCA Report Released Date/Time: January 17, 2025 01:10 PM Reporting Lab: [place] [phone] Performing Lab: [place] [phone] [facility] CBC EOSINOPHILS [#/VOLUME] IN BLOOD BY AUTOMATED COUNT 0.3 10*3/u L 0.0 - 0.3 01/21 Specimen Type: BLOOD No comment entered. Ordering Provider: LM CARSON CCA Report Released Date/Time: January 17, 2025 01:10 PM Reporting Lab: [place] [phone] Performing Lab: [place] [phone] [facility] CBC PLATELET MEAN VOLUME [ENTITIC VOLUME] IN BLOOD BY AUTOMATED COUNT 11.0 fL 7.9 - 10.8 01/21 H Specimen Type: BLOOD No comment entered. Ordering Provider: LM CARSON CCA Report Released Date/Time: January 17, 2025 01:10 PM Reporting Lab: [place] [phone] Performing Lab: [place] [phone] [facility] LIPID PROFILE CHOLESTEROL [MASS/VOLUM E] IN SERUM OR PLASMA 167 mg/dL 0 - 199 01/21 Specimen Type: PLASMA Comment: GLUCOSE The ADA [...] 160-189 mg/dL VERY HIGH: >=190 Ordering Provider: LM CARSON CCA Report Released Date/Time: January 17, 2025 01:10 PM Reporting Lab: [address] [address] Performing Lab: [place] [phone] [facility] CHOLESTEROL IN LDL [MASS/VOLUM E] IN SERUM OR PLASMA BY DIRECT ASSAY 89 mg/dL 0 - 99 01/21 Specimen Type: PLASMA Comment: GLUCOSE The ADA [...] 160-189 mg/dL VERY HIGH: >=190 Ordering Provider: LM CARSON CCA A Report Released Date/Time: January 17, 2025 01:10 PM Reporting Lab: [address] [address] Performing Lab: [address] [address] [facility] LIPID PROFILE CHOLESTEROL IN HDL [MASS/VOLUM E] IN SERUM OR PLASMA 38 mg/dL 50 01/21 L Specimen Type: PLASMA Comment: GLUCOSE The ADA [...] 160-189 mg/dL VERY HIGH: >=190 Ordering Provider: LM CARSON CCA A Report Released Date/Time: January 17, 2025 01:10 PM Reporting Lab: [address] [address] Performing Lab: [address] [address] [facility] LIPID PROFILE TRIGLYCERID E [MASS/VOLUM E] IN SERUM OR PLASMA 256 mg/dL 0 - 149 01/21 H Specimen Type: PLASMA Comment: GLUCOSE The ADA [...] 160-189 mg/dL VERY HIGH: >=190 Ordering Provider: LM CARSON CCA A Report Released Date/Time: January 17, 2025 01:10 PM Reporting Lab: [address] [address] Performing Lab: [address] [address] [facility] HEMOGLOBI N A1C HEMOGLOBIN A1C/HEMOGLO BIN.TOTAL IN BLOOD 5.2 3.6 - 5.7 01/21 Specimen Type: BLOOD Comment: Values obtained from A1C measurement s can vary. For typical A1C assays, a reported value of 7.0 could actually be between 6.72 and 7.28 if measured by a reference method. A reported value of 9.0 could actually be between 8.73 and 9.27. Ref: http://www. ngsp.org/[place] Pdata.asp Ordering Provider: LM CARSON CCA Report Released Date/Time: January 17, 2025 01:10 PM Reporting Lab: [place] [phone] Performing Lab: [place] [phone] [facility] COMPREHEN SIVE METABOLIC PANEL ALBUMIN [MASS/VOLUM E] IN SERUM OR PLASMA 3.9 g/dL 3.5 - 4.8 01/21 Specimen Type: PLASMA Comment: GLUCOSE The ADA [...] 160-189 mg/dL VERY HIGH: >=190 Ordering Provider: LM CARSON CCA A Report Released Date/Time: January 17, 2025 01:10 PM Reporting Lab: [address] [address] Performing Lab: [place] [phone] [facility] COMPREHEN SIVE METABOLIC PANEL ALKALINE PHOSPHATASE [ENZYMATIC ACTIVITY/VO LUME] IN SERUM OR PLASMA 63 U/L 40 - 150 01/21 Specimen Type: PLASMA Comment: GLUCOSE The ADA [...] 160-189 mg/dL VERY HIGH: >=190 Ordering Provider: LM CARSON CCA A Report Released Date/Time: January 17, 2025 01:10 PM Reporting Lab: [place] [phone] Performing Lab: [place] [phone] [facility] ALANINE AMINOTRANSF ERASE [ENZYMATIC ACTIVITY/VO LUME] IN SERUM OR PLASMA 16 U/L 0 - 55 01/21 Specimen Type: PLASMA Comment: GLUCOSE The ADA [...] 160-189 mg/dL VERY HIGH: >=190 Ordering Provider: LM CARSON CCA A Report Released Date/Time: January 17, 2025 01:10 PM Reporting Lab: [address] [address] Performing Lab: [place] [phone] [facility] COMPREHEN SIVE METABOLIC PANEL ASPARTATE AMINOTRANSF ERASE [ENZYMATIC ACTIVITY/VO LUME] IN SERUM OR PLASMA 19 U/L 10 - 40 01/21 Specimen Type: PLASMA Comment: GLUCOSE The ADA [...] 160-189 mg/dL VERY HIGH: >=190 Ordering Provider: LM CARSON CCA Report Released Date/Time: January 17, 2025 01:10 PM Reporting Lab: [place] [phone] Performing Lab: [place] [phone] [facility] COMPREHEN SIVE METABOLIC PANEL UREA NITROGEN [MASS/VOLUM E] IN SERUM OR PLASMA 11.7 mg/dL 7.0 - 18.7 01/21 Specimen Type: PLASMA Comment: GLUCOSE The ADA [...] 160-189 mg/dL VERY HIGH: >=190 Ordering Provider: LM CARSON CCA A Report Released Date/Time: January 17, 2025 01:10 PM Reporting Lab: [place] [phone] Performing Lab: [place] [phone] [facility] COMPREHEN SIVE METABOLIC PANEL CALCIUM [MASS/VOLUM E] IN SERUM OR PLASMA 8.8 mg/dL 8.6 - 10.3 01/21 Specimen Type: PLASMA Comment: GLUCOSE The ADA [...] 160-189 mg/dL VERY HIGH: >=190 Ordering Provider: LM CARSON CCA Report Released Date/Time: January 17, 2025 01:10 PM Reporting Lab: [place] [phone] Performing Lab: [place] [phone] [facility] COMPREHEN SIVE METABOLIC PANEL CREATININE [MASS/VOLUM E] IN SERUM OR PLASMA 0.8 mg/dL 0.6 - 1.1 01/21 Specimen Type: PLASMA Comment: GLUCOSE The ADA [...] 160-189 mg/dL VERY HIGH: >=190 Ordering Provider: LM CARSON CCA A Report Released Date/Time: January 17, 2025 01:10 PM Reporting Lab: [place] [phone] Performing Lab: [place] [phone] [facility] COMPREHEN SIVE METABOLIC PANEL CARBON DIOXIDE, TOTAL [MOLES/VOLU ME] IN SERUM OR PLASMA 22 mmol/L 22 - 30 01/21 Specimen Type: PLASMA Comment: GLUCOSE The ADA [...] 160-189 mg/dL VERY HIGH: >=190 Ordering Provider: LM CARSON CCA A Report Released Date/Time: January 17, 2025 01:10 PM Reporting Lab: [address] [address] Performing Lab: [place] [phone] [facility] COMPREHEN SIVE METABOLIC PANEL GLUCOSE [MASS/VOLUM E] IN SERUM OR PLASMA 90 mg/dL 74 - 99 01/21 Specimen Type: PLASMA Comment: GLUCOSE The ADA [...] 160-189 mg/dL VERY HIGH: >=190 Ordering Provider: LM CARSON CCA Report Released Date/Time: January 17, 2025 01:10 PM Reporting Lab: [place] [phone] Performing Lab: [place] [phone] [facility] SIVE METABOLIC PANEL PROTEIN [MASS/VOLUM E] IN SERUM OR PLASMA 7.0 g/dL 6.4 - 8.3 01/21 Specimen Type: PLASMA Comment: GLUCOSE The ADA [...] 160-189 mg/dL VERY HIGH: >=190 Ordering Provider: LM CARSON CCA Report Released Date/Time: January 17, 2025 01:10 PM Reporting Lab: [address] [address] Performing Lab: [address] [address] [facility] COMPREHEN SIVE METABOLIC PANEL SODIUM [MOLES/VOLU ME] IN SERUM OR PLASMA 137 mmol/L 134 - 144 01/21 Specimen Type: PLASMA Comment: GLUCOSE The ADA [...] 160-189 mg/dL VERY HIGH: >=190 Ordering Provider: LM CARSON CCA Report Released Date/Time: January 17, 2025 01:10 PM Reporting Lab: [address] [address] Performing Lab: [place] [phone] [facility] COMPREHEN SIVE METABOLIC PANEL CHLORIDE [MOLES/VOLU ME] IN SERUM OR PLASMA 107 mmol/L 99 - 112 01/21 Specimen Type: PLASMA Comment: GLUCOSE The ADA [...] 160-189 mg/dL VERY HIGH: >=190 Ordering Provider: LM CARSON CCA A Report Released Date/Time: January 17, 2025 01:10 PM Reporting Lab: [place] [phone] Performing Lab: [place] [phone] [place] [address] COMPREHEN SIVE METABOLIC PANEL BILIRUBIN.T OTAL [MASS/VOLUM E] IN SERUM OR PLASMA 0.2 mg/dL 0.2 - 1.2 01/21 Specimen Type: PLASMA Comment: GLUCOSE The ADA [...] 160-189 mg/dL VERY HIGH: >=190 Ordering Provider: LM CARSON CCA A Report Released Date/Time: January 17, 2025 01:10 PM Reporting Lab: [place] [phone] Performing Lab: [place] [phone] [facility] COMPREHEN SIVE METABOLIC PANEL POTASSIUM [MOLES/VOLU ME] IN SERUM OR PLASMA 4.7 mmol/L 3.5 - 5.1 01/21 Specimen Type: PLASMA Comment: GLUCOSE The ADA [...] 160-189 mg/dL VERY HIGH: >=190 Ordering Provider: LM CARSON CCA A Report Released Date/Time: January 17, 2025 01:10 PM Reporting Lab: [address] [address] Performing Lab: [place] [phone] [facility] COMPREHEN SIVE METABOLIC PANEL ANION GAP IN SERUM OR PLASMA 13 mmol/L 10 - 01/21 Specimen Type: PLASMA Comment: GLUCOSE The ADA [...] 160-189 mg/dL VERY HIGH: >=190 Ordering Provider: LM CARSON CCA A Report Released Date/Time: January 17, 2025 01:10 PM Reporting Lab: [address] [address] Performing Lab: [address] [address] [facility] COMPREHEN SIVE METABOLIC PANEL GLOMERULAR FILTRATION RATE/1.73 SQ M.PREDICTED [VOLUME RATE/AREA] IN SERUM, PLASMA OR BLOOD BY CREATININE- BASED FORMULA (CKD-EPI 2020) 93 01/21 Specimen Type: PLASMA Comment: GLUCOSE The ADA [...] 160-189 mg/dL VERY HIGH: >=190 Ordering Provider: LM CARSON CCA Report Released Date/Time: January 17, 2025 01:10 PM Reporting Lab: [address] [address] Performing Lab: [address] [address] [facility] TSH THYROTROPIN [UNITS/VOLU ME] IN SERUM OR PLASMA BY DETECTION LIMIT <= 0.005 MIU/L 1.761 u[IU]/ mL 0.350 - 4.940 01/21 Specimen Type: PLASMA Comment: GLUCOSE The ADA [...] 160-189 mg/dL VERY HIGH: >=190 Ordering Provider: ALLI,LM CCA A Report Released Date/Time: January 17, 2025 01:10 PM Reporting Lab: [place] [phone] Performing Lab: [place] [phone] [facility] IRON GROUP IRON BINDING CAPACITY [MASS/VOLUM E] IN SERUM OR PLASMA 270 ug/dL 250 - 425 01/21 Specimen Type: SERUM No comment entered. Ordering Provider: LM CARSON CCA A Report Released Date/Time: January 17, 2025 01:10 PM Reporting Lab: [place] [phone] Performing Lab: [place] [phone] [facility] IRON GROUP IRON [MASS/VOLUM E] IN SERUM OR PLASMA 73 ug/dL 50 - 170 01/21 Specimen Type: SERUM No comment entered. Ordering Provider: LM CARSON CCA A Report Released Date/Time: January 17, 2025 01:10 PM Reporting Lab: [place] [phone] Performing Lab: [place] [phone] [facility] IRON GROUP IRON/IRON BINDING CAPACITY.TO REJI [MASS RATIO] IN SERUM OR PLASMA 27 15 - 50 01/21 Specimen Type: SERUM No comment entered. Ordering Provider: LM CARSON CCA A Report Released Date/Time: January 17, 2025 01:10 PM Reporting Lab: [place] [phone] Performing Lab: [place] [phone] [facility] FERRITIN FERRITIN [MASS/VOLUM E] IN SERUM OR PLASMA 50.4 ng/mL 4.6 - 204.0 01/21 Specimen Type: PLASMA Comment: GLUCOSE The ADA [...] 160-189 mg/dL VERY HIGH: >=190 Ordering Provider: LM CARSON CCA Report Released Date/Time: January 17, 2025 01:10 PM Reporting Lab: [address] [address] Performing Lab: [place] [phone] [facility] URINE CHORIOGONAD OTROPIN ( TEST) [PRESENCE] IN URINE NEG -Neg 09/04 Specimen Type: URINE Comment: Test performed by Chinyere Negro RN Ordering Provider: MEHREEN PALACIOS Report Released Date/Time: Sep 03, 2024 03:06 PM Reporting Lab: [place] [phone] Performing Lab: [place] [phone] [facility] LIPID PROFILE CHOLESTEROL [MASS/VOLUM E] IN SERUM OR PLASMA 200 mg/dL 135 - 200 01/23 Specimen Type: PLASMA Comment: TRIGLYCERID E REF RANGE: NORMAL <150 mg/dL BORDERLINE HIGH: 150-199 TRIGLYCERID E mg/dL HIGH: 200-499 mg/dL VERY HIGH: >=500 mg/dL CREATININE eGFR was calculated using the CKD-EPI 2020 equation. Ordering Provider: LM CARSON CCA Report Released Date/Time: Jan 30, 2023 08:36 AM Reporting Lab: [address] [address] Performing Lab: [place] [phone] [facility] LIPID PROFILE CHOLESTEROL IN LDL [MASS/VOLUM E] IN SERUM OR PLASMA BY DIRECT ASSAY 110.0 mg/dL 0 - 110 01/23 Specimen Type: PLASMA Comment: TRIGLYCERID E REF RANGE: NORMAL <150 mg/dL BORDERLINE HIGH: 150-199 TRIGLYCERID E mg/dL HIGH: 200-499 mg/dL VERY HIGH: >=500 mg/dL CREATININE eGFR was calculated using the CKD-EPI 2020 equation. Ordering Provider: LM CARSON CCA Report Released Date/Time: Jan 30, 2023 08:36 AM Reporting Lab: [place] [phone] Performing Lab: [place] [phone] [facility] LIPID PROFILE CHOLESTEROL IN HDL [MASS/VOLUM E] IN SERUM OR PLASMA 54 mg/dL 40 - 60 01/23 Specimen Type: PLASMA Comment: TRIGLYCERID E REF RANGE: NORMAL <150 mg/dL BORDERLINE HIGH: 150-199 TRIGLYCERID E mg/dL HIGH: 200-499 mg/dL VERY HIGH: >=500 mg/dL CREATININE eGFR was calculated using the CKD-EPI 2020 equation. Ordering Provider: LM CARSON CCA Report Released Date/Time: Jan 30, 2023 08:36 AM Reporting Lab: [place] [phone] Performing Lab: [place] [phone] [facility] LIPID PROFILE TRIGLYCERID E [MASS/VOLUM E] IN SERUM OR PLASMA 207 mg/dL 0 - 149 01/23 H Specimen Type: PLASMA Comment: TRIGLYCERID E REF RANGE: NORMAL <150 mg/dL BORDERLINE HIGH: 150-199 TRIGLYCERID E mg/dL HIGH: 200-499 mg/dL VERY HIGH: >=500 mg/dL CREATININE eGFR was calculated using the CKD-EPI 2020 equation. Ordering Provider: LM CARSON CCA Report Released Date/Time: Jan 30, 2023 08:36 AM Reporting Lab: [place] [phone] Performing Lab: [place] [phone] [facility] Vital Signs Combined list of inpatient and outpatient Vital Signs from Department of Defense and Veterans Affairs, ranging from 12 months to all on record, depending upon the facility. Vital Sign Value Date Comments Source SYSTOLIC BLOOD PRESSURE 121 01/30/2025 14:58:43 [facility] DIASTOLIC BLOOD PRESSURE 84 01/30/2025 14:58:43 [facility] PULSE OXIMETRY 96 01/30/2025 14:58:43 [facility] WEIGHT 237.66 01/30/2025 14:58:43 [facility] BMI 35 kg/m2 01/30/2025 14:58:43 [facility] PAIN 0 01/30/2025 14:58:43 [facility] TEMPERATURE 98 01/30/2025 14:58:43 [facility] PULSE 71 01/30/2025 14:58:43 [facility] RESPIRATION 16 01/30/2025 14:58:43 [facility] SYSTOLIC BLOOD PRESSURE 138 10/21/2024 10:07:37 [facility] DIASTOLIC BLOOD PRESSURE 88 10/21/2024 10:07:37 [facility] PULSE OXIMETRY 98 10/21/2024 10:07:37 [facility] WEIGHT 249 10/21/2024 10:07:37 [facility] BMI 37 kg/m2 10/21/2024 10:07:37 [facility] PAIN 6 10/21/2024 10:07:37 [facility] TEMPERATURE 98.3 10/21/2024 10:07:37 [facility] PULSE 78 10/21/2024 10:07:37 [facility] RESPIRATION 18 10/21/2024 10:07:37 [facility] SYSTOLIC BLOOD PRESSURE 133 09/04/2024 06:45:00 [facility] DIASTOLIC BLOOD PRESSURE 83 09/04/2024 06:45:00 [facility] PULSE OXIMETRY 98 09/04/2024 06:45:00 [facility] PAIN 7 09/04/2024 06:45:00 [facility] TEMPERATURE 97.8 09/04/2024 06:45:00 [facility] PULSE 70 09/04/2024 06:45:00 [facility] RESPIRATION 15 09/04/2024 06:45:00 [facility] SYSTOLIC BLOOD PRESSURE 120 08/08/2024 14:47:48 [facility] DIASTOLIC BLOOD PRESSURE 81 08/08/2024 14:47:48 [facility] PULSE OXIMETRY 96 08/08/2024 14:47:48 [facility] WEIGHT 245 08/08/2024 14:47:48 [facility] BMI 36 kg/m2 08/08/2024 14:47:48 [facility] PAIN 0 08/08/2024 14:47:48 [facility] HEIGHT 69 08/08/2024 14:47:[facility] TEM[facility] 97.9 08/08/2024 14:47:48 [facility] PULSE 75 08/08/2024 14:47:[facility] 16 08/08/2024 14:47:48 [facility] Encounters Combined list of: 1) Encounters from Department of Veterans Affairs facilities going backup to the last 18 months, not all [place] inpatient encounters are included; 2) Encounters from the Department of Defense facilities going backup to 280 months. Location Location Details Encounter Type Encounter Number Reason For Visit Attending Provider ADM Date DC Date Status Disposition Source [facility](87 Family Prac Team 2) TELE CONSULT [id number] MARIAM Dao 03/14 [facility](8 7 Family Prac Team 2) [facility](87 Family Prac Team 1) OUTPATIENT [id number] Infecte d ingrown ROJAS Wright-PO PO 05/31 Released w/o Limitations [facility](8 7 Family Prac Team 1) [facility](87 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) OUTPATIENT [id number] MANDI Bean 07/04 Released w/o Limitations [address] [place] [address](8 7 Contrac t Buggy Ladle Tender) [facility](87 Family Prac Team 2) OUTPATIENT [id number] ANNALEE CRUZ 07/10 Released w/o Limitations [facility](8 7 Family Prac Team 2) [facility](87 Family Prac Team 2) OUTPATIENT [id number] pha f/up LINDA DORANTES 07/25 Released w/o Limitations [facility](8 7 Family Prac Team 2) [facility](87 Family Prac Team 2) TELE CONSULT [id number] knee pain SHANNON PANDEY 08/01 [facility](8 7 Family Prac Team 2) [facility](87 Family Prac Team 2) OUTPATIENT [id number] [place] knee pain SANNA VORAN 08/03 Released w/o Limitations [facility](8 7 Family Prac Team 2) [employer](87 Family Prac Team 2) OUTPATIENT [id number] Stomach flu SHANNON PANDEY 08/28 Sick at Home/Quarter s [facility](8 7 Family Prac Team 2) [facility]) OUTPATIENT [id number] vicki BRAGAMARILYN Byron 09/18 Released w/o Limitations [facility](8 7 Optomet ry Clinic) [facility](87 [facility]) OUTPATIENT [id number] BCIP 1 ANKUR KAHN 05/09 Released w/o Limitations [facility](8 7 Nutriti on Clinic) [facility](87 Family Prac Team 2) OUTPATIENT [id number] GABRIELLA TURNER 05/11 Released w/o Limitations [facility] [facility](8 7 Family Prac Team 2) [facility](87 Nutrition Clinic) OUTPATIENT [id number] BCIP 2 ANKUR KAHN 05/16 Released w/o Limitations [facility](8 7 Nutriti on Clinic) [facility](87 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) OUTPATIENT [id number] annual well woman/j MANDI Aceves 05/24 Released w/o Limitations [facility](8 7 Contrac t Buggy Ladle Tender) [facility](87 Family Prac Team 2) OUTPATIENT [id number] bilat knee pain ROBERT URIAS 05/29 Released with Work/Duty Limitations [facility](8 7 Family Prac Team 2) [facility](87 Family Prac Team 2) OUTPATIENT [id number] [place] s ROBERT URIAS 06/22 Released w/o Limitations [facility](8 7 Family Prac Team 2) [facility](87 Urgent Care Clinic) OUTPATIENT [id number] cold, body aches, sore throat, cough, vomitin g x 3 days [place] LEOS 06/27 Sick at Home/Quarter s [facility](8 7 Urgent Care Clinic) [facility]) OUTPATIENT [id number] med refill- new pt ADIA THOMAS 08/03 Released w/o Limitations [employer]([facility]) [employer]([facility]) OUTPATIENT [id number] P SANDRA OLVERA K 08/16 Released w/o Limitations [employer](N utritio nal Medicin e) [employer]([facility]) OUTPATIENT [id number] Flu like SX ADIA THOMAS 08/22 Released w/o Limitations [employer]([facility]) [employer]([facility]) OUTPATIENT [id number] ADIA Flor 10/01 Sick at Home/Quarter s [employer]([facility]) [employer]([facility]) OUTPATIENT [id number] ADIA Flor 10/17 Sick at Home/Quarter s [employer]([facility]) [employer]([facility]) OUTPATIENT [id number] tension GREGG Bey 10/30 Released w/o Limitations [employer](A mbulanc e Service s Clinic) [employer]([facility] sical Therapy Clinic) OUTPATIENT [id number] tension ALEXANDER Lopez 11/01 Released w/o Limitations [employer](P hysical Therapy Clinic) [employer]([facility] Practice [facility]) OUTPATIENT [id number] Right knee pain hx of MCL tear ADIA THOMAS 11/04 Released with Work/Duty Limitations [employer](F amily Practic e Clinic) [employer](y sical Therapy Clinic) OUTPATIENT [id number] KNEE SPRAIN RIGHT ALEXANDER SILVA 11/08 Released w/o Limitations [employer](P hysical Therapy Clinic) [employer]([facility]) TELE CONSULT [id number] Lab result notific DENNIS Hernandez 11/18 [employer](F light Medicin e Clinic) [facility]) TELE CONSULT [id number] dysuria KATINA DICKINSON 11/18 [facility](F light Medicin e Clinic) [facility](y sical Therapy Clinic) OUTPATIENT [id number] ALEXANDER SILVA 11/21 Released w/o Limitations [employer](P hysical Therapy Clinic) [facility](y sical Therapy Clinic) OUTPATIENT [id number] NATALIE REGISANDRESSAVIDA Craven 11/26 Released w/o Limitations [employer](P hysical Therapy Clinic) [employer](Phy sical Therapy Clinic) OUTPATIENT [id number] NATALIEMICHELLE 11/28 Released w/o Limitations [employer](P hysical Therapy Clinic) [employer](Phy sical Therapy Clinic) OUTPATIENT [id number] NATALIEMICHELLE 12/05 Released w/o Limitations [employer](P hysical Therapy Clinic) [employer] OUTPATIENT [id number] ADIA Moscoso 12/08 Sick at Home/Quarter s [employer](F amily Practic e Clinic) [employer](Phy sical Therapy Clinic) OUTPATIENT [id number] ESTRADAMICHELLE 12/10 Released w/o Limitations [employer](P hysical Therapy Clinic) [employer](y sical Therapy Clinic) OUTPATIENT [id number] ESTRADAMICHELLE 12/17 Released w/o Limitations [employer](P hysical Therapy Clinic) [employer]([facility] Practice [facility]) OUTPATIENT [id number] UTI-lab s ADIA Waters 01/20 Released w/o Limitations [employer](F amily Practic e Clinic) [employer](y sical Therapy Clinic) OUTPATIENT [id number] ALEXANDER SILVA 01/27 Released w/o Limitations [employer](P hysical Therapy Clinic) [employer]([facility] Practice [facility]) OUTPATIENT [id number] back pain DEREK LIRIANO 01/28 Sick at Home/Quarter s [employer](F amily Practic e Clinic) [facility] Practice [facility]) OUTPATIENT [id number] ADIA Flor 02/17 Sick at Home/Quarter s [employer](F amily Practic e Clinic) [employer]([facility]) OUTPATIENT [id number] tension headach DOUGLAS Goss 04/14 Sick at Home/Quarter s [employer](F light Medicin e Clinic) [employer]([facility] homar Practice Clinic) OUTPATIENT [id number] achy,di zziness , cold chills STEFANY AYALA 04/23 Sick at Home/Quarter s [employer](F amily Practic e Clinic) [employer](Amb ulance Services Clinic) OUTPATIENT [id number] pain in lower back of neck, dizzy, unable to focus OLGA GILL 05/12 Sick at Home/Quarter s [employer](A [facility] e Service s Clinic) [employer]([facility] sical Therapy Clinic) OUTPATIENT [id number] ARMIDA BRIGGS 05/14 Released w/o Limitations [employer](P hysical Therapy Clinic) [employer]([facility]) OUTPATIENT [id number] KAREN CONTI 05/19 Released w/o Limitations [employer](F amily Practic e Clinic) [facility]) TELE CONSULT [id number] lab results XIAO UMANA 05/21 [employer](F amily Practic e Clinic) [employer]([facility] Practice [facility]) OUTPATIENT [id number] loss of sleep 2 x wks JANES SHAFER 05/22 Released w/o Limitations [employer](F amily Practic e Clinic) [facility]) OUTPATIENT [id number] annual pap/lac k of sleep JANES SHAFER 05/26 Released w/o Limitations [employer](F amily Practic e Clinic) [facility] Practice [facility]) TELE CONSULT [id number] lab results XIAO UMANA 05/28 [employer](F amily Practic e Clinic) [employer](y sical Therapy Clinic) OUTPATIENT [id number] ARMIDA BRIGGS 06/11 Released w/o Limitations [employer](P hysical Therapy Clinic) [facility] Practice [facility]) TELE CONSULT [id number] pain STEFANY AYALA 06/13 [employer](F amily Practic e Clinic) [employer]([facility] OUTPATIENT [id number] Salazar pain ROBERT COLLINS 06/14 Released w/o Limitations [employer](O AB Orthope dic Clinic) [employer](Phy sical Therapy Clinic) OUTPATIENT [id number] MICHELLE ESTRADA 06/18 Released w/o Limitations [facility](P hysical Therapy Clinic) [facility] homar Practice Clinic) OUTPATIENT [id number] f/u and esequiel cation of profile . OLGA GILL 06/19 Released w/o Limitations [facility](F amily Practic e Clinic) [facility](Phy sical Therapy Clinic) OUTPATIENT [id number] MICHELLE ESTRADA 06/19 Released w/o Limitations [facility](P hysical Therapy Clinic) [facility](Red Pod) OUTPATIENT [id number] med refill CALVIN NGO 08/12 Released w/o Limitations [facility](R ed Pod) [facility](Rui e Pod) OUTPATIENT [id number] pt unable to keep down fodd/li quids PRAFUL DAI 08/29 Released w/o Limitations [facility](B lue Pod) [facility](Rui e Pod) TELE CONSULT [id number] possibl e pink eye TRISHA MANISH E 09/15 [facility](B lue Pod) [facility](Rui e Pod) OUTPATIENT [id number] [facility] PRAFUL DAI 09/15 Released w/o Limitations [facility](B lue Pod) [facility](Opt ometry ([facility]) ) OUTPATIENT [id number] eye exam TIM RUANO 09/24 Released w/o Limitations [facility](O ptometr y (Main Hosp[facility] l)) [facility](Rui e Pod) OUTPATIENT [id number] for a referal to plastic surge EDGAR CARDENAS 10/08 Released w/o Limitations [facility](B lue Pod) [facility](Rui e Pod) TELE CONSULT [id number] EDGAR Gustafson 10/13 [facility](B lue Pod) [facility](Opt ometry ([facility]) ) OUTPATIENT [id number] dfe exam TIM RUANO 10/14 Released w/o Limitations [facility](O ptometr y (Main Hospita l)) [facility](Linda stic Surgery) OUTPATIENT [id number] ALEXANDER GROSS 10/16 Released w/o Limitations [facility](P lastic Surgery ) [facility](Rui e Pod) TELE CONSULT [id number] SX EDGAR CARDENAS 10/21 [facility](B lue Pod) [facility](Rui e Pod) TELE CONSULT [id number] Sx ISAAC DE LA CRUZ 11/05 [facility](B lue Pod) [facility](Rui e Pod) OUTPATIENT [id number] possibl e palpita tions, leg weaknes s, shaky feeling ISAAC DE LA CRUZ 11/06 Released w/o Limitations [facility](B lue Pod) [facility](Rui e Pod) OUTPATIENT [id number] Very bad salazar splints EDGAR CARDENAS 12/02 Released w/o Limitations [facility](B lue Pod) [facility](Linda stic Surgery) OUTPATIENT [id number] PRE OP DOS 23 APR ALEXANDER GROSS 12/10 Released w/o Limitations [facility](P lastic Surgery ) [facility](Linda stic Surgery) OUTPATIENT [id number] POST OP F/U ALEXANDER GROSS 12/23 Released w/o Limitations [facility](P lastic Surgery ) [facility](Linda stic Surgery) OUTPATIENT [id number] f/u ALEXANDER GROSS 01/06 Released w/o Limitations [facility](P lastic Surgery ) [facility](Rui e Pod) OUTPATIENT [id number] I need help cleanin g out my ea EDGAR CARDENAS 02/24 Released w/o Limitations [facility](B lue Pod) [facility](Red Pod) OUTPATIENT [id number] pain, not able to eat anythin g x 3 days SUDEEP MADISON 03/06 Released w/o Limitations [facility](R ed Pod) [facility](Rui e Pod) OUTPATIENT [id number] Referal for ortho/s hin splints EDGAR CARDENAS R 03/23 Released w/o Limitations [employer](B lue Pod) [facility](Prk Surgery) OUTPATIENT [id number] 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 hector PRIETORADHA Byron 03/24 Released w/o Limitations [employer](P rk Surgery ) [facility](Bra ce Shop) OUTPATIENT [id number] ASHOK LITTLE D 03/25 Released w/o Limitations [employer](B race Shop) [facility](Ort hopedic Clinic) OUTPATIENT [id number] Salazar splint EDDIE NATHAN E 03/31 Released w/o Limitations [facility](O rthoped ic Clinic) [facility](Rui e Pod) TELE CONSULT [id number] Pinkeye symptom s (JRW) MANISH RICO E 04/03 Referred for Appointment [facility](B lue Pod) [facility](Rui e Pod) OUTPATIENT [id number] pink eye EDGAR CARDENAS R 04/03 Released w/o Limitations [facility](B lue Pod) [facility](Ort hopedic Clinic) OUTPATIENT [id number] per JAMARCUS Nathan / wants to be avail/r ROSE Carney 04/13 Released w/o Limitations [facility](O rthoped ic Clinic) [facility](Rui e Pod) OUTPATIENT [id number] burning during urinati on, frequen cy x 3 days MANISH MACIAS R 05/04 Released w/o Limitations [facility](B lue Pod) [facility]) OUTPATIENT [id number] BHARATI Saldana 05/12 Released w/o Limitations [facility]) [facility](Rui e Pod) OUTPATIENT [id number] Migrian e/ refill on zomig MANISH MACIAS R 05/18 Released w/o Limitations [facility](B lue Pod) [facility](Non GWOT Case Mgmt) TELE CONSULT [id number] assessm ent and opening of case MARCELINO TORO 05/22 Referred for Appointment [employer](N on GWOT Case Mgmt) [employer](Non GWOT Case Mgmt) TELE CONSULT [id number] monthly gcode update MARCELINO TORO 05/22 Referred for Appointment [employer](N on GWOT Case Mgmt) [employer] [facility] [id number] compart ment testing ROSE MARTIN 05/25 Released w/o Limitations [employer](O rthoped ic Clinic) [employer](Non GWOT Case Mgmt) TELE CONSULT [id number] contact with MARCELINO TORO 05/26 Referred for Appointment [employer](N on GWOT Case Mgmt) [employer](Red Pod) OUTPATIENT [id number] PHA EDGAR CARDENAS 06/03 Released w/o Limitations [employer](R ed Pod) [employer](Rui e Pod) OUTPATIENT [id number] sick too stomach EDGAR CARDENAS R 06/11 Released w/o Limitations [employer](B lue Pod) [employer](Non GWOT Case Mgmt) TELE CONSULT [id number] update MARCELINO TORO 06/19 Referred for Appointment [employer](N on GWOT Case Mgmt) [employer](Non GWOT Case Mgmt) TELE CONSULT [id number] monthly update MARCELINO TORO 06/22 Referred for Appointment [employer](N on GWOT Case Mgmt) [facility](Rui e Pod) OUTPATIENT [id number] TALIA MITCHELL 06/24 Released w/o Limitations [employer](B lue Pod) [employer] [facility] OUT[facility]IENT [id number] MRI results ROSE MARTIN 07/02 Released w/o Limitations [employer](O rthoped ic Clinic) [facility](Non GWOT Case Mgmt) TELE CONSULT [id number] update from MARCELINO LU 07/02 Referred for Appointment [employer](N on GWOT Case Mgmt) [facility](Non GWOT Case Mgmt) TELE CONSULT [id number] monthly g code MARCELINO TORO 07/24 Referred for Appointment [employer](N on GWOT Case Mgmt) [employer](Non GWOT Case Mgmt) TELE CONSULT [id number] case closure MARCELINO TORO 09/23 Referred for Appointment [employer](N on GWOT Case Mgmt) [employer](Rui e Pod) OUTPATIENT [id number] tension , headach e x 2 days EDGAR CARDENAS 11/04 Released w/o Limitations [employer](B lue Pod) [facility](Opt [facility] ([facility]) ) OUTPATIENT [id number] annual exam JEFFERY MISTRY 11/18 Released w/o Limitations [employer](O ptometr y (Main Hospita l)) [facility](Opt [facility] ([facility]) ) OUTPATIENT [id number] CL fu - per JEFFERY Paige 11/20 Released w/o Limitations [employer](O ptometr y (Main Hospita l)) [facility](Opt ometry ([facility]) ) OUTPATIENT [id number] dilatio n JEFFERY MISTRY 12/09 Released w/o Limitations [facility](O ptometr y (Main Hospita l)) [facility](Rui e Pod) OUTPATIENT [id number] tension migrain e/med not worki MANDI QUIROZ V 12/21 Released w/o Limitations [facility](B lue Pod) [facility]) OUTPATIENT [id number] JOHN Garcia 01/22 Released w/o Limitations [facility]) [facility](Aer ospace Medicine (FSO)) OUTPATIENT [id number] OLGA ZHU 01/28 Released w/o Limitations [facility](A erospac e Medicin e (FSO)) [facility]) TELE CONSULT [id number] JOHN Bejarano 01/28 [facility]) [facility](Rui e Pod) OUTPATIENT [id number] med refill EDGAR CARDENAS Darshana 02/02 Released w/o Limitations [employer](B lue Pod) [employer](Rui e Pod) TELE CONSULT [id number] Pt had recent CBC which retunre d MANISH Estes 02/02 Referred for Appointment [employer](B lue Pod) [facility](Psy chiatry 0095) OUTPATIENT [id number] JOE PABON 02/03 Released w/o Limitations [employer](P sychiat ry 0095) [facility](Inf [facility]) OUTPATIENT [id number] Deploy to [facility] BHAVNA Beach 02/04 Released w/o Limitations [employer](I nfectio us Disease Clinic [facility]) [facility](Rui e Pod) OUTPATIENT [id number] pcm denel// mild anemia. .poss medicat ion TALIA CHAUDHARI 02/15 Released w/o Limitations [employer](B lue Pod) [facility](Red Pod) OUTPATIENT [id number] PHA TALIA CHAUDHARI 02/16 Released w/o Limitations [facility](R ed Pod) [facility] OUTPATIENT [id number] 05/29 Released w/o Limitations [facility] OUTPATIENT [id number] 06/21 Released w/o Limitations [employer] [facility] [facility] OUTPATIENT [id number] 07/18 Released w/o Limitations [employer] [facility] OUTPATIENT [id number] 09/03 Released w/o Limitations [employer] [facility] OUTPATIENT [id number] 09/04 Released w/o Limitations [employer] [facility] OUTPATIENT [id number] 10/16 Released w/o Limitations Theater Facilit y [facility](Aer ospace Medicine (FSO)) OUTPATIENT [id number] 2796 GREY MORRIS 11/16 Released w/o Limitations [employer](A erospac e Medicin e (FSO)) [facility]) OUTPATIENT [id number] JOHN Garcia 12/21 Released w/o Limitations [employer]([facility]) [employer]([facility] homar Medicine Team B) OUTPATIENT [id number] right ankle sprain x 4 mo JANES MCCAULEY 12/21 Released w/o Limitations [employer](F amily Medicin e Team B) [facility]) TELE CONSULT [id number] results JOHN KHAN 12/23 [employer]([facility]) [employer]([facility] Medicine Team B) OUTPATIENT [id number] ALLERGI ES WORSENI NG X 5-6MONT HS JANES MCCAULEY 12/29 Released w/o Limitations [employer](F amily Medicin e Team B) [facility](Phy sical Therapy) OUTPATIENT [id number] ILIOTIB IAL BAND UNIQUECTIO N [place] E SPIKE LAL 01/05 Released w/o Limitations [employer](P hysical Therapy ) [facility](Phy sical Therapy) OUTPATIENT [id number] BHARAT AGUILAR 01/13 Released w/o Limitations [employer](P hysical Therapy ) [facility](Phy sical Therapy) OUTPATIENT [id number] CALI OROZCO 01/25 Released w/o Limitations [employer](P hysical Therapy ) [facility](Phy sical Therapy) OUTPATIENT [id number] CALI OROZCO 01/27 Released w/o Limitations [facility](P hysical Therapy ) [facility] OUTPATIENT [id number] not able to sleep JOVANI RUBY 01/31 Released w/o Limitations [employer](F amily Medicin e Team B) [employer]([facility] homar Medicine Team B) TELE CONSULT [id number] [employer] new medicat MANISH Vivas 02/02 Referred for Appointment [employer](F amily Medicin e Team B) [employer](Aer ospace Medicine (FSO)) OUTPATIENT [id number] GREY MORRIS 02/08 Released w/o Limitations [employer](A erospac e Medicin e (FSO)) [employer]([facility]) TELE CONSULT [id number] results ERINVIVIANRAMA Gordon 02/09 [facility]) [employer] TELE CONSULT [id number] Low hemoglo bin results GASPER HERNANDEZ Heidi 02/09 Referred for Appointment [employer](F amily Medicin e Team B) [facility](Phy sical Therapy) OUTPATIENT [id number] SPIKE LAL S 02/10 Released w/o Limitations [employer](P hysical Therapy ) [facility] OUTPATIENT [id number] f/u anemia/ lab Jan JANES MCCAULEY 02/14 Released w/o Limitations [employer](F amily Medicin e Team B) [facility] homar Medicine Team B) TELE CONSULT [id number] Lab results MANISH RICO 02/15 Referred for Appointment [employer](F amily Medicin e Team B) [facility](Phy sical Therapy) OUTPATIENT [id number] lt ankle SPIKE LAL S 03/21 Released w/o Limitations [employer](P hysical Therapy ) [facility] homar Medicine Team B) TELE CONSULT [id number] symptom atic MANISH RICO 04/29 Referred for Appointment [employer](F amily Medicin e Team B) [facility] homar Medicine Team B) OUTPATIENT [id number] Migrain HANNAH Romero 05/02 Sick at Home/Quarter s [employer](F amily Medicin e Team B) [employer]([facility] homar Medicine Team B) OUTPATIENT [id number] F/U on not sleepin g JANES MCCAULEY 05/11 Released w/o Limitations [employer](F amily Medicin e Team B) [facility] homar Medicine Team B) OUTPATIENT [id number] BURNING WITH URINATI ON X 1 DAY JANES MCCAULEY 05/12 Released w/o Limitations [employer](F amily Medicin e Team B) [facility](PHA Clinic) OUTPATIENT [id number] PHA HARIS BUTLER 05/24 Released w/o Limitations [employer](P [facility] Clinic) [facility](Fam homar Medicine Team B) OUTPATIENT [id number] Follow up for Sleep Meds JANES MCCAULEY 06/01 Released w/o Limitations [facility] Group(F amily Medicin e Team B) [facility](Opt ometry ([facility]) ) OUTPATIENT [id number] annual eye exam YG ALTAMIRANO 06/06 Released w/o [employer](O ptometr y ([facility])) [facility](Sle ep Lab) OUTPATIENT [id number] insomni SKYLA Khan 06/13 Released w/o [employer](S leep Lab) [facility](Aer ospace Medicine (FSO)) TELE CONSULT [id number] GREY MORRIS 07/06 [facility](A erospac e Medicin e (FSO)) [facility](Fam homar Medicine Team B) OUTPATIENT [id number] LEFT ANKLE PAIN,DI SCOMFOR T X 1 DAY JANES MCCAULEY 07/07 Released with Work/Duty [employer](F amily Medicin e Team B) [facility](Bra ce Shop) OUTPATIENT [id number] foot pain AUGUSTO MEDINA R T 07/07 Released w/o [employer](B race Shop) [facility](Fam homar Medicine Team B) TELE CONSULT [id number] no est appts avail MANISH RICO 07/11 Referred for Appointment [facility](F amily Medicin e Team B) [facility](Sle ep Lab) OUTPATIENT [id number] psg EMMA WALTON 07/11 Released w/o [employer](S leep Lab) [facility](Fam homar Medicine Team B) TELE CONSULT [id number] SYMPTOM ATIC MANISH RICO 07/20 Other Not Elsewhere Classified [employer](F amily Medicin e Team B) [employer]([facility] homar Medicine Team B) OUTPATIENT [id number] f/u lt ankle JANES MCCAULEY A 07/20 Released w/o Limitations [employer](F amily Medicin e Team B) [employer]([facility] homar Medicine Team B) TELE CONSULT [id number] xray follow up TRISHAGAUDENCIOMANISH E 07/21 Referred for Appointment [employer](F amily Medicin e Team B) [facility](Phy sical Therapy) OUTPATIENT [id number] ANKLE SPRAIN JANES PAVON Darshana 07/26 Released w/o Limitations [employer](P hysical Therapy ) [facility] [employer](Bra ce Shop) OUTPATIENT [id number] [employer] MEDINA 07/26 Released w/o Limitations [facility](B race Shop) [facility](Sle ep Lab) OUTPATIENT [id number] sleep study results EMMA WALTON 07/26 Released w/o Limitations [employer](S leep Lab) [facility](Linda stic Surgery) OUTPATIENT [id number] OBESITY MARIA D, LORAINE P 09/20 Released w/o Limitations [facility](P lastic Surgery ) [facility](FH Delta Team) OUTPATIENT [id number] headach e,visio n blurred ,dificu lty concent rating x 1 day GREEN, REGINIQUE L 09/20 Released w/o Limitations [facility](F H Delta Team) [facility](FH Delta Team) OUTPATIENT [id number] congest ion,bod y aches, stuffy nose x 1 -2 days FAVIAN ROJAS 09/30 Released w/o Limitations [facility](F H Delta Team) [facility](Sle ep Lab) OUTPATIENT [id number] CPAP EMMA WALTON 10/01 Released w/o Limitations [facility](S leep Lab) [facility]) OUTPATIENT [id number] JOHN GARCIA 10/04 Released w/o Limitations [facility]) [facility] Medicine Team B) OUTPATIENT [id number] diarrhe a x 3 days JANES MCCAULEY 10/06 Sick at Home/Quarter s [facility](F amily Medicin e Team B) [facility](Prk Surgery) OUTPATIENT [id number] pre-op exam - Sx date 14 Dec 2011 TESSA MELO 12/07 Released w/o Limitations [facility](P rk Surgery ) [facility](Prk Surgery) OUTPATIENT [id number] consent brief JANES NG 12/12 Released w/[employer](P rk Surgery ) [facility](Prk Surgery) OUTPATIENT [id number] Surgeon s final check JANES NG 12/12 Released w/o Lim[employer] [facility](P rk Surgery ) [facility](Prk Surgery) OUTPATIENT [id number] refract isabel surgery procedu re JANES NG 12/13 Released w/o Limitations [facility](P rk Surgery ) [facility](Prk Surgery) OUTPATIENT [id number] post-op day 1 JANES NG 12/14 Released w/o Limitations [facility](P rk Surgery ) [facility](Prk Surgery) OUTPATIENT [id number] post-op day 6 TESSA MELO 12/19 Released w/o Limitations [facility](P rk Surgery ) [facility] Medicine Team B) OUTPATIENT [id number] problem s in both knees HANNAH LINTON 12/25 Released w/o Limitations [facility](F amily Medicin e Team B) [facility](Ort hopedic Clinic) OUTPATIENT [id number] PATELLA R CHONDRO MALACIA YASMEEN RAMOS 01/01 Released w/o Limitations [facility](O rthoped ic Clinic) [facility](Bra ce Shop) OUTPATIENT [id number] [employer]O MEDINA 01/01 Released w/o Limitations [facility](B race Shop) [facility] Medicine Team B) TELE CONSULT [id number] Notes Entered by: DEVIN MEEKS 17 Jan 2012 0713 ------- ------- ------- ------- -- Symptom TAD Sanchez Herber 01/16 Referred for Appointment [facility](F amily Medicin e Team B) [facility](Prk Surgery) OUTPATIENT [id number] post op 1 month refract isabel laser eye surgery KAMERONTESSA 01/16 Released w/o [employer](P rk Surgery ) [facility] homar Medicine Team B) OUTPATIENT [id number] possibl e UTI FAINAJEAN HANNAH Nathanael 01/16 Released w/o [employer]itations [facility](F amily Medicin e Team B) [facility] OUTPATIENT [id number] LOWER ABDOMIN AL CRAMPIN G X 1 DAY CRISP, FAVIAN D 01/19 Released w/o Limitations [facility](F amily Medicin e Team B) [facility] homar Medicine Team B) TELE CONSULT [id number] need quarter - ...basi enoc MANISH RICO 01/19 Advice Assessment [employer](F amily Medicin e Team B) [facility] TELE CONSULT [id number] UTI f/u MANISH RICO 01/22 Referred for Appointment [facility](F amily Medicin e Team B) [facility](Ort hopedic Clinic) OUTPATIENT [id number] synvisc right JARET FARRELL 01/26 Released w/o [employer](O rthoped ic Clinic) [facility](Ort hopedic Clinic) OUTPATIENT [id number] synvisc right JENNIFFER MOON 02/02 Released w/o Limitations [facility](O rthoped ic Clinic) [facility] homar Medicine Team B) OUTPATIENT [id number] lt ankle pain, swellin g x 2 days CRISP, FAVIAN D 02/05 Released w/o Limitations [facility](F amily Medicin e Team B) [facility](Linda stic Surgery) OUTPATIENT [id number] H&P LORAINE KILLIAN Cristin 02/06 Released w/o Limitations [facility](P lastic Surgery ) [facility]IENT [id number] right HARIS Dumont 02/08 Released w/o Limitations [facility](O rthoped ic Clinic) [address] [place] [address](Prk Surgery) OUTPATIENT [id number] post-op 2 month SHORTER, TESSA Awan 02/12 Released w/o Limitations [facility](P rk Surgery ) [address] [place] [address] Group(Psy chiatry 0095) OUTPATIENT [id number] Notes Entered by: Herber WINCHESTER 06 Mar 2012 1331 ------- ------- ------- ------- -- Be-Well KEZIA WINCHESTER 03/06 Released w/o Limitations [facility](P sychiat ry 0095) [facility] Medicine Team B) TELE CONSULT [id number] Notes Entered by: FAVIAN PUGA 07 Mar 2012 0947 ------- ------- ------- ------- -- Ankle sprain/ MRI results FAVIAN ROJAS 03/07 [facility](F amily Medicin e Team B) [facility] Medicine Team B) TELE CONSULT [id number] Notes Entered by: SIMONE VARGAS 08 Mar 2012 1211 ------- ------- ------- ------- -- V.V.C- Allergy Medicin e Refill MANISH RICO 03/08 Other Not Elsewhere Classified [facility](F amily Medicin e Team B) [address] [place] [address](Prk Surgery) OUTPATIENT [id number] post-op 3 month SHORTER, TESSA Awan 03/14 Released w/o Limitations [facility](P rk Surgery ) [address] [place] [address] [facility] [id number] ANKLE SPRAIN POSTERI OR TALOFIB ULAR LIGAMEN T LEFT YASMEEN RAMOS Andra 03/26 Released w/o [employer](O rthoped ic Clinic) [employer](Phy sical Therapy) OUTPATIENT [id number] ANKLE SPRAIN JANES PAVON 04/09 Released w/[employer](P hysical Therapy ) [facility](Phy sical Therapy) OUTPATIENT [id number] CALI OROZCO 04/10 Released w/[employer](P hysical Therapy ) [facility](Aer ospace Medicine (FSO)) TELE CONSULT [id number] GREY MORRIS 04/10 [facility](A erospac e Medicin e (FSO)) [facility](Phy sical Therapy) OUTPATIENT [id number] BHARAT AGUILAR 04/13 Released w/[employer](P hysical Therapy ) [facility](Phy sical Therapy) OUTPATIENT [id number] BANDAR BAR 04/19 Released w/[employer](P hysical Therapy ) [facility](Phy sical Therapy) OUTPATIENT [id number] BANDAR BAR 04/24 Released w/[employer](P hysical Therapy ) [facility](Phy sical Therapy) OUTPATIENT [id number] JANES PAVON 05/01 Released w/o [employer](P hysical Therapy ) [facility] Medicine Team B) OUTPATIENT [id number] Body aches,d ifficul ty keeping things down,co ld chills x 1 day CRISPFAVIAN D 05/16 Sick at Home/Quarter s [facility](F amily Medicin e Team B) [facility](Linda stic Surgery) OUTPATIENT [id number] LORAINE KILLIAN 05/22 Released w/[employer](P lastic Surgery ) [facility](Linda stic Surgery) OUTPATIENT [id number] Notes Entered by: ENOCH WOODARD 22 May 2012 1546 ------- ------- ------- ------- -- Patient here for preadmi ssion, pre-ope rative, operati ve/post operati ve NELLIE Spence 05/22 Released w/o Limitations [facility](P lastic Surgery ) [facility](Linda stic Surgery) OUTPATIENT [id number] ALEXANDER RGOSS 06/05 Released w/o Limitations [facility](P lastic Surgery ) [facility](Linda stic Surgery) OUTPATIENT [id number] f/u LORAINE KILLIAN 06/12 Released w/o Limitations [facility](P lastic Surgery ) [facility]) OUTPATIENT [id number] PAP, MED REFILL BCP LORAINE BAILEY 09/03 Released w/o Limitations [facility]) [facility] chiatry 0095) OUTPATIENT [id number] Notes Entered by: PAO GEE 12 Sep [id number] ------- ------- ------- ------- -- Pre [facility] PAO Cano 09/12 Released w/o Limitations [facility](P sychiat ry 0095) [facility](Psy chiatry 0095) OUTPATIENT [id number] Notes Entered by: YOGESH RAI 12 Sep 2012930 ------- ------- ------- ------- -- Pre AUGUSTO KNIGHT 09/12 Released w/o Limitations [facility] [employer](P sychiat ry 0095) [facility](Aer ospace Medicine (FSO)) OUTPATIENT [id number] [facility] GREY Bermudez 09/12 Released w/o Limitations [facility](A erospac e Medicin e (FSO)) [facility](Psy chiatry 0095) OUTPATIENT [id number] Notes Entered by: YOGESH RAI 12 Sep 2012 1120 ------- ------- ------- ------- -- AUGUSTO DOAN 09/12 Released w/o Limitations [facility](P sychiat ry 0095) [facility](Int ernal Medicine) OUTPATIENT [id number] burning aching in chest/s LEWIS Taveras 09/14 Released w/o Limitations [facility](I nternal Medicin e) [facility]) OUTPATIENT [id number] Deploy to [facility] edmundo KATHYA HEDRICK 09/18 Released w/o Limitations [facility](I nfectio us Disease [facility]) [facility]) OUTPATIENT [id number] Notes Entered by: AMNA JUAREZ 24 Sep 2012 1104 ------- ------- ------- ------- -- JORDY BARCENAS 09/24 Released w/o Limitations [facility](P [facility]) [facility](Int ernnj Medicine) OUTPATIENT [id number] f/u reflux LEWIS GRANADOS 10/11 Released w/o Limitations [facility](I nternal Medicin e) [facility](Int ernal Medicine) OUTPATIENT [id number] chest congest ion, sore throat, chills/ hot flashes , coughin g,fatig ue x 3 day RENA CHAN 10/18 Sick at Home/Quarter s [facility](I nternal Medicin e) [facility](Int ernal Medicine) TELE CONSULT [id number] Notes Entered by: WOODY KOROMA 09 Nov 2012 0803 ------- ------- ------- ------- -- Abdomin al pain LEWIS GRANADOS 11/09 Referred for Appointment [facility](I nternal Medicin e) [facility](Int ernal Medicine) OUTPATIENT [id number] pain in abdomen x1w worse with activit y YG KNUTSON 11/14 Released w/o Limitations [facility](I nternal Medicin e) [facility]) OUTPATIENT [id number] swellin g and pain in vaginal area x 4 days, worseni ROSIE Titus 11/30 Released w/o Limitations [facility]) [facility]) TELE CONSULT [id number] Notes Entered by: WOODY KOROMA 04 Dec 2012 0812 ------- ------- ------- ------- -- Severe diarrhe a LEWIS GRANADOS 12/04 Referred for Appointment [facility](I nternal Medicin e) [facility]( Delta Team) TELE CONSULT [id number] Notes Entered by: AMNA CHAVARRIA 2012 0917 ------- ------- ------- ------- -- ER Follow- up FLETCHER CHAVARRIA 12/05 Referred for Appointment [facility] Delta Team) [address] [place] [address] Group([facility]) TELE CONSULT [id number] Notes Entered by: ARLEN MORALES 12 Dec 2012 1152 ------- ------- ------- ------- -- lab and pelvic us results ROSIE MORALES 12/12 [facility]) [facility](Prk Surgery) OUTPATIENT [id number] 12 month post op TESSA MELO 12/17 Released w/o Limitations [facility](P rk Surgery ) [address] [place] [address]([facility]) TELE CONSULT [id number] Notes Entered by: LEÓN GONZALEZ 27 Dec 2012 1629 ------- ------- ------- ------- -- HSV lab results ROSIE MORALES 12/[address] [place] [address]([facility]) [facility]( Delta Team) OUTPATIENT [id number] salazar and ankle pain, rt and lt x 1 week ROSE VILLALTA 01/03 Released w/o Limitations [facility]( H Delta Team) [facility]( Delta Team) TELE CONSULT [id number] Notes Entered by: ALEXANDRE BARAKAT 09 Jan 2013 1326 ------- ------- ------- ------- -- symptom atic no acute HUEY MEJIA 01/09 Referred for Appointment [facility]( H Delta Team) [facility]( Delta Team) OUTPATIENT [id number] Request ing profile for ankle pain. bdb. ROSE VILLALTA 01/15 Released w/o Limitations [facility]( H Delta Team) [facility](Pod iatry) OUTPATIENT [id number] DAVID CARTER 01/21 Released w/o Limitations [facility](P odiatry ) [facility](Bra ce Shop) OUTPATIENT [id number] [employer]UG[employer] MEDINA 01/23 Released w/o Limitations [facility](B race Shop) [facility]) OUTPATIENT [id number] Be FRANCIA uGardado 01/30 Released w/o Limitations [facility](P sycholo [facility]) [facility]( Delta Team) OUTPATIENT [id number] patient wants refferr al for off post podiatr ist for a 2nd opinion GRETCHEN SHELBY 02/05 Released w/o Limitations [facility](F H Delta Team) [facility](Pod iatry) TELE CONSULT [id number] Notes Entered by: LUIS ALFREDO BAGLEY 15 Feb 2013 1244 ------- ------- ------- ------- -- Profile DAVID CARTER 02/15 [facility](P odiatry ) [facility](FH Delta Team) OUTPATIENT [id number] pre-sep PE, fitness GRETCHEN SHELBY 02/19 Released w/o Limitations [facility]( H Delta Team) [facility]ess[facility]) OUTPATIENT [id number] dha5 JOVANI RUBY 02/27 Released w/o Limitations [facility](D eploymbin Health Assessm ents) [facility]( Delta Team) TELE CONSULT [id number] Notes Entered by: MANDIE DAO 04 Mar 2013 1513 ------- ------- ------- ------- -- Network Results Podiatr y 03/02 ROSE VILLALTA 03/04 [facility]( H Delta Team) [facility]( Delta Team) OUTPATIENT [id number] very congest ed, cough, sore throat X 4 days GRETCHEN SHELBY 03/12 Released w/o Limitations [facility]( H Delta Team) [facility]( Delta Team) TELE CONSULT [id number] Notes Entered by: JOVANY DEAL 18 Apr 2013 1228 ------- ------- ------- ------- -- Bilater al Salazar Pain/ no appoint TAD West 04/18 Referred for Appointment [facility]( H Delta Team) [facility](I Papa Team) OUTPATIENT [id number] pain in shins x2 years, missy g after working out GRETCHEN SHELBY 05/09 Released w/o Limitations [facility](F CO Papa Team) [facility]( Delta Team) OUTPATIENT [id number] vomitin g, diarrhe a x 1 day ROSE VILLALTA 06/24 Released with Work/Duty Limitations [facility]( H Delta Team) [facility](Linda stic Surgery) OUTPATIENT [id number] Diastas is of muscle ALEXANDER GROSS 07/09 Released w/o Limitations [facility](P lastic Surgery ) [facility](I Papa Team) TELE CONSULT [id number] Notes Entered by: LYNNE PHILLIPS 02 Aug 2013 1351 ------- ------- ------- ------- -- [facility] - General Message -lou JIMENEZ GLASS Trung 08/02 Referred for Appointment [facility]( HI Papa Team) [facility] Papa Team) OUTPATIENT [id number] spots on stomach GRETCHEN SHELBY 08/27 Released w/o Limitations [facility]( HI Papa Team) [facility] Papa Team) OUTPATIENT [id number] chest congest ion, cough, headach e, stuffy nose x 2 days GRETCHEN SHELBY 08/29 Released w/o Limitations [facility]( HI Papa Team) [facility] Papa Team) OUTPATIENT [id number] migrain e GRETCEHN SHELBY 09/18 Released w/o Limitations [facility]( HI Papa Team) [facility] Papa Team) OUTPATIENT [id number] dizzy and trouble focusin g this morning JORDY ZUÑIGA 10/16 Released w/o Limitations [facility]( HI Papa Team) [facility] Papa Team) OUTPATIENT [id number] cough,c ongesti on,body aches x 1 day GRETCHEN SHELBY 10/23 Released w/o Limitations [facility]( HI Papa Team) [facility]) OUTPATIENT [id number] Notes Entered by: SA JINNY JAUREGUI 31 Oct 2013 1350 ------- ------- ------- ------- -- PHA SUDEEP ROMERO 10/31 Released w/o Limitations [facility](P [facility]) [facility] Papa Team) OUTPATIENT [id number] retirem ent GRETCHEN Smith 01/07 Released w/o Limitations [facility] Papa Team) [facility] HC PRO PHONE CALL 5-10 MIN [id number] Diagnos is: ICD-10- CM M25.512 Pain in left shoulde r SUDEEP ESCOBEDO 09/13 [facility] [facility] OFFICE O/P EST LOW 20 MIN [id number] Diagnos is: ICD-10- CM M25.512 Pain in left shoulde r YESI CARSON A 09/19 [facility] [facility] Outpatient Encounter [id number] 09/21 [facility] [place] En[place] [id number] 09/21 [facility] [place] [id number] Diagnos is: ICD-10- CM Z68.36 Body mass index [BMI] 36.0-36 .9, adult GLORIA AMEZQUITA M 10/10 [facility] [facility] Outpatient Encounter [id number] 10/11 [facility] [place]/OP CNSLTJ NEW/EST LOW 30 [id number] Diagnos is: ICD-10- CM M25.512 Pain in left shoulde r ANIBAL ALDRICH 11/08 [facility] [place] En[place] [id number] 11/12 [facility] [place] En[place] [id number] 11/12 [facility] MED NUTRITION INDIV SUBSEQ [id number] Diagnos is: ICD-10- CM Z68.36 Body mass index [BMI] 36.0-36 .9, adult GLORIA AMEZQUITA M 11/13 [facility] [facility] Outpatient Encounter [id number] 12/13 [facility] [place]/OP CONSLTJ NEW/EST SF 20 [id number] Diagnos is: ICD-10- CM M75.22 Bicipit al tendini tis, left shoulde r PELON MCNAIR 12/13 [facility] Outpatient Encounter [id number] 12/18 [facility] Outpatient Encounter [id number] Diagnos is: ICD-10- CM M75.22 Bicipit al tendini tis, left shoulde r MARC,MAT THEW R 12/26 [facility] OFFICE O/P EST MOD 30 MIN [id number] Diagnos is: ICD-10- CM D64.9 Anemia, unspeci fied YESI CARSON ECCA A 01/30 [facility] OFFICE O/P EST LOW 20 MIN [id number] Diagnos is: ICD-10- CM M75.22 Bicipit al tendini tis, left shoulde r COLIN SUBRAMANIAN MD 02/07 [facility] OFFICE O/P EST MOD 30 MIN [id number] Diagnos is: ICD-10- CM Z12.4 Encount er for screeni ng for maligna nt neoplas m of cervix YESI CARSON ECCA A 02/28 [facility] Outpatient Encounter [id number] GREEK,KYLE NAM 03/06 [facility] [place] En[place] [id number] 03/12 [facility] [place]/OP CONSLTJ NEW/EST SF 20 [id number] Diagnos is: ICD-10- CM Z12.4 Encount er for screeni ng for maligna nt neoplas m of cervix TENZIN BAILON 03/12 [facility] [place]/OP CONSLTJ NEW/EST SF 20 [id number] [id number] Diagnos is: ICD-10- CM Z12.4 Encount er for screeni ng for maligna nt neoplas m of cervix TENZIN BAILON G 03/12 [facility] [place] En[place] [id number] 03/12 [facility] [place] En[place] [id number] 05/21 [facility] [place] O/P EST LOW 20 MIN [id number] [id number] Diagnos is: ICD-10- CM M75.22 Bicipit al tendini tis, left shoulde r STCOLINY,TIF APURVA R 08/08 [facility] [place]OP EST MAY X REQ PHY/QHP [id number] [id number] Diagnos is: ICD-10- CM Z01.818 Encount er for other preproc edural examina GAUDENCIO Troy 08/08 [facility] [place] En[place] [id number] 08/08 [facility] [place] En[place] [id number] 08/08 [facility] [place]/OP CONSLTJ NEW/EST HI 55 [id number] [id number] Diagnos is: ICD-10- CM Z01.818 Encount er for other preproc edural examina JOE Cho 08/08 [facility] [place] En[place] [id number] 08/26 [facility] [place] En[place] [id number] 09/04 [facility] [place] En[place] [id number] 09/04 [facility] [place] En[place] [id number] [id number] 09/04 [facility] [place] O/P NEW MOD 45 MIN [id number] [id number] Diagnos is: ICD-10- CM S46.202 A Unsp injury of musc/fa sc/tend prt biceps, left arm, init LAQUITA,KALP ELENITA 09/04 [facility] [place] [id number] 09/04 [facility] [place] En[place] [id number] [id number] ANAMARIA CHURCHILL L 09/04 [facility] REPAIR ROTATOR CUFF ACUTE [id number] ANAMARIA CHURCHILL L 09/04 [facility] [place] En[place] [id number] 09/04 [facility] [place] En[place] [id number] [id number] 09/04 [facility] POSTOP FOLLOW-UP VISIT [id number] [id number] Diagnos is: ICD-10- CM M25.512 Pain in left shoulde r ANAMARIA CHURCHILL L 09/18 [facility] THERAPEUTI C EXERCISES [id number] [id number] Diagnos is: ICD-10- CM M25.512 Pain in left shoulde r AYUSH HECTOR S 09/23 [facility] THERAPEUTI C EXERCISES [id number] [id number] Diagnos is: ICD-10- CM M25.512 Pain in left shoulde r AYUSH HECTOR S 09/30 [facility] OFFICE O/P EST MOD 30 MIN [id number] [id number] Diagnos is: ICD-10- CM Z48.89 Encount er for other specifi ed surgica l afterca re ANAMARIA CHURCHILL 10/15 [facility] THERAPEUTI C EXERCISES [id number] [id number] Diagnos is: ICD-10- CM M25.512 Pain in left shoulde r AYUSH HECTOR S 10/16 [facility] Outpatient Encounter [id number] [id number] 10/21 [facility] OFFICE O/P EST MOD 30 MIN [id number] [id number] Diagnos is: ICD-10- CM M25.512 Pain in left shoulde r YESI CARSON A 10/21 [facility] [place] [id number] [id number] Diagnos is: ICD-10- CM Z68.36 Body mass index [BMI] 36.0-36 .9, adult GLORIA AMEZQUITA DSAY M 10/23 [facility] THERAPEUTI C EXERCISES 71977-8.54 [id number] Diagnos is: ICD-10- CM M25.512 Pain in left shoulde r AYUSH HECTOR S 10/30 [facility] MED NUTRITION INDIV SUBSEQ [id number] [id number] Diagnos is: ICD-10- CM Z68.36 Body mass index [BMI] 36.0-36 .9, adult GLORIA AMEZQUITA DSAY M 11/06 [facility] Outpatient Encounter [id number] [id number] 11/13 [facility] THERAPEUTI C EXERCISES [id number] [id number] Diagnos is: ICD-10- CM M25.512 Pain in left shoulde r AYUSH HECTOR S 11/13 [facility] POSTOP FOLLOW-UP VISIT [id number] [id number] Diagnos is: ICD-10- CM Z77.29 Contact with and exposur e to other hazardo us substan GIANNA Ron 11/19 [facility] THERAPEUTI C EXERCISES [id number] [id number] Diagnos is: ICD-10- CM M25.512 Pain in left shoulde r AYUSH HECTOR S 11/27 [facility] MED NUTRITION INDIV SUBSEQ [id number] [id number] Diagnos is: ICD-10- CM E66.812 Obesity , class 2 GLORIA AMEZQUITA M 12/25 [facility] THERAPEUTI C EXERCISES 76839-5.54 [id number] Diagnos is: ICD-10- CM M25.512 Pain in left shoulde r AYUSH HECTOR S 12/27 [facility] MED NUTRITION INDIV SUBSEQ [id number] [id number] Diagnos is: ICD-10- CM E66.812 Obesity , class 2 GLORIA AMEZQUITA M 01/28 [facility] OFFICE O/P EST MOD 30 MIN [id number] [id number] Diagnos is: ICD-10- CM Z12.4 Encount er for screeni ng for maligna nt neoplas m of cervix ALLI,YESI ECCA A 01/30 [facility] Outpatient Encounter [id number] CARLITO BISHOP [facility] Out[facility] Encounter [id number] [id number] Diagnos is: ICD-10- CM Z12.4 Encount er for screeni ng for maligna nt neoplas m of cervix TENZIN BAILON 02/07 [facility] MED NUTRITION INDIV SUBSEQ 15179-8.54 [id number] Diagnos is: ICD-10- CM E66.812 Obesity , class 2 GLORIA AMEZQUITA 03/11 [facility] Procedures Combined list of: 1) Procedures from Department of Veterans Affairs facilities going back up to thelast 18 months, not all VA non-surgical procedures are included; 2) All procedures from the Department of Defense facilities. Procedure Procedure Type Code Date Perfomer Comments Sourc e LEFT SHOULDER ARTHROSCOPY MINI OPEN BT, SAD REPAIR ROTATOR CUFF ACUTE [id number] 09/04 [facility] CHURCH[facility] SCREENING PAPANICOLAOU SMEAR; OBTAINING, PREPARING AND CONVEYANCE OF CERVICAL OR VAGINAL SMEAR TO LABORATORY 05/24 [facility] MEDICAL NUTRITION THERAPY; GROUP (2 OR MORE INDIVIDUAL(S)), EACH 30 MINUTES 05/16 [facility] SCREENING TEST OF VISUAL ACUITY, QUANTITATIVE, BILATERAL 05/11 [facility] MEDICAL NUTRITION THERAPY; GROUP (2 OR MORE INDIVIDUAL(S)), EACH 30 MINUTES 05/09 [facility] PRESCRIPTION OF OPTICAL AND PHYSICAL CHARACTERISTICS OF AND FITTING OF CONTACT LENS, WITH MEDICAL SUPERVISION OF ADAPTATION; CORNEAL LENS, BOTH EYES, EXCEPT FOR APHAKIA 09/18 [facility] HEALTH&BEHAV ASSESSMENT (EG, HEALTH-FOC CLINICAL INTERVIEW, BEHAVIORAL OBSERVATIONS, PSYCHOPHYSICOLOGICAL MONITOR, HEALTH-ORIENT QUESTIONNAIRES), EA 15 MIN [id number] W THE PATIENT; INIT ASSESSMENT 07/25 [facility] SCREENING TEST OF VISUAL ACUITY, QUANTITATIVE, BILATERAL 07/10 [facility] SCREENING PAPANICOLAOU SMEAR; OBTAINING, PREPARING AND CONVEYANCE OF CERVICAL OR VAGINAL SMEAR TO LABORATORY 09/07 [facility] PRESCRIPTION OF OPTICAL AND PHYSICAL CHARACTERISTICS OF AND FITTING OF CONTACT LENS, WITH MEDICAL SUPERVISION OF ADAPTATION; CORNEAL LENS, BOTH EYES, EXCEPT FOR APHAKIA 08/31 [facility] MEDICAL NUTRITION THERAPY; GROUP (2 OR MORE INDIVIDUAL(S)), EACH 30 MINUTES 08/10 [facility] MEDICAL NUTRITION THERAPY; GROUP (2 OR MORE INDIVIDUAL(S)), EACH 30 MINUTES 06/30 [facility] EXCISION OF NAIL AND NAIL MATRIX, PARTIAL OR COMPLETE (EG, INGROWN OR DEFORMED NAIL), FOR PERMANENT REMOVAL 05/02 [facility] MEDICAL NUTRITION THERAPY; GROUP (2 OR MORE INDIVIDUAL(S)), EACH 30 MINUTES 03/10 [facility] THERAPEUTIC ACTIVITIES, DIRECT (ONE-ON-ONE) PATIENT CONTACT (USE OF DYNAMIC ACTIVITIES TO IMPROVE FUNCTIONAL PERFORMANCE), EACH 15 MINUTES 03/07 [facility] THERAPEUTIC ACTIVITIES, DIRECT (ONE-ON-ONE) PATIENT CONTACT (USE OF DYNAMIC ACTIVITIES TO IMPROVE FUNCTIONAL PERFORMANCE), EACH 15 MINUTES 03/03 [facility] THERAPEUTIC ACTIVITIES, DIRECT (ONE-ON-ONE) PATIENT CONTACT (USE OF DYNAMIC ACTIVITIES TO IMPROVE FUNCTIONAL PERFORMANCE), EACH 15 MINUTES 03/01 [facility] THERAPEUTIC PROCEDURE, 1 OR MORE AREAS, EACH 15 MINUTES; THERAPEUTIC EXERCISES TO DEVELOP STRENGTH AND ENDURANCE, RANGE OF MOTION AND FLEXIBILITY 02/15 [facility] THERAPEUTIC ACTIVITIES, DIRECT (ONE-ON-ONE) PATIENT CONTACT (USE OF DYNAMIC ACTIVITIES TO IMPROVE FUNCTIONAL PERFORMANCE), EACH 15 MINUTES 02/10 [facility] THERAPEUTIC ACTIVITIES, DIRECT (ONE-ON-ONE) PATIENT CONTACT (USE OF DYNAMIC ACTIVITIES TO IMPROVE FUNCTIONAL PERFORMANCE), EACH 15 MINUTES 02/08 [facility] SCREENING PAPANICOLAOU SMEAR; OBTAINING, PREPARING AND CONVEYANCE OF CERVICAL OR VAGINAL SMEAR TO LABORATORY 02/04 [facility] THERAPEUTIC ACTIVITIES, DIRECT (ONE-ON-ONE) PATIENT CONTACT (USE OF DYNAMIC ACTIVITIES TO IMPROVE FUNCTIONAL PERFORMANCE), EACH 15 MINUTES 02/02 [facility] MEDICAL NUTRITION THERAPY; GROUP (2 OR MORE INDIVIDUAL(S)), EACH 30 MINUTES 01/11 [facility] MEDICAL NUTRITION THERAPY; GROUP (2 OR MORE INDIVIDUAL(S)), EACH 30 MINUTES 11/16 [facility] COLPOSCOPY OF THE CERVIX INCLUDING UPPER/ADJACENT VAGINA; WITH BIOPSY(S) OF THE CERVIX AND ENDOCERVICAL CURETTAGE 09/15 [facility] MEDICAL NUTRITION THERAPY; GROUP (2 OR MORE INDIVIDUAL(S)), EACH 30 MINUTES 08/03 [facility] REPLACEMENT OF CONTACT LENS 08/02 [facility] APPLICATION OF A MODALITY TO 1 OR MORE AREAS; TRACTION, MECHANICAL 07/28 [facility] SCREENING PAPANICOLAOU SMEAR; OBTAINING, PREPARING AND CONVEYANCE OF CERVICAL OR VAGINAL SMEAR TO LABORATORY 07/28 [facility] CHIROPRACTIC MANIPULATIVE TREATMENT (CMT); SPINAL, 1-2 REGIONS 07/26 Do[facility] CHIROPRACTIC MANIPULATIVE TREATMENT (CMT); SPINAL, 1-2 REGIONS 07/23 DoD CHIROPRACTIC MANIPULATIVE TREATMENT (CMT); SPINAL, 1-2 REGIONS 07/21 Do[facility] CHIROPRACTIC MANIPULATIVE TREATMENT (CMT); SPINAL, 1-2 REGIONS 07/20 [facility] PHYSICAL THERAPY RE-EVALUATION 05/17 DoD APPLICATION OF A MODALITY TO 1 OR MORE AREAS; HOT OR COLD PACKS 05/13 Do[facility] APPLICATION OF A MODALITY TO 1 OR MORE AREAS; HOT OR COLD PACKS 05/11 Do[facility] APPLICATION OF A MODALITY TO 1 OR MORE AREAS; HOT OR COLD PACKS 05/06 Do[facility] APPLICATION OF A MODALITY TO 1 OR MORE AREAS; HOT OR COLD PACKS 05/04 [facility] APPLICATION OF A MODALITY TO 1 OR MORE AREAS; HOT OR COLD PACKS 04/22 Do[facility] APPLICATION OF A MODALITY TO 1 OR MORE AREAS; HOT OR COLD PACKS 04/20 [facility] MANUAL THERAPY TECHNIQUES (EG, MOBILIZATION/ MANIPULATION, MANUAL LYMPHATIC DRAINAGE, MANUAL TRACTION), 1 OR MORE REGIONS, EACH 15 MINUTES 04/12 [facility] PHYSICAL THERAPY RE-EVALUATION 04/08 DoD APPLICATION OF A MODALITY TO 1 OR MORE AREAS; TRACTION, MECHANICAL 04/05 Do[facility] APPLICATION OF A MODALITY TO 1 OR MORE AREAS; TRACTION, MECHANICAL 04/02 Do[facility] APPLICATION OF A MODALITY TO 1 OR MORE AREAS; TRACTION, MECHANICAL 03/31 DoD APPLICATION OF A MODALITY TO 1 OR MORE AREAS; TRACTION, MECHANICAL 03/29 DoD APPLICATION OF A MODALITY TO 1 OR MORE AREAS; TRACTION, MECHANICAL 03/26 Do[facility] APPLICATION OF A MODALITY TO 1 OR MORE AREAS; TRACTION, MECHANICAL 03/24 DoD APPLICATION OF A MODALITY TO 1 OR MORE AREAS; TRACTION, MECHANICAL 03/22 DoD APPLICATION OF A MODALITY TO 1 OR MORE AREAS; TRACTION, MECHANICAL 03/19 DoD APPLICATION OF A MODALITY TO 1 OR MORE AREAS; HOT OR COLD PACKS 03/17 DoD APPLICATION OF A MODALITY TO 1 OR MORE AREAS; HOT OR COLD PACKS 03/15 [facility] PHYSICAL THERAPY EVALUATION 03/11 DoD APPLICATION OF A MODALITY TO 1 OR MORE AREAS; HOT OR COLD PACKS 06/19 DoD APPLICATION OF A MODALITY TO 1 OR MORE AREAS; HOT OR COLD PACKS 06/18 [facility] PHYSICAL THERAPY EVALUATION 06/11 [facility] PHYSICAL THERAPY EVALUATION 05/15 Do[facility] THERAPEUTIC, PROPHYLACTIC OR DIAGNOSTIC INJECTION (SPECIFY SUBSTANCE OR DRUG); SUBCUTANEOUS OR INTRAMUSCULAR 05/12 DoD ALCOHOL WIPES, PER BOX 02/18 DoD OSTEOPATHIC MANIPULATIVE TREATMENT (OMT); 3-4 BODY REGIONS INVOLVED 01/29 [facility] PHYSICAL THERAPY RE-EVALUATION 01/28 DoD APPLICATION OF A MODALITY TO 1 OR MORE AREAS; HOT OR COLD PACKS 12/17 DoD APPLICATION OF A MODALITY TO 1 OR MORE AREAS; HOT OR COLD PACKS 12/10 DoD ALCOHOL WIPES, PER BOX 12/09 DoD APPLICATION OF A MODALITY TO 1 OR MORE AREAS; HOT OR COLD PACKS 12/05 DoD APPLICATION OF A MODALITY TO 1 OR MORE AREAS; HOT OR COLD PACKS 11/28 DoD APPLICATION OF A MODALITY TO 1 OR MORE AREAS; HOT OR COLD PACKS 11/26 [facility] PHYSICAL THERAPY RE-EVALUATION 11/21 DoD PHYSICAL THERAPY EVALUATION 11/08 [facility] PHYSICAL THERAPY EVALUATION 11/01 DoD INJECTION, KETOROLAC TROMETHAMINE, PER 15 MG 10/30 DoD ALCOHOL WIPES, PER BOX 10/18 [facility] MEDICAL NUTRITION THERAPY; GROUP (2 OR MORE INDIVIDUAL(S)), EACH 30 MINUTES 08/16 [facility] INTRAVENOUS INFUSION, THERAPY/DIAGNOSIS, ADMINISTERED PHYSICIAN/UNDER DIRECT SUPERVISION, PHYSICIAN; EA ADDITIONAL HOUR, UP TO EIGHT (8) HOURS (LIST SEPARATELY ADDITION TO CODE, PRIMARY PROCEDURE) 08/26 [facility] THERAPEUTIC ACTIVITIES, DIRECT (ONE-ON-ONE) PATIENT CONTACT (USE OF DYNAMIC ACTIVITIES TO IMPROVE FUNCTIONAL PERFORMANCE), EACH 15 MINUTES 03/28 [facility] SELF-CARE/HOME MANAGMENT TRAIN (EG,ACT OF DAILY LIVING (ADL) &COMPENSAT TRAIN,MEAL PREPARATION,SAFETY PROCS,AND INSTRUCT IN USE OF ASST TECHNOLOGY DEV/ADPT EQUIP) DIR ONE-ON-ONE CONT,EA 15 MINUTES 01/30 DoD APPLICATION OF A MODALITY TO 1 OR MORE AREAS; HOT OR COLD PACKS 01/29 DoD APPLICATION OF A MODALITY TO 1 OR MORE AREAS; HOT OR COLD PACKS 01/27 DoD APPLICATION OF A MODALITY TO 1 OR MORE AREAS; HOT OR COLD PACKS 01/22 Do[facility] SELF-CARE/HOME MANAGMENT TRAIN (EG,ACT OF DAILY LIVING (ADL) &COMPENSAT TRAIN,MEAL PREPARATION,SAFETY PROCS,AND INSTRUCT IN USE OF ASST TECHNOLOGY DEV/ADPT EQUIP) DIR ONE-ON-ONE CONT,EA 15 MINUTES 01/21 DoD APPLICATION OF A MODALITY TO 1 OR MORE AREAS; HOT OR COLD PACKS 01/17 DoD APPLICATION OF A MODALITY TO 1 OR MORE AREAS; HOT OR COLD PACKS 01/06 [facility] APPLICATION OF A MODALITY TO 1 OR MORE AREAS; HOT OR COLD PACKS 01/02 DoD APPLICATION OF A MODALITY TO 1 OR MORE AREAS; HOT OR COLD PACKS 12/31 DoD APPLICATION OF A MODALITY TO 1 OR MORE AREAS; HOT OR COLD PACKS 12/27 [facility] SELF-CARE/HOME MANAGMENT TRAIN (EG,ACT OF DAILY LIVING (ADL) &COMPENSAT TRAIN,MEAL PREPARATION,SAFETY PROCS,AND INSTRUCT IN USE OF ASST TECHNOLOGY DEV/ADPT EQUIP) DIR ONE-ON-ONE CONT,EA 15 MINUTES 12/26 DoD PSYCHOTHERAPY, 45 MINUTES WITH PATIENT 02/28 DoD PSYCHOTHERAPY, 45 MINUTES WITH PATIENT 02/12 Do[facility] PSYCHOTHERAPY, 45 MINUTES WITH PATIENT 01/28 DoD PSYCHOTHERAPY, 45 MINUTES WITH PATIENT 01/08 DoD PSYCHOTHERAPY, 45 MINUTES WITH PATIENT 01/02 DoD PSYCHIATRIC DIAGNOSTIC EVALUATION 12/16 [facility] INJECTION, KETOROLAC TROMETHAMINE, PER 15 MG 09/18 [facility] ORTHOTIC(S) MANAGEMENT AND TRAINING (INCLUDING ASSESSMENT AND FITTING WHEN NOT OTHERWISE REPORTED),UPPER EXTREMITY(IES),LOWER EXTREMITY(IES) AND/OR TRUNK,INITIAL ORTHOTIC(S) ENCOUNTER,EACH 15 MINUTES 01/23 [facility] OPHTHALMOLOGICAL SERVICES: MEDICAL EXAMINATION AND EVALUATION, WITH INITIATION OR CONTINUATION OF DIAGNOSTIC AND TREATMENT PROGRAM; COMPREHENSIVE, ESTABLISHED PATIENT, 1 OR MORE VISITS 12/17 [facility] SMEAR, PRIMARY SOURCE WITH INTERPRETATION; WET MOUNT FOR INFECTIOUS AGENTS (EG, SALINE, OWEN INK, MAGNOLIA PREPS) 11/30 [facility] PSYCHIATRIC EVALUATION OF HOSPITAL RECORDS, OTHER PSYCHIATRIC REPORTS, PSYCHOMETRIC AND/OR PROJECTIVE TESTS, AND OTHER ACCUMULATED DATA FOR MEDICALDIAGNOSTIC PURPOSES 09/12 [facility] POSTOPERATIVE FOLLOW-UP VISIT, NORMALLY INCLUDED IN THE SURGICAL PACKAGE, INDICATE THAT EVALUATION & MANAGEMENT SERVICE WAS PERFORMED DURING A POSTOPERATIVE PERIOD REASON RELATED ORIGINAL PROCEDURE 06/12 [facility] UNLISTED SPECIAL SERVICE, PROCEDURE OR REPORT 06/01 [facility] EDUCATION &TRAINING, PATIENT SELF-MGT QUALIFIED, NONPHYSICIAN HEALTH MERCHANDISING MANAGER USING STDIZED CURRICULUM, [id number] W THE PATIENT (COULD INCL CAREGIVER/FAMILY) EA 30 MIN; INDIVIDUAL PATIENT 05/22 [facility] PHYSICAL THERAPY RE-EVALUATION 05/01 [facility] THERAPEUTIC PROCEDURE,1 OR MORE AREAS,EACH 15 MINUTES;NEUROMUSCULA R REEDUCATION OF MOVEMENT,BALANCE,VENTURE CAPITALIST RDINATION,KINESTHETI C SENSE,POSTURE,AND/OR PROPRIOCEPTION FOR SITTING AND/OR STANDING ACTIVITIES 04/24 [facility] THERAPEUTIC PROCEDURE,1 OR MORE AREAS,EACH 15 MINUTES;NEUROMUSCULA R REEDUCATION OF MOVEMENT,BALANCE,VENTURE CAPITALIST RDINATION,KINESTHETI C SENSE,POSTURE,AND/OR PROPRIOCEPTION FOR SITTING AND/OR STANDING ACTIVITIES 04/19 [facility] THERAPEUTIC PROCEDURE,1 OR MORE AREAS,EACH 15 MINUTES;NEUROMUSCULA R REEDUCATION OF MOVEMENT,BALANCE,VENTURE CAPITALIST RDINATION,KINESTHETI C SENSE,POSTURE,AND/OR PROPRIOCEPTION FOR SITTING AND/OR STANDING ACTIVITIES 04/13 [facility] THERAPEUTIC PROCEDURE,1 OR MORE AREAS,EACH 15 MINUTES;NEUROMUSCULA R REEDUCATION OF MOVEMENT,BALANCE,VENTURE CAPITALIST RDINATION,KINESTHETI C SENSE,POSTURE,AND/OR PROPRIOCEPTION FOR SITTING AND/OR STANDING ACTIVITIES 04/10 [facility] THERAPEUTIC PROCEDURE, 1 OR MORE AREAS, EACH 15 MINUTES; THERAPEUTIC EXERCISES TO DEVELOP STRENGTH AND ENDURANCE, RANGE OF MOTION AND FLEXIBILITY 04/09 [facility] POSTOPERATIVE FOLLOW-UP VISIT, NORMALLY INCLUDED IN THE SURGICAL PACKAGE, INDICATE THAT EVALUATION & MANAGEMENT SERVICE WAS PERFORMED DURING A POSTOPERATIVE PERIOD REASON RELATED ORIGINAL PROCEDURE 03/14 Do[facility] POSTOPERATIVE FOLLOW-UP VISIT, NORMALLY INCLUDED IN THE SURGICAL PACKAGE, INDICATE THAT EVALUATION & MANAGEMENT SERVICE WAS PERFORMED DURING A POSTOPERATIVE PERIOD REASON RELATED ORIGINAL PROCEDURE 02/12 DoD HYALURONAN OR DERIVATIVE, SYNVISC OR SYNVISC-ONE, FOR INTRA-ARTICULAR INJECTION, 1 MG 02/08 DoD HYALURONAN OR DERIVATIVE, SYNVISC OR SYNVISC-ONE, FOR INTRA-ARTICULAR INJECTION, 1 MG 02/02 DoD INFUSION, NORMAL SALINE SOLUTION , 1000 CC 01/29 DoD HYALURONAN OR DERIVATIVE, SYNVISC OR SYNVISC-ONE, FOR INTRA-ARTICULAR INJECTION, 1 MG 01/26 [facility] POSTOPERATIVE FOLLOW-UP VISIT, NORMALLY INCLUDED IN THE SURGICAL PACKAGE, INDICATE THAT EVALUATION & MANAGEMENT SERVICE WAS PERFORMED DURING A POSTOPERATIVE PERIOD REASON RELATED ORIGINAL PROCEDURE 01/16 [facility] ORTHOTIC(S) MANAGEMENT AND TRAINING (INCLUDING ASSESSMENT AND FITTING WHEN NOT OTHERWISE REPORTED),UPPER EXTREMITY(IES),LOWER EXTREMITY(IES) AND/OR TRUNK,INITIAL ORTHOTIC(S) ENCOUNTER,EACH 15 MINUTES 01/01 Do[facility] INJECTION, TRIAMCINOLONE ACETONIDE, NOT OTHERWISE SPECIFIED, 10 MG 01/01 [facility] POSTOPERATIVE FOLLOW-UP VISIT, NORMALLY INCLUDED IN THE SURGICAL PACKAGE, INDICATE THAT EVALUATION & MANAGEMENT SERVICE WAS PERFORMED DURING A POSTOPERATIVE PERIOD REASON RELATED ORIGINAL PROCEDURE 12/19 [facility] POSTOPERATIVE FOLLOW-UP VISIT, NORMALLY INCLUDED IN THE SURGICAL PACKAGE, INDICATE THAT EVALUATION & MANAGEMENT SERVICE WAS PERFORMED DURING A POSTOPERATIVE PERIOD REASON RELATED ORIGINAL PROCEDURE 12/14 [facility] LASER IN SITU KERATOMILEUSIS (LASIK) 12/13 [facility] OPHTHALMOLOGICAL SERVICES: MEDICAL EXAMINATION AND EVALUATION, WITH INITIATION OR CONTINUATION OF DIAGNOSTIC AND TREATMENT PROGRAM; COMPREHENSIVE, ESTABLISHED PATIENT, 1 OR MORE VISITS 12/12 [facility] PHYS/OTH QUALIFIED HEALTH MERCHANDISING MANAGER QUALIFIED,EDUCATION, TRAIN,LICENSURE/REGU LATION (WHEN APPLICABLE) EDUC SER RENDERED TO PATS IN A GRP SETTING (EG,,OBESITY ,OR DIABETIC INSTRUCT) 12/12 [facility] COMPUTERIZED CORNEAL TOPOGRAPHY, UNILATERAL OR BILATERAL, WITH INTERPRETATION AND REPORT 12/07 [facility] SCREENING PAPANICOLAOU SMEAR; OBTAINING, PREPARING AND CONVEYANCE OF CERVICAL OR VAGINAL SMEAR TO LABORATORY 10/04 [facility] INTRODUCTION OF NEEDLE OR INTRACATHETER, VEIN 10/03 [facility] POLYSOMNOGRAPHY;AGE 5 YEARS/OLDER,SLEEP STAGING W 4/MORE ADDITIONAL PARAMETERS OF SLEEP,W INITIATION OF CONTINUOUS POSITIVE AIRWAY PRESSURE THERAPY/BILEVEL VENTILATION,ATTENDED BY A TECHNOLOGIST 09/30 [facility] REMOVAL IMPACTED CERUMEN REQUIRING INSTRUMENTATION, UNILATERAL 09/30 [facility] INFUSION, NORMAL SALINE SOLUTION , 1000 CC 08/30 [facility] JOHN&INTERPRET,PHYSI O DATA (EG,ECG,BLD PRESS,GLUCOSE MON) DIGIT STORED &/TRANSMIT,PT &/ C/G TO PHYS/OTH QUAL HCP,QUAL,EDUC,TRAIN, LICENS/REG (WHEN SUSHILA) REQ A MINIMUM OF 30 MINUTES OF TIME,EACH 30 DAYS 07/26 [facility] ANKLE ORTHOSIS, ANKLE GAUNTLET OR SIMILAR, WITH OR WITHOUT JOINTS, PREFABRICATED, [id number] 07/26 [facility] SELF-CARE/HOME MANAGMENT TRAIN (EG,ACT OF DAILY LIVING (ADL) &COMPENSAT TRAIN,MEAL PREPARATION,SAFETY PROCS,AND INSTRUCT IN USE OF ASST TECHNOLOGY DEV/ADPT EQUIP) DIR ONE-ON-ONE CONT,EA 15 MINUTES 07/26 [facility] INFUSION, NORMAL SALINE SOLUTION , 1000 CC 07/22 [facility] WALKING BOOT,NON-PNEUMAT,W/W /O JOINTS,W/W/O INTERFACE MATERIAL,PREFABRICAT ED ITEM THAT HAS BEEN TRIMMED,BENT,MOLDED, ASSEMBLED,OR OTHERWISE CUSTOMIZED TO FIT A SPECIFIC PATIENT,AN GETACHEW W EXPERTISE 07/07 [facility] POLYSOMNOGRAPHY; AGE 5 YEARS OR OLDER, SLEEP STAGING WITH 4 OR MORE ADDITIONAL PARAMETERS OF SLEEP, ATTENDED BY A TECHNOLOGIST 06/27 [facility] PHYS/OTH QUALIFIED HEALTH MERCHANDISING MANAGER QUALIFIED,EDUCATION, TRAIN,LICENSURE/REGU LATION (WHEN APPLICABLE) EDUC SER RENDERED TO PATS IN A GRP SETTING (EG,,OBESITY ,OR DIABETIC INSTRUCT) 06/13 [facility] PRESCRIPTION OF OPTICAL AND PHYSICAL CHARACTERISTICS OF AND FITTING OF CONTACT LENS, WITH MEDICAL SUPERVISION OF ADAPTATION; CORNEAL LENS, BOTH EYES, EXCEPT FOR APHAKIA 06/06 [facility] INFUSION, NORMAL SALINE SOLUTION , 1000 CC 05/25 [facility] INJECTION, ONDANSETRON HCL, PER 1 MG 04/29 [facility] PHYSICAL THERAPY RE-EVALUATION 03/21 [facility] PHYSICAL THERAPY RE-EVALUATION 02/10 [facility] THERAPEUTIC PROCEDURE,1 OR MORE AREAS,EACH 15 MINUTES;NEUROMUSCULA R REEDUCATION OF MOVEMENT,BALANCE,VENTURE CAPITALIST RDINATION,KINESTHETI C SENSE,POSTURE,AND/OR PROPRIOCEPTION FOR SITTING AND/OR STANDING ACTIVITIES 01/27 [facility] THERAPEUTIC PROCEDURE,1 OR MORE AREAS,EACH 15 MINUTES;NEUROMUSCULA R REEDUCATION OF MOVEMENT,BALANCE,VENTURE CAPITALIST RDINATION,KINESTHETI C SENSE,POSTURE,AND/OR PROPRIOCEPTION FOR SITTING AND/OR STANDING ACTIVITIES 01/25 [facility] THERAPEUTIC PROCEDURE,1 OR MORE AREAS,EACH 15 MINUTES;NEUROMUSCULA R REEDUCATION OF MOVEMENT,BALANCE,VENTURE CAPITALIST RDINATION,KINESTHETI C SENSE,POSTURE,AND/OR PROPRIOCEPTION FOR SITTING AND/OR STANDING ACTIVITIES 01/13 [facility] PHYSICAL THERAPY EVALUATION 01/05 [facility] REMOVAL IMPACTED CERUMEN REQUIRING INSTRUMENTATION, UNILATERAL 12/30 [facility] SCREENING PAPANICOLAOU SMEAR; OBTAINING, PREPARING AND CONVEYANCE OF CERVICAL OR VAGINAL SMEAR TO LABORATORY 12/21 [facility] [facility] NEUR[facility]CH[facility]ICAL [facility]ING (EG, [place] CARD SORTING TEST), ADMINISTERED BY A COMPUTER, WITH QUALIFIED HEALTH MERCHANDISING MANAGER INTERPRETATION AND REPORT 02/03 [facility] SCREENING PAP[place]ICOLAOU SMEAR; OBTAINING, PREPARING AND CONVEYANCE OF CERVICAL OR VAGINAL SMEAR TO LABORATORY 01/22 [facility] FITTING OF SPECTACLES, EXCEPT FOR APHAKIA; MONOFOCAL 11/18 DoD COORDINATED CARE FEE, MAINTENANCE RATE 09/23 DoD COORDINATED CARE FEE, MAINTENANCE RATE 07/24 DoD CASE MANAGEMENT, EACH 15 MINUTES 07/02 [facility] THERAPEUTIC, PROPHYLACTIC, OR DIAGNOSTIC INJECTION (SPECIFY SUBSTANCE OR DRUG); SUBCUTANEOUS OR INTRAMUSCULAR 06/24 [facility] INFUSION, NORMAL SALINE SOLUTION , 1000 CC 06/23 DoD COORDINATED CARE FEE, MAINTENANCE RATE 06/22 DoD CASE MANAGEMENT, EACH 15 MINUTES 06/19 DoD CASE MANAGEMENT, EACH 15 MINUTES 05/26 DoD COORDINATED CARE FEE, MAINTENANCE RATE 05/22 DoD CASE MANAGEMENT, EACH 15 MINUTES 05/22 DoD SMEAR, PRIMARY SOURCE WITH INTERPRETATION; WET MOUNT FOR INFECTIOUS AGENTS (EG, SALINE, OWEN INK, MAGNOLIA PREPS) 05/12 [facility] INFUSION, NORMAL SALINE SOLUTION, STERILE (500 ML = 1 UNIT) 05/05 [facility] ORTHOTIC(S) MANAGEMENT AND TRAINING (INCLUDING ASSESSMENT AND FITTING WHEN NOT OTHERWISE REPORTED),UPPER EXTREMITY(IES),LOWER EXTREMITY(IES) AND/OR TRUNK,INITIAL ORTHOTIC(S) ENCOUNTER,EACH 15 MINUTES 03/25 [facility] PHYS/OTH QUALIFIED HEALTH MERCHANDISING MANAGER QUALIFIED,EDUCATION, TRAIN,LICENSURE/REGU LATION (WHEN APPLICABLE) EDUC SER RENDERED TO PATS IN A GRP SETTING (EG,,OBESITY ,OR DIABETIC INSTRUCT) 03/24 [facility] INFUSION, NORMAL SALINE SOLUTION , 1000 CC 02/12 [facility] POSTOPERATIVE FOLLOW-UP VISIT, NORMALLY INCLUDED IN THE SURGICAL PACKAGE, INDICATE THAT EVALUATION & MANAGEMENT SERVICE WAS PERFORMED DURING A POSTOPERATIVE PERIOD REASON RELATED ORIGINAL PROCEDURE 01/06 [facility] ELECTROCARDIOGRAM, ROUTINE ECG WITH AT LEAST 12 LEADS; TRACING ONLY, WITHOUT INTERPRETATION AND REPORT 12/25 [facility] POSTOPERATIVE FOLLOW-UP VISIT, NORMALLY INCLUDED IN THE SURGICAL PACKAGE, INDICATE THAT EVALUATION & MANAGEMENT SERVICE WAS PERFORMED DURING A POSTOPERATIVE PERIOD REASON RELATED ORIGINAL PROCEDURE 12/23 [facility] UNLISTED SPECIAL SERVICE, PROCEDURE OR REPORT 12/11 [facility] OPHTHALMOLOGICAL SERVICES: MEDICAL EXAMINATION AND EVALUATION, WITH INITIATION OR CONTINUATION OF DIAGNOSTIC AND TREATMENT PROGRAM; COMPREHENSIVE, ESTABLISHED PATIENT, 1 OR MORE VISITS 10/14 [facility] INFUSION, NORMAL SALINE SOLUTION , 1000 CC 10/13 [facility] PRESCRIPTION OF OPTICAL AND PHYSICAL CHARACTERISTICS OF AND FITTING OF CONTACT LENS, WITH MEDICAL SUPERVISION OF ADAPTATION; CORNEAL LENS, BOTH EYES, EXCEPT FOR APHAKIA 09/24 [facility] INFUSION, NORMAL SALINE SOLUTION , 1000 CC 08/29 [facility] INJECTION, KETOROLAC TROMETHAMINE, PER 15 MG 07/31 [facility] OPHTHALMOLOGICAL SERVICES: MEDICAL EXAMINATION AND EVALUATION WITH INITIATION OF DIAGNOSTIC AND TREATMENT PROGRAM; COMPREHENSIVE, NEW PATIENT, 1 OR MORE VISITS 06/24 [facility] ADDITION TO LOWER EXTREMITY ORTHOSIS, KNEE CONTROL, FULL KNEECAP 06/19 DoD KNEE ORTHOSIS (KO), ELASTIC KNEE CAP, PREFABRICATED, INCLUDES FITTING AND ADJUSTMENT 06/18 [facility] PROMETHAZINE HYDROCHLORIDE, 25 MG, ORAL, FDA APPROVED PRESCRIPTION ANTI-EMETIC, FOR USE A COMPLETE THERAPEUTIC SUBSTITUTE FOR AN IV ANTI-EMETIC AT TIME,CHEMO TX,NOT TO EXCEED 48-HR DOSAGE REGIMEN 05/09 [facility] PRESCRIPTION OF OPTICAL AND PHYSICAL CHARACTERISTICS OF AND FITTING OF CONTACT LENS, WITH MEDICAL SUPERVISION OF ADAPTATION; CORNEAL LENS, BOTH EYES, EXCEPT FOR APHAKIA 03/05 [facility] SCREENING PAPANICOLAOU SMEAR; OBTAINING, PREPARING AND CONVEYANCE OF CERVICAL OR VAGINAL SMEAR TO LABORATORY 02/25 [facility] ADDITION TO LOWER EXTREMITY ORTHOSIS, KNEE CONTROL, FULL KNEECAP 07/23 [facility] RADIOLOGIC EXAMINATION, KNEE; COMPLETE, 4 OR MORE VIEWS 07/23 [facility] KNEE ORTHOSIS (KO), ELASTIC KNEE CAP, PREFABRICATED, INCLUDES FITTING AND ADJUSTMENT 06/28 [facility] ANNUAL GYNECOLOGICAL EXAMINATION, ESTABLISHED PATIENT 03/01 [facility] DETERMINATION OF REFRACTIVE STATE 02/01 [facility] THERAPEUTIC PROCEDURE, 1 OR MORE AREAS, EACH 15 MINUTES; THERAPEUTIC EXERCISES TO DEVELOP STRENGTH AND ENDURANCE, RANGE OF MOTION AND FLEXIBILITY 01/08 DoD APPLICATION OF A MODALITY TO 1 OR MORE AREAS; ULTRASOUND, EACH 15 MINUTES 12/29 DoD APPLICATION OF A MODALITY TO 1 OR MORE AREAS; ULTRASOUND, EACH 15 MINUTES 12/28 DoD THERAPEUTIC PROCEDURE, 1 OR MORE AREAS, EACH 15 MINUTES; THERAPEUTIC EXERCISES TO DEVELOP STRENGTH AND ENDURANCE, RANGE OF MOTION AND FLEXIBILITY 12/22 DoD APPLICATION OF A MODALITY TO 1 OR MORE AREAS; ULTRASOUND, EACH 15 MINUTES 12/21 DoD APPLICATION OF A MODALITY TO 1 OR MORE AREAS; ULTRASOUND, EACH 15 MINUTES 12/20 DoD APPLICATION OF A MODALITY TO 1 OR MORE AREAS; ULTRASOUND, EACH 15 MINUTES 12/19 DoD APPLICATION OF A MODALITY TO 1 OR MORE AREAS; ULTRASOUND, EACH 15 MINUTES 12/18 DoD KNEE ORTHOSIS (KO), ELASTIC WITH STAYS, PREFABRICATED, INCLUDES FITTING AND ADJUSTMENT 12/18 [facility] THERAPEUTIC PROCEDURE, 1 OR MORE AREAS, EACH 15 MINUTES; THERAPEUTIC EXERCISES TO DEVELOP STRENGTH AND ENDURANCE, RANGE OF MOTION AND FLEXIBILITY 12/15 [facility] THERAPEUTIC PROCEDURE, 1 OR MORE AREAS, EACH 15 MINUTES; THERAPEUTIC EXERCISES TO DEVELOP STRENGTH AND ENDURANCE, RANGE OF MOTION AND FLEXIBILITY 12/11 [facility] PHARMACOLOGIC MANAGEMENT, INCLUDING PRESCRIPTION, USE, AND REVIEW OF MEDICATION WITH NO MORE THAN MINIMAL MEDICAL PSYCHOTHERAPY 02/02 [facility] ANALYSIS OF CLINICAL DATA STORED IN COMPUTERS (EG, ECGS, BLOOD PRESSURES, HEMATOLOGIC DATA) 12/27 [facility] PHARMACOLOGIC MANAGEMENT, INCLUDING PRESCRIPTION, USE, AND REVIEW OF MEDICATION WITH NO MORE THAN MINIMAL MEDICAL PSYCHOTHERAPY 12/07 [facility] -Supervised Group Educational Services 03/24 RADHA PRIETO [facility] Cerumen Removal Right Ear Irrigation Incomplete 02/24 EDGAR CARDENAS Ophthalmological Prior Patient Start Intermediate Level Care Ophthalmological Prior Patient Start Intermediate Level Care 40665 10/14 TIM RUANO Visual Nguyen Test Limited Examination Visual Nguyen Test Limited Examination 97489 09/24 TIM RUANO Determination Of Refractive State Determination Of Refractive State 84348 09/24 TIM RUANO Ophthalmological New Patient Start Comprehensive Care Ophthalmological New Patient Start Comprehensive Care 29552 09/24 TIM RUANO [facility] Fitting Monofocals (Not For Aphakia) [facility] Fitting Monofocals (Not For Aphakia) 40867 09/24 TIM RUANO Prescription & Fitting Bilateral Corneal Lenses (Not Aphakia Prescription & Fitting Bilateral Corneal Lenses (Not Aphakia 31014 09/24 TIM RUANO IV Infusion For Hydration Each Additional Hour 08/29 PRAFUL DAI Parenteral Fluids IV Infusion For Hydration 08/29 PRAFUL DAI Modalities Cryotherapy Cold Packs Modalities Cryotherapy Cold Packs 30405 06/19 MICHELLE ESTRADA Physical Therapy: ___ Se ion Segments, 15 Minutes Each Physical Therapy: ___ Session Segments, 15 Minutes Each 18123 06/19 MICHELLE ESTRADA [facility] Physical Therapy Neuromuscular Re-education Physical Therapy Neuromuscular Re-education 72051 06/19 MICHELLE ESTRADA [facility] Modalities Cryotherapy Cold Packs Modalities Cryotherapy Cold Packs 17247 06/18 ESTRADA MICHELLE [facility] Physical Therapy: ___ Se ion Segments, 15 Minutes Each Physical Therapy: ___ Session Segments, 15 Minutes Each 03962 06/18 ESTRADAMICHELLE BADILLO [facility] Physical Therapy Neuromuscular Re-education Physical Therapy Neuromuscular Re-education 67843 06/18 MICHELLE ESTRADA [facility] Physical Medicine Physical Therapy Evaluation Physical Medicine Physical Therapy Evaluation 24981 06/11 ARMIDA BRIGGS [facility] Physical Medicine Physical Therapy Evaluation Physical Medicine Physical Therapy Evaluation 57732 05/19 ARMIDA BRIGGS [facility] Supervised Injection Intramuscular Supervised Injection Intramuscular 72099 05/12 OLGA GILL 60mg Toradol IM x1 [facility] Alcohol wipes, per box 02/17 ADIA THOMAS [facility] Syringe with needle, sterile 3 cc, each 02/[address] Supervised Injection Intramuscular Supervised Injection Intramuscular 67384 02/17 ADIA THOMAS [facility] Physical Medicine Physical Therapy Re-Evaluation Physical Medicine Physical Therapy Re-Evaluation 27813 02/02 ALEXANDER SILVA [facility] Osteopathic Manip Treatment (OMT) 3-4 Body Regions Involved Osteopathic Manip Treatment (OMT) 3-4 Body Regions Involved 30994 01/28 DEREK LIRIANO [facility] Modalities Cryotherapy Cold Packs Modalities Cryotherapy Cold Packs 98397 12/17 MICHELLE ESTRADA [facility] Modalities Electrical Stimulation Modalities Electrical Stimulation 81353 12/17 MICHELLE ESTRADA [facility] Physical Therapy: ___ Se ion Segments, 15 Minutes Each Physical Therapy: ___ Session Segments, 15 Minutes Each 88182 12/17 MICHELLE ESTRADA [facility] Physical Therapy Neuromuscular Re-education Physical Therapy Neuromuscular Re-education 88122 12/17 MICHELLE ESTRADA [facility] Modalities Cryotherapy Cold Packs Modalities Cryotherapy Cold Packs 23928 12/10 ESTRADAMICHELLE BADILLO [facility] Modalities Electrical Stimulation Modalities Electrical Stimulation 05642 12/10 ESTRADA MICHELLE [facility] Physical Therapy: ___ Se ion Segments, 15 Minutes Each Physical Therapy: ___ Session Segments, 15 Minutes Each 31660 [facility] Neuromuscular Re-education Physical Therapy Neuromuscular Re-education 89362 12/[facility] Alcohol wipes, per box 12/08 , [facility] Syringe with needle, sterile 3 cc, each 12/08 , [facility] Supervised Injection Intramuscular Supervised Injection Intramuscular 40080 12/08 , [facility] Physical Medicine Physical Therapy Re-Evaluation Physical Medicine Physical Therapy Re-Evaluation 20387 12/08 ALEXANDER SILVA [facility] Modalities Cryotherapy Cold Packs Modalities Cryotherapy Cold Packs 01352 12/05 [facility] Mod[facility] Electrical Stimulation Modalities Electrical Stimulation 11930 12/[facility] Therapy: ___ Se ion Segments, 15 Minutes Each Physical Therapy: ___ Session Segments, 15 Minutes Each 77574 12/05 [facility] Neuromuscular Re-education Physical Therapy Neuromuscular Re-education 95168 12/05 [facility] Modalities Cryotherapy Cold Packs Modalities Cryotherapy Cold Packs 44046 11/28 ESTRADA [facility] Modalities Electrical Stimulation Modalities Electrical Stimulation 35027 11/28 [facility] Neuromuscular Re-education Physical Therapy Neuromuscular Re-education 26843 11/28 ESTRADA, [facility] Physical Therapy: ___ Se ion Segments, 15 Minutes Each Physical Therapy: ___ Session Segments, 15 Minutes Each 59795 11/28 [facility]ADAREGIS [facility] Modalities Cryotherapy Cold Packs Modalities Cryotherapy Cold Packs 36935 11/26 ESTRADA, [facility] Modalities Electrical Stimulation Modalities Electrical Stimulation 70888 11/26 [facility]ADAREGIS [facility] Physical Therapy: ___ Se ion Segments, 15 Minutes Each Physical Therapy: ___ Session Segments, 15 Minutes Each 76773 11/26 [facility]AREGIS [facility] Therapy Neuromuscular Re-education Physical Therapy Neuromuscular Re-education 93176 11/26 MICHELLE ESTRADA [facility] Physical Medicine Physical Therapy Evaluation Physical Medicine Physical Therapy Evaluation 05264 11/13 ALEXANDER SILVA [facility] Physical Medicine Physical Therapy Evaluation Physical Medicine Physical Therapy Evaluation 33377 11/06 ALEXANDER SILVA patient able to control pain with activities 1-2 weeks [facility] Injection, ketorolac tromethamine, per 15 mg 10/[address] Supervised Injection Intramuscular Supervised Injection Intramuscular 53622 10/30 GREGG NYE Alcohol wipes, per box 10/[address] Supervised Injection Supervised Injection 97551 10/18 ADIA THOMAS [facility] Group (2 or More Individual(s)) Medical Nutrition Therapy Group (2 or More Individual(s)) 53980 08/16 SANDRA OLVERA time: [phone] [facility] Screening papanicolaou smear; obtaining, preparing and conveyance of cervical or vaginal smear to laboratory 05/24 MANDI ROMERO [facility] Medical Nutrition Therapy Group (2 or More Individual(s)) Medical Nutrition Therapy Group (2 or More Individual(s)) 23456 05/16 ANKUR KAHN Screening Test Of Visual Acuity, Quantitative, Bilateral Screening Test Of Visual Acuity, Quantitative, Bilateral 22168 05/11 GABRIELLA BULLOCK [facility] Medical Nutrition Therapy Group (2 or More Individual(s)) Medical Nutrition Therapy Group (2 or More Individual(s)) 70984 05/09 ANKUR KAHN Prescription & Fitting Bilateral Corneal Lenses (Not Aphakia Prescription & Fitting Bilateral Corneal Lenses (Not Aphakia 06920 09/19 MARILYN BRAGA Determination Of Refractive State Determination Of Refractive State 77242 09/18 MARILYN BRAGA Ophthalmological Prior Patient Start Comprehensive Care Ophthalmological Prior Patient Start Comprehensive Care 09817 09/18 MARILYN BRAGA [facility] Fitting Monofocals (Not For Aphakia) [facility] Fitting Monofocals (Not For Aphakia) 84406 09/18 JÚNIOR TOLLIVER [facility] Health And Behav A e mt Each 15 Min Initial A e ment Health And Behav Assessmt Each 15 Min Initial Assessment 96600 07/25 FAVIAN ANDERSON Lv [facility] Screening Test Of Visual Acuity, Quantitative, Bilateral Screening Test Of Visual Acuity, Quantitative, Bilateral 81645 07/10 ANNALEE RGUBBS [facility] Section Section 63532 10/08 TAD MENENDEZ [facility] Breast Surgery Lumpectomy 10/08 TAD MENENDEZ right [facility] Oral Surgery Tooth Extraction Oral Surgery Tooth Extraction 05428 10/08 TAD MENENDEZ wisdom teeth [facility] Psychiatric Therapy Individual Approximately 45-50 Minutes 02/28 JOE SUAREZ [facility] Psychiat Ther Indiv Interactive Approximately 45-50 Minutes 02/12 DANIELA JOE F [facility] Psychiat Ther Indiv Interactive Approximately 45-50 Minutes 01/28 DANIELA JOE F [facility] Psychiat Ther Indiv Interactive Approximately 45-50 Minutes 01/09 JOE SUAREZ [facility] Psychiatric Therapy Individual Approximately 45-50 Minutes 01/02 JOE SUAREZ [facility] Injection, ketorolac tromethamine, per 15 mg 09/18 GRETCHEN SHELBY Torodal 60 mg IM x 1 to be given in clinic Patient Identified by name and BD. Patient denies allergy to tordol. Patient given 60 mg tordol IM in LUOQ buttocks without complication. Patient tolerated injection well. patient instructed on adverse reaction to medication and verbalized understanding. Patient to wait 15 min post injection. [facility] Physical Therapy Education Orthotics Training 01/23 KATLIN MEDINA [facility] Lower extremity orthoses, not otherwise specified 01/23 KATLIN MEDINA [facility] Determination Of Refractive State Determination Of Refractive State 33738 12/17 TESSA MELO [facility] Ophthalmological Prior Patient Start Comprehensive Care Ophthalmological Prior Patient Start Comprehensive Care 35521 12/17 TESSA MELO [facility] Vaginal MAGNOLIA Prep Vaginal MAGNOLIA Prep 76688 11/30 ROSIE MORALES Vaginal Wet [place] Vaginal [place] 51731 11/30 ROSIE MORALES [facility] Psychiatric Evaluation Review of Records and Reports Psychiatric Evaluation Review of Records and Reports 56897 09/12 PAO GEE [facility] Postoperative Visit, Without Charge Postoperative Visit, Without Charge 13789 06/15 LORAINE KILLIAN [facility] Patient Counseling Medical Management Individual Patient Patient Counseling Medical Management Individual Patient 39807 05/22 MICHELLE NELLIE Liya [facility] Physical Medicine Physical Therapy Re-Evaluation Physical Medicine Physical Therapy Re-Evaluation 80430 05/01 JANES PAVON [facility] Physical Therapy Neuromuscular Re-education Physical Therapy Neuromuscular Re-education 08948 04/24 BANDAR BAR Tx 15 min [facility] Physical Therapy Neuromuscular Re-education Physical Therapy Neuromuscular Re-education 96928 04/19 BANDAR BAR Tx 15 min [facility] Physical Therapy Neuromuscular Re-education Physical Therapy Neuromuscular Re-education 96401 04/13 BHARAT AGUILAR [place] time 15 minutes [facility] Physical Therapy Neuromuscular Re-education Physical Therapy Neuromuscular Re-education 51338 04/10 CALI OROZCO [facility] Physical Therapy: ___ Se ion Segments, 15 Minutes Each Physical Therapy: ___ Session Segments, 15 Minutes Each 14338 04/09 JANES PAVON Physical Medicine Physical Therapy Evaluation Physical Medicine Physical Therapy Evaluation 71426 04/09 JANES PAVON Postoperative Visit, Without Charge Postoperative Visit, Without Charge 46815 03/14 TESSA MELO Postoperative Visit, Without Charge Postoperative Visit, Without Charge 78696 02/12 TESSA MELO Hyaluronan or derivative, Synvisc or Synvisc-One, for intra-articular injection, 1 mg 02/08 GREY NOONAN Arthrocentesis Injection Of Knee Joint Arthrocentesis Injection Of Knee Joint 02/08 GREY NOONAN Hyaluronan or derivative, Synvisc or Synvisc-One, for intra-articular injection, 1 mg 02/02 GREY NOONAN Arthrocentesis Injection Of Knee Joint Arthrocentesis Injection Of Knee Joint 02/02 SARANGREY LOUISE Hyaluronan or derivative, Synvisc or Synvisc-One, for intra-articular injection, 1 mg 01/26 BAKARI LYNN [facility] Arthrocentesis Injection Of Knee Joint Arthrocentesis Injection Of Knee Joint 01/26 BAKARI LYNN [facility] Postoperative Visit, Without Charge Postoperative Visit, Without Charge 77437 01/16 TESSA MELO Injection, triamcinolone acetonide, not otherwise specified, 10 mg 01/03 YASMEEN RAMOS Arthrocentesis Injection Of Knee Joint Arthrocentesis Injection Of Knee Joint 01/03 YASMEEN RAMOS Procedure Note: After discussing risks and benefits of a corticosteroid injection, the patient gave verbal consent to proceed with injection. Risks include, but are not limited to, infection, skin color changes/fat atrophy, further damage to tissue, non-improvement of symptoms, allergic reaction, hyperglycemia. The injection site was marked then prepped with Betadine swabs x 3. In a sterile fashion, 4cc of lidocaine without epinephrine, 4cc 0.5% Marcaine, and 2cc of Kenalog 40 and was injected into the knees without difficulty. The site was then cleaned with alcohol and gauze. Hemostasis was achieved with direct pressure and a sterile 4x4. A band-aid was applied. The patient tolerated the procedure well. Post-injection precautions were given. [facility] Physical Therapy Education Orthotics Training 01/01 KATLIN MEDINA Lower extremity orthoses, not otherwise specified 01/01 KATLIN MEDINA Postoperative Visit, Without Charge Postoperative Visit, Without Charge 43257 12/19 TESSA MELO Postoperative Visit, Without Charge Postoperative Visit, Without Charge 14712 12/14 JANES NG Laser in situ keratomileusis (LASIK) 12/13 JANES NG Ophthalmological Prior Patient Start Comprehensive Care Ophthalmological Prior Patient Start Comprehensive Care 17222 12/[address]Supervised Group Educational Services 12/12 DMITRIY FULLER Computerized Corneal Topography Computerized Corneal Topography 12517 12/08 TESSA MELO External Ocular Photography External Ocular Photography 94582 12/08 TESSA MELO Scanning Computerized Ophthalmic Diagnostic Imaging Anterior Segment, Unilateral Scanning Computerized Ophthalmic Diagnostic Imaging Anterior Segment, Unilateral 83637 12/08 TESSA MELO Corneal Pachymetry Corneal Pachymetry 10013 12/08 TESSA MELO Ophthalmological New Patient Start Comprehensive Care Ophthalmological New Patient Start Comprehensive Care 59078 12/08 TESSA MELO Determination Of Refractive State Determination Of Refractive State 79967 12/08 TESSA MELO Screening papanicolaou smear; obtaining, preparing and conveyance of cervical or vaginal smear to laboratory 10/04 JOHN KHAN Polys W/ Four Or More Addit Sleep Yung Init CPAP/Bilev Vent 10/03 EMMA WALTON Cerumen Removal Right Ear Irrigation 09/30 FAIVAN ROJAS Spec DrRanjith Serv Collect/Interp Of Physiol Data, Minim 30 Min 07/26 TRACY CASTILLO Physical Therapy Education Orthotics Training 07/26 KATLIN MEDINA Ankle orthosis, ankle gauntlet or similar, with or without joints, prefabricated, [id number] 07/26 KATLIN MEDINA Foot, arch support, removable, premolded, longitudinal, each 07/26 KATLIN MEDINA Phys Therapy Education Self Care Training - Per 15 Minutes Phys Therapy Education Self Care Training - Per 15 Minutes 26635 07/26 JANES PAVON 8 min [facility] Physical Medicine Physical Therapy Evaluation Physical Medicine Physical Therapy Evaluation 39139 07/26 JANES PAVON Physical Therapy: ___ Se ion Segments, 15 Minutes Each Physical Therapy: ___ Session Segments, 15 Minutes Each 24446 07/26 JANES PAVON Polysomnography With Four Or More Additional Sleep Parameter 07/11 EMMA WALTON Physical Therapy Education Orthotics Training 07/07 KATLIN MEDINA Walking boot, non-pneumatic, with or without joints, with or without interface material, prefabricated, includes fitting and adjustment 07/[address].-Supervised Group Educational Services 06/13 SKYLA VELAZCO Pt. is 1 of 7 patients for Group Sleep Class: The patient was seen during group sleep appointment today. Their sleep questionnaire was reviewed and they have a moderate to high probability of having obstructive sleep apnea. A sleep study has been ordered for further evaluation. High likelihood of obstructive sleep apnea based on history obtained via questionnaire review. --Sleep lab briefing provided --INSTRUCTIONS GIVEN: RISKS OF; DO NOT OPERATE A VEHICLE, MACHINERY OR WEAPONS WHILE FEELING FATIGUE OR SLEEPY. --Sleep hygiene techniques taught/reviewed and teaching sheet provided. --Diagnostic PSG (split-night if indicated) to evaluate for sleep disordered breathing --f/u after sleep study [facility] Spectacles Services Fitting Monofocals (Not For Aphakia) [facility] Fitting Monofocals (Not For Aphakia) 10163 06/06 YG ALTAMIRANO [facility] Prescription & Fitting Bilateral Corneal Lenses (Not Aphakia Prescription & Fitting Bilateral Corneal Lenses (Not Aphakia 40462 06/06 YG ALTAMIRANO [facility] Ophthalmological Prior Patient Start Comprehensive Care Ophthalmological Prior Patient Start Comprehensive Care 97084 06/06 YG ALTAMIRANO Determination Of Refractive State Determination Of Refractive State 34660 06/06 YG ALTAMIRANO [facility] Physical Medicine Physical Therapy Re-Evaluation Physical Medicine Physical Therapy Re-Evaluation 72740 03/21 SPIKE LAL [facility] Physical Medicine Physical Therapy Re-Evaluation Physical Medicine Physical Therapy Re-Evaluation 99355 02/10 SPIKE LAL [facility] Physical Therapy Neuromuscular Re-education Physical Therapy Neuromuscular Re-education 18379 01/27 CALI OROZCO Physical Therapy: ___ Se ion Segments, 15 Minutes Each Physical Therapy: ___ Session Segments, 15 Minutes Each [id number] 01/27 CALI OROZCO Physical Therapy: ___ Se ion Segments, 15 Minutes Each Physical Therapy: ___ Session Segments, 15 Minutes Each [id number] 01/25 CALI OROZCO Physical Therapy Neuromuscular Re-education Physical Therapy Neuromuscular Re-education 47541 01/25 CALI OROZCO [facility] Physical Therapy Neuromuscular Re-education Physical Therapy Neuromuscular Re-education 28596 01/18 BHARAT AGUILAR Service time of 30 minutes [facility] Modalities Cryotherapy Cold Packs Modalities Cryotherapy Cold Packs 91824 01/18 BHARAT AGUILAR Service time of 15 minutes [facility] Physical Therapy Mobilization Joint Physical Therapy Mobilization Joint 15855 01/18 BHARAT AGUILAR Service time of 15 minutes [facility] Physical Medicine Physical Therapy Evaluation Physical Medicine Physical Therapy Evaluation 43171 01/05 SPIKE LAL [facility] Cerumen Removal Right Ear Curette 12/30 PARISA VINNY Patient had given oral consent to have the cerumen removed using a curette. 98% of the cerumen was removed using a curette by myself. Patient tolerated the procedure well. [facility] Screening papanicolaou smear; obtaining, preparing and conveyance of cervical or vaginal smear to laboratory 12/21 JOHN KHAN Psychometric Neuropsych Testing Battery Admin By Computer Psychometric Neuropsych Testing Battery Admin By Computer [id number] 02/03 KAREN GONZALEZ [facility] Screening papanicolaou smear; obtaining, preparing and conveyance of cervical or vaginal smear to laboratory 01/22 JOHN KHAN [facility] Fitting Monofocals (Not For Aphakia) [facility] Fitting Monofocals (Not For Aphakia) 05837 11/18 JEFFERY MISTRY Prescription & Fitting Bilateral Corneal Lenses (Not Aphakia Prescription & Fitting Bilateral Corneal Lenses (Not Aphakia 31171 11/18 JEFFERY MISTRY Determination Of Refractive State Determination Of Refractive State 05890 11/18 JEFFERY MISTRY Ophthalmological Prior Patient Start Comprehensive Care Ophthalmological Prior Patient Start Comprehensive Care 25627 11/18 JEFFERY MISTRY Coordinated care fee, maintenance rate 09/23 MARCELINO TORO Coordinated care fee, maintenance rate 07/24 MARCELINO TORO Case Management, each 15 minutes 07/[address] Supervised Injection Intramuscular Supervised Injection Intramuscular 41321 06/24 TALIA CHAUDHARI toradol 60 mg im DoD Coordinated care fee, maintenance rate 06/22 MARCELINO TORO Case Management, each 15 minutes 06/19 MARCELINO TORO Case Management, each 15 minutes 05/26 MARCELINO TORO Coordinated care fee, maintenance rate 05/22 MARCELINO TORO Case Management, each 15 minutes 05/22 MARCELINO TORO Vaginal Wet [place] Vaginal Wet [place] 15314 05/12 BHARATI KAMINSKI Vaginal MAGNOLIA Prep Vaginal MAGNOLIA Prep 30015 05/12 BHARATI KAMINSKI [facility] Screening papanicolaou smear; obtaining, preparing and conveyance of cervical or vaginal smear to laboratory 05/12 BHARATI KAMINSKI [facility] Cervical Culture Nei eria gonorrhoeae Cervical Culture Neisseria gonorrhoeae 14434 05/12 BHARATI KAMINSKI [facility] Cervical Culture Chlamydia trachomatis Cervical Culture Chlamydia trachomatis 63136 05/12 BHARATI KAMINSKI [facility] Physical Therapy Education Orthotics Training 03/25 ASHOK LITTLE [facility] KO, elastic or other elastic type material with condylar pad(s), prefabricated, includes fitting and adjustment 03/25 ASHOK LITTLE Social History Combined list of available smoking, tobacco, and other social history 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 Social History Type Response Date Comment Sourc e Tobacco smoking status NYIS VA-TOBACCO USE FORMER CIGARETTES 10/21/2024 [facility] History of tobacco use VA-TOBACCO NEVER USED OTHER TYPE 10/21/2024 [facility] History of tobacco use TOBACCO [place] NON USER [facility] History of tobacco use VA-TOBACCO FORMER USER 09/19/2023 [facility] History of tobacco use VA-TOBACCO FORMER USER 05/23/2022 [facility] History of tobacco use VA-TOBACCO QUIT 1 TO < 5 YRS 05/26/2021 UMESH [facility] History of tobacco use PREVIOUS SMOKER 09/23/2020 GEOVANNA [facility] History of tobacco use VA-TOBACCO NEVER USED 05/17/2018 [facility] History of tobacco use VA-TOBACCO FORMER USER 05/02/2018 [facility] History of tobacco use QUIT TOBACCO >12 MO and <7 YRS AGO 06/20/2017 [facility] History of tobacco use QUIT TOBACCO >12 MO and <7 YRS AGO 06/13/2016 [facility] History of tobacco use QUIT TOBACCO >12 MO and <7 YRS AGO 08/10/2015 [facility] History of tobacco use QUIT TOBACCO IN T HE LAST 12 MONTHS 10/08/2014 [facility] This section is an empty social history section. DoD Plan of Care List of future care activities from Department of Veterans Affairs facilities. Additional future care activities may be listed in the Assessment and Plan section. Date/Time Care Activity Care Activity Detail Facili ty 03/13/2025 AMBULATORY - NONE AMBULATORY - NONE [facility]
--- NOTE | 2025-03-13 16:23 | MM_ITS ---
Patient Name: LAURA PERAZA MR#: [id number] : 1980 Exam Date: 03/13/2025 Ordering Doctor: MRS. JB CARSON NP RADIOLOGY REPORT PROCEDURE: MM TOMOSYNTHESIS SCREENING BI COMPARISON: MM TOMOSYNTHESIS SCREENING BI, 03/12/2024. MG MAMM SCREEN 3D ANNEL CAD, 11/23/2021. MG MAMM SCREEN ANNEL W CAD, 06/23/2020. INDICATIONS: Screening for malignant neoplasm Calculator Name NCI Breast Cancer Risk Assessment Tool 5 Year Breast Cancer Risk 1.40% Lifetime Breast Cancer Risk 12.70% Personal Breast Cancer No Personal Ovarian Cancer No Treatments None Family Cancers Grandmother-paternal with lung cancer at age ~65; Grandfather-paternal with colon cancer at age ~65. LOCATION: [facility] BREAST COMPOSITION: There are scattered areas of fibroglandular density. FINDINGS: DIAGNOSTIC CATEGORY 1--NEGATIVE. RIGHT BREAST: No significant suspicious finding. LEFT BREAST: No significant suspicious finding. RECOMMENDATIONS: ROUTINE MAMMOGRAM AND CLINICAL EVALUATION IN 12 MONTHS. PLEASE NOTE: A NORMAL MAMMOGRAM DOES NOT EXCLUDE THE POSSIBILITY OF BREAST CANCER. A CLINICALLY SUSPICIOUS PALPABLE LUMP SHOULD BE BIOPSIED. Dictated by: Jose George DO on 03/13/2025 at 16:54 Approved by: Jose George DO on 03/13/2025 at 16:55
--- OUTSIDE RECORDS SUMMARY | 2025-03-13 16:24 | XMS_ITS | Clinical Summary ---
Author Organization [facility] tem Address [id number] [address] [place] [address] Care Team Providers Care Auxiliary Engineer Name Role Phone Daisha Magana SKIP LOCATOR-THERMO PROCESSOR Primary Care Provider Allergies Active Allergy Reactions Criticality Noted Date Comments Meloxicam 02/17/2020 Medications No known medications Social History Tobacco Use Types Packs/Day Years Used Date Smoking Tobacco: Never Smokeless Tobacco: Never Childcare Answer Date Recorded Childcare Unknown 01/30/2019 Employment Answer Date Recorded Employment Unknown 01/30/2019 Purpose - Life Answer Date Recorded Purpose and direction in life Unknown Comments No Sex and Gender Information Value Date Recorded Sex Assigned at Not on file Legal Sex Female 11:49 AM EDT Gender Identity Not on file Sexual Orientation Not on file Last Filed Vital Signs Vital Sign Reading Time Taken Comments Blood Pressure 105/75 02/17/2020 11:33 PM EDT Pulse 62 02/17/2020 11:50 PM EDT Temperature 37 C (98.6 F) 02/17/2020 9:19 PM EDT Respiratory Rate 13 02/17/2020 11:50 PM EDT Oxygen Saturation 100% 02/17/2020 11:50 PM EDT Inhaled Oxygen Concentration - - Weight 95.3 kg (210 lb) 05/04/2021 7:00 AM EDT Height 175.3 cm (5' 9 ) 02/17/2020 9:19 PM EDT Body Mass Index 31.01 02/17/2020 9:19 PM EDT Plan of Treatment Health Maintenance Due Date Last Done Comments Depression Screening 1991 Tobacco Screening 1991 Adult BMI Screening 12/04/1997 DTaP,Tdap and Td Vaccines (1 - Tdap) 12/04/1998 Pap Smear 12/04/2000 Influenza Vaccine 04/21/2025 Medical Devices Not on file Insurance [employer] Care Teams Auxiliary Engineer Relationship Specialty Start Date End Date Daisha Magana, SKIP LOCATOR-THERMO PROCESSOR [address] [place] [id number] PCP - General Nurse Practitioner 05/04/21
--- OUTSIDE RECORDS SUMMARY | 2025-03-13 16:24 | XMS_ITS | Clinical Summary ---
Author Organization [facility] Address [address], [address] [place] [address] Care Team Providers Care [employer] Science Teacher Name Role Phone Meredith Vaz MD Primary Care Pr ovider Allergies Active Allergy Reactions Criticality Noted Date Comments Meloxicam Hives 05/31/2017 Medications etodolac (LODINE) 300 MG capsule Take 1 capsule by mouth every 8 hours 15 capsule 05/31/2017 Active Social History Tobacco Use Types Packs/Day Years Used Date Smoking Tobacco: Never Smokeless Tobacco: Never Comments Unknown Sex and Gender Information Value Date Recorded Sex Assigned at Not on file Legal Sex Female 11:43 AM EDT Gender Identity Not on file Sexual Orientation Not on file Last Filed Vital Signs Vital Sign Reading Time Taken Comments Blood Pressure 121/76 05/31/2017 11:52 AM EDT Pulse 64 05/31/2017 11:52 AM EDT Temperature 36.7 C (98.1 F) 05/31/2017 11:52 AM EDT Respiratory Rate 13 05/31/2017 11:52 AM EDT Oxygen Saturation 96% 05/31/2017 11:52 AM EDT Inhaled Oxygen Concentration - - Weight 104.3 kg (230 lb) 05/31/2017 11:52 AM EDT Height 175.3 cm (5' 9 ) 05/31/2017 11:52 AM EDT Body Mass Index 33.97 05/31/2017 11:52 AM EDT Plan of Treatment Not on file Care Teams High [employer] Science Teacher Relationship Specialty Start Date End Date Meredith Vaz MD PCP - General Family Medicine 05/31/17
--- OUTSIDE RECORDS SUMMARY | 2025-03-13 16:25 | XMS_ITS | Clinical Summary ---
Author Organization [facility] Address [address] [place] [address] Care Team Providers Care Tax Auditor Name Role Phone Meredith Marmolejo MD Primary Care Provider [phone] Allergies Active Allergy Reactions Criticality Noted Date Comments Meloxicam Hives,Rash Low 10/08/2014 Medications No known medications Social History Tobacco Use Types Packs/Day Years Used Date Smoking Tobacco: Never Smokeless Tobacco: Never Tobacco Cessation:Counseling Given: Not Answered Alcohol Use Standard Drinks/Week Comments Not Currently 0 (1 standard drink = 0.6 oz pur e alcohol) Comments Unknown Sex and Gender Information Value Date Recorded Sex Assigned at Not on file Legal Sex Female 7:25 PM EDT Gender Identity Not on file Sexual Orientation Not on file Last Filed Vital Signs Vital Sign Reading Time Taken Comments Blood Pressure 112/70 06/05/2023 5:36 PM EDT Pulse 83 06/05/2023 5:36 PM EDT Temperature 36.6 C (97.8 F) 06/05/2023 5:36 PM EDT Respiratory Rate - - Oxygen Saturation 98% 06/05/2023 5:36 PM EDT Inhaled Oxygen Concentration - - Weight 111 kg (245 lb) 06/05/2023 5:36 PM EDT Height 175.3 cm (5' 9 ) 11/10/2022 12:00 PM EDT Body Mass Index 36.18 11/10/2022 12:00 PM EDT Plan of Treatment Health Maintenance Due Date Last Done Comments CT Colonography 1979 Colonoscopy 1979 Colorectal Cancer Screening 1979 FIT-DNA 1979 FIT 1979 FOBT 1980 Sigmoidoscopy 1979 Pap Smear 12/04/2000 Cervical Cancer Screening 12/04/2009 HPV/Cotest 12/04/2009 Mammogram 2019 Influenza Vaccine (#1) 2025 3, 04/26/2012, 04/21/2011, Additional history exists Insurance [facility] Care Teams Tax Auditor Relationship Specialty Start Date End Date Meredith Marmolejo MD [address] [place] [address] PCP - General Family Medicine 12/27/22
== END 2025-03-13 16:21 | disposition home or self-care (01) ==
DX: Z12.31 Encounter for screening mammogram for malignant neoplasm of breast (principal); Z80.1 Family history of malignant neoplasm of trachea, bronchus and lung; Z80.0 Family history of malignant neoplasm of digestive organs
CPT/HCPCS: 77063; 77067